=== PATIENT | female | born 1985 | race Caucasian/White ===

== ENCOUNTER 2024-02-17 11:27 | Outpatient (REF) | payer MEDICAID, SELFPAY ==
[2024-02-17 14:00] LABS: Alanine Aminotransferase 48 U/L (0-31); Alkaline Phosphatase 73 U/L (39-117); Anion Gap 10 (12-20); Aspartate Amino Transferase 25 U/L (5-31); Bilirubin Total 0.7 mg/dL (0.0-1.0); Blood Urea Nitrogen 9 mg/dL (9-16); Calcium 8.9 mg/dL (8.4-10.2); Carbon Dioxide 25 mmol/L (22-29); Chloride 105 mmol/L (96-108); Cholesterol 151 mg/dL (<200); Estimated Glomerular Filt Rate > 60; Gamma Glutamyl Transpeptidase 34 U/L (7-33); Glucose Random 90 mg/dL (60-115); HDL Cholesterol 49 mg/dL (>40); LDL Cholesterol Calculated 78 mg/dL (<100); Potassium 3.8 mmol/L (3.3-5.1); Sodium 136 mmol/L (135-145); TSH reflex Free T4 1.58 uIU/mL (0.32-4.0); Total Protein 7.5 g/dL (6.5-8.0); Triglycerides 120 mg/dL (<150); Vitamin D 25-OH Total 35.5 ng/mL (>30)
[2024-02-17 14:25] LABS: Reflex LDLD? No
[2024-02-18 08:43] LABS: HBS Num1 226.35 mIU/mL (0-7.99); HBc Num1 0.17 S/CO (0.00-0.79); Hepatitis A Antibody IgM 0.15 Index (0-0.79); Hepatitis B Core Antibody Nonreactive (Nonreactive); Hepatitis B Surface Antigen Negative (Negative); ~HepC Num1 0.18 S/CO (0.00-0.79); ~Hepatitis A Antibody IgM Nonreactive (Nonreactive); ~Hepatitis B Surface Antibody REACTIVE (Nonreactive); ~Hepatitis C Antibody Nonreactive (Nonreactive)
== END 2024-02-17 11:28 | disposition home or self-care (01) ==
LOC: HO.HHCL 11:27
PROVIDERS: Visit Provider Internal Medicine
DX: K76.0 Fatty (change of) liver, not elsewhere classified (principal); Z78.9 Other specified health status; F41.9 Anxiety disorder, unspecified
CPT/HCPCS: 36415; 80053; 80061; 82306; 82977; 84443; 86704; 86706; 86709; 86803; 87340

== ENCOUNTER 2024-03-07 10:18 | Outpatient (REF) | payer MEDICAID, SELFPAY ==
--- NOTE | ~2024-03-07 | MM_ITS ---
EXAMINATION: MM SCREENING DIGITAL BREAST TOMOSYNTHESIS, BILATERAL CLINICAL INFORMATION: Screening. Asymptomatic. COMPARISON: Mammography: Comparison is made with available priors TECHNIQUE: Digital breast mammography with tomosynthesis is performed in both the craniocaudal and mediolateral oblique views along with computer-aided detection (CAD). FINDINGS: There are scattered areas of fibroglandular density (ACR BI-RADS breast composition Category b). Left: There are no significant masses, abnormal calcifications, or other abnormalities. Right: Asymmetry superior breast posterior depth on the MLO view. No suspicious calcifications or other abnormal findings. MM/MM tomosynthesis screening BI IMPRESSION: Additional imaging is recommended ASSESSMENT: BI-RADS BI-RADS 0 - Incomplete: Needs additional Imaging. RECOMMENDATION: 1. Additional views of the right breast 2. Targeted ultrasound if warranted after review of the additional views. 3. Radiology department staff will contact the patient for additional imaging. Additional Imaging required This examination should not preclude the clinical evaluation of a suspicious palpable abnormality. This patient's information was entered into a reminder system with a target due date for their next mammogram. Electronically signed by: Danitza Ch DO 03/27/2024 09:35 AM EST
== END 2024-03-07 10:19 | disposition home or self-care (01) ==
LOC: HO.MAMMO 10:18
PROVIDERS: PCP Internal Medicine; Visit Provider Internal Medicine
DX: Z12.31 Encounter for screening mammogram for malignant neoplasm of breast (principal)
CPT/HCPCS: 77063; 77067

== ENCOUNTER → 2024-03-07 10:30 | Outpatient (BNV) | payer MEDICAID, SELFPAY | PROVIDERS: PCP Internal Medicine; Visit Provider Internal Medicine | DX: Z12.31 Encounter for screening mammogram for malignant neoplasm of breast (principal) | CPT/HCPCS: 77063; 77067 ==

== ENCOUNTER 2024-05-14 09:22 | Outpatient (REF) | payer MEDICAID, SELFPAY ==
--- NOTE | ~2024-05-14 | MM_ITS ---
EXAMINATION: MM DIAGNOSTIC DIGITAL BREAST TOMOSYNTHESIS, RIGHT Limited right breast ultrasound. CLINICAL INFORMATION: Call back from screening for asymmetry in the superior posterior right breast on MLO view. COMPARISON: Mammography: Comparison is made with screening March 07, 2024. No other prior examinations are available for comparison. TECHNIQUE: Digital breast tomosynthesis is performed in both the craniocaudal and mediolateral oblique views along with computer-aided detection (CAD). Synthesized 2D images are generated from the tomosynthesis. Limited right breast ultrasound. FINDINGS: There are scattered areas of fibroglandular density (ACR BI-RADS breast composition Category b). Except millimeter oval asymmetry in the superior posterior right breast on MLO view persists on additional imaging projections. No suspicious calcifications or other abnormal findings. Targeted color Doppler ultrasound scanning in the retroareolar region and superior breast from 10-2 o'clock demonstrates normal fibronodular breast tissue. There is no sonographic correlate for the asymmetry seen on MLO view. MM/MM tomosynthesis added views R IMPRESSION: Asymmetry superior breast posterior depth on MLO view without sonographic correlate. Recommend 6 month follow-up for further evaluation of stability. ASSESSMENT: BI-RADS BI-RADS 3 - Probably benign finding(s) - 6 month follow-up suggested RECOMMENDATION: 6 Month F/U Results were provided to the patient at time of visit by the technologist. This patient's information was entered into a reminder system with a target due date for their next mammogram. Electronically signed by: Danitza Ch DO 05/14/2024 10:27 AM MALINI
== END 2024-05-14 09:23 | disposition home or self-care (01) ==
LOC: HO.MAMMO 09:22
PROVIDERS: PCP Internal Medicine; Visit Provider Internal Medicine
DX: N64.89 Other specified disorders of breast (principal)
CPT/HCPCS: 76642; 77061; 77065

== ENCOUNTER → 2024-05-14 09:45 | Outpatient (BNV) | payer MEDICAID, SELFPAY | PROVIDERS: PCP Internal Medicine; Visit Provider Internal Medicine | DX: R92.321 Mammographic fibroglandular density, right breast (principal) | CPT/HCPCS: 76642; 77061; 77065 ==

== ENCOUNTER 2024-07-03 09:44 | Outpatient (REF) | payer MEDICAID, SELFPAY ==
--- NOTE | ~2024-07-03 | US_ITS ---
CLINICAL HISTORY: fatty liver ETOH use US abdomen complete Comparison: None Findings: The visualized pancreas is normal. The aorta and inferior vena cava are normal caliber. The appearance of the liver suggests fatty infiltration without focal lesion. There is no intrahepatic bile duct dilatation. The common duct is 3.0 mm in diameter. There are no abnormal findings in the gallbladder fossa. There is no sonographic Greenberg sign. The main portal vein is antegrade. The right kidney is 10.4 cm in length. The left kidney is 10.5 cm in length. The spleen is normal. No ascites. IMPRESSION: 1. Hepatic steatosis. This document has been electronically signed by: Cheo Marcos MD on 07/04/2024 08:55:19
--- OUTSIDE RECORDS SUMMARY | 2024-07-03 10:15 | XMS_ITS | Encounter Summary ---
Author Organization [employer] Address [address] [place] [address] 7 [place] [address] Care Team Providers Care Horticultural Farmworker Name Role Phone Pearl Figueroa MD Primary Care Provider + Reason for Visit * Reason Onset Date Comments Medication Question 12/12/2023 Encounter Details Date Type Department Care Team ([facility] st Contact Info) Description 12/12/2023 Telephone [facility] MEDICINE [address] [place] [address] Lisandro Ascencio MD [address] [place] [address] Medication Question Social History Tobacco Use Types Packs/Day Years Used Date Smoking Tobacco: Never Smokeless Tobacco: Never Comments Unknown Sex and Gender Information Value Date Recorded Sex Assigned at Female 11/08/2023 11:28 AM EDT Legal Sex Female 11:26 AM EDT Gender Identity Female 11/08/2023 11:28 AM EDT Sexual Orientation Don't know 11/08/2023 11 :28 AM EDT documented as of this encounter Miscellaneous Notes * Telephone Encounter - Tram Valdivia RN - 12/13/2023 11:29 AM EDT crisis manager in [employer] aware and message sent to provider regarding alternative. * Telephone Encounter - Antione W[address] - 12/12/2023 2:47 PM EDT Tc from pt requesting if PCP could prescribed and alternative for medication ciprofloxacin-dexAMETHasone (CiproDEX) otic suspension in the meantime of approval PA documented in this encounter Plan of Treatment Not on file documented as of this encounter Visit Diagnoses Not on filedocumented in this encounter Care Teams Horticultural Farmworker Relationship Specialty Start Date End Date Pearl Figueroa MD [address] [place] [address] PCP - General Internal Medicine 02/17/24 documented as of this encounter
--- OUTSIDE RECORDS SUMMARY | 2024-07-03 10:15 | XMS_ITS | Encounter Summary ---
Author Organization [facility] Address [address] [place] [address] Care Team Providers Care Residential Installer Name Role Phone Virgil Sharp MD Primary Care Provider [phone] Encounter Details Date Type Department Care Team Description 06/25/2016 Pt. Non Urgent Medical Question Adult Medicine [address] [address] Virgil Sharp MD [address] [place] [address] [phone] Social History Tobacco Use Types Packs/Day Years Used Date Smoking Tobacco: Never Smokeless Tobacco: Never Alcohol Use Standard Drinks/Week Comments No 0 (1 standard drink = 0.6 oz pur e alcohol) Sex Assigned at Date Recorded Female 12/29/2020 1:27 PM E DT documented as of this encounter Progress Notes * Lizzette Ayon M.A. - 06/25/2016 3:41 PM ESTFrom: Sharron Sandy To: Virgil Sharp MD Sent: 06/25/2016 3:39 PM EST Subject: Question regarding X-RAY OF CHEST I have a question about X-RAY OF CHEST resulted on 06/14/16 at 11:34 AM. I took all my antibiotics but still have the bad cough and lots of flem do i need something else ? documented in this encounter Plan of Treatment Not on file documented as of this encounter Visit Diagnoses Not on filedocumented in this encounter Care Teams Residential Installer Relationship Specialty Start Date End Date Virgil Sharp MD [address] [place] [address] PCP - General Internal Medicine 10/12/11 documented as of this encounter
--- OUTSIDE RECORDS SUMMARY | 2024-07-03 10:15 | XMS_ITS | Encounter Summary ---
Author Organization [facility] Address [address] [place] [address] Care Team Providers Care System Programmer Name Role Phone Virgil Sharp MD Primary Care Provider [phone] Encounter Details Date Type Department Care Team Description 07/17/2016 Manufacturing Systems Engineer Report Medical Records [address] [place] [id number] Zayda Bland Social History Tobacco Use Types Packs/Day Years Used Date Smoking Tobacco: Never Smokeless Tobacco: Never Alcohol Use Standard Drinks/Week Comments No 0 (1 standard drink = 0.6 oz pur e alcohol) Sex Assigned at Date Recorded Female 12/29/2020 1:27 PM E DT documented as of this encounter Plan of Treatment Not on file documented as of this encounter Visit Diagnoses Not on filedocumented in this encounter Care Teams System Programmer Relationship Specialty Start Date End Date Virgil Sharp MD [address] [place] [address] PCP - General Internal Medicine 10/12/11 documented as of this encounter
--- OUTSIDE RECORDS SUMMARY | 2024-07-03 10:15 | XMS_ITS | Encounter Summary ---
Author Organization [facility] Address [address] [place] [address] Care Team Providers Care Precise Winder Name Role Phone Virgil Sharp MD Primary Care Provider [phone] Encounter Details Date Type Department Care Team Description 09/27/2015 Character Impersonator Report Medical Records [address] [place] [address] Zayda Bland Social History Tobacco Use Types [...] on filedocumented in this encounter Care Teams Precise Winder Relationship Specialty Start Date End Date Virgil Sharp MD [address] [place] [address] PCP - General Internal Medicine 10/12/11 documented as of this encounter
--- OUTSIDE RECORDS SUMMARY | 2024-07-03 10:15 | XMS_ITS | Encounter Summary ---
Author Organization [facility] Address [address] [place] [address] Care Team Providers Care Fur Glazer Name Role Phone Virgil Sharp MD Primary Care Provider [phone] Encounter Details Date Type Department Care Team Description 05/26/2015 Pt. Non Urgent Medical Question Adult Medicine [address] [phone] Virgil Sharp MD [address] [place] [address] Social History Tobacco Use Types Packs/Day Years Used Date Smoking Tobacco: Never Smokeless Tobacco: Never Alcohol Use Standard Drinks/Week Comments No 0 (1 standard drink = 0.6 oz pur e alcohol) Sex Assigned at Date Recorded Female 12/29/2020 1:27 PM E DT documented as of this encounter Progress Notes * Zayda Paris C.M.A. - 05/26/2015 3:38 PM ESTFrom: Sharron Sandy To: Virgil Sharp MD Sent: 05/26/2015 1:50 PM EST Subject: Regarding the hepatitis results why some say positive im confused Confused about the hepatitis results why some say positive? documented in this encounter Plan of Treatment Not on file documented as of this encounter Visit Diagnoses Not on filedocumented in this encounter Care Teams Fur Glazer Relationship Specialty Start Date End Date Virgil Sharp MD [address] [place] [address] PCP - General Internal Medicine 10/12/11 documented as of this encounter
--- OUTSIDE RECORDS SUMMARY | 2024-07-03 10:15 | XMS_ITS | Encounter Summary ---
Author Organization [facility] Address [address] [place] [address] Care Team Providers Care Warehouse Administrator Name Role Phone Virgil Sharp MD Primary Care Provider [phone] Encounter Details Date Type Department Care Team Description 12/02/2019 Release of Information Medical Records [address] [place] [id number] Abstract, Provider Social History Tobacco Use Types Packs/Day Years [...] on filedocumented in this encounter Care Teams Warehouse Administrator Relationship Specialty Start Date End Date Virgil Sharp MD [address] [place] [address] PCP - General Internal Medicine 10/12/11 documented as of this encounter
--- OUTSIDE RECORDS SUMMARY | 2024-07-03 10:16 | XMS_ITS | Encounter Summary ---
Author Organization [employer] Address [address] [place] [address] Care Team Providers Care Wire Coater Name Role Phone Pearl Figueroa MD Primary Care Provider + Encounter Details Date Type Department Care Team (Latest Contact Info) Description 06/18/2024 Travel Social History Tobacco Use Types Packs/Day Years Used Date Smoking Tobacco: Never Smokeless Tobacco: Never Alcohol Use Standard Drinks/Week Comments Yes 5 (1 standard drink = 0.6 oz pur e alcohol) On weekends only Alcohol Answer Date Recorded Q1: How often do you have a drink containing alc ohol? 5 02/17/2024 Q2: How many drinks containi ng alcohol do you have on a typical day when you are drinking? 3 02/17/2024 Q3: How often do you have six or more drinks on one occasion? 4 02/17/2024 Housing Stability Answer Date Recorded What is your housing situation today? I have malcomeli harrell 02/07/[address] you li ve. Do you have problems with any of the following? None of the above 02/07/2024 Food Insecurity Answer Date Recorded Within the past 12 months, y ou worried that your food would run out before you got money to buy more: Never True 02/07/2024 Within the past 12 months,th e food you bought just didn't last and you didn't have enough money to get more: Never True Transportation Answer Date Recorded In the past 12 months, has l ack of transportation kept you from medical appts, meetings, work or from getting things needed for daily living? No 02/07/2024 Utilities Answer Date Recorded In the past 12 months, has t he [employer], [employer], oil or water company threatened to shut off services in your home? No 02/07/2024 Depression Answer Date Recorded Patient Health Questionnaire-2 Score 0 02/17/2024 Internet Access Answer Date Recorded Internet Access Q1 No 02/17/2024 Internet Access Q2 Not on file 02/17/2024 Comments Unknown Sex and Gender Information Value Date Recorded Sex Assigned at Female 11/08/2023 11:28 AM EDT Legal Sex Female 11:26 AM EDT Gender Identity Female 11/08/2023 11:28 AM EDT Sexual Orientation Don't know 11/08/2023 11 :28 AM EDT documented as of this encounter Plan of Treatment Not on file documented as of this encounter Visit Diagnoses Not on filedocumented in this encounter Care Teams Wire Coater Relationship Specialty Start Date End Date Pearl Figueroa MD [address] [place] [address] PCP - General Internal Medicine 02/17/24 documented as of this encounter
--- OUTSIDE RECORDS SUMMARY | 2024-07-03 10:16 | XMS_ITS | Encounter Summary ---
Author Organization [employer] Address [address] [facility] 7t [place] [address] Care Team Providers Care House Painting Instructor Name Role Phone Pearl Figueroa MD Primary Care Provider + Reason for Visit * Reason Onset Date Comments Results 06/25/2024 Encounter Details Date Type Department Care Team ([facility] st Contact Info) Description 06/25/2024 Telephone [facility] MEDICINE [address] [place], [place] [phone] Purnima Mac RN [address] [place] [address] Results Social History Tobacco Use Types Packs/Day Years [...] is your housing situation today? I have malcom harrell 02/07/[address] you [...] the past 12 months, has t he electric, gas, oil or water company threatened to shut [...] encounter Miscellaneous Notes * Telephone Encounter - Purnima Mac RN - 06/25/2024 4:25 PM EST Noted. Patient reports PCP did not discuss BW results at appointment on 06/18/24. RN discussed BW results with patient. Patient advised CBC is not a screening for gastric cancer however PCP has ordered CBC BW if patient would like to complete. Patient reports she will complete CBC BW. Patient advised she will receive a TC from [facility] once BW results are received. Patient denies concerns or s/s regarding gastric cancer at this time however was unsure if she should have screening d/t family history. Patient notified it is not routinely screened for however if patient develops s/s she should call [facility] for an appointment to discuss s/s. Patient verbalized understanding. Patient to f/u PRN. * Addendum Note - Pearl Figueroa MD - 06/25/2024 4:22 PM ESTAddended by: PEARL FIGUEROA on: 06/25/2024 04:22 PM Modules accepted: Orders * Telephone Encounter - Pearl Figueroa MD - 06/25/2024 4:19 PM EST Re labs, the results were d/w her at her appt on 06/18/24. She didn't have cbc done, however it is not a screening lab for gastric Ca (there's no Gastric Ca screen test so far in a general population). I can order one but if she has concern re gastric Ca, she should have an appt scheduled (with me or any available provider) * Telephone Encounter - Purnima Mac RN - 06/25/2024 3:32 PM EST Patient is calling in regards to hemoglobin and TSH BW results. Per chart review, last BW was on 02/17/24 and TSH was WNL however CBC was not ordered. It is unclear if hemoglobin is normal. Patient isrequesting the results d/t reporting increased hair loss and is concerned it is related to cancer (has family hx of stomach cancer). Patient would like BW ordered to check TSH and CBC per [employer] message: Hi I was wondering if my thyroids and my hemoglobin came out good in the blood work ?because my hair has been falling out a lot and if there???s a history of stomach cancer in the family should I get any tests done just Incase ?I forgot to tell you in my virtual appointment. Please advise. Thank you! ---- Message from Anne-Marie Ryan sent at 06/25/2024 2:56 PM EST ----- Sabine, this pt is requesting Hemo and thyroid results. Per pt PCP didn't mention these results on televisit. documented in this encounter Plan of Treatment Scheduled Orders Name Type Priority Associated Diagnoses Orde r Schedule CBC auto differential Lab Routine Fatty liver Expected: 06/25/2024 (Approximate), Expires: 06/25/2025 documented as of this encounter Visit Diagnoses Diagnosis Fatty liver- Primary Other chronic nonalcoholic liver disease documented in this encounter Care Teams House Painting Instructor Relationship Specialty Start Date End Date Pearl Figueroa MD [address] [place] [address] PCP - General Internal Medicine 02/17/24 documented as of this encounter
--- OUTSIDE RECORDS SUMMARY | 2024-07-03 10:16 | XMS_ITS | Clinical Summary ---
Author Organization [facility] Address [address] [place] [address] Care Team Providers Care Computer Patternmaker Name Role Phone Virgil Sharp MD Primary Care Provider [phone] Allergies No known active allergies Medications Medication Sig Dispensed Refills Start Date End Date Status fexofenadine (SILVIO ALLERGY) 180 MG tabletIndications:Sore throat,Chronic cough Take 1 Tab by mouth daily. 30 Tab 12 10/15/2019 Active omeprazole (PRILOSEC) 40 MG capsule Take 1 Cap by mouth daily. 90 Cap 1 12/14/2019 Active Active Problems Problem Noted Date Post-nasal drip 10/22/2019 Throat irritation 10/22/2019 Cervical high risk HPV (human papillomav irus) test positive 04/30/2019 Overview: 04/22/2019 Normal papsmear HR HPV neg for 16/18/45 Obesity (BMI 30.0-34.9) 09/16/2018 GERD (gastroesophageal reflux disease) 1 07/03/2015 Fatty liver disease, nonalcoholic 2013 Immunizations Name Administration Dates Next Due Influenza (> 6 Months) 03/05/2018,04/01/2012 Influenza Vaccine-preservati ve Free-quadrivalent 4 Years 06/15/2019 Pneumoccoccal(Adult) Polysaccharide PPSV23 06/11 Tdap 01/08/2017 Family History Medical History Relation Name Comments Eczema Daughter seasonal allergies Daughter Diabetes Maternal Grandmother Hypertension Maternal Grandmother Thyroid Disorder Maternal Grandmother Thyroid Disorder Mother Blindness Negative Hx Cataract Negative Hx Glaucoma Negative Hx Macular Degeneration Negative Hx Strabismus Negative Hx Relation Name Status Comments Daughter Maternal Grandmother Mother Social History Tobacco Use Types Packs/Day Years Used Date Smoking Tobacco: Never Smokeless Tobacco: Never Alcohol Use Standard Drinks/Week Comments No 0 (1 standard drink = 0.6 oz pur e alcohol) Sex Assigned at Date Recorded Female 12/29/2020 1:27 PM E DT Last Filed Vital Signs Vital Sign Reading Time Taken Comments Blood Pressure 114/78 12/14/2019 10:52 AM EDT Pulse 68 12/14/2019 10:52 AM EDT Temperature 37.2 ??C (98.9 ??F) 12/14/2019 10:52 AM E DT Respiratory Rate 12 12/14/2019 10:52 AM EDT Oxygen Saturation 98% 10/15/2019 10:40 AM EDT Inhaled Oxygen Concentration - - Weight 85.7 kg (189 lb) 12/14/2019 10:52 AM EDT Height 162.6 cm (5' 4 ) 12/14/2019 10:52 AM EDT Body Mass Index 32.44 12/14/2019 10:52 AM EDT Plan of Treatment Health Maintenance Due Date Last Done Comments Covid-19 Vaccine (#1) 1983 CERVICAL CANCER SCREENING 04/22/20202018, 08/18/2014 (Completed) BASELINE HEALTH EXAM 40-64 04/12/202306/15, 06/15/2019, 06/11/2018, Additional history exists MAMMOGRAM 2023 INFLUENZA (#1) 2024 06/15/2019, 02/17, 03/05/2018, Additional history exists BMI CHECK/ADVISE 05/20/2024 06/15/2019, 08/2018, 03/06/2019, Additional history exists DEPRESSION SCREENING/FOLLOWUP 05/20/2024 12/10/2019 SOCIAL NEEDS SCREENING 05/20/2024 12/10/2019, 2018 CHOLESTEROL SCREENING 06/15/2024 06/15/2019 , 06/16/2018, 01/08/2017, Additional history exists DTAP/TDAP/TD (2 - Td or Tdap) 01/08/2027 01/08/2017 PNEUMOCOCCAL VACCINE FOR HIG H RISK PATIENTS (#2) 2048 06/11/2018 Care Teams Computer Patternmaker Relationship Specialty Start Date End Date Virgil Sharp MD [address] [place] [address] PCP - General Internal Medicine 10/12/11
--- OUTSIDE RECORDS SUMMARY | 2024-07-03 10:16 | XMS_ITS | Encounter Summary ---
Author Organization [employer] Address [address] [facility] 7t [place] [address] Care Team Providers Care Pot Runner Name Role Phone Pearl Figueroa MD Primary Care Provider + Reason for Visit * Reason Comments Pre-visit Planning SDOH unable to reach LVM Encounter Details Date Type Department Care Team ([facility] st Contact Info) Description 06/10/2024 Patient Outreach [facility] [address] [place], [place] [phone] Pearl Figueroa MD [address] [place] [address] Pre-visit Planning (SDOH unable to reach LVM) Social History Tobacco Use Types Packs/Day Years [...] AM EDT documented as of this encounter Progress Notes * Rosa Crawford - 06/10/2024 4:34 PM EST CC Rosa Martinez placed outbound call to patient to complete pre-visit planning. No answer at this time. Patient name and were not confirmed. CC left voicemail requesting return call. Direct contactinformation provided. documented in this encounter Plan of Treatment Not on file documented as of this encounter Visit Diagnoses Not on filedocumented in this encounter Care Teams Pot Runner Relationship Specialty Start Date End Date Pearl Figueroa MD [address] [place] [address] PCP - General Internal Medicine 02/17/24 documented as of this encounter
--- OUTSIDE RECORDS SUMMARY | 2024-07-03 10:16 | XMS_ITS | Encounter Summary ---
Author Organization [employer] Address [address] [place] [address] Care Team Providers Care Wind Commissioning Technician Name Role Phone Pearl Figueroa MD Primary Care Provider + Encounter Details Date Type Department Care Team ([facility] st Contact Info) Description 06/25/2024 Telephone [facility] MEDICINE [address] [place] [address] Pearl Figueroa MD [address] [place] [address] Social History Tobacco Use Types Packs/Day Years [...] encounter Miscellaneous Notes * Telephone Encounter - Anne-Marie Ryan MA - 06/25/2024 2:47 PM EST Tc to pt to schedule requested appt. Pt wants Hep B vaccine, advised pt to go to our vaccine clinic. Pt also requested thyroid, and hemoglobin results. Will message nurses. documented in this encounter Plan of Treatment Not on file documented as of this encounter Visit Diagnoses Not on filedocumented in this encounter Care Teams Wind Commissioning Technician Relationship Specialty Start Date End Date Pearl Figueroa MD [address] [place] [address] PCP - General Internal Medicine 02/17/24 documented as of this encounter
--- OUTSIDE RECORDS SUMMARY | 2024-07-03 10:16 | XMS_ITS | Encounter Summary ---
Author Organization [facility] Address [address] [place] [address] Care Team Providers Care Electron Tube Assembler Name Role Phone Virgil Sharp MD Primary Care Provider [phone] Reason for Visit * Reason Onset Date Comments immunizations 09/07/2013 Encounter Details Date Type Department Care Team Description 09/07/2013 Telephone Adult Medicine [address] [phone] Virgil Sharp MD [address] [place] [address] [phone] immunizations Social History Tobacco Use Types Packs/Day Years Used Date Smoking Tobacco: Never Smokeless Tobacco: Never Alcohol Use Standard Drinks/Week Comments No 0 (1 standard drink = 0.6 oz pur e alcohol) Sex Assigned at Date Recorded Female 12/29/2020 1:27 PM E DT documented as of this encounter Miscellaneous Notes * Telephone Encounter - Susan Dela CruzPRedNRed - 09/07/2013 4:11 PM EDT Please schedule pt at her convenience, thanks * Telephone Encounter - Cheo Eldridge PA-C - 09/07/2013 3:46 PM EDT TDaP immunization ordered. Please notify patient. ziyad * Telephone Encounter - Mandy Dai - 09/07/2013 1:53 PM EDT Patient would like to know if she you can place an order for a tetanus. Patient said she received amessage through my chart that she is due for this. Please advise. documented in this encounter Plan of Treatment Not on file documented as of this encounter Visit Diagnoses Diagnosis Need for prophylactic vaccination with combined jxzezqwrow-[id number] (DTP) vaccine- Primary documented in this encounter Care Teams Electron Tube Assembler Relationship Specialty Start Date End Date Virgil Sharp MD [address] [place] [id number] PCP - General Internal Medicine 10/12/11 documented as of this encounter
--- OUTSIDE RECORDS SUMMARY | 2024-07-03 10:16 | XMS_ITS | Encounter Summary ---
Author Organization [employer] Address [address] [place] [address] Care Team Providers Care Frame Bander Name Role Phone Pearl Figueroa MD Primary Care Provider + Encounter Details Date Type Department Care Team (Latest Contact Info) Description 06/26/2024 Travel Social History Tobacco Use Types Packs/Day [...] the past 12 months, has t he [employer], oil or water company threatened to shut [...] on filedocumented in this encounter Care Teams Frame Bander Relationship Specialty Start Date End Date Pearl Figueroa MD [address] [place] [id number] PCP - General Internal Medicine 02/17/24 documented as of this encounter
--- OUTSIDE RECORDS SUMMARY | 2024-07-03 10:16 | XMS_ITS | Encounter Summary ---
Author Organization [employer] Address [address] [facility] [address] [place] [address] Care Team Providers Care Finisher Fine Diamond Dies Name Role Phone Pearl Figueroa MD Primary Care Provider + Reason for Referral * Consultation (Routine) - Authorized Specialty Diagnoses / Procedures Referred By Contabigail t Referred To Contact Obstetrics and Gynecology Diagnoses History of HPV infection Pearl Figueroa MD [address] [place] [phone] Phone: tel: fax: [facility] [address] (Main Hospital Entrance) [place], [place] Phone: tel: fax: Referral ID Status Reason Start Date Expiration Date Visits Requested Visits Authorized [id number] Authorized Specialty Services Required 06/19/2024 06/19/2025 9 9 Encounter Details Date Type Department Care Team (Late st Contact Info) Description 06/18/2024 12:00 PM EST Telemedicine [facility] [address] [place] [address] [phone] Pearl Figueroa MD [address] [place] [address] [phone] Fatty liver (Primary Dx); Recurrent major depressive disorder, in partial remission (CMS/HCC); History of HPV infection; Back pain, unspecified back location, unspecified back pain laterality, unspecified chronicity Social History Tobacco Use Types Packs/Day Years [...] as of this encounter Progress Notes * Pearl Figueroa MD - 06/18/2024 12:00 PM EST SUBJECTIVE: Sharron Sandy is a 39 y.o. year old female who presents for follow up. Denies recent illness,injury, or hospitalization. Patient today on a telehealth visit for fu on labs. Mammogram on 05/14/24 showed right benign lesion/birads 3. Labs on 02/17/24 showed high LFTs, otherwise normal lipids, TSH, and she is Hep B immune, otherwise negative hepatitis profile, GGT was high as well. She is doing well overall, her daughter is sick at home with a GI virus. She received the referral for PT and has an appointment scheduled. She also received the referral for the psychotherapist but there was a copayment cost that is not fully covered by her insurance. She has an appointment with optometry in June of 2024. Her last menstrual period was 06/08/24. She has not made an appointment with [facility] for a pap smear yet. She is not on an control, as he her had a vasectomy a few years ago. Acute Concerns: Social History Social History Narrative Not on file Patient Active Problem List Diagnosis Fatty liver Recurrent major depressive disorder, in partial remission (CMS/HCC) Alcohol use Screening mammogram for breast cancer Anxiety History of HPV infection Back pain No family history on file. Review of Systems Constitutional: Negative for chills, fatigue and fever. HENT: Negative for congestion, ear pain, nosebleeds, rhinorrhea, sinus pressure, sore throat and trouble swallowing. Eyes: Negative for pain and discharge. Respiratory: Negative for cough, chest tightness and shortness of breath. Cardiovascular: Negative for chest pain, palpitations and leg swelling. Gastrointestinal: Negative for abdominal pain, blood in stool, constipation, diarrhea and nausea. Endocrine: Negative for polydipsia and polyuria. Genitourinary: Negative for dysuria, frequency, genital sores, pelvic pain and vaginal discharge. Musculoskeletal: Positive for back pain. Negative for neck pain. Skin: Negative for rash. Allergic/Immunologic: Negative for environmental allergies. Neurological: Negative for dizziness, seizures, weakness, light-headedness and headaches. Hematological: Negative for adenopathy. Psychiatric/Behavioral: Negative for agitation, behavioral problems, self-injury and suicidal ideas. OBJECTIVE: There were no vitals filed for this visit. Physical Exam Constitutional: Appearance: Normal appearance. HENT: Right Ear: Tympanic membrane and ear canal normal. Left Ear: Tympanic membrane and ear canal normal. Mouth/Throat: Mouth: Mucous membranes are moist. Pharynx: No oropharyngeal exudate or posterior oropharyngeal erythema. Eyes: Pupils: Pupils are equal, round, and reactive to light. Cardiovascular: Rate and Rhythm: Normal rate and regular rhythm. Heart sounds: No murmur heard. Pulmonary: Breath sounds: Normal breath sounds. No wheezing. Abdominal: General: Bowel sounds are normal. Palpations: Abdomen is soft. Tenderness: There is no abdominal tenderness. Musculoskeletal: General: No tenderness. Normal range of motion. Cervical back: Normal range of motion. No tenderness. Skin: General: Skin is warm. Neurological: General: No focal deficit present. Mental Status: She is alert and oriented to person, place, and time. Psychiatric: Mood and Affect: Mood normal. Problem List Items Addressed This Visit Fatty liver - Primary Most likely related to Hx of alcohol use and overweight. Advised to cut down on alcohol and weight reduction. She is Hepatitis B immune. FU results of liver US and FU LFTs in 6 months. Recurrent major depressive disorder, in partial remission (CMS/HCC) Pt is unable to afford copayment at psychotherapy place, I will contact and have them reach out to pt for other options completely covered by insurance. History of HPV infection Needs repeated pap smear, will refer to [facility] SALES [facility]OR incase she needs colposcopy. Relevant Orders Referral to Gynecology Back pain Pt will start PT next month. Follow Up: Current Outpatient Medications on File Prior to Visit Medication Sig Dispense Refill cyclobenzaprine (Flexeril) 10 MG tablet Take 1 tablet (10 mg) by mouth 2 times daily for 10 days. 20 tablet 0 fluticasone (Flonase) 50 MCG/ACT nasal spray SPRAY 2 SPRAYS INTO EACH NOSTRIL ONCE A DAY. SHAKE GENTLY. BEFORE FIRST USE, PRIME PUMP. AFTER USE, CLEAN TIP AND REPLACE CAP. 48 mL 0 loratadine (Claritin) 10 MG tablet Take 1 tablet (10 mg) by mouth Once per day. 30 tablet 11 No current facility-administered medications on file prior to visit. Adrianna Paredes, am serving as a scribe to document services personally performed by Dr. Pearl Figueroa, based on the patient's response to questions by provider and provider's statements to me. documented in this encounter Miscellaneous Notes * Assessment & Plan Note - Adrianna Petty 06/18/2024 1:15 PM ESTAssociated Problem(s): History of HPV infection Needs repeated pap smear, will refer to [facility] SALES ADVISOR incase she needs colposcopy. * Assessment & Plan Note - Adrianna Rojas - 06/18/2024 1:14 PM ESTAssociated Problem(s): Back pain Pt will start PT next month. * Assessment & Plan Note - Adrianna Rojas - 06/18/2024 1:14 PM ESTAssociated Problem(s): Recurrent major depressive disorder, in partial remission (CMS/HCC) Pt is unable to afford copayment at psychotherapy place, I will contact and have them reach out to pt for other options completely covered by insurance. * Assessment & Plan Note - Adrianna Rojas - 06/18/2024 1:13 PM ESTAssociated Problem(s): Fatty liver Most likely related to Hx of alcohol use and overweight. Advised to cut down on alcohol and weight reduction. She is Hepatitis B immune. FU results of liver US and FU LFTs in 6 months. documented in this encounter Plan of Treatment Scheduled Referrals Name Type Priority Associated Diagnoses Order Schedule Referral to Gynecology Outpatient Referral Routine History of HPV infection Expected: 06/19/2024 (Approximate), Expires: 06/18/2025 documented as of this encounter Visit Diagnoses Diagnosis Fatty liver- Primary Other chronic nonalcoholic liver disease Recurrent major depressive disorder, in partial remission (CMS/HCC) History of HPV infection Back pain, unspecified back location, unspecified back pain laterality, unspecified chronicity documented in this encounter Care Teams Finisher Fine Diamond Dies Relationship Specialty Start Date End Date Pearl Figueroa MD [address] [place] [id number] PCP - General Internal Medicine 02/17/24 documented as of this encounter
--- OUTSIDE RECORDS SUMMARY | 2024-07-03 10:16 | XMS_ITS | Clinical Summary ---
Author Organization [employer] Address [address] [facility] [address] [place] [address] Care Team Providers Care Maintenance And Engineering Manager Name Role Phone Pearl Figueroa MD Primary Care Provider + Allergies No known active allergies Medications * This document contains information received from the source organization and may not represent a complete record from that organization. loratadine (Claritin) 10 MG tablet Take 1 tablet (10 mg) by mouth Once per day. 30 tablet 12/11/2023 Active fluticasone (Flonase) 50 MCG/ACT nasal spray SPRAY 2 SPRAYS INTO EACH NOSTRIL ONCE A DAY. SHAKE GENTLY. BEFORE FIRST USE, PRIME PUMP. AFTER USE, CLEAN TIP AND REPLACE CAP. 48 mL 01/07/2024 Active cyclobenzaprine (Flexeril) 10 MG tablet Take 1 tablet (10 mg) by mouth 2 times daily for 10 days. 20 tablet 05/27/2024 Active Active Problems Problem Noted Date Diagnosed Date History of HPV infection 06/18/2024 Assessment & Plan (06/18/2024 1:15 PM EST): Needs repeated pap smear, will refer to DIRECTOR OF ASSESSMENT incase she needs colposcopy. Back pain 06/18/2024 Assessment & Plan (06/18/2024 1:14 PM EST): Pt will start PT next month. Fatty liver 02/17/2024 Assessment & Plan (06/18/2024 1:13 PM EST): Most likely related to Hx of alcohol use and overweight. Advised to cut down on alcohol and weight reduction. She is Hepatitis B immune. FU results of liver US and FU LFTs in 6 months. Assessment & Plan (02/17/2024 11:21 AM EDT): Advised to cut down to off ETOH use. Advised re weight reduction. We'll order labs and US and fu in 2mo Recurrent major depressive disorder, in partial remission 02/17/2024 Assessment & Plan (06/18/2024 1:14 PM EST): Pt is unable to afford copayment at psychotherapy place, I will contact and have them reach out to pt for other options completely covered by insurance. Alcohol use 02/17/2024 Assessment & Plan (02/17/2024 11:24 AM EDT): On weekends Advised to cur down to Off We'll aim to rx anxiety and then work on AUD if needed. Order LFTs and hepatitis profile. Will have Influenza IZ today, advised to have Covid booster at earliest con kathie. Screening mammogram for breast cancer 02/17/2024 Anxiety 02/17/2024 Assessment & Plan (02/17/2024 11:23 AM EDT): For many years. We'll refer to . FU in 2m with labs and see if she wants to start other meds. She feels safe at home and is able to reach out for safety. Encounters * This document contains information received from the source organization and may not represent a complete record from that organization. Date Type Department Care Team Description 06/26/2024 Travel 06/25/2024 Telephone [facility] [address] [place] [address] Purnima Mac, RN Results 06/25/2024 Telephone [facility] [address] [place] [address] Pearl Figueroa MD 06/18/2024 12:00 PM EST Telemedicine [facility] [address] [place] [address] Pearl Figueroa MD Fatty liver (Primary Dx); Recurrent major depressive disorder, in partial remission (CMS/HCC); History of HPV infection; Back pain, unspecified back location, unspecified back pain laterality, unspecified chronicity 06/18/2024 Travel 06/10/2024 Patient Outreach [facility] [address] [place] [address] Pearl Figueroa MD Pre-visit Planning (SDOH unable to reach [facility]) 05/27/2024 9:00 AM EST Office Visit [facility] [address], [place] [phone] Shabana Garcia MD Acute bilateral thoracic back pain (Primary Dx) 05/14/2024 Orders Only [facility] [address] [place] [address] Pearl Figueroa MD from Last 3 Months Immunizations Name Administration Dates Next Due Influenza Injectable Quadriv alant Preservative Free IIV4 MDCK 06/15/2019,03/05/2018 Influenza injectable quadrivalent preservative f ree 05/10/2021,07/05/2017 Influenza, IIV3, injectable 04/01/2012 Influenza, seasonal, injectable, preservative fr ee 02/17/2024,04/01/2012 Pneumococcal Polysaccharide PPSV23 06/11/2018 Tdap 01/08/2017 Social History Tobacco Use Types Packs/Day Years Used Date Smoking Tobacco: Never Smokeless Tobacco: Never Tobacco Cessation:Counseling Given: Not Answered Alcohol Use Standard Drinks/Week Comments Yes 5 [...] Don't know 11/08/2023 11 :28 AM EDT Last Filed Vital Signs Vital Sign Reading Time Taken Comments Blood Pressure 140/78 05/27/2024 9:07 AM EST Pulse 75 05/27/2024 9:07 AM EST Temperature 36.7 ??C (98.1 ??F) 05/27/2024 9:07 AM ES T Respiratory Rate 16 05/27/2024 9:07 AM EST Oxygen Saturation 98% 05/27/2024 9:07 AM EST Inhaled Oxygen Concentration - - Weight 87.1 kg (192 lb) 05/27/2024 9:07 AM EST Height 162.6 cm (5' 4 ) 02/17/2024 10:42 AM EDT Body Mass Index 32.96 02/17/2024 10:42 AM EDT Plan of Treatment Health Maintenance Due Date Last Done Comments HIV Screening 1985 Hepatitis A Vaccines (1 of 2 - Risk 2-dose series) 2002 Hepatitis B Vaccines (1 of 3 - 19+ 3-dose series) 2002 Pap Smear 2004 Cervical Cancer Screening 2013 HPV/Cotest 2013 COVID-19 Vaccine ( season) 2024 Diagnostic Breast Imaging 11/12/2024 05/14/2024 Mammogram 11/12/2024 05/14/2024, 03/07/2024 Alcohol/Substance Use Screening 02/16/2025 02/17/2024 Depression Screening 02/16/2025 02/17/2024, 02/17/20 Family Planning (PISQ) 02/16/2025 02/17/2024 SDOH Screening 02/16/2025 02/17/2024 Tobacco Screening 02/16/2025 02/17/2024 DTaP/Tdap/Td Vaccines (2 - Td or Tdap) 01/08/2027 01/08/2017 Zoster Vaccines (1 of 2) 2033 RSV Patients and Patients Aged 60 years or older (1 - 1-dose 75+ series) 2058 Pneumococcal Vaccine: Pediatrics (0 to 5 Years) and At-Risk Patients (6 to 49) Years) Aged Out 06/11/2018 No longer eligible based on patient's age to complete this topic Hepatitis C Screening Completed 02/17/2024 Influenza Vaccine Completed 02/17/2024, , 06/15/2019, Additional history exists HIB Vaccines Aged Out No longer eligi ble based on patient's age to complete this topic HPV Vaccines Aged Out No longer eligi ble based on patient's age to complete this topic IPV Vaccines Aged Out No longer eligi ble based on patient's age to complete this topic Meningococcal Vaccine Aged Out No carmelo maria e eligible based on patient's age to complete this topic RSV under 20 months Aged Out No longe r eligible based on patient's age to complete this topic Rotavirus Vaccines Aged Out No longer eligible based on patient's age to complete this topic Procedures Procedure Name Priority Date/Time Associated Diagnosis Comments BI US BREAST LIMITED RIGHT Routine 05/14/2024 10:15 AM EST BI MAMMOGRAM DIAGNOSTIC TOMOSYNTHESIS ADDED VIEW RIGHT Routine 05/14/2024 9:45 AM EST HEPATITIS PANEL, GENERAL Routine 02/17/2024 11:30 AM EDT Alcohol use from Last 3 Months or Most Recently Relevant to Health Maintenance Results * BI US Breast Limited Right (05/14/2024 10:15 AM EST) Anatomical Region Laterality Modality Breast Right Ultrasound 05/14/2024 10:1 5 AM EST Narrative 05/14/2024 10:30 AM EST ? [facility] ? [address] ?[place], [place] [address] ? Ultrasound Report ? Signed ? Patient: Sharron Yang ?MR#: [id number] ?? [id number] ? : 1985 ?Acct:[id number] ? Age/Sex: 39 / F ?ADM Date: 05/14/24 ? Loc: HO.MAMMO ? Attending Dr: Pearl Figueroa MD ? Ordering Physician: Pearl Figueroa MD ?? Date of Service: 05/14/24 ?? Procedure(s): US breast RT limited mamm only ?? Accession Number(s): [id number] ? cc: Pearl Figueroa MD ? EXAMINATION: ?? MM DIAGNOSTIC DIGITAL BREAST TOMOSYNTHESIS, RIGHT ? Limited right breast ultrasound. ?? CLINICAL INFORMATION: ? Call back from screening for asymmetry in the superior posterior right ?? breast on MLO view. ? COMPARISON: ?? Mammography: Comparison is made with screening March 07, 2024. No ?? other prior examinations are available for comparison. ? TECHNIQUE: ?? Digital breast tomosynthesis is performed in both the craniocaudal and ?? mediolateral oblique views along with computer-aided detection (CAD). ?? Synthesized 2D images are generated from the tomosynthesis. ? Limited right breast ultrasound. ? FINDINGS: ?? There are scattered areas of fibroglandular density (ACR BI-RADS breast ?? composition Category b). ?? Except millimeter oval asymmetry in the superior posterior right breast ?? on MLO view persists on additional imaging projections. No suspicious ?? calcifications or other abnormal findings. ? Targeted color Doppler ultrasound scanning in the retroareolar region ?? and superior breast from 10-2 o'clock demonstrates normal fibronodular ?? breast tissue. There is no sonographic correlate for the asymmetry seen ?? on MLO view. ? US/US breast RT limited mamm only ?? IMPRESSION: ?? Asymmetry superior breast posterior depth on MLO view without ?? sonographic correlate. Recommend 6 month follow-up for further ?? evaluation of stability. ? ASSESSMENT: ? BI-RADS BI-RADS 3 - Probably benign finding(s) - 6 month follow-up ?? suggested ? RECOMMENDATION: ?? 6 Month F/U ? Results were provided to the patient at time of visit by the ?? technologist. ? This patient's information was entered into a reminder system with a ?? target due date for their next mammogram. ? Electronically signed by: ??Danitza Ch DO ??05/14/2024 10:27 AM EST ? Dictated By: ?Danitza Ch DO ? Signed By: ?<Electronically signed by Danitza Ch, DO in OV> ? 05/14/24 1027 ? DD/ 1015 ? TD/TT: 05/14/24 1021 ? Tobacco Prizer: ? Procedure Note [place], Image - 05/18/2024 [facility] [address] [place], [place] [address] Ultrasound Report Signed Patient: Imtiaz Yang#: [id number] : 1985Acct:[id number] Age/Sex: 39 / FADM Date: 05/14/24 Loc: HO.MAMMO Attending Dr: Pearl Figueroa MD Ordering Physician: Pearl Figueroa MD Date of Service: 05/14/24 Procedure(s): breast RT limited mamm only Accession Number(s): [id number] cc: Pearl Figueroa MD EXAMINATION: MM DIAGNOSTIC DIGITAL BREAST TOMOSYNTHESIS, RIGHT Limited right breast ultrasound. CLINICAL INFORMATION: Call back from screening for asymmetry in the superior posterior right breast on MLO view. COMPARISON: Mammography: Comparison is made with screening March 07, 2024. No other prior examinations are available for comparison. TECHNIQUE: Digital breast tomosynthesis is performed in both the craniocaudal and mediolateral oblique views along with computer-aided detection (CAD). Synthesized 2D images are generated from the tomosynthesis. Limited right breast ultrasound. FINDINGS: There are scattered areas of fibroglandular density (ACR BI-RADS breast composition Category b). Except millimeter oval asymmetry in the superior posterior right breast on MLO view persists on additional imaging projections. No suspicious calcifications or other abnormal findings. Targeted color Doppler ultrasound scanning in the retroareolar region and superior breast from 10-2 o'clock demonstrates normal fibronodular breast tissue. There is no sonographic correlate for the asymmetry seen on MLO view. US/US breast RT limited mamm only IMPRESSION: Asymmetry superior breast posterior depth on MLO view without sonographic correlate. Recommend 6 month follow-up for further evaluation of stability. ASSESSMENT: BI-RADS BI-RADS 3 - Probably benign finding(s) - 6 month follow-up suggested RECOMMENDATION: 6 Month F/U Results were provided to the patient at time of visit by the technologist. This patient's information was entered into a reminder system with a target due date for their next mammogram. Electronically signed by: Danitza Ch DO 05/14/2024 10:27 AM EST Dictated By: Danitza Ch DO Signed By: <Electronically signed by Danitza Ch DO in OV> 05/14/24 1027 DD/ 1015 TD/TT: 05/14/24 1021 Tobacco Prizer: us Pearl Figueroa MD IMG US PROCEDURES Final Result * BI Mammogram Diagnostic Tomosynthesis added right (05/14/2024 9:45 AM EST) Anatomical Region Laterality Modality Breast Left Mammography 05/14/2024 9:45 AM EST Narrative 05/14/2024 10:30 AM EST ? [facility] ? [address] ?[place] [address] ? Mammography Report ? Signed ? Patient: Miller Sandy,Sharron ?MR#: [id number] ?? [id number] ? : 1985 ?Acct:[id number] ? Age/Sex: 39 / F ?ADM Date: 12/26/24 ? Loc: HO.MAMMO ? Attending Dr: Pearl Figueroa MD ? Ordering Physician: Pearl Figueroa MD ?Results: 3.6MProbably Benign Finding - Short 6 M F/U ?? Suggested ? Date of Service: 05/14/24 ?Follow Up: 6 Month F/U ? Procedure(s): MM tomosynthesis added views R ?? Accession Number(s): [id number] ? cc: Pearl Figueroa MD ? EXAMINATION: ?? MM DIAGNOSTIC DIGITAL BREAST TOMOSYNTHESIS, RIGHT ? Limited right breast ultrasound. ?? CLINICAL INFORMATION: ? Call back from screening for asymmetry in the superior posterior right ?? breast on MLO view. ? COMPARISON: ?? Mammography: Comparison is made with screening March 07, 2024. No ?? other prior examinations are available for comparison. ? TECHNIQUE: ?? Digital breast tomosynthesis is performed in both the craniocaudal and ?? mediolateral oblique views along with computer-aided detection (CAD). ?? Synthesized 2D images are generated from the tomosynthesis. ? Limited right breast ultrasound. ? FINDINGS: ?? There are scattered areas of fibroglandular density (ACR BI-RADS breast ?? composition Category b). ?? Except millimeter oval asymmetry in the superior posterior right breast ?? on MLO view persists on additional imaging projections. No suspicious ?? calcifications or other abnormal findings. ? Targeted color Doppler ultrasound scanning in the retroareolar region ?? and superior breast from 10-2 o'clock demonstrates normal fibronodular ?? breast tissue. There is no sonographic correlate for the asymmetry seen ?? on MLO view. ? MM/MM tomosynthesis added views R ?? IMPRESSION: ?? Asymmetry superior breast posterior depth on MLO view without ?? sonographic correlate. Recommend 6 month follow-up for further ?? evaluation of stability. ? ASSESSMENT: ? BI-RADS BI-RADS 3 - Probably benign finding(s) - 6 month follow-up ?? suggested ? RECOMMENDATION: ?? 6 Month F/U ? Results were provided to the patient at time of visit by the ?? technologist. ? This patient's information was entered into a reminder system with a ?? target due date for their next mammogram. ? Electronically signed by: ??Danitza Ch DO ??05/14/2024 10:27 AM EST ? Dictated By: ?Danitza Ch DO ? Signed By: ?<Electronically signed by Danitza Ch, DO in OV> ? 05/14/24 1027 ? DD/ 0945 ? TD/TT: 05/14/24 1001 ? Tobacco Prizer: ? Procedure Note Faye, Image - 05/14/2024 [place] [facility] [address] [place] [address] Mammography Report Signed Patient: Imtiaz Yang#: [id number] : 1985Acct:[id number] Age/Sex: 39 / FADM Date: 05/14/24 Loc: [facility] Attending Dr: Pearl Figueroa MD Ordering Physician: Pearl Figueroa MD Results: 3.6MProbably Benign Finding - Short 6 M F/U Suggested Date of Service: 05/14/24Follow Up: 6 Month F/U Procedure(s): MM tomosynthesis added views R Accession Number(s): [id number] cc: Pearl Figueroa MD EXAMINATION: MM DIAGNOSTIC DIGITAL BREAST TOMOSYNTHESIS, RIGHT Limited right breast ultrasound. CLINICAL INFORMATION: Call back from screening for asymmetry in the superior posterior right breast on MLO view. COMPARISON: Mammography: Comparison is made with screening March 07, 2024. No other prior examinations are available for comparison. TECHNIQUE: Digital breast tomosynthesis is performed in both the craniocaudal and mediolateral oblique views along with computer-aided detection (CAD). Synthesized 2D images are generated from the tomosynthesis. Limited right breast ultrasound. FINDINGS: There are scattered areas of fibroglandular density (ACR BI-RADS breast composition Category b). Except millimeter oval asymmetry in the superior posterior right breast on MLO view persists on additional imaging projections. No suspicious calcifications or other abnormal findings. Targeted color Doppler ultrasound scanning in the retroareolar region and superior breast from 10-2 o'clock demonstrates normal fibronodular breast tissue. There is no sonographic correlate for the asymmetry seen on MLO view. MM/MM tomosynthesis added views R IMPRESSION: Asymmetry superior breast posterior depth on MLO view without sonographic correlate. Recommend 6 month follow-up for further evaluation of stability. ASSESSMENT: BI-RADS BI-RADS 3 - Probably benign finding(s) - 6 month follow-up suggested RECOMMENDATION: 6 Month F/U Results were provided to the patient at time of visit by the technologist. This patient's information was entered into a reminder system with a target due date for their next mammogram. Electronically signed by: Danitza Ch DO 05/14/2024 10:27 AM [facility] [place] [place] Dictated By: Danitza Ch DO Signed By: <Electronically signed by Danitza Ch DO in OV> 05/14/24 1027 DD/ 0945 TD/TT: 05/14/24 1001 Tobacco Prizer: Pearl Figueroa MD IMG BI PROCEDURES Final Result * Hepatitis Panel, General (02/17/2024 11:30 AM EDT) Hepatitis A IgM Nonreactive Nonreactive [facility] Comment:IgM antibodies to COY V not detected; does not exclude earlyacute or recovered HAV infection. ~Hepatitis B Surface Antibody REACTIVE Nonreactive [facility] Comment:REACTIVE: > 11.99 mI U/mL Hepatitis B Core Antibody Nonreactive Nonreactive [facility] Hepatitis C Antibody Nonreactive Nonreactive [facility] Comment:Antibodies to HCV no t detected; does not exclude early acuteHCV infection. Hepatitis B Surface Ag Negative Negative [facility] Blood 02/17/2024 11:3 0 AM EDT 02/17/2024 1:18 PM EDT Pearl Figueroa MD LAB BLOOD ORDERABLES Fin al Result [facility] [address] [place] [phone] from Last 3 Months or Most Recently Relevant to Health Maintenance [facility] [employer] Care Teams Maintenance And Engineering Manager Relationship Specialty Start Date End Date Pearl Figueroa MD [address] [place] [address] PCP - General Internal Medicine 02/17/24
== END 2024-07-03 09:45 | disposition home or self-care (01) ==
LOC: HO.US 09:44
PROVIDERS: PCP Internal Medicine; Visit Provider Internal Medicine
DX: K76.0 Fatty (change of) liver, not elsewhere classified (principal); Z78.9 Other specified health status
CPT/HCPCS: 76700

== ENCOUNTER → 2024-07-03 09:46 | Outpatient (BNV) | payer MEDICAID, SELFPAY | PROVIDERS: PCP Internal Medicine; Visit Provider Specialist | DX: K76.0 Fatty (change of) liver, not elsewhere classified (principal) | CPT/HCPCS: 76700 ==

== ENCOUNTER 2024-07-14 11:09 | Outpatient (REF) | payer MEDICAID, SELFPAY ==
[2024-07-14 13:15] LABS: MANUAL DIFF FLAG NO
[2024-07-14 13:33] LABS: Basophils Percent Auto 0.6 % (0-2); Eosinophils Absolute Auto 0.1 X10*3/uL (0.0-0.4); Eosinophils Percent Auto 1.6 % (0-4); Hematocrit 37.7 % (37.0-47.0); Hemoglobin 12.6 g/dl (12.0-16.0); Imm Gran Abs Auto 0.02 X10*3/uL (0.00-0.03); Imm Gran Pct Auto 0.3 % (0.0-0.4); Lymphocytes Absolute Auto 2.1 X10*3/uL (1.2-4.9); Lymphocytes Percent Auto 31.1 % (20-40); Mean Corpuscular HGB Conc 33.4 g/dl (31.0-35.0); Mean Corpuscular Hemoglobin 29.8 pg (27.0-33.0); Mean Corpuscular Volume 89.1 fL (80.0-98.0); Mean Platelet Volume 8.9 fL (9.4-12.3); Monocytes Absolute Auto 0.5 X10*3/uL (0.1-1.2); Monocytes Percent Auto 6.9 % (2-11); Neutrophils Absolute Auto 4.1 x10*3/uL (2.0-8.3); Neutrophils Percent Auto 59.5 % (45-73); Platelet Count 291 X10*3/uL (160-400); Red Blood Count 4.23 X10*6/uL (4.20-5.50); Red Cell Distribution Width 11.8 % (11.0-16.0); White Blood Count 6.8 X10*3/uL (4.8-10.8)
--- OUTSIDE RECORDS SUMMARY | 2024-07-14 13:37 | XMS_ITS | Clinical Summary ---
Author Organization [employer] Address [address] [facility] 7[address] [place] [address] Care Team Providers Care Pastry Sous Chef Name Role Phone Pearl Figueroa MD Primary [...] Needs repeated pap smear, will refer to [facility] incase she needs colposcopy. Back pain 06/18/2024 [...] organization. Date Type Department Care Team Description 07/14/2024 Travel 07/13/2024 Refill [facility] [address] [place] [address] Pearl Figueroa MD 06/26/2024 Travel 06/25/2024 Telephone [facility] [address] [place] [address] Purnima Mac, RN Results 06/25/2024 Telephone [facility] [address] [place] [address] Pearl Figueroa MD 06/18/2024 12:00 PM EST Telemedicine [facility] [address] [place] [address] Pearl Figueroa MD Fatty liver (Primary Dx); Recurrent major depressive disorder, in partial remission (CMS/HCC); History of HPV infection; Back pain, unspecified back location, unspecified back pain laterality, unspecified chronicity 06/18/2024 Travel 06/10/2024 Patient Outreach [facility] [address] [place] [address] Pearl Figueroa MD Pre-visit Planning (SDID unable to reach [facility]) 05/27/2024 9:00 AM EST Office Visit [facility] [address] [place], [place] [phone] Shabana Garcia MD Acute bilateral thoracic back pain (Primary Dx) 05/14/2024 Orders Only [facility] [address] [place] [address] Pearl Figueroa MD from Last 3 Months [...] Procedure Name Priority Date/Time Associated Diagnosis Comments CBC WITH AUTO DIFFERENTIAL Routine 07/14/2024 11:11 AM EST Fatty liver US ABDOMEN COMPLETE Routine 07/04/2024 8 :55 AM EST Fatty liver Alcohol use BI US BREAST LIMITED RIGHT Routine 05/14/2024 10:15 AM EST BI MAMMOGRAM DIAGNOSTIC TOMOSYNTHESIS ADDED VIEW RIGHT Routine 05/14/2024 9:45 AM EST HEPATITIS PANEL, GENERAL Routine 02/17/2024 11:30 AM EDT Alcohol use from Last 3 Months or Most Recently Relevant to Health Maintenance Results * (ABNORMAL) CBC auto differential (07/14/2024 11:11 AM EST) White Blood Count 6.8 4.8 - 10.8 X10*3/uL [facility] Red Blood Count 4.23 4.20 - 5.50 X10*6/uL [facility] Hemoglobin 12.6 12.0 - 16.0 g/dl [facility] Hematocrit 37.7 37.0 - 47.0 % [facility] Mean Corpuscular Volume 89.1 80.0 - 98.0 fL [facility] Mean Corpuscular Hemoglobin 29.8 27.0 - 33.0 pg [facility] Mean Corpuscular HGB Conc 33.4 31.0 - 35.0 g/dl [facility] Red Cell Distribution Width 11.8 11.0 - 16.0 % [facility] Platelet Count 291 160 - 400 X10*3/uL [facility] Mean Platelet Volume 8.9(L) 9.4 - 12.3 fL [facility] Neutrophils Percent Auto 59.5 45 - 73 % [facility] Imm Gran Pct Auto 0.3 0.0 - 0.4 % [facility] Lymphocytes Percent Auto 31.1 20 - 40 % [facility] Monocytes Percent Auto 6.9 2 - 11 % [facility] Eosinophils Percent Auto 1.6 0 - 4 % [facility] Basophils Percent Auto 0.6 0 - 2 % [facility] NRBC Pct Auto 0.0 0.0 - 0.2 /100WBC [facility] Neutrophils Absolute Auto 4.1 2.0 - 8.3 x10*3/uL [facility] Imm Gran Abs Auto 0.02 0.00 - 0.03 X10*3/uL [facility] Lymphocytes Absolute Auto 2.1 1.2 - 4.9 X10*3/uL [facility] Monocytes Absolute Auto 0.5 0.1 - 1.2 X10*3/uL [facility] Eosinophils Absolute Auto 0.1 0.0 - 0.4 X10*3/uL [facility] Basophils Absolute Auto 0.0 0.0 - 0.2 X10*3/uL [facility] NRBC Abs Auto 0.000 0.0 - 0.012 X10*3/uL [facility] Blood Venous blood specimen / Unknown 07/14/2024 11:11 AM EST 07/14/2024 1:08 PM EST us Paerl Figueroa MD LAB BLOOD ORDERABLES Fin al Result Performing Organization Address City/State/[facility] Co de Phone Number [facility] [address] [place] [phone] * US Abdomen Complete (07/04/2024 8:55 AM EST) Anatomical Region Laterality Modality Abdomen Ultrasound 07/04/2024 8:55 AM EST Narrative 07/04/2024 8:56 AM EST ? [facility] ?[address] ?[place] [address] ? Ultrasound Report ? Signed ? Patient: Miller Sandy,Sharron ?MR#: [id number] ?? [id number] ? : 1985 ?Acct:[id number] ? Age/Sex: 39 / F ?ADM Date: 02/14/25 ? Loc: HO.US ? Attending Dr: Pearl Figueroa MD ? Ordering Physician: Pearl Figueroa MD ?? Date of Service: 07/03/24 ?? Procedure(s): US abdomen complete ?? Accession Number(s): [id number] ? cc: Pearl Figueroa MD ? CLINICAL HISTORY: fatty liver ETOH use ? US abdomen complete ? Comparison: None ? Findings: ?? The visualized pancreas is normal. ?? The aorta and inferior vena cava are normal caliber. ? The appearance of the liver suggests fatty infiltration without focal ?? lesion. ?? There is no intrahepatic bile duct dilatation. ?? The common duct is 3.0 mm in diameter. ?? There are no abnormal findings in the gallbladder fossa. ?? There is no sonographic Greenberg sign. ?? The main portal vein is antegrade. ? The right kidney is 10.4 cm in length. ?? The left kidney is 10.5 cm in length. ?? The spleen is normal. ?? No ascites. ? IMPRESSION: ?? 1. Hepatic steatosis. ? This document has been electronically signed by: Cheo Marcos MD on ?? 07/04/2024 08:55:19 ? Dictated By: ?Cheo Marcos MD ? Signed By: ?<Electronically signed by Cheo Marcos MD in OV> ?07/04/24 0856 ? DD/ 4 ? TD/TT: 07/04/24854 ? Educational Guidance Counselor: ? Procedure Note Faye, Image - 07/04/2024 [place] [address] Ultrasound Report Signed Patient: Imtiaz Yang#: [id number] : 1985Acct:[id number] Age/Sex: 39 / FADM Date: 07/03/24 Loc: HO.US Attending Dr: Pearl Figueroa MD Ordering Physician: Pearl Figueroa MD Date of Service: 07/03/24 Procedure(s): US abdomen complete Accession Number(s): [id number] cc: Pearl Figueroa MD CLINICAL HISTORY: fatty liver ETOH use US abdomen complete Comparison: None Findings: The visualized pancreas is normal. The aorta and inferior vena cava are normal caliber. The appearance of the liver suggests fatty infiltration without focal lesion. There is no intrahepatic bile duct dilatation. The common duct is 3.0 mm in diameter. There are no abnormal findings in the gallbladder fossa. There is no sonographic Greenberg sign. The main portal vein is antegrade. The right kidney is 10.4 cm in length. The left kidney is 10.5 cm in length. The spleen is normal. No ascites. IMPRESSION: 1. Hepatic steatosis. This document has been electronically signed by: Cheo Marcos MD on 07/04/2024 08:55:19 Dictated By: Cheo Marcos MD Signed By: <Electronically signed by Cheo Marcos MD in OV> 07/04/24 0856 DD/ 4 TD/TT: 07/04/24854 Educational Guidance Counselor: us Pearl Figueroa MD IMG US PROCEDURES Edited Result - Final * BI US Breast Limited Right (05/14/2024 10:15 AM EST) Anatomical Region Laterality Modality Breast Right Ultrasound 05/14/2024 10:1 5 AM EST Narrative 05/14/2024 10:30 AM EST ? [facility] ? [address] ?[place] [address] ? Ultrasound Report ? Signed ? Patient: Bhatt Sharron Sandy ?MR#: [id number] ?? [id number] ? : 1985 ?Acct:[id number] ? Age/Sex: 39 / F ?ADM Date: 05/14/24 ? Loc: HO.MAMMO ? Attending Dr: Pearl Figueroa MD ? Ordering Physician: Pearl Figueroa MD ?? Date of Service: 05/14/24 ?? Procedure(s): US breast RT limited mamm only ?? Accession Number(s): [id number] ? cc: Pearl Figueroa MD ? EXAMINATION: [...] DD/ 1015 ? TD/TT: 05/14/24 1021 ? Educational Guidance Counselor: ? Procedure Note Faye, Image - 05/18/2024 [place] [address] [place] [address] Ultrasound Report Signed Patient: Imtiaz Yang#: [id number] : 1985Acct:[id number] Age/Sex: 39 / FADM Date: 05/14/24 Loc: HO.NANETTEO Attending Dr: Pearl Figueroa MD Ordering Physician: Pearl Figueroa MD Date of Service: 05/14/24 Procedure(s): US breast RT limited mamm only Accession Number(s): [id number] cc: Pearl Figueroa MD EXAMINATION: MM DIAGNOSTIC [...] 05/14/24 1027 DD/ 1015 TD/TT: 05/14/24 1021 Educational Guidance Counselor: us Pearl Figueroa MD IMG US PROCEDURES Final Result * BI Mammogram Diagnostic Tomosynthesis added right (05/14/2024 9:45 AM EST) Anatomical Region Laterality Modality Breast Left Mammography 05/14/2024 9:45 AM EST Narrative 05/14/2024 10:30 AM EST ? [facility] ? [address] ?[place] [address] ? Mammography Report ? Signed ? Patient: Bhatt Sandy,Sharron ?MR#: [id number] ?? [id number] ? : 1985 ?Acct:[id number] ? Age/Sex: 39 / F ?ADM Date: 05/14/24 ? Loc: HO.MAMMO ? Attending Dr: Pearl Figueroa MD ? Ordering Physician: Pearl Figueroa MD ?Results: 3.6MProbably Benign Finding - Short 6 M F/U ?? Suggested ? Date of Service: 05/14/24 ?Follow Up: 6 Month F/U ? Procedure(s): MM tomosynthesis added views R ?? Accession Number(s): [id number] ? cc: Pearl Figueroa MD ? EXAMINATION: [...] DD/ 0945 ? TD/TT: 05/14/24 1001 ? Educational Guidance Counselor: ? Procedure Note Faye, Khushboo - 05/14/2024 [place] [facility] [address] [place], [place] [address] Mammography Report Signed Patient: Sharron Yang#: [id number] : 1985Acct:[id number] Age/Sex: 39 / FADM Date: 05/14/24 Loc: HO.MAMMO Attending Dr: Pearl Figueroa MD Ordering Physician: Pearl Figueroa MD Results: 3.6MProbably Benign Finding - Short 6 M F/U Suggested Date of Service: 05/14/24Follow Up: 6 Month F/U Procedure(s): MM tomosynthesis added views R Accession Number(s): [id number] cc: Pearl Figueroa MD EXAMINATION: MM DIAGNOSTIC [...] by: Danitza Ch DO 05/14/2024 10:27 AM [facility] Dictated By: Danitza Ch DO Signed By: <Electronically signed by Danitza Ch, in OV> 05/14/24 1027 DD/ 0945 TD/TT: 05/14/24 1001 Educational Guidance Counselor: us Pearl Figueroa MD IMG BI PROCEDURES Final Result * Hepatitis Panel, General (02/17/2024 11:30 AM EDT) Hepatitis A IgM Nonreactive Nonreactive [facility] Comment:IgM antibodies to COY V not detected; does not exclude earlyacute or recovered HAV infection. ~Hepatitis B Surface Antibody REACTIVE Nonreactive [facility] Comment:REACTIVE: > 11.99 mI U/mL Hepatitis B Core Antibody Nonreactive Nonreactive [facility] Hepatitis C Antibody Nonreactive Nonreactive [facility] Comment:Antibodies to HCV no t detected; does not exclude early acuteHCV infection. Hepatitis B Surface Ag Negative Negative [facility] Blood 02/17/2024 11:3 0 AM EDT 02/17/2024 1:18 PM EDT us Pearl Figueroa MD LAB BLOOD ORDERABLES Fin al Result Performing Organization Address City/State/[facility] Co de Phone Number [facility] [address] [place] [phone] from Last 3 Months or Most Recently Relevant to Health Maintenance [place] [address] [place] [address] C3 Care Teams Pastry Sous Chef Relationship Specialty Start Date End Date Pearl Figueroa MD [address] [place] [phone] PCP - General Internal Medicine 02/17/24
--- OUTSIDE RECORDS SUMMARY | 2024-07-14 13:37 | XMS_ITS | Encounter Summary ---
Author Organization [employer] Address [address] [place] [address] 7t [place] [address] Care Team Providers Care Needle Process Felt Goods Supervisor Name Role Phone Pearl Figueroa MD Primary Care Provider + Reason for Referral * Consultation (Routine) - Authorized Specialty Diagnoses / Procedures Referred By Contabigail t Referred To Contact Obstetrics and Gynecology Diagnoses History of HPV infection Pearl Figueroa MD [address] [place] [address] Phone: tel: fax: [facility] [address] 5[address] (Main Hospital Entrance) [place], [place] Phone: tel: fax: Referral ID Status Reason Start Date Expiration Date Visits Requested Visits Authorized [id number] Authorized Specialty Services Required 06/19/2024 06/19/2025 9 9 Encounter Details Date Type Department Care Team (Late st Contact Info) Description 06/18/2024 12:00 PM EST Telemedicine [facility] [address] [place] [address] [phone] Pearl Figueroa MD [address] [place] [address] [phone] Fatty liver (Primary Dx); Recurrent major depressive [...] She has not made an appointment with CUSTOMER ACCOUNT EXECUTIVE for a pap smear yet. She is [...] Needs repeated pap smear, will refer to CUSTOMER ACCOUNT EXECUTIVE incase she needs colposcopy. Relevant Orders Referral [...] Needs repeated pap smear, will refer to CUSTOMER ACCOUNT EXECUTIVE incase she needs colposcopy. * Assessment & [...] chronicity documented in this encounter Care Teams Needle Process Felt Goods Supervisor Relationship Specialty Start Date End Date Pearl Figueroa MD [address] [place] [address] PCP - General Internal Medicine 02/17/24 documented as of this encounter
--- OUTSIDE RECORDS SUMMARY | 2024-07-14 13:37 | XMS_ITS | Encounter Summary ---
Author Organization [facility] Address [address] [place] [address] Care Team Providers Care Field Sales Manager Name Role Phone Virgil Sharp MD Primary Care Provider [phone] Reason for Visit * Reason Onset Date Comments My Chart Appointment 07/02/2016 persistant cough 07/11 Encounter Details Date Type Department Care Team Description 07/02/2016 Telephone Adult Medicine [address] [phone] Virgil hSarp MD [address] [place] [address] [phone] My Chart Appointment (persistant cough 07/11) Social History Tobacco Use Types Packs/Day Years Used Date Smoking Tobacco: Never Smokeless Tobacco: Never Alcohol Use Standard Drinks/Week Comments No 0 (1 standard drink = 0.6 oz pur e alcohol) Sex Assigned at Date Recorded Female 12/29/2020 1:27 PM E DT documented as of this encounter Miscellaneous Notes * Telephone Encounter - Duncan Meredith L.P.N. - 07/03/2016 1:21 PM EST Telephone Information: Work Phone Not on file. Spoke with patient she c/o of prod cough yellow phelgm denies chest pain no SoB Able to talk in full sentence Appeite and hydration good VQS Bowels normal Offered an appt today she declined Appt tomorrow with A Kosinski PAC at 10:45 Reinforced phone consultation and advice Reviewed with the patient S/S to watch for that would require immediate attention If symptoms worsen patient can call the triage nurse or go to the ER if needed can call 911 Patient states he/she is satisfied with information and homecare instructions he is able to verbalize the instructions given * Telephone Encounter - Stacey Chávez L.P.N. - 07/02/2016 8:42 AM EST Call to pt she is at an appt now at another office for different issue. Will call office back * Telephone Encounter - Hillary Elaine - 07/02/2016 8:31 AM EST Patient has scheduled a visit through My Chart. Please call patient to triage for appropriateness. 07/11/2016 10:15 AM 15 mins. Marybel Mejia PA-C ADULT [facility] Patient Comments: Problem Follow-Up Visit she had told me if cough persist After the antibiotics tomake a new appointment. documented in this encounter Plan of Treatment Not on file documented as of this encounter Visit Diagnoses Not on filedocumented in this encounter Care Teams Field Sales Manager Relationship Specialty Start Date End Date Virgil Sharp MD [address] [place] [address] PCP - General Internal Medicine 10/12/11 documented as of this encounter
--- OUTSIDE RECORDS SUMMARY | 2024-07-14 13:37 | XMS_ITS | Encounter Summary ---
Author Organization [facility] Address [address] [place] [address] Care Team Providers Care Implant Coordinator Name Role Phone Virgil Sharp MD Primary Care Provider [phone] Encounter Details Date Type Department Care Team Description 06/12/2019 Teaching Aide Report Medical Records [address] [place] [phone] Catrachita Mcpherson PA-C Social History Tobacco Use Types Packs/Day Years [...] on filedocumented in this encounter Care Teams Implant Coordinator Relationship Specialty Start Date End Date Virgil Sharp MD [address] [place] [phone] PCP - General Internal Medicine 10/12/11 documented as of this encounter
--- OUTSIDE RECORDS SUMMARY | 2024-07-14 13:37 | XMS_ITS | Encounter Summary ---
Author Organization [facility] Address [address] [place] [address] Care Team Providers Care Substance Abuse Prevention Coordinator Name Role Phone Virgil Sharp MD Primary Care Provider [phone] Encounter Details Date Type Department Care Team Description 06/25/2016 Pt. Non Urgent Medical Question Adult Medicine [address] [address] Virgil Sharp MD [address] [place] [address] [phone] Social History Tobacco Use Types Packs/Day Years [...] on filedocumented in this encounter Care Teams Substance Abuse Prevention Coordinator Relationship Specialty Start Date End Date Virgil Sharp MD [address] [place] [phone] PCP - General Internal Medicine 10/12/11 documented as of this encounter
--- OUTSIDE RECORDS SUMMARY | 2024-07-14 13:37 | XMS_ITS | Encounter Summary ---
Author Organization [employer] Address [address] [address] [place] [address] Care Team Providers Care Eeler Name Role Phone Pearl Figueroa MD Primary [...] the past 12 months, has t he [employer], oil or water company threatened to shut [...] on filedocumented in this encounter Care Teams Eeler Relationship Specialty Start Date End Date Pearl Figueroa MD [address] [place] [phone] PCP - General Internal Medicine 02/17/24 documented as of this encounter
--- OUTSIDE RECORDS SUMMARY | 2024-07-14 13:37 | XMS_ITS | Encounter Summary ---
Author Organization [email or web address] Address [address] [facility] [address]t [place] [address] Care Team Providers Care Dye Weigher Helper Name Role Phone Pearl Figueroa MD Primary Care Provider + Reason for Visit * Reason Comments Med Refill Encounter Details Date Type Department Care Team ([facility] st Contact Info) Description 07/13/2024 Refill [facility] [address] [place], [place] [phone] Pearl Figueroa MD [address] [place] [address] Social History Tobacco Use Types Packs/Day Years [...] on filedocumented in this encounter Care Teams Dye Weigher Helper Relationship Specialty Start Date End Date Pearl Figueroa MD [address] [place] [address] PCP - General Internal Medicine 02/17/24 documented as of this encounter
--- OUTSIDE RECORDS SUMMARY | 2024-07-14 13:37 | XMS_ITS | Data Portability ---
Author Organization [place] - [facility], MICHELLEPE_CARDIO_CC_CCMOB [address] Address [address] [place] [address] Care Team Providers Care Latent Print Examiner Name Role Phone EVARISTO PAUL Primary Care Provider EVARISTO PAUL Referring Provider [id number] BREANNA FOY III OTHER EVARISTO PAUL Primary Care Provider Assessment Encounter Date Assessment Date Assessment LastModified by Organization Details LastModified Time 09/18/2022 09/18/2022 Patient's identi ty was verbally confirmed. Provider's identity was verbally confirmed. Patient acknowledged, consented and participated in this virtual visit which was conducted using secure real time audio/telephone VPO encounter. 36yo female patient with PMHx of GERD, Vit D Def, elevated liver enzymes and NAFL presents today for ANKIT f/u after recent ED visit due to migraine headaches. 37yo female presents to ED with complaints of migraine headaches for 5 days. She has been referred to a Neurologist but she is unable to get it at this time. Patient states the pain is more pressure and is in the neck also. Patient states she has never really had a migraine this bad before. Very sensitive to light. Patient was also complaining of bilateral facial numbness and tingling for [address] Head and Brain with and w/o contrast: No evidence of acute intracranial abnormality. No large-branch vessel occlusion, flow-limiting stenosis or aneurysm in the intracranial arterial system. No evidence of hemodynamically significant stenosis involving either cervical ICA. Patient was given Reglan and Toradol IV at ED with significant improvement of COY. Discharged home improved and instructed to f/u with PCP and Neurologist. Medication history reviewed and completed with the patient. [email or web address] Not available 09/18/2022 11:16:48 12/17/2022 12/17/2022 37yo female patient who was recently seen at ED on 12/13/22 with complaint of upper extremity pain and tingling. Patient has a history of carpal tunnel syndrome. Patient denies any neck pain but states the pain radiates from her right shoulder down her right arm. States she has been taking ibuprofen which helps with the pain but the pain has returned. Denies any injury or strain. [email or web address] Not available 12/17/2022 15:31:00 05/22/2023 05/22/2023 38yo female patient with PMHx of GERD, Vit D Def, Elevated Liver Enzymes, and NAFL presents today for her Annual Wellness Exam, for due update of previous abnormal labs, for med review and desired med refills. LAB Results as follows: AST 36 (from78, 152) & ALT 62 (from 86. 228). LDL 108 (from 114). Vit D 21 (from 43, 13.4). The rest of her multiphasic labs including CBC & UA, A1C & FBS, TSH, Kidney and the rest of the lipid panels are all WNL. -She is UTD with yearly Flu shot. -No Fam Hx of Breast CA. -No abnormal PAP. Followed by Gynecology. Medication history reviewed and completed with the patient. adeogracias Not available 05/23/2023 18:06:57 08/07/2023 08/07/2023 38yo female patient who presents today for ANKIT after recent ED visit and for update of referral and med refills. Patient was seen at [facility] on 07/30/23 with complaints of chest discomfort. SOB and worsening (L) arm tingling. ED work up were unremarkable including a CT of the head. Chest x-ray, EKG and labs CBC/troponin/CMP/T SH. Patient's history and exam do not suspect stroke, symptoms likely from BANDAR. Discharged improved with stable VS. Advised to f/u with her PCP and referral to Neurologist. ED Discharge Diagnosis: BANDAR. Neuropathy. Medication history reviewed and completed with the patient. [email or web address] Not available 08/07/2023 21:41:32 Plan of Treatment Reminders Order Date Submit Date Provider Last Modified By Organization Details Last Modified Time Details Appointments None recorded. Lab lipid panel, serum 2023 024 [email or web address] [facility], [address], [place], [address], 4 10:11:10 vitamin D, 25-hydroxy, total, serum 2023 024 [email or web address] 1 [facility], [address], [place], [address], 4 19:39:21 CMP, serum or plasma 2023 024 [email or web address] [facility], [address], [place], [address], 4 10:11:10 lipid panel, serum 2023 024 [email or web address] [facility], [address], [place], [address], 4 10:11:10 vitamin D, 25-hydroxy, total, serum 2023 024 [email or web address] 1 [facility] ([place]), [address] [place], [address], 4 19:39:21 CMP, serum or plasma 2023 024 [facility] ([place]), [address] [place], [address], 4 10:11:09 CBC w/ auto diff 2023 024 [email or web address] ([place]), [address] [place], [address], 4 10:11:10 urinalysis complete, reflex culture 2023 024 [facility] ([place]), [address] [facility], [place], [address], 4 10:11:10 HbA1c (hemoglobin A1c), blood 2023 024 [email or web address] [facility] ([place]), [address] [facility], [place], [address], 4 10:11:09 test, urine 2022 023 [facility] (For In-Office Services Only), [address], [place], [address], 3 09:08:56 Referral neurologist referral - For referral assistance please contact the [facility] at . Please contact the patient to schedule. Thanks. 2023 024 [email or web address] Not available 4 10:11:34 neurologist referral - Recent ED visit due to intractable migraine COY. 2022 023 [email or web address] 1 Haja Reyna MD, [address], [address], [place], [address], 4 14:47:31 Procedures None recorded. Surgeries None recorded. Imaging MAMMO, screening, digital, bilateral 2023 024 [email or web address] [facility], [address], [address], [place], [address], 4 08:00:20 MAMMO, screening, digital, bilateral - US PRN please do not perform prior to 11.2022 023 [facility], [address], [address], [place], [address], 3 10:06:16 Medication Orders cholecalcif gonzalez (vitamin D3) 125 mcg (5,000 unit) capsule 2023 024 [id number], [address] [place], [place], [id number], 4 10:39:16 sertraline 25 mg tablet 2023 024 [facility] #[id number], [address] [place], [place], [id number], 4 10:39:16 ciclopirox 8 % topical solution 2023 [facility] #[id number], [address] [place], [place], [id number], 4 11:32:07 cholecalcif gonzalez (vitamin D3) 1,250 mcg (50,000 unit) capsule 2023 [facility] #[id number], [address] [place], [place], [id number], 4 17:54:49 Patient Targets Encounter Date Encounter Id Patient Goals Patient Target Last Modified By Organization Details Last Modified Time 12/17/2022 [id number] intermediate goal of BMI 25 Not available Not available Not available Ongoing of Blood Pressure 140/90 Not available Not available Not available intermediate goal of Hemoglobin A1C <7.0 Not available Not available Not available Ongoing of Cholesterol, LDL <100 low risk <70 high risk Not available Not available Not available Follow-up care is a sauceda part of your treatment and safety. Discussed with patient importance of PCP follow-up for monitoring labs, screening due, med review and update of care plan as appropriate to significantly reduce overall health risks. [email or web address] Not available 12/17/2022 13:52:56 05/22/2023 [id number] intermediate goal of BMI 25 Not available Not available Not available Blood Pressure 140/90 Not available Not availab le Not available Hemoglobin A1C <7.0 Not available Not availab le Not available Ongoing of Cholesterol, LDL <100 low risk <70 high risk Not available Not available Not available 08/07/2023 [id number] intermediate teacher goal of BMI 25 Not available Not available Not available Blood Pressure 140/90 Not available Not availab le Not available Hemoglobin A1C <7.0 Not available Not availab le Not available Ongoing of Cholesterol, LDL <100 low risk <70 high risk Not available Not available Not available Follow-up care is a sauceda part of your treatment and safety. Discussed with patient importance of PCP follow-up for monitoring labs, med review and update of care plan as needed to significantly reduce overall health risks. Patient verbalized understanding. [email or web address] Not available 08/07/2023 21:45:26 Patient Instructions Encounter Date Encounter Id Patient Instructions Last Modified By Organization Details Last Modified Time 09/18/2022 [id number] migraine headache: care instructions [email or web address] Not available 09/18/2022 11:13:53 12/17/2022 [id number] patient health questionnaire depression assessment* [email or web address] Not available 12/17/2022 14:38:52 neck arthritis: exercises adeogracias Not available 12/17/2022 14:38:52 carpal tunnel syndrome: care instructions adeogracias Not available 12/17/2022 14:38:52 carpal tunnel syndrome: exercises adeogracias Not available 12/17/2022 14:38:52 un estilo de vid a yue: instrucciones de cuidado - [A healthy lifestyle: care instructions] adeogracias Not available 12/17/2022 14:38:52 starting a weigh t loss plan: care instructions adeogracias Not available 12/17/2022 14:38:51 05/22/2023 [id number] aprenda sobre el colesterol alto - [learning about high cholesterol] adeogracias Not available 05/22/2023 11:31:57 aprenda acerca d e la dieta mediterr? ? ?leonel - [learning about the mediterranean diet] adeogracias Not available 05/22/2023 11:31:58 hongos en las u? ? ? de los pies: instrucciones de cuidado - [toenail fungus: care instructions] adeogracias Not available 05/22/2023 11:32:48 A healthy lifestyle: care instructions adeogracias Not available 05/22/2023 11:31:59 starting a weigh t loss plan: care instructions adeogracias Not available 05/22/2023 11:31:58 learning about obesity adeogracias Not available 05/22/2023 11:31:57 Follow-up care i s a sauceda part of your treatment and safety. Discussed with patient importance of PCP follow-up for monitoring labs, screening due, med review and update of care plan as appropriate to significantly reduce overall health risks. adeogracias Not available 05/23/2023 17:57:14 08/07/2023 [id number] high cholesterol : care instructions adeogracias Not available 08/07/2023 21:46:45 mediterranean diet: care instructions adeogracias Not available 08/07/2023 21:46:45 neck pain: care instructions adeogracias Not available 08/07/2023 21:46:45 neck spasm: exercises adeogracias Not available 08/07/2023 21:46:45 neck: exercises adeogracias Not availabl e 08/07/2023 21:46:45 anxiety disorder : care instructions adeogracias Not available 08/07/2023 21:46:46 A healthy lifestyle: care instructions adeogracias Not available 08/07/2023 21:46:46 Reason for Referral Neurologist Referral for Pascual flores Recent ED visit due to intractable migraine COY. Referring Physician: E[facility]isto [facility], Encounter Date: 09/18/2022 Neurologist Referral for Cer vical radiculopathy For referral assistance please contact the Care coordination Center at [phone]. Please contact the patient to schedule. Thanks. Referring Physician: Evaristo Paul [facility] Medicine, Encounter Date: 08/07/2023 Results Created Date Observation Date Name Description Value Unit Range Abnormal Flag Note LastModifiedBy Organization Detail LastModifiedTime 12/25/19 23 12/24/2022 pregn dagmar test, urine HCG negati ve Not Available [facility] (For In-Office Services Only) [address] [place], [address], 12/19/2022 17:56:17 05/10/20 23 05/11/2023 LIPID PANEL , STAND [place] cholesterol, total 182 mg/dL <200 normal Not Available [facility] [place] [facility] [address], [place], [address], 05/11/2023 08:21:20 05/10/20 23 05/11/2023 LIPID PANEL , [place]AND [place] HDL cholesterol 57 mg/dL > or = 50 normal Not Available [facility] [place] [address], [place], [address], 05/11/2023 08:21:20 05/10/20 23 05/11/2023 LIPID PANEL , STAND [place] triglyceride s 80 mg/dL <150 normal Not Available [facility] [place] [facility] [address], [place], [address], 05/11/2023 08:21:20 05/10/20 23 05/11/2023 LIPID PANEL , [place] LDL-choleste rol 108 mg/dL _(janet c) high Refer ence range : <100 [place] able range <100 mg/dL for prima ry preve ntion ; <70 mg/dL for patie nts with CHD or diabe tic patie nts with > or = 2 CHD risk facto rs. LDL-C is now calcu lated using the Elham n-Hop kins calcu chely n, which is a valid ated novel metho d provi ding umm r accur acy than the Fried sigifredo equat ion in the estim ation of LDL-C . Elham kidd SS et al. NEIDA. 2013; 310(1 9): 2061- 2068 (http ://ed ucati on.Qu maryDi Massives. com/f aq/FA Q164) Not Available [facility] [place] [address], [place], [address], 05/11/2023 08:21:20 05/10/20 23 05/11/2023 LIPID PANEL , STAND [place] chol/HDLC ratio 3.2 (calc ) <5.0 normal Not Available [facility] [place] [address], [place], [address], 05/11/2023 08:21:20 05/10/20 23 05/11/2023 LIPID PANEL , [place] non HDL cholesterol 125 mg/dL _(janet c) <130 normal For patie nts with diabe anahy plus 1 major ASCVD risk facto r, treat ing to a non-H DL-C goal of <100 mg/dL (LDL- C of <70 mg/dL ) is consi dered a thera peuti c optio n. Not Available [facility] [address], [place], [address], 05/11/2023 08:21:20 05/10/2005/11/2023 COMPR EHENS RAMÓN METAB OLIC PANEL glucose 75 mg/dL 65-99 normal Fasti ng refer ence inter niraj Not Available [facility] [address], [place], [address], 05/11/2023 08:21:21 05/10/20 23 05/11/2023 COMPR EHENS RAMÓN METAB OLIC PANEL urea nitrogen (BUN) 11 mg/dL 7-25 normal Not Available [facility] [address], [place], [address], 05/11/2023 08:21:21 05/10/2005/11/2023 COMPR EHENS RAMÓN METAB OLIC PANEL creatinine 0.71 mg/dL 0.50-0 .99 normal Not Available [facility] [address], [place], [address], 05/11/2023 08:21:21 05/10/2005/11/2023 COMPR EHENS RAMÓN METAB OLIC PANEL eGFR 110 mL/mi n/1.7 3m2 > or = 60 normal Not Available [facility] [address], [place], [address], 05/11/2023 08:21:21 05/10/2011 0505/11/2023 COMPR EHENS RAMÓN METAB OLIC PANEL BUN/creatini ne ratio SEE NOTE: (calc ) 6-22 Not Repor marco: BUN and Creat inine are withi n refer ence range . Not Available [facility] [place] [facility] [address], [place], [address], 05/11/2023 08:21:21 05/10/20 23 05/11/2023 COMPR EHENS RAMÓN METAB OLIC PANEL sodium 137 mmol/ L 135-14 6 normal Not Available [facility] [place] [facility] [address], [place], [address], 05/11/2023 08:21:21 05/10/20 23 05/11/2023 COMPR EHENS RAMÓN METAB OLIC PANEL potassium 3.9 mmol/ L 3.5-5. 3 normal Not Available [facility] [place] [facility] [address], [place], [address], 05/11/2023 08:21:21 05/10/20 23 05/11/2023 COMPR EHENS RAMÓN METAB OLIC PANEL chloride 101 mmol/ L 98-110 normal Not Available [facility] [place] [facility] [address], [place], [address], 05/11/2023 08:21:21 05/10/20 23 05/11/2023 COMPR EHENS RAMÓN METAB OLIC PANEL carbon dioxide 27 mmol/ L 20-32 normal Not Available [facility] [place] [facility] [address], [place], [address], 05/11/2023 08:21:21 05/10/20 23 05/11/2023 COMPR EHENS RAMÓN METAB OLIC PANEL calcium 9.4 mg/dL 8.6-10 .2 normal Not Available [facility] [place] [facility] [address], [place], [address], 05/11/2023 08:21:21 05/10/20 23 05/11/2023 COMPR EHENS RAMÓN METAB OLIC PANEL protein, total 7.9 g/dL 6.1-8. 1 normal Not Available [facility] [address], [place], [address], 05/11/2023 08:21:21 05/10/20 23 05/11/2023 COMPR EHENS RAMÓN METAB OLIC PANEL albumin 4.4 g/dL 3.6-5. 1 normal Not Available [facility] [address], [place], [address], 05/11/2023 08:21:21 05/10/20 23 05/11/2023 COMPR EHENS RAMÓN METAB OLIC PANEL globulin 3.5 g/dL_ (calc ) 1.9-3. 7 normal Not Available [facility] [address], [place], [address], 05/11/2023 08:21:21 05/10/20 23 05/11/2023 COMPR EHENS RAMÓN METAB OLIC PANEL albumin/glob ulin ratio 1.3 (calc ) 1.0-2. 5 normal Not Available [facility] [address], [place], [address], 05/11/2023 08:21:21 05/10/20 23 05/11/2023 COMPR EHENS RAMÓN METAB OLIC PANEL bilirubin, total 0.6 mg/dL 0.2-1. 2 normal Not Available [facility] [address], [place], [address], 05/11/2023 08:21:21 05/10/20 23 05/11/2023 COMPR EHENS RAMÓN METAB OLIC PANEL alkaline phosphatase 67 U/L 31-125 normal Not Available [facility] [[email or web address] [employer] [facility] [address], [place], [address], 05/11/2023 08:21:21 05/10/20 23 05/11/2023 COMPR EHENS RAMÓN METAB OLIC PANEL AST 36 U/L 10-30 high Not Available [facility] [place] [facility] [address] [place], [address], 05/11/2023 08:21:21 05/10/20 23 05/11/2023 COMPR EHENS RAMÓN METAB OLIC PANEL ALT 62 U/L 6-29 high Not Available [facility] [place] [facility] [address], [place], [address], 05/11/2023 08:21:21 05/10/2005/11/2023 HEMOG LOBIN A1C hemoglobin A1C 5.5 %_of_ total _HGB <5.7 normal For the purpo se of scresara caicedog for the prese nce of diabe anahy: <5.7% Consi stent with the absen ce of diabe anahy 5.7-6 .4% Consi stent with incre ased risk for diabe anahy (pred iabet es) > or =6.5% Consi stent with diabe anahy This assay resul t is consi stent with a decre ased risk of diabe anahy. Curre ntly, no conse nsus exist s jung yoon use of hemog lobin A1c for diagn osis of diabe anahy in child eloy. Accor ding to Ameri can Diabe anahy Assoc iatio n (ADA) guide lines , hemog lobin A1c <7.0% repre sents optim al contr ol in non-p regna nt diabe tic patie nts. Diffe rent metri cs may apply to speci fic patie nt popul ation s. Stand ards of Medic al Care in Diabe anahy(A DA). Not Available [facility] [place] [facility] [address], [place], [address], 05/11/2023 08:21:23 05/10/20 23 05/11/2023 TSH W/REF YAS TO FT4 TSH w/reflex to FT4 0.78 mIU/L normal Refer ence Range > or = 20 Years 0.40- 4.50 Pregn dagmar Range s First trime ster 0.26- 2.66 Secon d trime ster 0.55- 2.73 Third trime ster 0.43- 2.91 Not Available [facility] [address], [place], [address], 05/11/2023 08:21:24 05/10/20 23 05/11/2023 CBC (INCL UDES DIFF/ PLT) white blood cell count 6.8 thous and/u L 3.8-10 .8 normal Not Available [facility] [address], [place], [address], 05/11/2023 08:21:25 05/10/2005/11/2023 CBC (INCL UDES DIFF/ PLT) red blood cell count 4.33 cari on/uL 3.80-5 .10 normal Not Available [facility] [address], [place], [address], 05/11/2023 08:21:25 05/10/20 23 05/11/2023 CBC (INCL UDES DIFF/ PLT) hemoglobin 13.0 g/dL 11.7-1 5.5 normal Not Available [facility] [address], [place], [address], 05/11/2023 08:21:25 05/10/2005/11/2023 CBC (INCL UDES DIFF/ PLT) hematocrit 38.9 % 35.0-4 5.0 normal Not Available [facility] [address], [place], [address], 05/11/2023 08:21:25 05/10/2005/11/2023 CBC (INCL UDES DIFF/ PLT) MCV 89.8 fL 80.0-1 00.0 normal Not Available [facility] [address], [place], [address], 05/11/2023 08:21:25 05/10/2005/11/2023 CBC (INCL UDES DIFF/ PLT) MCH 30.0 pg 27.0-3 3.0 normal Not Available [facility] [address], [place], [address], 05/11/2023 08:21:25 05/10/2005/11/2023 CBC (INCL UDES DIFF/ PLT) MCHC 33.4 g/dL 32.0-3 6.0 normal Not Available [facility] [address], [place], [address], 05/11/2023 08:21:25 05/10/2005/11/2023 CBC (INCL UDES DIFF/ PLT) RDW 11.6 % 11.0-1 5.0 normal Not Available [facility] [address], [place], [address], 05/11/2023 08:21:25 05/10/2005/11/2023 CBC (INCL UDES DIFF/ PLT) platelet count 278 thous and/u L 140-40 0 normal Not Available [facility] [address], [place], [address], 05/11/2023 08:21:25 05/10/2005/11/2023 CBC (INCL UDES DIFF/ PLT) MPV 9.3 fL 7.5-12 .5 normal Not Available [facility] [address], [place], [address], 05/11/2023 08:21:25 05/10/2005/11/2023 CBC (INCL UDES DIFF/ PLT) absolute neutrophils 3706 cells /uL 1500-7 800 normal Not Available [facility] [address], [place], [address], 05/11/2023 08:21:25 05/10/2005/11/2023 CBC (INCL UDES DIFF/ PLT) absolute lymphocytes 2496 cells /uL 850-39 00 normal Not Available [facility] [place] [facility] [address], [place], [address], 05/11/2023 08:21:25 05/10/2005/11/2023 CBC (INCL UDES DIFF/ PLT) absolute monocytes 469 cells /uL 200-95 0 normal Not Available [facility] [place] [facility] [address], [place], [address], 05/11/2023 08:21:25 05/10/2005/11/2023 CBC (INCL UDES DIFF/ PLT) absolute eosinophils 109 cells /uL 15-500 normal Not Available [facility] [place] [facility] [address], [place], [address], 05/11/2023 08:21:25 05/10/2005/11/2023 CBC (INCL UDES DIFF/ PLT) absolute basophils 20 cells /uL 0-200 normal Not Available [facility] [place] [facility] [address], [place], [address], 05/11/2023 08:21:25 05/10/20 23 05/11/2023 CBC (INCL UDES DIFF/ PLT) neutrophils 54.5 % normal Not Available [facility] [address], [place], [address], 05/11/2023 08:21:25 05/10/2005/11/2023 CBC (INCL UDES DIFF/ PLT) lymphocytes 36.7 % normal Not Available [facility] [place] [facility] [address], [place], [address], 05/11/2023 08:21:25 05/10/20 23 05/11/2023 CBC (INCL UDES DIFF/ PLT) monocytes 6.9 % normal Not Available [facility] [place] [facility] [address], [place], [address], 05/11/2023 08:21:25 05/10/20 23 05/11/2023 CBC (INCL UDES DIFF/ PLT) eosinophils 1.6 % normal Not Available [facility] [address], [place], [address], 05/11/2023 08:21:25 05/10/20 23 05/11/2023 CBC (INCL UDES DIFF/ PLT) basophils 0.3 % normal Not Available [facility] [address], [place], [address], 05/11/2023 08:21:25 05/10/2005/11/2023 URINA LYSIS , COMPL ETE W/REF YAS TO CULTU RE color YELLOW yellow normal Not Available [facility] [address], [place], [address], 05/11/2023 08:21:26 05/10/2005/11/2023 URINA LYSIS , COMPL ETE W/REF YAS TO CULTU RE appearance CLEAR clear normal Not Available [facility] [address], [place], [address], 05/11/2023 08:21:26 05/10/2005/11/2023 URINA LYSIS , COMPL ETE W/REF YAS TO CULTU RE specific gravity 1.019 1.001- 1.035 normal Not Available [facility] [address], [place], [address], 05/11/2023 08:21:26 05/10/2005/11/2023 URINA LYSIS , COMPL ETE W/REF YAS TO CULTU RE pH 5.5 5.0-8. 0 normal Not Available [facility] [address], [place], [address], 05/11/2023 08:21:26 05/10/2005/11/2023 URINA LYSIS , COMPL ETE W/REF YAS TO CULTU RE glucose NEGATI VE negati ve normal Not Available [facility] [place] [facility] [address], [place], [address], 05/11/2023 08:21:26 05/10/20 23 05/11/2023 URINA LYSIS , COMPL ETE W/REF YAS TO CULTU RE bilirubin NEGATI VE negati ve normal Not Available [facility] [place] [facility] [address], [place], [address], 05/11/2023 08:21:26 05/10/2005/11/2023 URINA LYSIS , COMPL ETE W/REF YAS TO CULTU RE ketones NEGATI VE negati ve normal Not Available [facility] [place] [facility] [address], [place], [address], 05/11/2023 08:21:26 05/10/2005/11/2023 URINA LYSIS , COMPL ETE W/REF YAS TO CULTU RE occult blood NEGATI VE negati ve normal Not Available [facility] [place] [facility] [address], [place], [address], 05/11/2023 08:21:26 05/10/20 23 05/11/2023 URINA LYSIS , COMPL ETE W/REF YAS TO CULTU RE protein NEGATI VE negati ve normal Not Available [facility] [place] [facility] [address], [place], [address], 05/11/2023 08:21:26 05/10/2005/11/2023 URINA LYSIS , COMPL ETE W/REF YAS TO CULTU RE nitrite NEGATI VE negati ve normal Not Available [facility] [place] [facility] [address], [place], [address], 05/11/2023 08:21:26 05/10/2005/11/2023 URINA LYSIS , COMPL ETE W/REF YAS TO CULTU RE leukocyte esterase NEGATI VE negati ve normal Not Available [facility] [place] [facility] [address], [place], [address], 05/11/2023 08:21:26 05/10/2005/11/2023 URINA LYSIS , COMPL ETE W/REF YAS TO CULTU RE WBC NONE SEEN /hpf < or = 5 normal Not Available [facility] [place] [facility] [address], [place], [address], 05/11/2023 08:21:26 05/10/2005/11/2023 URINA LYSIS , COMPL ETE W/REF YAS TO CULTU RE RBC NONE SEEN /hpf < or = 2 normal Not Available [facility] [place] [facility] [address], [place], [address], 05/11/2023 08:21:26 05/10/2005/11/2023 URINA LYSIS , COMPL ETE W/REF YAS TO CULTU RE squamous epithelial cells 0-5 /hpf < or = 5 Not Available [facility] [place] [facility] [address], [place], [address], 05/11/2023 08:21:26 05/10/20 23 05/11/2023 URINA LYSIS , COMPL ETE W/REF YAS TO CULTU RE bacteria NONE SEEN /hpf none seen normal Not Available [facility] [place] [facility] [address], [place], [address], 05/11/2023 08:21:26 05/10/2005/11/2023 URINA LYSIS , COMPL ETE W/REF YAS TO CULTU RE hyaline cast NONE SEEN /lpf none seen normal Not Available [facility] [place] [facility] [address], [place], [address], 05/11/2023 08:21:26 05/10/20 23 05/11/2023 URINA LYSIS , COMPL ETE W/REF YAS TO CULTU RE note This urine was lynnette zed for the prese nce of WBC, RBC, bacte brad, casts , and other forme d eleme nts. Only those eleme nts seen were repor marco. Not Available [facility] [place] [facility] [address], [place], [address], 05/11/2023 08:21:26 05/10/20 23 05/11/2023 REFLE XIVE URINE CULTU RE reflexive urine culture NO CULTU RE INDIC ATED Not Available [facility] [place] [facility] [address], [place], [address], 05/11/2023 08:21:27 05/10/20 23 05/11/2023 VITAM IN B12/F OLATE , SERUM PANEL vitamin B12 985 pg/mL 200-11 00 normal Not Available [facility] [place] [facility] [address], [place], [address], 05/11/2023 08:21:28 05/10/20 23 05/11/2023 VITAM IN B12/F OLATE , SERUM PANEL folate, serum 17.5 NG/mL normal Refer ence Range Low: <3.4 Borde rline : 3.4-5 .4 Radha l: >5.4 Not Available [facility] [place] [facility] [address], [place], [address], 05/11/2023 08:21:28 04/25/20 23 04/13/2023 MAMMO , scree vicky, digit al, bilat eral No observ ation record ed. adeogracias [facility] [address], [place], [address], 05/23/2023 17:47:53 07/30/19 24 04/30/2023 elect angelina sanchezgr am No observ ation record ed. adeogracias Not Available 07/19 21:22:47 Result Notes Documentation Provider Name and Address Organization Details Recorded Time Mammo, Screening, Digital, Bilateral : BIRADs 1 Deogracias Humphrey Paul Jr [employer] [address], [place], [address], [facility] 05/23/2023 17:47:53 Problems Name Problem SNOMED Code Status Onset Date Resolution Date Notes Provider Name and Address Organization Details Recorded Time Gastroesopha geal reflux disease 359559455 Active 2019 Zayda Perales [employer] [address], [place], [address], [facility] 0 07:48:26 Nonalcoholic steatohepati tis 617099771 Active 2020 Zayda Perales [employer] [address], [place], [address], [facility] 1 09:32:08 Vitamin D deficiency 64602364 Active 2020 Mine Serna APRN [address], [place], [address], [facility] 1 20:01:27 Liver enzymes outside reference range 219000367 Active 2012 Evaristo Paul Jr [employer] [address], [place], [address], [facility] 3 20:34:27 Mixed hyperlipidem ia 455233677 Active 2021 Evaristo Paul Jr [employer] [address], [place], [address], [facility] 2 13:02:18 Plantar fasciitis 881069459 Active 2021 Isidroogrshola Paul Jr [employer] [address], [place], [address], [facility] 2 13:02:20 Problem Notes None recorded. Procedures Surgical History Date Name Laterality Status Provider Name and Address Organization Details Recorded Time 08/07/19 24 Transitional Care- Med Reconciliation completed Deogracias Angelicadanielle Paul Jr [employer] [address] [facility] [address], [place], [address], [place] [facility] [place] [facility] [place] 08/07/2023 21:21:40 05/22/19 24 Transitional Care- Med Reconciliation completed Deogracias Clarisaallysondanielle Paul Jr [employer] [address] [facility] [address] [address], [place], [address], [place] [facility] [place] 05/23/2023 17:59:07 09/19/19 23 Transitional Care- Med Reconciliation completed Deogracias Clarisaallysondanielle Paul Jr [employer] [address] [facility] [address] [address], [place], [address], [place] 09/18/2022 11:14:10 05/15/20 22 PCMH completed Gabriela Tyson [place] 05/15/2022 06:53:14 04/10/20 22 PCMH cancelled Gabriela Tyson [place] 04/10/2022 10:34:01 02/17/20 22 PCMH completed Gabriela Tyson [place] 02/14/2022 06:47:01 01/03/20 22 PCMH completed Deogracias Humphrey Paul Jr [employer] [address] [facility] [address], [place], [address], [place] 01/02/2022 10:39:25 10/10/19 22 PCMH cancelled Lacy Bargeron [place] 10/05/2021 15:16:18 09/05/19 22 PCMH completed Lacy Bargeron [place] 08/29/2021 17:01:18 07/06/19 22 PCMH completed Lacy Bargeron [place] 07/06/2021 09:11:34 05/25/19 22 Date of Last Pap Smear completed Yannick Graff [place] 12/20/2022 13:56:19 05/10/20 21 PCMH completed Lacy Bargeron [place] 05/10/2021 09:09:13 05/10/20 SDOH completed Lacy Hollingsworth [place] 05/09/2021 07:40:53 03/30/20 Special Note completed Sujatha Schmitz MD [address], [place], [address], [place] 03/30/2021 10:14:26 02/09/20 PCMH completed Lacydavid Hollingsworth [place] 02/07/2021 12:42:05 01/10/20 PCMH cancelled Lacy Malagongeron [place] 01/06/2021 15:54:20 01/10/20 SDOH cancelled Lacy Hollings[place] 01/06/2021 15:54:22 12/08/19 PCMH cancelled Gabriela Tyson [place] 12/07/2020 12:26:38 04/29/20 PCM completed Lacy Holl[place] 04/28/2020 16:16:13 Dilation and Cureattage completed Cecelia Tavarez [place] [facility] 10/31/2021 14:48:30 Gallbladder Surgery completed Gabriela Tyson [place] 04/29/2020 08:22:55 Imaging Results Imaging Date Name Status LastModified by Organization Details LastModified Time 04/13/2023 MAMMO, screening, digital, bilateral completed adeogracias [facility] [address], [place], [address], 05/23/2023 17:47:53 04/30/2023 electrocardiogram completed [email or web address] Inform ation not available 08/07/2023 21:22:47 Procedure Notes None recorded. Medical Equipment None Reported. Allergies No known drug allergies Medications Name Sig Start Date Stop Date Status Note LastModified by Organization Details LastModified Time binaxnow cov kit home anahy 01/01 completed Not Available Not Available Not Available methocarbam ol 500 mg tablet TAKE 1 TABLET BY MOUTH TWICE DAILY NEEDED 10/31 completed Not Available Not Available Not Available ibuprofen 800 mg tablet TAKE 1 TABLET BY MOUTH THREE TIMES DAILY FOR 14 DAYS 05/22 completed Not Available Not Available Not Available hydrocodone 5 mg-acetamin ophen 325 mg tablet TAKE 1 TABLET BY MOUTH EVERY 6 HOURS NEEDED FOR PAIN 05/10 completed Not Available Not Available Not Available meloxicam 15 mg tablet TAKE 1 TABLET BY MOUTH EVERY DAY 05/10 completed Not Available Not Available Not Available prednisone 20 mg tablet TAKE 2 TABLETS BY MOUTH DAILY FOR 3 DAYS 12/17 completed Not Available Not Available Not Available Anucort-HC 25 mg suppository UNWRAP AND INSERT 1 SUPPOSITO RY RECTALLY TWICE DAILY FOR 14 DAYS 12/17 completed Not Available Not Available Not Available metronidazo le 500 mg tablet TAKE 1 TABLET BY MOUTH TWICE DAILY FOR 7 DAYS 03/30 completed Not Available Not Available Not Available omeprazole 40 mg capsule,del ayed release Take 1 capsule every day by oral route for 90 days. active Not Available Not Available No t Available amoxicillin 500 mg tablet TAKE 1 TABLET BY MOUTH THREE TIMES DAILY 05/10 completed Not Available Not Available Not Available ciclopirox 8 % topical solution APPLY TO THE AFFECTED AREA(S) BY TOPICAL ROUTE ONCE DAILY PREFERABL Y AT BEDTIME OR 8 HOURS BEFORE WASHING active Not Available Not Available No t Available meloxicam 7.5 mg tablet TAKE ONE TABLET BY MOUTH TWICE DAILY OR DIRECTED BY PROVIDER 10/31 completed Not Available Not Available Not Available sertraline 25 mg tablet TAKE 1 TABLET BY MOUTH EVERY DAY 2023 active Not Available Not Available Not Avai lable ergocalcife rol (vitamin D2) 1,250 mcg (50,000 unit) capsule TAKE 1 CAPSULE BY MOUTH WEEKLY FOR 12 WEEKS 09/04 completed Not Available Not Available Not Available cholecalcif gonzalez (vitamin D3) 125 mcg (5,000 unit) capsule Take 1 capsule every day by oral route. 2023 active Not Available Not Available Not Avai lable naproxen 500 mg tablet TAKE 1 TABLET BY MOUTH TWICE DAILY NEEDED 05/15 completed Not Available Not Available Not Available amoxicillin 875 mg-potassiu m clavulanate 125 mg tablet TAKE 1 TABLET BY MOUTH EVERY 12 HOURS 08/13 completed Not Available Not Available Not Available Ventolin HFA 90 mcg/actuati on aerosol inhaler INHALE 1 PUFF BY MOUTH EVERY 6 HOURS NEEDED FOR COUGH / SHORTNESS OF BREATH 09/18 completed Not Available Not Available Not Available Vitamin D3 01/02 completed Not Available Not Available Not Available cholecalcif gonzalez (vitamin D3) 1,250 mcg (50,000 unit) capsule Take 1 capsule every week by oral route. 2023 active Not Available Not Available Not Avai lable diclofenac 1 % topical gel APPLY 2 GRAMS TOPICALLY TO AFFECTED AREA 3 TIMES DAILY 10/31 completed Not Available Not Available Not Available ID NOW COVID-19 Test Kit TEST DIRECTED TODAY 05/25 completed Not Available Not Available Not Available BinaxNOW COVID-19 Ag Self Test kit Use as Directed on the Package 01/01 completed Not Available Not Available Not Available Vitals Date Recorded Body height Systolic blood pressure Diastolic blood pressure Provider Name and Address Organization Details Last Updated DateTime 09/18/2022 162.56 cm 114 mm[Hg] 70 mm[Hg] Justin Lindsey [facility] 09/18/2022 10:05:37 Date Recorded Body height Body mass index (BMI) Body weight Heart rate Respiratory rate Oxygen saturation Oxygen saturation in Arterial blood by Pulse oximetry Body temperature Pain severity - 0-10 verbal numeric rating [Score] - Reported Systolic blood pressure Diastolic blood pressure Provider Name and Address Organization Details Last Updated DateTime 3 162.56 cm 32.3 kg/m2 37526.3 7 g 65 /min 16 /min 98 % 98 % 98.1 [degF] 0 124 mm[Hg] 88 mm[Hg] JOSE L Dinero [facility] 3 14:21:27 Date Recorded Body height Body mass index (BMI) Body weight Pain severity - 0-10 verbal numeric rating [Score] - Reported Body temperature Respiratory rate Heart rate Systolic blood pressure Diastolic blood pressure Provider Name and Address Organization Details Last Updated DateTime 3 162.56 cm 31.6 kg/m2 98467 g 0 98.2 [degF] 16 /min 76 /min 122 mm[Hg] 80 mm[Hg] [facility] 3 13:58:04 Date Recorded Body height Body mass index (BMI) Body weight Pain severity - 0-10 verbal numeric rating [Score] - Reported Body temperature Oxygen saturation Oxygen saturation in Arterial blood by Pulse oximetry Heart rate Respiratory rate Systolic blood pressure Diastolic blood pressure Provider Name and Address Organization Details Last Updated DateTime 4 162.56 cm 32.7 kg/m2 29596.6 5 g 0 98.6 [degF] 98 % 98 % 85 /min 16 /min 138 mm[Hg] 79 mm[Hg] [facility] 4 11:01:27 Date Recorded Body height Body mass index (BMI) Body weight Heart rate Respiratory rate Body temperature Pain severity - 0-10 verbal numeric rating [Score] - Reported Provider Name and Address Organization Details Last Updated DateTime 4 162.56 cm 32.2 kg/m2 57733.5 7 g 74 /min 16 /min 98.6 [degF] 0 [facility] 4 10:25:11 Date Recorded Oxygen saturation Oxygen saturation in Arterial blood by Pulse oximetry Systolic blood pressure Diastolic blood pressure Provider Name and Address Organization Details Last Updated DateTime 08/07/2023 98 % 98 % 130 mm[Hg] 84 mm[Hg] Deogracias Humphrey Paul Jr [employer] [address] [facility] [address] [address], [place], [address] 4 21:40:46 Social History Question Answer Notes LastModified by Organizat ion Details LastModified Time Tobacco Smoking Status [facility]07[facility]23 10:03:51 Do You Have An Advance Directive? No [email or web address] Information not available 12/20/2022 Is Your Home Air Conditioned? Yes Information not available 05/22/2023 What Is Your Level Of Alcohol Consumption? Occasional Information not available 08/07/2023 How Many Times Per Week Do You Consume Alcohol? 1-2 Times Per Week Information not available 02/08/2021 How Many Years Have You Consumed Alcohol? 3 [email or web address] Information not available 04/10/2022 Are You Currently Sexually Active With Anyone Who Has Traveled (within The Last 12 Weeks) To A Zika-affected Area? No Information not available 05/22/2023 Do You Wear A Helmet When Biking? Yes Information not available 05/22/2023 Are You Blind Or Do You Have Difficulty Seeing? No [email or web address] Information not available 08/07/2023 Is Blood Transfusion Acceptable In An Emergency? Yes [email or web address] Information not available 08/07/2023 What Is Your Level Of Caffeine Consumption? Occasional [email or web address] Information not available 12/20/2022 How Much Tobacco Do You Chew? None [email or web address] Information not available 04/29/2020 What Type Of Tie Buyer Do You Use? [employer] Information not available 05/22/2023 In The 14 Days Before Symptom Onset, Have You Had Close Contact With A Laboratory-conf irmed COVID-19 While That Case Was Ill? No Information not available 05/22/2023 In The 14 Days Before Symptom Onset, Have You Had Close Contact With A Person Who Is Under Investigation For COVID-19 While That Person Was Ill? No Information not available 05/22/2023 Have You Been To An Area Known To Be High Risk For COVID-19? No Information not available 05/22/2023 Are You Currently Employed? No Information not available 05/22/2023 Are You Deaf Or Do You Have Serious Difficulty Hearing? No [email or web address] Information not available 08/07/2023 What Type Of Diet Are You Following? REGULAR Information not available 05/22/2023 Which Illicit Or Recreational Drugs Have You Used? No [email or web address] Information not available 12/20/2022 Have You Processed Blood Or Body Fluids From An Ebola Virus Disease Patient Without Appropriate PPE? No Information not available 05/22/2023 Do You Reside In Or Have You Traveled To An Area Where Ebola Virus Transmission Is Active? No Information not available 05/22/2023 Do You Or Have You Ever Used E-cigarettes Or Vape? Never Used Electronic Cigarettes [email or web address] Information not available 04/29/2020 What Is The Highest Grade Or Level Of School You Have Completed Or The Highest Degree You Have Received? [id number] [email or web address] Information not available 12/20/2022 Do You Have An Electrostatic Air Filter? No Information not available 05/22/2023 How Many Days Of Moderate To Strenuous Exercise, Like A Brisk Walk, Did You Do In The Last 7 Days? 5 Information not available 05/22/2023 On Those Days That You Engage In Moderate To Strenuous Exercise, How Many Minutes, On Average, Do You Exercise? 30 Information not available 05/22/2023 Have You Been Exposed To Chemicals Or Toxins? No Information not available 05/22/2023 Have There Been Any Changes To Your Family Or Social Situation? No Information not available 02/08/2021 How Hard Is It For You To Pay For The Very Basics Like Food, Housing, Medical Care, And Heating? Somewhat Hard Information not available 05/22/2023 What Is The Fluoride Status Of Your Home? Fluoridated Information not available 05/22/2023 Are There Any Guns Present In Your Home? No Information not available 05/22/2023 Which Of Your Hands Is Dominant? Right Information not available 05/22/2023 Hard Of Hearing Or Deaf In One Or Both Ears? No Information not available 05/22/2023 What Is Your Home Situation? Both Parents Information not available 05/22/2023 Do You Have A Humidifier? No Information not available 05/22/2023 Do You Use Insect Repellent Routinely? No [email or web address] Information not available 12/20/2022 Legally Blind In One Or Both Eyes? No Information not available 05/22/2023 Where Do You Live? [facility] Information not available 05/22/2023 Live Alone Or With Others? With Others Information not available 05/22/2023 Patient Would Like A Flu Shot Yes Information not available 05/10/2021 Please List The Date The Patient Received The Flu Shot 01/19/2020 Information not available 05/25/2021 Please List The Location Where The Patient Received The Flu Shot [facility] [email or web address] Information not available 05/25/2021 Patient Interested In Colorectal Cancer Screening No Information not available 04/29/2020 Do You Want Help Finding Or Keeping Work Or A Job? No Information not available 04/29/2020 Do You Want Help With School Or Training? For Example, Starting Or Completing Job Training Or Getting A High School Diploma, GED, Or Equivalent No [email or web address] Information not available 04/29/2020 In The Last 12 Months Did You Ever Eat Less Than You [place] You Should Because There Wasn? t Enough Money For Food? No [email or web address] Information not available 04/29/2020 In The Past 12 Months Has The [employer], Gas, Oil, Or Water Group Therapy Records Threatened To Shut Off Services In Your Home? No [email or web address] Information not available 04/29/2020 In The Last 12 Months Did You Skip Medications To Save Money? No [email or web address] Information not available 04/29/2020 In The Last 12 Months, Was There A Time When You Needed To See A Doctor But Could Not Because Of Cost? No [email or web address] Information not available 04/29/2020 Do You Often Feel Lonely? No [email or web address] Information not available 04/29/2020 Do You Want Help With Any Of Your Needs? No [email or web address] Information not available 04/29/2020 Are Any Of Your Needs Urgent? No [email or web address] Information not available 04/29/2020 Are You Worried That In The Next 2 Months You May Not Have Stable Housing? No Information not available 04/29/2020 In The Last 12 Months, Have You Ever Had To Go Without Health Care Because You Didn? t Have A Way To Get There? No [email or web address] Information not available 04/29/2020 Do You Feel Physically And Emotionally Unsafe Where You Currently Live? No [email or web address] Information not available 04/29/2020 Have You Had A Fever And/or Symptoms Of A Lower Respiratory Illness (cough, Difficulty Breathing, Etc)? No [email or web address] Information not available 04/29/2020 Have You Had Any Of These Symptoms: Chills ,Headache, Fatigue, Muscle Or Body Aches , Sore Throat, New Loss Of Taste Or Smell, Nausea Or Vomiting, Or Diarrhea? No [email or web address] Information not available 04/29/2020 Have You Had A COVID-19 Vaccine In The Last 7 Days? No Pt Declined [email or web address] Information not available 04/29/2020 Has The Patient Received The Influenza Vaccine (Flu Shot) This Flu Season? YES Information not available 05/10/2021 In The Past 10 Days, Have You Been Told You May Have COVID-19 Or Have Been Tested For COVID-19? No [email or web address] Information not available 10/31/2021 Have You Had A Fall Within The Last Year With Injury? No [email or web address] Information not available 09/18/2022 0) Information Provided By : Patient Information not available 05/22/2023 1a) Does The Patient/Caregiv er/Family Report The PATIENT Having Any Of These NEW Symptoms Such As Cough? No Information not available 05/22/2023 1b) Does The Patient/Caregiv er/Family Report The PATIENT Having Any Of These NEW Symptoms Such As Diarrhea? No Information not available 05/22/2023 1c) Does The Patient/Caregiv er/Family Report The PATIENT Having Any Of These NEW Symptoms Such As Fever/chills? No Information not available 05/22/2023 1d) Does The Patient/Caregiv er/Family Report The PATIENT Having Any Of These NEW Symptoms Such As Nasal Congestion/Runn y Nose? No Information not available 05/22/2023 1e) Does The Patient/Caregiv er/Family Report The PATIENT Having Any Of These NEW Symptoms Such As Respiratory Distress (acute)? No Information not available 05/22/2023 1f) Does The Patient/Caregiv er/Family Report The PATIENT Having Any Of These NEW Symptoms Such As Rash? No Information not available 05/22/2023 1g) Does The Patient/Caregiv er/Family Report The PATIENT Having Any OTHER NEW Symptoms (list)? If No NEW Symptoms, Enter ? N o? No Information not available 05/22/2023 Marital Status [facility] Infor mation not available 05/22/2023 What Was The Date Of Your Most Recent Tobacco Screening? 08/07/2023 [email or web address] Information not available 08/07/2023 How Many Children Do You Have? 5 [email or web address] Information not available 04/29/2020 Have You Ever Been Counseled For Unhealthy Alcohol Use? No Information not available 05/22/2023 Performs Monthly Self-breast Exam? No Information not available 05/22/2023 Do You Have Any Pets? No Information not available 05/22/2023 What Is Your Relationship Status? [email or web address] Information not available 08/07/2023 Do You Use Your Seat Belt Or Car Seat Routinely? Yes Information not available 05/22/2023 Seat Belts Used Routinely Yes Information not available 05/22/2023 Are You Sexually Active? No Information not available 05/22/2023 Smoke Alarm In Home Yes Information not available 05/22/2023 Do You Have Smoke And Carbon Monoxide Detectors In Your Home? Yes [email or web address] Information not available 12/20/2022 Are You Passively Exposed To Smoke? No Information not available 05/22/2023 Do You Or Have You Ever Used Smokeless Tobacco? Never Used Smokeless Tobacco [email or web address] Information not available 04/29/2020 Are There Any Smokers In Your House? No Information not available 05/22/2023 How Much Tobacco Do You Smoke? No Information not available 08/07/2023 What Types Of Sporting Activities Do You Participate In? None Information not available 05/22/2023 Do You Feel Stressed (tense, Restless, Nervous, Or Anxious, Or Unable To Sleep At Night)? [id number] Information not available 05/22/2023 Do You Use Any Illicit Or Recreational Drugs? No [email or web address] Information not available 12/20/2022 Do You Use Sunscreen Routinely? No Information not available 05/22/2023 Has Tobacco Cessation Counseling Been Provided? No Information not available 02/08/2021 How Many Years Have You Smoked Tobacco? 0 [email or web address] Information not available 08/07/2023 Do You Have Any Dietary Restrictions? No Information not available 05/22/2023 Do You Or Have You Ever Used Any Other Forms Of Tobacco Or Nicotine? No Information not available 02/08/2021 How Many Days In The Past Year Have You Consumed 4 Or More Drinks? 0 Information not available 05/22/2023 Sex: Female Functional Status Question Answer Note LastModified by Organizat ion Details LastModified Time Do you have difficulty walking or climbing stairs? No Information not available 05/22/2023 Do you have transportation difficulties? No Information not available 05/22/2023 Do you have difficulty doing errands alone? No Information not available 05/22/2023 Are you able to care for yourself? Yes Information n ot available 05/22/2023 Do you have difficulty dressing or bathing? No Information not available 05/22/2023 What is your exercise level? Occasional Information not available 05/22/2023 Mental Status Question Answer Note LastModified by Organization D etails LastModified Time Do you have difficulty concentrating, remembering or making decisions? No Information no t available 05/22/2023 Family History Relationship Description Onset Age of this Age Resolved Age Notes LastModified by Organization Details LastModified Time Mother Diabetes mellitus [email or web address] Not available 04/29 08:26:11 Notes:Reviewed with patient 08/07/23 AU Medical History Condition Response depression N Gynecological History Statement/Question Response Date and Result of Last Colonoscopy neve r Abnormal Pap N Date and Result of Last Mammogram never Date and Result of Last Pap abnormal Date of LMP 11/29/2022 Has the patient had a mammogram in the l ast 24 months? N On BCP's at Conception? N STIs/STDs N Number of stillbirths 0 Induced Abortions N HPV Vaccine N Number of miscarriages 4 Age at Menarche 12 Age at First Child 14 Number of live births? 5 Cramps Y Would you like to schedule a mammogram s creening? N Number of pregnancies 9 Frequency of Cycle (Q days) 4 Date and Result of Last Bone Density nev er Sexually Active? Y Menses Monthly Y Date of Last Pap Smear 05/25/2021 LMP Definite Hormone Replacement Therapy N Obstetrics History GPAL:G 9 P 5 0 4 5 Type Value Multiple Births 0 Full Term 5 Induced 0 Spontaneous 4 Premature 0 Living 5 Ectopics 0 Total 9 Immunizations Vaccine Type Date Status Note Provider Nam e and Address Organization Details Recorded Time Influenza, split virus, quadrivalent, PF 05/10/2021 completed Zayda Perales APRN [address], [place], [address], [facility] - [facility] 05/10/2021 09:33:44 Past Encounters Encounter ID Performer Location Encounter Start Date Encounter Closed Date Diagnosis/Indication Diagnosis SNOMED-CT Code Diagnosis ICD10 Code Diagnosis Note [id number] Zayda Perales APRN zCLSD_SVP E_PRIMARY [facility] [facility] [address] [place] [address] 04/29/2020 08:13:49 04/29/2020 09:07:40 Advance directive discussed with patient 494922451 Z71.89 Depression screening 171 213513 Z13.31 10 ? 14 Moderate Treatment plan, considerin g counseling , follow-up and/or pharmacoth [facility] edu cation given 446207107 Z71.9 Body mass index 30+ - obesity 348554809 Z68.32 bmi 32.5, -Weight management and healthy lifestyle choices discussed with pt. Adult heal th examination 923592258 Z00.00 -Wellness exam completed. -Multiphas ic lab work ordered. Hyperlipid emia screening 421725769 Z13.220 Diabetes m ellitus screening 631587454 Z13.1 Thyroid di sorder screening 240134225 Z13.29 Screening for malignant neoplasm of cervix 527993051 Z12.4 -Last pap smear 08/06 with normal findings, prior was HPV positive. Fatigue 93601185 R53.83 Hepatitis C screening 41 8538575 Z11.59 The USPSTF recommends screening for hepatitis C virus (HCV) infection in persons at high risk for infection. The USPSTF also recommends offering one-time screening for HCV infection to adults born between 1945 and 1965. [id number] Zayda Perales, MULTIPLE GAMES DEALER zCLSD_SVP E[facility]PRIMARY [facility] [address] [place] [address] 02/08/2021 08:25:05 02/08/2021 09:37:00 Health education given 078767619 Z71.9 Depression screening 171 119539 Z13.31 10 ? 14 Moderate Treatment plan, considerin g counseling , follow-up and/or pharmacoth erapy Body mass index 30+ - obesity 914399007 Z68.31 bmi 31.5, -Weight management and healthy lifestyle choices discussed with pt. Pain in ri ght hip joint 2948930685 98389 M25.551 -Advised pt to gently stretch daily.-Adv ised pt to get xray completed. -Will treat pt's symptoms and advised pt will need to f/u with Orthopedic s if symptoms do not improve. Screening for malignant neoplasm of cervix 121587410 Z12.4 [id number] Sujatha MARTINEZPE_OBGY N_SS_[facility] [address] [place] [address] 03/09/2021 08:47:26 03/09/2021 10:02:48 Gynecologic examination 06209732 Z01.419 -Cervical cancer screening collected -Screening labs (HIV, RPR) ordered -Age-appro priate counseling conducted including importance of self-breas t awareness as well as diet & exercise -Follow-up in 1 year for annual well-woman examinatio n or sooner PRN Venereal d isease screening 746181498 Z11.3 Body mass index 30+ - obesity 412048751 Z68.31 Pain in pelvis 02758529 R10.2 -Discussed need for a SENIOR TECHNICAL RECRUITER ultrasound to evaluate pelvis for potential causes of pain -Follow-up for next available SENIOR TECHNICAL RECRUITER ultrasound appointmen t followed by a return SENIOR TECHNICAL RECRUITER visit to discuss findings and plan of care Dysmenorrhea [id number] N 94.6 Vaginal discharge 035747 006 N89.8 [id number] Sujatha Schmitz MD SVPE_OBGY N_SS_[facility] [address] [place] [address] [address] [place] [address] 03/30/2021 09:23:52 03/30/2021 10:21:41 Body mass index 30+ - obesity 983771430 Z68.31 Pain in pelvis 02914619 R10.2 -Reviewed SENIOR TECHNICAL RECRUITER ultrasound findings of a very small uterine fibroid which is not likely to be contributi ng to her pelvic pain given the small size-Discu ssed options for management in depth including, but not limited to expectant management versus medical management with hormonal therapy (OCPs, progestero ne, contracept ramón patch, contracept ramón ring, IUD, etc.) versus conservati ve surgical management (diagnosti c laparoscop y) -After all risks, benefits and alternativ es of each option reviewed with patient and all questions were --Printed ACOG material on Laparoscop y and Pelvic pain provided to patient for review and she agreed to follow-up if pain worsens or persists Approxi mately 25 minutes spent on day of service preparing to see patient, reviewing medical history and pertinent lab and/or imaging results, conducting medically appropriat e examinatio n, counseling /educating patient, ordering appropriat e medication s, tests and/or procedures and documentin g visit Dysmenorrhea [id number] N 94.6 Uterine leiomyoma 135890 05 D25.9 [id number] Zadya Perales APRN zCLSD_[facility]P E[facility] [address] [place] [address] 05/10/2021 08:47:06 05/10/2021 09:37:52 Adult health examination 445410028 Z00.00 -Wellness exam completed. -Multiphas ic lab work ordered. Hyperlipid emia screening 498960552 Z13.220 Diabetes m ellitus screening 177044113 Z13.1 Thyroid di sorder screening 341792526 Z13.29 Screening for malignant neoplasm of cervix 148495481 Z12.4 -Last pap smear needs repeat with Dr. Schmitz. Pt has future appt. made. Fatigue 00431790 R53.83 Administra tion of influenza vaccine 25508542 Z23 Depression screening 171 124735 Z13.31 Negative Body mass index 30+ - obesity 395457644 Z68.32 bmi 32.4, -Weight management and healthy lifestyle choices discussed with pt. Nonalcohol ic steatohepatitis 071028223 K75.81 [id number] Sujatha MARTINEZPE_OBGY N_SS_[facility] [address] [facility] [address] [place] [address] 05/25/2021 10:46:54 05/25/2021 12:01:37 Cervicovaginal cytology specimen unsatisfactory 525185440 R87.615 -Repeat pap collected and results to be shared with patient once available- Follow-up PRN Body mass index 30+ - obesity 250906334 Z68.32 [id number] Zayda Perales APRN zCLSD_SVP E_PRIMARY _[facility] N [address] [place] [address] 07/06/2021 09:08:57 07/06/2021 12:04:02 Health education given 772412833 Z71.9 Pain in ri ght hip joint 1018263589 31493 M25.551 -Advised pt to f/u with Orthopedic s as pain has persisted for several months.-Ri ght hip xary is inconclusi ve, advised pt to most likely radiating off of left lumbar spine. Pt denies lumbar pain.-Advi sed pt to ice and use conservati ve measures. [id number] Zayda Perales APRN zCLSD_SVP E_PRIMARY _[facility] N [address] [place] [address] 09/04/2021 11:08:05 09/04/2021 11:51:41 Mixed anxiety and depressive disorder 416340590 F41.8 12- Moderate Treatment plan, considerin g counseling , follow-up and/or pharmacoth erapy.-Pt denies SI/HI.-Adv ised pt to f/u with [facility].-Advi sed pt to call office if condition worsens, high suspicion for need to increase dosage. Health edu cation given 600336500 Z71.9 Body mass index 30+ - obesity 026609896 Z68.33 bmi 33.2-Weigh t management and healthy lifestyle choices discussed with pt. Pain in ri ght hip joint 9898758666 59932 M25.242 [id number] TATUM CARDONA CNM, MARGARITA SVPE_OBGY N_SS_[facility] [address] [facility], [address] [place] [address] 10/31/2021 14:06:30 10/31/2021 15:35:59 Body mass index 30+ - obesity 793578319 Z68.32 Pain in pelvis 81176477 R10.2 [id number] Reba Fields r CYTOGENETICS TECHNOLOGIST zCLSD_SVB H_BEHAVRL _[facility] [address] [place] [address] 11/01/2021 10:36:08 11/01/2021 12:30:02 [id number] Deogracias Remandaban Sitaila Jr MULTIPLE GAMES DEALER zCLSD_SVP E[facility]PRIMARY [facility] [address] [place] [address] 01/02/2022 09:47:29 01/02/2022 10:35:01 Health education given 054297798 Z71.9 Continue heart healthy lifestyle to include low-fat diet, low-sodium diet, regular physical activity, maintain optimal weight, and avoid all tobacco/ni cotine products. Body mass index 30+ - obesity 892392126 Z68.33 BMI 33.7 Plantar fa sciitis of right foot 3311184867 6178371 M72.2 Intermitte nt (R) Heel pain concerning for plantar fasciitis. Discussed offloading weight to affected foot, ice compress and use of orthotics. Continue with NSAID as needed.Ins tructed of exercises to stretch and strengthen plantar fascia, achilles and lower leg muscles.-P erforming of stretching exercises for the plantar fascia and calf muscles-Av oiding the use of flat shoes and barefoot walking.-U sing prefabrica marco, over-the-c ounter, silicone heel shoe inserts (arch supports and/or heel cups).-Con filler sifter machine molded shoe inserts (orthotics ); night splints; or Immobiliza tion with a cast.-Decr easing physical activities that are suggested by the medical history to be causative or aggravatin g (eg, excessive running, dancing, or jumping).P rovided hand-outs on plantar fasciitis care. If medication , rest, and ice don't help enough, will consider physical therapist. Screening for disorder 165457016 Z13.9 Will update with multiphasi c labs Vitamin D deficiency 347 23227 E55.9 Non-alcoho lic fatty liver 624281777 K76.0 Gastroesop hageal reflux disease 435766267 K21.9 [id number] Reba Cerwsermiassara burr CYTOGENETICS TECHNOLOGIST zCLSD_SVB H_BEHAVRL _[facility] [address] [place] [address] 12/04/2021 14:47:07 12/04/2021 15:59:16 [id number] Reba Crewsermiassara aminah CYTOGENETICS TECHNOLOGIST zCLSD_SVB H_BEHAVRL _[facility] [address] [place] [address] 01/08/2022 15:37:43 01/08/2022 16:57:44 [id number] Deogracias Remandaban Humberto Jr MULTIPLE GAMES DEALER zCLSD_SVP E_PRIMARY [facility] [facility] [address] [place] [address] 02/16/2022 10:14:17 02/16/2022 10:27:21 Health education given 818512454 Z71.9 Continue heart healthy lifestyle to include low-fat diet, low-sodium diet, regular physical activity, maintain optimal weight, and avoid all tobacco/ni cotine products. Liver enzy mes outside reference range 167564804 R94.5 Elevated Liver Enzymes -followed by GI. Previous h/o of ETOH use, she has stopped drinking alcohol. Liver US done last year showing fatty Liver. Followed by Gastro. Nonalcohol ic steatohepatitis 751576905 K75.81 Followed by GI. Next visit in 3 weeks. Mixed hyperlipidemia 267 765184 E78.2 Lipid panel is stable and WNL. LDL very slightly elevated at 103. The rest of her cholestero l panels are normal. Abnormal urinalysis 1672 35381 R82.90 UA (+) for trace leukocytes . Reflex urine culture showing mixed eduardo likely from non-midstr eam, contaminat ed urine sampling. Patient has no urinary habit change, denies any UTI symptoms. Plantar fasciitis 707797 003 M72.2 Currently using shoe inserts to help alleviate plantar foot pain. Patient reports pain is temporaril y improved with as needed NSAIDs and orthotics. Referral has been sent to Podiatry for evaluation of need of supportive arched shoes and orthotics. [id number] Deogracias Angelicadanielle Humberto Peter APRN zCLSD_SVP E_PRIMARY [facility] [facility] [address] [place] [address] 05/15/2022 09:40:13 05/15/2022 11:08:20 Health education given 508687013 Z71.9 Continue heart healthy lifestyle to include low-fat diet, low-sodium diet, regular physical activity, maintain optimal weight, and avoid all tobacco/ni cotine products. Adult heal th examination 140358589 Z00.01 Data has been collected and reviewed to identify psychosoci al risks, behavioral risks, ADLs thru the HPI or Social Hx. Reviewed with patient active medical problem list. Current medication s and consults were updated. Discussed with patient specific USPSTF screenings and the CDC/ACIP vaccine recommenda tions.Othe r Preventati ve measures addressed below.-Ind ividualize d counsellin g given on nutrition, hydration, weight management , exercise, stress reduction strategies and safety recommenda tions.-Rec ommended a well balanced diet regimen based on moderation and primarily including whole grains, fruits, vegetables , low-fat dairy and lean meats.-Rev iewed the importance of self exams, wearing sunscreen, using seatbelts, and gun safety. Recommende d avoiding tobacco use and excessive alcohol use.-Encou raged safe sex practices as patient appropriat e.-Encoura ged regular dental, vision and hearing check ups. Body mass index 30+ - obesity 396629498 Z68.33 BMI 33.4. Obese. Liver enzy mes outside reference range 958816432 R94.5 Previous h/o of ETOH use, she has stopped drinking alcohol. Liver US done last year showing fatty Liver. Followed by Gastro, recent Abdl MRI unremarkab le. Nonalcohol ic steatohepatitis 770133258 K75.81 Followed by GI. Next visit in 3 weeks. Vitamin D deficiency 347 28385 E55.9 Screening for cardiovascular system disease 887302137 Z13.6 Will update with multiphasi c screen for next visit. Diabetes m ellitus screening 594847458 Z13.1 [id number] Deogracias Humphrey Paul Jr, APRN zCLSD_SVP E_PRIMARY _[facility] N [address] [place] [address] 08/13/2022 11:58:58 08/13/2022 12:41:51 Health education given 920094422 Z71.9 Continue heart healthy lifestyle to include low-fat diet, low-sodium diet, regular physical activity, maintain optimal weight, and avoid all tobacco/ni cotine products. Vitamin D deficiency 347 71996 E55.9 Vit D level at 21 (from 43). Restarted on high dose Vit D replacemen t weekly. Liver func tion tests outside reference range 576428702 R94.5 Repeat AST 78 (from 152) and ALT 86 (from 228). Followed by GI. Previous h/o of ETOH use, she has stopped drinking alcohol. Lipid panel improved.L iver US done last year showing fatty Liver. Abnormal urinalysis 1672 00018 R82.90 Reflex urine culture showing mixed eduardo. Patient denies of any recent UTI symptoms. Mixed hyperlipidemia 267 611174 E78.2 Repeat Lipid panel is stable same as previous results. LDL very slightly elevated at 114 and non-HDL 134. The rest of her cholestero l panels are normal. [id number] Cleve Gottlieb zCLSD_SVP E_PRIMARY _[facility] N [address] [place] [address] 09/18/2022 09:57:38 09/18/2022 11:19:41 Migraine 45787433 G43.909 Referral to Neurology updated. Advised patient having a migraine diary, observing what triggers migraine attack and what measures provide relief. Reviewed therapeuti c lifestyle measures including good sleep hygiene, routine meal schedules, appropriat e diet, adequate hydration, regular exercise, and avoidance of migraine triggers. She was provided handouts for migraine care at ED. Transition of care 13009 56571 105 Z75.8 Reviewed ED discharge summary and reconciled current medication s. Discussed compliance to meds as prescribed , as well as need for follow-up to monitor drug effects and side effects, draw blood panels if needed and adjust medication s as appropriat e. [id number] Deogracias Humphrey Paul Jr, APRN zCLSD_SVP E[facility]PR[facility] [facility] [address] [place] [address] 12/17/2022 14:14:16 12/17/2022 17:09:24 Transition of care 7251623933 105 Z75.8 Reviewed ED discharge summary and reconciled current medication s. Discussed compliance to meds as prescribed , as well as need for follow-up to monitor drug effects and side effects, draw blood panels if needed and adjust medication s as appropriat e. Cervical radiculopathy 48006402 M54.12 XR Spine Cervical ER Routine Osseous structures : No acute abnormalit y identified . No evidence for fracture. Degenerati ve changes of the cervical spine with osteophyte formation at C4-C5 C5-C6 and C6-C7.*No acute process identified .*Mild degenerati ve changes of the spine as above. Pain in right arm 175962 004 M79.601 Discharged on short course oral Prednisone and Ibuprofen as needed. Depression screening 171 426610 Z13.31 PHQ 9 Screening score: 0/27. No Depression . Watchful waiting; repeat PHQ-9 at follow-up. Health edu cation given 059308218 Z71.9 Continue heart healthy lifestyle to include low-fat diet, low-sodium diet, regular physical activity, maintain optimal weight, and avoid all tobacco/ni cotine products. Body mass index 30+ - obesity 555208004 Z68.32 BMI 32.3. Obese. [id number] Sujatha Schmitz MD SV[facility]OBGY N_[facility] [address] [place] [address] 12/20/2022 13:44:38 12/20/2022 14:25:54 Gynecologic examination 20028186 Z01.419 -Cervical ca screening in [place]IL[facility]; after discussion of current guidelines and shared decision-m mir, the decision was made to defer cervical ca screening this year-STI screening (GC/CT/TV) and infectious disease screening (HIV, RPR, hep B, hep C) declined-B reast ca screening - mammogram ordered to be done after 38th birthday in March-A ge-appropr iate counseling conducted including importance of self-breas t awareness as well as diet & exercise-F ollow-up in 1 year for annual well-woman examinatio n, sooner PRN and/or as recommende d below Screening for malignant neoplasm of breast 275313000 Z12.39 [id number] Deogracias Remallysonban Humberto Peter MULTIPLE GAMES DEALER zCLSD_SVP E_PRIMARY _[place] [facility] [address] [place] [address] 05/22/2023 10:32:40 05/22/2023 12:15:41 Health education given 587304959 Z71.1 Continue heart healthy lifestyle to include low-fat diet, low-sodium diet, regular physical activity, maintain optimal weight, and avoid all tobacco/ni cotine products. Depression screening 171 818295 Z13.31 PHQ 9 Screening score: 0/27. No Depression . Watchful waiting; repeat PHQ-9 at follow-up. Adult heal th examination 778599707 Z00.01 Data has been collected and reviewed to identify psychosoci al risks, behavioral risks, ADLs thru the HPI or Social Hx. Reviewed with patient active medical problem list. Current medication s and consults were updated. Discussed with patient specific USPSTF screenings and the CDC/ACIP vaccine recommenda tions.Othe r Preventati ve measures addressed below.-Ind ividualize d counsellin g given on nutrition, hydration, weight management , exercise, stress reduction strategies and safety recommenda tions.-Rec ommended a well balanced diet regimen based on moderation and primarily including whole grains, fruits, vegetables , low-fat dairy and lean meats.-Rev iewed the importance of self exams, wearing sunscreen, using seatbelts, and gun safety. Recommende d avoiding tobacco use and excessive alcohol use.-Encou raged safe sex practices as patient appropriat e.-Encoura ged regular dental, vision and hearing check ups. Liver enzy mes outside reference range 593920176 R94.5 Previous h/o of ETOH use, she has stopped drinking alcohol. Liver US done last year showing fatty Liver. Followed by Gastro, recent Abdl MRI unremarkab le. Nonalcohol ic steatohepatitis 689464438 K75.81 Followed by GI. Next visit in 3 weeks. Vitamin D deficiency 347 86553 E55.9 Previous labs showing chronicall y low Vit D, restarted on high dose weekly Vit D3 replacemen t. Screening for cardiovascular system disease 259065984 Z13.6 Will update with multiphasi c screen for next visit. Diabetes m ellitus screening 414705110 Z13.1 Body mass index 30+ - obesity 157625307 Z68.33 BMI 33.4. Obese. Screening mammography of bilateral breasts 5480404361 43497 Z12.31 Screening for malignant neoplasm of cervix 639779454 Z12.4 Transition of care 65654 22613 105 Z75.8 Reviewed ED discharge summary and reconciled current medication s. Discussed compliance to meds as prescribed , as well as need for follow-up to monitor drug effects and side effects, draw blood panels if needed and adjust medication s as appropriat e. Onychomyco sis of toenails 788636925 B35.1 Needs refill of Ciclopirox . Atypical chest pain 1025 49447 R07.89 Patient is scheduled to see Cards on 06/14/23. Mixed hyperlipidemia 267 165525 E78.2 Recent Lipid panel is stable, same as previous results. LDL 108 (from 114), the rest of her cholestero l panels are WNL. Optimizing diet and lifestyle interventi ons. [id number] Deogracias Remandaban Agnila Jr MULTIPLE GAMES DEALER zCLSD_SVP E_PRIMARY _[place] N [address] [place] [address] 08/07/2023 10:03:21 08/07/2023 11:33:34 Health education given 647663097 Z71.1 Continue heart healthy lifestyle to include low-fat diet, low-sodium diet, regular physical activity, maintain optimal weight, and avoid all tobacco/ni cotine products. Generalize d anxiety disorder 23888118 F41.1 Patient verbalizes she is aware she has anxiety. Discussed with patient BANDAR interventi on with non-pharma cologic measures such as relaxation techniques , exercise, counsellin g and cognitive behavioral therapy and pharmacoth erapy or a combinatio n of both.Resta rted on SSRI, discussed dose, indication and possible med S/E.Self-h elp techniques below can also help improve symptoms:- Don? t keep your feelings bottled up ? find a support group with people you trust.-Sta y engaged in social activities and social functions. -Exercise regularly, eat healthy.-G et enough sleep ? 8 hours per night is ideal.-Med itate, try yoga, or practice other relaxation techniques . Vitamin D deficiency 347 62849 E55.9 Previous labs showing chronicall y low Vit D, continued on Vit D3 daily supplement . Mixed hyperlipidemia 267 036934 E78.2 Recent Lipid panel is stable, same as previous results. LDL 108 (from 114), the rest of her cholestero l panels are WNL. Optimizing diet and lifestyle interventi ons. Liver enzy mes outside reference range 526028986 R94.5 Previous h/o of ETOH use, she has stopped drinking alcohol. Liver US done last year showing fatty Liver. Followed by Gastro, recent Abdl MRI unremarkab le. Neck pain 47159703 M54.2 Cervical radiculopathy 94515128 M54.12 Transition of care 73054 90155 105 Z75.8 Reviewed ED discharge summary and reconciled current medication s. Discussed compliance to meds as prescribed , as well as need for follow-up to monitor drug effects and side effects, draw blood panels if needed and adjust medication s as appropriat e. Health Concerns Section Related Observation LastModified by Organization Detai ls LastModified Time None Recorded Concern Status LastModified by Organization Details LastModified Time None Recorded Advance Directives Directive N: Payers Encounter Date Sequence Insurance Name Policy Number Policy De La Paz Covered Member ID De La Paz Member ID Guarantor Name 09/18/2022 2 [facility] (MEDICAID REPLACEMENT - HMO) [facility] Sharron Bhatt- Sandy [id number] Sharron Sandy 09/18/2022 1 [place] [id number] Sharron Bhatt- Sandy [id number] Sharron Bhatt Sandy 12/17/2022 2 [facility] (MEDICAID REPLACEMENT - HMO) FLCHAY Bhatt- Sandy [id number] Sharron Bhatt Sandy 12/17/2022 1 [place] [id number] Sharron Olivases- Sandy [id number] Sharron Bhatt Sandy 12/20/2022 2 [facility] [facility] Sharron Sandy [id number] Sharron Sandy 12/20/2022 1 [place] [id number] Sharron Sandy [id number] Sharron Sandy 05/22/2023 1 [place] [id number] Sharron Sandy [id number] Sharron Sandy 05/22/2023 2 [place] [employer] Sharron Sandy [id number] Sharron Sandy 08/07/2023 1 [place] [id number] Sharron Sandy [id number] Sharron Sandy 08/07/2023 2 [place] [employer] Sharron Sandy [id number] Sharron Sandy Notes Date Note Type Note Provider Name and Address Organization Details Recorded Time 09/18/2022 text/html Transition Care [id number] bypatient.Timing:carmelo e of discharge: (09/15/2022) Facility:Facility Type Hospital Outpatient Observation Discharged to:discharged to: home Reason for visitneurologic Current Caregivers:self; family member Functional Statusno difficulty following discharge instructions; taking medications as prescribed; following recommended activity level Follow Upscheduled ; primary care provider, date:; another provider- specialist, date: (Neurologist) Patient's identity was verbally confirmed. Provider's identity was verbally confirmed. Patient acknowledged, consented and participated in this virtual visit which was conducted using secure real time audio/telephone VPO encounter. Ms Sandy is a pleasant 36yo female patient with PMHx of GERD, Vit D Def, elevated liver enzymes and NAFL presents today for ANKIT f/u after recent ED visit due to migraine headaches. ANKIT Summary: Seen at ED on 09/15/22 with a complaint of a migraine COY for 5 days. Patient states she was seen by her primary care who referred her to a neurologist but she is unable to get it at this time. Patient states the pain is more pressure and is, in the neck also. Patient states she has never really had a migraine this bad before. Very sensitive to light. Patient also complains of bilateral facial numbness and tingling for [address] Head and Brain with and w/o contrast: No evidence of acute intracranial abnormality. No large-branch vessel occlusion, flow-limiting stenosis or aneurysm in the intracranial arterial system. No evidence of hemodynamically significant stenosis involving either cervical ICA. Patient given Reglan and Toradol IV in the emergency room with significant improvement of COY. Discharged home improved and instructed to f/u with PCP and Neurologist. Evaristo Paul Jr [employer] [address], [place], [address], [facility] 09/18/2022 11:16:57 12/17/2022 text/html Transition Care [id number] bypatient.Timing:carmelo e of discharge: (12/13/2022) Facility:Facility Type Hospital Outpatient Observation Discharged to:discharged to: home Reason for visitneurologic Current Caregivers:self; family member Functional Statusno difficulty following discharge instructions; taking medications as prescribed; following recommended activity level Follow Upscheduled ; primary care provider, date:; another provider- specialist, date: (Neurologist) Ms Bhatt is a very pleasant 37yo female patient who was recently seen at ED on 12/13/22 with complaint of upper back pain and pain and tingling R arm and wrist. Patient has a history of carpal tunnel syndrome. Patient denies any neck pain but states the pain radiates from her right shoulder down her right arm. States she has been taking ibuprofen which helps with the pain but the pain has returned. Denies any injury or strain. XR Spine Cervical ER RoutineOsseous structures: No acute abnormality identified. No evidence for fracture.Degenerativ e changes of the cervical spine with osteophyte formation at C4-C5 C5-C6 and C6-C7.*No acute process identified.*Mild degenerative changes of the spine as above.Discharged on short course oral Prednisone and NSAIDs as needed Evaristo Paul Jr [employer] [address], [place], [address], [facility] 12/17/2022 15:32:13 12/20/2022 text/html Annual GYNReport ed bypatient.History:no gynecologic complaints Menstrual cycle:Normal menses Urinary symptoms:No hematuria; No incontinence Vulva:No genital lesion Vagina:Normal vaginal discharge Breast:No breast pain; No breast lump; No nipple discharge Current Contraception:[place] mous relationship; Partner had vasectomy; prefers men Sexual complaints:No sexual complaints; No pain during intercourse Menopausal Symptoms:Normal vaginal lubrication Psychological symptoms:Depression; Anxiety Preventive measures:Encourage self breast examination; Encourage regular exercise; Encourage no tobacco use; Encourage regular mammograms starting age 40 Sujatha Schmitz MD [address] [facility],[address], [place], [address], [place] 12/20/2022 19:33:42 05/22/2023 text/html Ms Sandy is a gracy y pleasant 38yo female patient with PMHx of GERD, Vit D Def, Elevated Liver Enzymes, and NAFL presents today for her Annual Wellness Exam, for due update of previous abnormal labs, for med review and desired med refills.LAB Results as follows: AST 36 (from78, 152) & ALT 62 (from 86. 228). LDL 108 (from 114). Vit D 21 (from 43, 13.4). The rest of her multiphasic labs including CBC & UA, A1C & FBS, TSH, Kidney and the rest of the lipid panels are all WNL. Data has been collected and reviewed to identify psychosocial risks, behavioral risks, ADLs thru the HPI or Social Hx. Reviewed with patient active medical problem list. Current medications and consults were updated. Discussed with patient specific USPSTF screenings and the CDC/ACIP vaccine recommendations.Othe r Preventative measures addressed below.-Individualize d counselling given on nutrition, hydration, weight management, exercise, stress reduction strategies and safety recommendations.-Rec ommended a well balanced diet regimen based on moderation and primarily including whole grains, fruits, vegetables, low-fat dairy and lean meats.-Reviewed the importance of self exams, wearing sunscreen, using seatbelts, and gun safety. Recommended avoiding tobacco use and excessive alcohol use.-Encouraged safe sex practices as patient appropriate.-Encoura ged regular dental, vision and hearing check ups. Mixed HLD -lipid panel is stable and WNL. LDL very slightly elevated at 103. The rest of her cholesterol panels are normal.Elevated Liver Enzymes -followed by GI. Previous h/o of ETOH use, she has stopped drinking alcohol. Liver US done last year showing fatty Liver. Next visit with Gastro is in 3 weeks.Plantar fasciitis -resolved with CTS injection, currently using supportive arched shoes and orthotics alleviating plantar foot pain. Followed by Podiatry. Evaristo Paul Jr [employer] [address], [place], [address], [facility] 05/23/2023 18:10:15 05/22/2023 text/html Annual Wellness Visit - FemaleReported bypatient.Wellness History:feels well with no/few symptoms; normal mood; healthy diet; exercises on a regular basis; good physical condition; healthy weight; does not use tobacco products; no alcohol/does not consume alcohol in excess; normal sleep; uses seatbelts; uses sunscreen/protection Sexual/:no known exposure to STD; safe sex practices; no STD lesions/symptoms; performs self-examination of breasts; normal menses or menopause Evaristo Paul Jr [employer] [address], [place], [address], [facility] 05/23/2023 18:10:15 08/07/2023 text/html Transition Care [id number] bypatient.Timing:carmelo e of discharge: (07/30/23) Facility:Facility Type Hospital Outpatient Observation Discharged to:discharged to: home Reason for visitcardiac; neurologic Current Caregivers:self; family member Functional Statusno difficulty following discharge instructions; taking medications as prescribed; following recommended activity level Follow Upscheduled ; primary care provider, date:; another provider- specialist, date: (Neuro) Ms Bhatt is a very pleasant 38yo female patient who presents today for ANKIT after recent ED visit and for update of referral and med refills.Patient was seen at [facility] on 07/30/23 with complaints of chest discomfort. SOB and worsening (L) arm tingling. ED work up were unremarkable including a CT of the head. Chest x-ray, EKG and labs CBC/troponin/CMP/TSH . Patient's history and exam do not suspect stroke, symptoms likely from BANDAR. Discharged improved with stable VS. Advised to f/u with her PCP and referral to Neurologist.ED Discharge Diagnosis: BANDAR. Neuropathy. Deogracias Humphrey Paul Jr [employer]IP[employer] [address], [place], [address], [facility] - [facility] [place] 08/07/2023 21:47:29 OBGyn Episode No OBEpisode recorded.
--- OUTSIDE RECORDS SUMMARY | 2024-07-14 13:37 | XMS_ITS | Encounter Summary ---
Author Organization [employer] Address [address] [place] [address] 7 [place] [address] Care Team Providers Care Car Hopper Name Role Phone Pearl Figueroa MD Primary Care Provider + Reason for Visit * Reason Onset Date Comments Medication Question 12/12/2023 Encounter Details Date Type Department Care Team ([facility] st Contact Info) Description 12/12/2023 Telephone [facility] MEDICINE [address] [place] [address] Lisandro Ascencio MD [address] [place] [address] Medication Question Social History Tobacco Use Types [...] Valdivia RN - 12/13/2023 11:29 AM EDT manager six [employer] in [facility] aware and message sent to provider regarding [...] on filedocumented in this encounter Care Teams Car Hopper Relationship Specialty Start Date End Date Pearl Figueroa MD [address] [place] [address] PCP - General Internal Medicine 02/17/24 documented as of this encounter
--- OUTSIDE RECORDS SUMMARY | 2024-07-14 13:37 | XMS_ITS | Encounter Summary ---
Author Organization [employer] Address [address] [place] [address] Care Team Providers Care Honey Blender Name Role Phone Pearl Figueroa MD Primary Care Provider + Encounter Details Date Type Department Care Team (Latest Contact Info) Description 07/14/2024 Travel Social History Tobacco Use Types Packs/Day [...] the past 12 months, has t he [employer], oil or water company threatened to shut [...] on filedocumented in this encounter Care Teams Honey Blender Relationship Specialty Start Date End Date Pearl Figueroa MD [address] [place] [address] PCP - General Internal Medicine 02/17/24 documented as of this encounter
--- OUTSIDE RECORDS SUMMARY | 2024-07-14 13:37 | XMS_ITS | Clinical Summary ---
Author Organization [facility] Address [address] [place] [address] Care Team Providers Care School Bus Monitor Name Role Phone Virgil Sharp MD Primary Care Provider [phone] Allergies No known active allergies Medications Medication [...] RISK PATIENTS (#2) 2048 06/11/2018 Care Teams School Bus Monitor Relationship Specialty Start Date End Date Virgil Sharp MD [address] [place] [address] PCP - General Internal Medicine 10/12/11
--- OUTSIDE RECORDS SUMMARY | 2024-07-14 13:37 | XMS_ITS | Encounter Summary ---
Author Organization [employer] Address [address] [place] [address] Care Team Providers Care Creative Services Producer Name Role Phone Pearl Figueroa MD Primary [...] the past 12 months, has t he [employer], oil or water company threatened to shut [...] on filedocumented in this encounter Care Teams Creative Services Producer Relationship Specialty Start Date End Date Pearl Figueroa MD [address] [place] [address] PCP - General Internal Medicine 02/17/24 documented as of this encounter
--- OUTSIDE RECORDS SUMMARY | 2024-07-14 13:37 | XMS_ITS | Encounter Summary ---
Author Organization [employer] Address [address] [place] [address] Care Team Providers Care Sample Book Maker Name Role Phone Pearl Figueroa MD Primary Care Provider + Encounter Details Date Type Department Care Team ([facility] st Contact Info) Description 06/25/2024 Telephone [facility] MEDICINE [address] [place] [address] Pearl Figueroa MD [address] [place] [address] Social History Tobacco Use Types Packs/Day Years [...] on filedocumented in this encounter Care Teams Sample Book Maker Relationship Specialty Start Date End Date Pearl Figueroa MD [address] [place] [address] PCP - General Internal Medicine 02/17/24 documented as of this encounter
--- OUTSIDE RECORDS SUMMARY | 2024-07-14 13:37 | XMS_ITS | Encounter Summary ---
Author Organization [facility] Address [address] [place] [address] Care Team Providers Care Rn Cvicu Name Role Phone Virgil Sharp MD Primary Care Provider [phone] Encounter Details Date Type Department Care Team Description 12/02/2019 Release of Information Medical Records [address] [place] [address] Abstract, Provider Social History Tobacco Use Types [...] on filedocumented in this encounter Care Teams Rn Cvicu Relationship Specialty Start Date End Date Virgil Sharp MD [address] [place] [address] PCP - General Internal Medicine 10/12/11 documented as of this encounter
--- OUTSIDE RECORDS SUMMARY | 2024-07-14 13:37 | XMS_ITS | Encounter Summary ---
Author Organization [employer] Address [address] [facility] 7t [place] [address] Care Team Providers Care Turpentine Farmer Name Role Phone Pearl Figueroa MD Primary Care Provider + Reason for Visit * Reason Onset Date Comments Results 06/25/2024 Encounter Details Date Type Department Care Team ([facility] st Contact Info) Description 06/25/2024 Telephone [facility] MEDICINE [address] [place], [place] [phone] Purnima Mac RN [address] [place] [address] Results Social History Tobacco Use Types Packs/Day [...] advised she will receive a TC from [facility] once BW results are received. Patient denies concerns or s/s regarding gastric cancer at this time however was unsure if she should have screening d/t family history. Patient notified it is not routinely screened for however if patient develops s/s she should call [facility] for an appointment to discuss s/s. Patient [...] ordered to check TSH and CBC per [employer] message: Hi I was wondering if my [...] on file documented as of this encounter Procedures Procedure Name Priority Date/Time Associated Diagnosis Comments CBC WITH AUTO DIFFERENTIAL Routine 07/14/2024 11:11 AM EST Fatty liver documented in this encounter Results * (ABNORMAL) CBC auto differential (07/14/2024 11:11 AM EST) White Blood Count 6.8 4.8 - 10.8 X10*3/uL [facility] Red Blood Count 4.23 4.20 - 5.50 X10*6/uL [facility] Hemoglobin 12.6 12.0 - 16.0 g/dl [facility] Hematocrit 37.7 37.0 - 47.0 % [facility] Mean Corpuscular Volume 89.1 80.0 - 98.0 fL [facility] Mean Corpuscular Hemoglobin 29.8 27.0 - 33.0 pg [facility] Mean Corpuscular HGB Conc 33.4 31.0 - 35.0 g/dl [facility] Red Cell Distribution Width 11.8 11.0 - 16.0 % [facility] Platelet Count 291 160 - 400 X10*3/uL [facility] Mean Platelet Volume 8.9(L) 9.4 - 12.3 fL [facility] Neutrophils Percent Auto 59.5 45 - 73 % [facility] Imm Gran Pct Auto 0.3 0.0 - 0.4 % [facility] Lymphocytes Percent Auto 31.1 20 - 40 % [facility] Monocytes Percent Auto 6.9 2 - 11 % [facility] Eosinophils Percent Auto 1.6 0 - 4 % [facility] Basophils Percent Auto 0.6 0 - 2 % [facility] NRBC Pct Auto 0.0 0.0 - 0.2 /100WBC [facility] Neutrophils Absolute Auto 4.1 2.0 - 8.3 x10*3/uL [facility] Imm Gran Abs Auto 0.02 0.00 - 0.03 X10*3/uL [facility] Lymphocytes Absolute Auto 2.1 1.2 - 4.9 X10*3/uL [facility] Monocytes Absolute Auto 0.5 0.1 - 1.2 X10*3/uL [facility] Eosinophils Absolute Auto 0.1 0.0 - 0.4 X10*3/uL [facility] Basophils Absolute Auto 0.0 0.0 - 0.2 X10*3/uL [facility] NRBC Abs Auto 0.000 0.0 - 0.012 X10*3/uL [facility] Blood Venous blood specimen / Unknown 07/14/2024 11:11 AM EST 07/14/2024 1:08 PM EST us Pearl Figueroa MD LAB BLOOD ORDERABLES Fin al Result Performing Organization Address City/State/[facility] Co de Phone Number [facility] [address] [place] [address] [phone] documented in this encounter Visit Diagnoses Diagnosis Fatty liver- Primary Other chronic nonalcoholic liver disease documented in this encounter Care Teams Turpentine Farmer Relationship Specialty Start Date End Date Pearl Figueroa MD [address] [place] [address] PCP - General Internal Medicine 02/17/24 documented as of this encounter
--- OUTSIDE RECORDS SUMMARY | 2024-07-14 13:37 | XMS_ITS | Encounter Summary ---
Author Organization [facility] Address [address] [place] [address] Care Team Providers Care Roofing Subcontractor Name Role Phone Virgil Sharp MD Primary Care Provider Encounter Details Date Type Department Care Team Description 06/28/2015 Pt. Non Urgent Medical Question Adult Medicine [address] [address] Virgil Sharp MD [address] [place] [address] Social History Tobacco Use Types Packs/Day Years Used Date Smoking Tobacco: Never Smokeless Tobacco: Never Alcohol Use Standard Drinks/Week Comments No 0 (1 standard drink = 0.6 oz pur e alcohol) Sex Assigned at Date Recorded Female 12/29/2020 1:27 PM E DT documented as of this encounter Progress Notes * Lizzette Ayon M.A. - 06/28/2015 1:32 PM ESTFrom: Sharron Sandy To: Virgil Sharp MD Sent: 06/28/2015 1:31 PM EST Subject: Please specify to the gastro doctor I have an appointment with the gastro doctor coming up please let him know if he can do an ultrasound because I have been having pain in my stomach and burning thanks documented in this encounter Plan of Treatment Not on file documented as of this encounter Visit Diagnoses Not on filedocumented in this encounter Care Teams Roofing Subcontractor Relationship Specialty Start Date End Date Virgil Sharp MD [address] [place] [address] PCP - General Internal Medicine 10/12/11 documented as of this encounter
== END 2024-07-14 11:10 | disposition home or self-care (01) ==
LOC: HO.HHCL 11:09
PROVIDERS: Visit Provider Internal Medicine
DX: K76.0 Fatty (change of) liver, not elsewhere classified (principal)
CPT/HCPCS: 36415; 85025

== ENCOUNTER 2024-07-22 10:49 | Outpatient (REF) | payer MEDICAID, SELFPAY ==
--- NOTE | ~2024-07-22 | XR_ITS ---
EXAMINATION: XR SHOULDER, LEFT CLINICAL INFORMATION: left anterior shoulder pain COMPARISON: None available. TECHNIQUE: AP external rotation, Grashey, scapular Y, and axillary views of the left shoulder. FINDINGS: The bones and soft tissues are normal. No fracture. Glenohumeral and acromioclavicular alignment is anatomic with normal joint space. No abnormal soft tissue calcifications. XR/XR shoulder LT min 2V IMPRESSION: Normal left shoulder. Electronically signed by: Kali Wayne MD 07/22/2024 12:12 PM MALINI CRUZ
--- OUTSIDE RECORDS SUMMARY | 2024-07-22 12:57 | XMS_ITS | Data Portability ---
Author Organization [place] [facility] [place] [facility] [place] micki, [id number]_CC_CCMOB 300 Address [address] [facility] [address] [place] [address] Care Team Providers Care Jailor Name Role Phone EVARISTO PAUL Primary Care Provider EVARISTO PAUL Referring Provider BREANNA FOY III OTHER EVARISTO PAUL Primary [...] and med refills. Patient was seen at [facility] on 07/30/23 with complaints of chest [...] Lab lipid panel, serum 2023 024 [email or web address] [employer] [facility], [address], [place], [address], 4 10:11:10 vitamin D, 25-hydroxy, total, serum 2023 024 [email or web address] 1 [employer] [facility], [address], [place], [address], 4 19:39:21 CMP, serum or plasma 2023 024 [email or web address] [facility], [address], [place], [address], 4 10:11:10 lipid panel, serum 2023 024 [email or web address] [employer] [facility], [address], [place], [address], 4 10:11:10 vitamin D, 25-hydroxy, total, serum 2023 024 [email or web address] 1 [facility] ([place] [address] [place], [address], 4 19:39:21 CMP, serum or plasma 2023 024 [employer] [facility] [address] [place], [address], 4 10:11:09 CBC w/ auto diff 2023 024 [email or web address] [facility] [address] [place], [address], 4 10:11:10 urinalysis complete, reflex culture 2023 024 [employer] [facility] [address] [facility], [place], [address], 4 10:11:10 HbA1c (hemoglobin A1c), blood 2023 024 [email or web address] [facility] ([place]), [address] [facility], [place], [address], 4 10:11:09 test, urine [address] [facility] [place] Phys[facility] [place] Orders (For In-Office Services Only), [address] [facility], [place], [address], 3 09:08:56 Referral neurologist referral - For referral assistance please contact the [facility] at . Please contact the patient to schedule. Thanks. 2023 024 [email or web address] Not available 4 10:11:34 neurologist referral - Recent ED visit due to intractable migraine COY. 2022 023 [email or web address] 1 Haja Reyna MD, [address], [address], [place], [address], 4 14:47:31 Procedures None recorded. Surgeries None recorded. Imaging MAMMO, screening, digital, bilateral 2023 024 [email or web address] [facility], [address], [address], [place], [address], 4 08:00:20 MAMMO, screening, digital, bilateral - US PRN please do not perform prior to 11.2022 023 [facility], [address], [address], [place], [address], 3 10:06:16 Medication Orders cholecalcif gonzalez (vitamin D3) 125 mcg (5,000 unit) capsule 2023 024 [id number], [address], [place], [id number], 4 10:39:16 sertraline 25 mg tablet 2023 024 [id number], [address], [place], [id number], 4 10:39:16 ciclopirox 8 % topical solution 2023 [id number], [address], [place], [id number], 4 11:32:07 cholecalcif gonzalez (vitamin D3) 1,250 mcg (50,000 unit) capsule 2023 [facility][id number], [address], [place], [id number], 4 17:54:49 Patient Targets Encounter Date Encounter Id Patient Goals Patient Target Last Modified By Organization Details Last Modified Time 12/17/2022 [id number] senior care goal of BMI 25 Not available Not available Not available Ongoing of Blood Pressure 140/90 Not available Not available Not available senior care goal of Hemoglobin A1C <7.0 Not available [...] risks. [email or web address] Not available 12/17/2022 13:52:56 05/22/2023 [id number] rehabilitation therapy technician goal of BMI 25 Not available Not available Not available Blood Pressure 140/90 Not available Not availab le Not available Hemoglobin A1C <7.0 Not available Not availab le Not available Ongoing of Cholesterol, LDL <100 low risk <70 high risk Not available Not available Not available 08/07/2023 [id number] senior care goal of BMI 25 Not available Not [...] By Organization Details Last Modified Time 09/18/2022 [id number] migraine headache: care instructions [email or web address] Not available 09/18/2022 11:13:53 12/17/2022 [id number] patient health questionnaire depression assessment* [email or web address] Not [...] instructions [email or web address] Not available 12/17/2022 14:38:51 05/22/2023 [id number] aprenda sobre el colesterol alto - [learning [...] risks. [email or web address] Not available 05/23/2023 17:57:14 08/07/2023 [id number] high cholesterol : care instructions adeogracias Not [...] please contact the Care coordination Center at [phone]. Please contact the patient to schedule. Thanks. Referring Physician: Evaristo Paul [facility], Encounter Date: 08/07/2023 Results Created Date Observation Date Name Description Value Unit Range Abnormal Flag Note LastModifiedBy Organization Detail LastModifiedTime 12/25/19 23 12/24/2022 pregn dagmar test, urine HCG negati ve Not Available [facility] [place] [facility] (For In-Office Services Only) [address] [place], [address], 12/19/2022 17:56:17 05/10/20 23 05/11/2023 LIPID PANEL , [place] cholesterol, total 182 mg/dL <200 normal Not Available [facility] [place] [facility] [address], [place], [address], 05/11/2023 08:21:20 05/10/20 23 05/11/2023 LIPID PANEL , [place] HDL cholesterol 57 mg/dL > or = 50 normal Not Available [facility] [place] [facility] [address], [place], [address], 05/11/2023 08:21:20 05/10/20 23 05/11/2023 LIPID PANEL , [place] triglyceride s 80 mg/dL <150 normal Not Available [facility] [place] [facility] [address], [place], [address], 05/11/2023 08:21:20 05/10/20 23 05/11/2023 LIPID PANEL [...] 2061- 2068 (http ://ed ucati on.Qu maryDi Magink display technologiess. com/f aq/FA Q164) Not Available [facility] [place] [facility] [address], [place], [address], 05/11/2023 08:21:20 05/10/20 23 05/11/2023 LIPID PANEL , [place] chol/HDLC ratio 3.2 (calc ) <5.0 normal Not Available [facility] [place] [facility] [address], [place], [address], 05/11/2023 08:21:20 05/10/20 23 05/11/2023 LIPID PANEL , [place] non HDL cholesterol 125 mg/dL _(janet c) <130 normal For patie nts with diabe anahy plus 1 major ASCVD risk facto r, treat ing to a non-H DL-C goal of <100 mg/dL (LDL- C of <70 mg/dL ) is consi dered a thera peuti c optio n. Not Available [facility] [address], [place], [address], 05/11/2023 08:21:20 05/10/2005/11/2023 COMPR EHENS RAMÓN METAB OLIC PANEL glucose 75 mg/dL 65-99 normal Fasti ng refer ence inter niraj Not Available [facility] [address], [place], [address], 05/11/2023 08:21:21 05/10/20 23 05/11/2023 COMPR EHENS RAMÓN METAB OLIC PANEL urea nitrogen (BUN) 11 mg/dL 7-25 normal Not Available [facility] [address], [place], [address], 05/11/2023 08:21:21 05/10/2005/11/2023 COMPR EHENS RAMÓN METAB OLIC PANEL creatinine 0.71 mg/dL 0.50-0 .99 normal Not Available [facility] [address], [place], [address], 05/11/2023 08:21:21 05/10/2005/11/2023 COMPR EHENS RAMÓN METAB OLIC PANEL eGFR 110 mL/mi n/1.7 3m2 > or = 60 normal Not Available [facility] [address], [place], [address], 05/11/2023 08:21:21 05/10/2011 0505/11/2023 COMPR EHENS RAMÓN METAB OLIC PANEL BUN/creatini ne ratio SEE NOTE: (calc ) 6-22 Not Repor marco: BUN and Creat inine are withi n refer ence range . Not Available [facility] [place] [facility] [address], [place], [address], 05/11/2023 08:21:21 05/10/20 23 05/11/2023 COMPR EHENS RAMÓN METAB OLIC PANEL sodium 137 mmol/ L 135-14 6 normal Not Available [facility] [place] [facility] [address], [place], [address], 05/11/2023 08:21:21 05/10/20 23 05/11/2023 COMPR EHENS RAMÓN METAB OLIC PANEL potassium 3.9 mmol/ L 3.5-5. 3 normal Not Available [facility] [place] [facility] [address], [place], [address], 05/11/2023 08:21:21 05/10/20 23 05/11/2023 COMPR EHENS RAMÓN METAB OLIC PANEL chloride 101 mmol/ L 98-110 normal Not Available [facility] [place] [facility] [address], [place], [address], 05/11/2023 08:21:21 05/10/20 23 05/11/2023 COMPR EHENS RAMÓN METAB OLIC PANEL carbon dioxide 27 mmol/ L 20-32 normal Not Available [facility] [place] [facility] [address], [place], [address], 05/11/2023 08:21:21 05/10/20 23 05/11/2023 COMPR EHENS RAMÓN METAB OLIC PANEL calcium 9.4 mg/dL 8.6-10 .2 normal Not Available [facility] [place] [facility] [address], [place], [address], 05/11/2023 08:21:21 05/10/20 23 05/11/2023 COMPR EHENS RAÓMN METAB OLIC PANEL protein, total 7.9 g/dL 6.1-8. 1 normal Not Available [facility] [address], [place], [address], 05/11/2023 08:21:21 05/10/20 23 05/11/2023 COMPR EHENS RAMÓN METAB OLIC PANEL albumin 4.4 g/dL 3.6-5. 1 normal Not Available [facility] [address], [place], [address], 05/11/2023 08:21:21 05/10/20 23 05/11/2023 COMPR EHENS RAMÓN METAB OLIC PANEL globulin 3.5 g/dL_ (calc ) 1.9-3. 7 normal Not Available [facility] [address], [place], [address], 05/11/2023 08:21:21 05/10/20 23 05/11/2023 COMPR EHENS RAMÓN METAB OLIC PANEL albumin/glob ulin ratio 1.3 (calc ) 1.0-2. 5 normal Not Available [facility] [address], [place], [address], 05/11/2023 08:21:21 05/10/20 23 05/11/2023 COMPR EHENS RAMÓN METAB OLIC PANEL bilirubin, total 0.6 mg/dL 0.2-1. 2 normal Not Available [facility] [address], [place], [address], 05/11/2023 08:21:21 05/10/20 23 05/11/2023 COMPR EHENS RAMÓN METAB OLIC PANEL alkaline phosphatase 67 U/L 31-125 normal Not Available [facility] [address], [place], [address], 05/11/2023 08:21:21 05/10/20 23 05/11/2023 COMPR EHENS RAMÓN METAB OLIC PANEL AST 36 U/L 10-30 high Not Available [facility] [place] [facility] [address] [place], [address], 05/11/2023 08:21:21 05/10/20 23 05/11/2023 COMPR EHENS RAMÓN METAB OLIC PANEL ALT 62 U/L 6-29 high Not Available [facility] [place] [facility] [address], [place], [address], 05/11/2023 08:21:21 05/10/2005/11/2023 HEMOG LOBIN A1C hemoglobin [...] anahy(A DA). Not Available [facility] [place] [facility] [address], [place], [address], 05/11/2023 08:21:23 05/10/20 23 05/11/2023 TSH W/REF YAS TO FT4 TSH w/reflex to FT4 0.78 mIU/L normal Refer ence Range > or = 20 Years 0.40- 4.50 Pregn dagmar Range s First trime ster 0.26- 2.66 Secon d trime ster 0.55- 2.73 Third trime ster 0.43- 2.91 Not Available [facility] [address], [place], [address], 05/11/2023 08:21:24 05/10/20 23 05/11/2023 CBC (INCL UDES DIFF/ PLT) white blood cell count 6.8 thous and/u L 3.8-10 .8 normal Not Available [facility] [address], [place], [address], 05/11/2023 08:21:25 05/10/2005/11/2023 CBC (INCL UDES DIFF/ PLT) red blood cell count 4.33 cari on/uL 3.80-5 .10 normal Not Available [facility] [address], [place], [address], 05/11/2023 08:21:25 05/10/20 23 05/11/2023 CBC (INCL UDES DIFF/ PLT) hemoglobin 13.0 g/dL 11.7-1 5.5 normal Not Available [facility] [address], [place], [address], 05/11/2023 08:21:25 05/10/2005/11/2023 CBC (INCL UDES DIFF/ PLT) hematocrit 38.9 % 35.0-4 5.0 normal Not Available [facility] [address], [place], [address], 05/11/2023 08:21:25 05/10/2005/11/2023 CBC (INCL UDES DIFF/ PLT) MCV 89.8 fL 80.0-1 00.0 normal Not Available [facility] [address], [place], [address], 05/11/2023 08:21:25 05/10/2005/11/2023 CBC (INCL UDES DIFF/ PLT) MCH 30.0 pg 27.0-3 3.0 normal Not Available [facility] [address], [place], [address], 05/11/2023 08:21:25 05/10/2005/11/2023 CBC (INCL UDES DIFF/ PLT) MCHC 33.4 g/dL 32.0-3 6.0 normal Not Available [facility] [address], [place], [address], 05/11/2023 08:21:25 05/10/2005/11/2023 CBC (INCL UDES DIFF/ PLT) RDW 11.6 % 11.0-1 5.0 normal Not Available [facility] [address], [place], [address], 05/11/2023 08:21:25 05/10/2005/11/2023 CBC (INCL UDES DIFF/ PLT) platelet count 278 thous and/u L 140-40 0 normal Not Available [facility] [address], [place], [address], 05/11/2023 08:21:25 05/10/2005/11/2023 CBC (INCL UDES DIFF/ PLT) MPV 9.3 fL 7.5-12 .5 normal Not Available [facility] [address], [place], [address], 05/11/2023 08:21:25 05/10/2005/11/2023 CBC (INCL UDES DIFF/ PLT) absolute neutrophils 3706 cells /uL 1500-7 800 normal Not Available [facility] [address], [place], [address], 05/11/2023 08:21:25 05/10/2005/11/2023 CBC (INCL UDES DIFF/ PLT) absolute lymphocytes 2496 cells /uL 850-39 00 normal Not Available [facility] [place] [facility] [address], [place], [address], 05/11/2023 08:21:25 05/10/2005/11/2023 CBC (INCL UDES DIFF/ PLT) absolute monocytes 469 cells /uL 200-95 0 normal Not Available [facility] [place] [facility] [address], [place], [address], 05/11/2023 08:21:25 05/10/2005/11/2023 CBC (INCL UDES DIFF/ PLT) absolute eosinophils 109 cells /uL 15-500 normal Not Available [facility] [place] [facility] [address], [place], [address], 05/11/2023 08:21:25 05/10/2005/11/2023 CBC (INCL UDES DIFF/ PLT) absolute basophils 20 cells /uL 0-200 normal Not Available [facility] [place] [facility] [address], [place], [address], 05/11/2023 08:21:25 05/10/20 23 05/11/2023 CBC (INCL UDES DIFF/ PLT) neutrophils 54.5 % normal Not Available [facility] [address], [place], [address], 05/11/2023 08:21:25 05/10/2005/11/2023 CBC (INCL UDES DIFF/ PLT) lymphocytes 36.7 % normal Not Available [facility] [place] [facility] [address], [place], [address], 05/11/2023 08:21:25 05/10/20 23 05/11/2023 CBC (INCL UDES DIFF/ PLT) monocytes 6.9 % normal Not Available [facility] [place] [facility] [address], [place], [address], 05/11/2023 08:21:25 05/10/20 23 05/11/2023 CBC (INCL UDES DIFF/ PLT) eosinophils 1.6 % normal Not Available [facility] [address], [place], [address], 05/11/2023 08:21:25 05/10/20 23 05/11/2023 CBC (INCL UDES DIFF/ PLT) basophils 0.3 % normal Not Available [facility] [address], [place], [address], 05/11/2023 08:21:25 05/10/2005/11/2023 URINA LYSIS , COMPL ETE W/REF YAS TO CULTU RE color YELLOW yellow normal Not Available [facility] [address], [place], [address], 05/11/2023 08:21:26 05/10/2005/11/2023 URINA LYSIS , COMPL ETE W/REF YAS TO CULTU RE appearance CLEAR clear normal Not Available [facility] [address], [place], [address], 05/11/2023 08:21:26 05/10/2005/11/2023 URINA LYSIS , COMPL ETE W/REF YAS TO CULTU RE specific gravity 1.019 1.001- 1.035 normal Not Available [facility] [address], [place], [address], 05/11/2023 08:21:26 05/10/2005/11/2023 URINA LYSIS , COMPL ETE W/REF YAS TO CULTU RE pH 5.5 5.0-8. 0 normal Not Available [facility] [address], [place], [address], 05/11/2023 08:21:26 05/10/2005/11/2023 URINA LYSIS , COMPL ETE W/REF YAS TO CULTU RE glucose NEGATI VE negati ve normal Not Available [facility] [place] [facility] [address], [place], [address], 05/11/2023 08:21:26 05/10/20 23 05/11/2023 URINA LYSIS , COMPL ETE W/REF YAS TO CULTU RE bilirubin NEGATI VE negati ve normal Not Available [facility] [place] [facility] [address], [place], [address], 05/11/2023 08:21:26 05/10/2005/11/2023 URINA LYSIS , COMPL ETE W/REF YAS TO CULTU RE ketones NEGATI VE negati ve normal Not Available [facility] [place] [facility] [address], [place], [address], 05/11/2023 08:21:26 05/10/2005/11/2023 URINA LYSIS , COMPL ETE W/REF YAS TO CULTU RE occult blood NEGATI VE negati ve normal Not Available [facility] [place] [facility] [address], [place], [address], 05/11/2023 08:21:26 05/10/20 23 05/11/2023 URINA LYSIS , COMPL ETE W/REF YAS TO CULTU RE protein NEGATI VE negati ve normal Not Available [facility] [place] [facility] [address], [place], [address], 05/11/2023 08:21:26 05/10/2005/11/2023 URINA LYSIS , COMPL ETE W/REF YAS TO CULTU RE nitrite NEGATI VE negati ve normal Not Available [facility] [place] [facility] [address], [place], [address], 05/11/2023 08:21:26 05/10/2005/11/2023 URINA LYSIS , COMPL ETE W/REF YAS TO CULTU RE leukocyte esterase NEGATI VE negati ve normal Not Available [facility] [place] [facility] [address], [place], [address], 05/11/2023 08:21:26 05/10/2005/11/2023 URINA LYSIS , COMPL ETE W/REF YAS TO CULTU RE WBC NONE SEEN /hpf < or = 5 normal Not Available [facility] [place] [facility] [address], [place], [address], 05/11/2023 08:21:26 05/10/2005/11/2023 URINA LYSIS , COMPL ETE W/REF YAS TO CULTU RE RBC NONE SEEN /hpf < or = 2 normal Not Available [facility] [place] [facility] [address], [place], [address], 05/11/2023 08:21:26 05/10/2005/11/2023 URINA LYSIS , COMPL ETE W/REF YAS TO CULTU RE squamous epithelial cells 0-5 /hpf < or = 5 Not Available [facility] [place] [facility] [address], [place], [address], 05/11/2023 08:21:26 05/10/20 23 05/11/2023 URINA LYSIS , COMPL ETE W/REF YAS TO CULTU RE bacteria NONE SEEN /hpf none seen normal Not Available [facility] [place] [facility] [address], [place], [address], 05/11/2023 08:21:26 05/10/2005/11/2023 URINA LYSIS , COMPL ETE W/REF YAS TO CULTU RE hyaline cast NONE SEEN /lpf none seen normal Not Available [facility] [place] [facility] [address], [place], [address], 05/11/2023 08:21:26 05/10/20 23 05/11/2023 URINA LYSIS , COMPL ETE W/REF YAS TO CULTU RE note This urine was lynnette zed for the prese nce of WBC, RBC, bacte brad, casts , and other forme d eleme nts. Only those eleme nts seen were repor marco. Not Available [facility] [place] [facility] [address], [place], [address], 05/11/2023 08:21:26 05/10/20 23 05/11/2023 REFLE XIVE URINE CULTU RE reflexive urine culture NO CULTU RE INDIC ATED Not Available [facility] [place] [facility] [address], [place], [address], 05/11/2023 08:21:27 05/10/20 23 05/11/2023 VITAM IN B12/F OLATE , SERUM PANEL vitamin B12 985 pg/mL 200-11 00 normal Not Available [facility] [place] [facility] [address], [place], [address], 05/11/2023 08:21:28 05/10/20 23 05/11/2023 VITAM IN B12/F OLATE , SERUM PANEL folate, serum 17.5 NG/mL normal Refer ence Range Low: <3.4 Borde rline : 3.4-5 .4 Radha l: >5.4 Not Available [facility] [place] [facility] [address], [place], [address], 05/11/2023 08:21:28 04/25/20 23 04/13/2023 MAMMO , scree vicky, digit al, bilat eral No observ ation record ed. [email or web address] [facility] [address], [place], [address], 05/23/2023 17:47:53 07/30/19 24 04/30/2023 elect angelina sanchezgr am No observ ation record ed. [email or web address] Not Available 07/19 21:22:47 Result Notes Documentation Provider Name and Address Organization Details Recorded Time Mammo, Screening, Digital, Bilateral : BIRADs 1 Deogracias Humphrey Paul Jr ELECTRICAL TECHNOLOGY INSTRUCTOR [address], [place], [address], [facility] 05/23/2023 17:47:53 Problems Name Problem SNOMED Code Status Onset Date Resolution Date Notes Provider Name and Address Organization Details Recorded Time Gastroesopha geal reflux disease 675544655 Active 2019 Zayda Perales ELECTRICAL TECHNOLOGY INSTRUCTOR [address], [place], [address], [facility] 0 07:48:26 Nonalcoholic steatohepati tis 132496551 Active 2020 Zayda Perales ELECTRICAL TECHNOLOGY INSTRUCTOR [address], [place], [address], [facility] 1 09:32:08 Vitamin D deficiency 61757957 Active 2020 Mine Serna APRN [address], [place], [address], [facility] 1 20:01:27 Liver enzymes outside reference range 745162483 Active 2012 Evaristo Paul Jr ELECTRICAL TECHNOLOGY INSTRUCTOR [address], [place], [address], [facility] 3 20:34:27 Mixed hyperlipidem ia 428760635 Active 2021 Evaristo Paul Jr ELECTRICAL TECHNOLOGY INSTRUCTOR [address], [place], [address], [facility] 2 13:02:18 Plantar fasciitis 520929835 Active 2021 Isidroogrshola Paul Jr ELECTRICAL TECHNOLOGY INSTRUCTOR [address], [place], [address], [facility] 2 13:02:20 Problem Notes None recorded. Procedures Surgical History Date Name Laterality Status Provider Name and Address Organization Details Recorded Time 08/07/19 24 Transitional Care- Med Reconciliation completed Deogracias Angelicadanielle Paul Jr ELECTRICAL TECHNOLOGY INSTRUCTOR [address] [facility], [place], [address], [place] [facility] [place] [facility] [place] 08/07/2023 21:21:40 05/22/19 24 Transitional Care- Med Reconciliation completed Deogracias Clarisaallysondanielle Paul Jr ELECTRICAL TECHNOLOGY INSTRUCTOR [address] [facility],[address], [place], [address], [place] 05/23/2023 17:59:07 09/19/19 23 Transitional Care- Med Reconciliation completed Deogracias Clarisaallysondanielle Paul Jr ELECTRICAL TECHNOLOGY INSTRUCTOR [address] [facility],[address], [place], [address], [place] 09/18/2022 11:14:10 05/15/20 22 [facility] completed Gabriela Tyson [place] 05/15/2022 06:53:14 04/10/20 22 [facility] cancelled Gabriela Tyson [place] 04/10/2022 10:34:01 02/17/20 22 [facility] completed Gabriela Tyson [place] 02/14/2022 06:47:01 01/03/20 22 PC[facility] completed Deogracias Humphrey Paul Jr ELECTRICAL TECHNOLOGY INSTRUCTOR [address] [facility],[address], [place], [address], [place] 01/02/2022 10:39:25 10/10/19 22 [facility] cancelled Lacy [place]on [place] 10/05/2021 15:16:18 09/05/19 22 PC[facility] completed Lacy [place] 08/29/2021 17:01:18 07/06/19 22 PC[facility] completed Lacy [place] 07/06/2021 09:11:34 05/25/19 22 Date of Last Pap Smear completed Yannick Graff [place] 12/20/2022 13:56:19 05/10/20 21 PC[facility] completed Lacy [place] 05/10/2021 09:09:13 05/10/20 SDOH completed Lacy [place] 05/09/2021 07:40:53 03/30/20 Special Note completed Sujatha Schmitz MD [id number] ,[address], [place], [id number], [place] 03/30/2021 10:14:26 02/09/20 PCMH completed Lacydavid Holl[place] 02/07/2021 12:42:05 01/10/20 PCMH cancelled Lacy [place]agong[place] 01/06/2021 15:54:20 01/10/20 SDOH cancelled Lacy [place] 01/06/2021 15:54:22 12/08/19 PCMH cancelled Gabriela [place] 12/07/2020 12:26:38 04/29/20 PCM completed Layc [place] 04/28/2020 16:16:13 Dilation and Cureattage completed Cecelia Tav[place] [facility] 10/31/2021 14:48:30 Gallbladder Surgery completed Gabriela [place] 04/29/2020 08:22:55 Imaging Results Imaging Date Name Status LastModified by Organization Details LastModified Time 04/13/2023 MAMMO, screening, digital, bilateral completed [email or web address] [facility] [address], [place], [address], 05/23/2023 17:47:53 04/30/2023 electrocardiogram completed [email or web address] Inform [...] cm 114 mm[Hg] 70 mm[Hg] Justin Lindsey [facility] [place] 09/18/2022 10:05:37 Date Recorded Body height Body mass index (BMI) Body weight Heart rate Respiratory rate Oxygen saturation Oxygen saturation in Arterial blood by Pulse oximetry Body temperature Pain severity - 0-10 verbal numeric rating [Score] - Reported Systolic blood pressure Diastolic blood pressure Provider Name and Address Organization Details Last Updated DateTime 3 162.56 cm 32.3 kg/m2 86777.3 7 g 65 /min 16 /min 98 % 98 % 98.1 [degF] 0 124 mm[Hg] 88 mm[Hg] JOSE L Dinero [facility] [place] 3 14:21:27 Date Recorded Body height Body mass index (BMI) Body weight Pain severity - 0-10 verbal numeric rating [Score] - Reported Body temperature Respiratory rate Heart rate Systolic blood pressure Diastolic blood pressure Provider Name and Address Organization Details Last Updated DateTime 3 162.56 cm 31.6 kg/m2 94314 g 0 98.2 [degF] 16 /min 76 /min 122 mm[Hg] 80 mm[Hg] [facility] 3 13:58:04 Date Recorded Body height Body mass index (BMI) Body weight Pain severity - 0-10 verbal numeric rating [Score] - Reported Body temperature Oxygen saturation Oxygen saturation in Arterial blood by Pulse oximetry Heart rate Respiratory rate Systolic blood pressure Diastolic blood pressure Provider Name and Address Organization Details Last Updated DateTime 4 162.56 cm 32.7 kg/m2 44620.6 5 g 0 98.6 [degF] 98 % 98 % 85 /min 16 /min 138 mm[Hg] 79 mm[Hg] [facility] 4 11:01:27 Date Recorded Body height Body mass index (BMI) Body weight Heart rate Respiratory rate Body temperature Pain severity - 0-10 verbal numeric rating [Score] - Reported Provider Name and Address Organization Details Last Updated DateTime 4 162.56 cm 32.2 kg/m2 43909.5 7 g 74 /min 16 /min 98.6 [degF] 0 [facility] 4 10:25:11 Date Recorded Oxygen saturation Oxygen saturation in Arterial blood by Pulse oximetry Systolic blood pressure Diastolic blood pressure Provider Name and Address Organization Details Last Updated DateTime 08/07/2023 98 % 98 % 130 mm[Hg] 84 mm[Hg] Deogracias Humphrey Paul Jr ELECTRICAL TECHNOLOGY INSTRUCTOR [address], [place], [address] 4 21:40:46 Social History Question Answer Notes LastModified by Organizat ion Details LastModified Time Tobacco Smoking Status Never [facility]oker [facility] 08/07/2023 10:03:51 Do You Have An Advance Directive? No [email or web address] Information not available 12/20/2022 Is Your Home Air Conditioned? Yes Information not available 05/22/2023 What Is Your Level Of Alcohol Consumption? Occasional [email or web address] Information not available 08/07/2023 How Many Times Per Week Do You Consume Alcohol? 1-2 Times Per Week Information not available 02/08/2021 How Many Years Have You Consumed Alcohol? 3 [email or web address] Information not available 04/10/2022 Are You Currently Sexually Active With Anyone Who Has Traveled (within The Last 12 Weeks) To A Zika-affected Area? No Information not available 05/22/2023 Do You Wear A Helmet When Biking? Yes Information not available 05/22/2023 Are You Blind Or Do You Have Difficulty Seeing? No [email or web address] Information not available 08/07/2023 Is Blood Transfusion Acceptable In An Emergency? Yes [email or web address] Information not available 08/07/2023 What Is Your Level Of Caffeine Consumption? Occasional [email or web address] Information not available 12/20/2022 How Much Tobacco Do You Chew? 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 [employer] Information not available [...] Do You Have Serious Difficulty Hearing? No [email or web address] Information not available 08/07/2023 What Type Of [...] E-cigarettes Or Vape? Never Used Electronic Cigarettes [email or web address] Information not available 04/29/2020 What Is The Highest Grade Or Level Of School You Have Completed Or The Highest Degree You Have Received? [id number] [email or web address] Information not available 12/20/2022 Do You [...] not available 05/22/2023 Where Do You Live? [facility] Information not available 05/22/2023 Live Alone Or With Others? With Others Information not available 05/22/2023 Patient Would Like A Flu Shot Yes Information not available 05/10/2021 Please List The Date The Patient Received The Flu Shot 01/19/2020 [email or web address] Information not available 05/25/2021 Please List The Location Where The Patient Received The Flu Shot [facility] Information not available 05/25/2021 Patient Interested In Colorectal Cancer Screening No [email or web address] Information not available 04/29/2020 Do You Want Help Finding Or Keeping Work Or A Job? No [email or web address] Information not available 04/29/2020 Do You Want Help With School Or Training? For Example, Starting Or Completing Job Training Or Getting A High School Diploma, GED, Or Equivalent No [email or web address] Information not available 04/29/2020 In The Last 12 Months Did You Ever Eat Less Than You [place] You Should Because There Wasn? t Enough Money For Food? No Information not available 04/29/2020 In The Past 12 Months Has The Ghost, Gas, Oil, Or Water Nitro PDF Threatened To Shut Off Services In Your Home? No Information not available 04/29/2020 In The Last 12 Months Did You Skip Medications To Save Money? No [email or web address] Information not available 04/29/2020 In The Last 12 Months, Was There A Time When You Needed To See A Doctor But Could Not Because Of Cost? No [email or web address] Information not available 04/29/2020 Do You Often Feel Lonely? No [email or web address] Information not available 04/29/2020 Do You Want Help With Any Of Your Needs? No [email or web address] Information not available 04/29/2020 Are Any Of Your Needs Urgent? No [email or web address] Information not available 04/29/2020 Are You Worried That In The Next 2 Months You May Not Have Stable Housing? No [email or web address] Information not available 04/29/2020 In The Last 12 Months, Have You Ever Had To Go Without Health Care Because You Didn? t Have A Way To Get There? No Information not available 04/29/2020 Do You Feel Physically And Emotionally Unsafe Where You Currently Live? No Information not available 04/29/2020 Have You Had A Fever And/or Symptoms Of A Lower Respiratory Illness (cough, Difficulty Breathing, Etc)? No [email or web address] Information not available 04/29/2020 Have You Had Any Of These Symptoms: Chills ,Headache, Fatigue, Muscle Or Body Aches , Sore Throat, New Loss Of Taste Or Smell, Nausea Or Vomiting, Or Diarrhea? No [email or web address] Information not available 04/29/2020 Have You Had A COVID-19 Vaccine In The Last 7 Days? No Pt Declined [email or web address] Information not available 04/29/2020 Has The Patient [...] No Information not available 05/22/2023 Marital Status [facility] Infor mation not available 05/22/2023 What Was The Date Of Your Most Recent Tobacco Screening? 08/07/2023 [email or web address] Information not available 08/07/2023 How Many Children Do You Have? 5 [email or web address] Information not available 04/29/2020 Have You Ever Been Counseled For Unhealthy Alcohol Use? No Information not available 05/22/2023 Performs Monthly Self-breast Exam? No Information not available 05/22/2023 Do You Have Any Pets? No Information not available 05/22/2023 What Is Your Relationship Status? [email or web address] Information not available 08/07/2023 Do You Use [...] Used Smokeless Tobacco? Never Used Smokeless Tobacco [email or web address] Information not available 04/29/2020 Are There Any Smokers In Your House? No Information not available 05/22/2023 How Much Tobacco Do You Smoke? No [email or web address] Information not available 08/07/2023 What Types Of Sporting Activities Do You Participate In? None Information not available 05/22/2023 Do You Feel Stressed (tense, Restless, Nervous, Or Anxious, Or Unable To Sleep At Night)? [id number] Information not available 05/22/2023 Do You Use Any Illicit Or Recreational Drugs? No [email or web address] Information not available 12/20/2022 Do You Use Sunscreen Routinely? No Information not available 05/22/2023 Has Tobacco Cessation Counseling Been Provided? No Information not available 02/08/2021 How Many Years Have You Smoked Tobacco? 0 [email or web address] Information not available 08/07/2023 Do You Have [...] Organization Details LastModified Time Mother Diabetes mellitus [email or web address] Not available 04/29 08:26:11 Notes:Reviewed with patient [...] quadrivalent, PF 05/10/2021 completed Zayda Perales APRN [address], [place], [address], [facility] 05/10/2021 09:33:44 Past Encounters Encounter ID Performer Location Encounter Start Date Encounter Closed Date Diagnosis/Indication Diagnosis SNOMED-CT Code Diagnosis ICD10 Code Diagnosis Note [id number] Zayda Perales APRN [email or web address] E_PR[facility] [facility] [address] [place] [address] 04/29/2020 08:13:49 04/29/2020 09:07:40 Advance directive discussed with patient 963478090 Z71.89 Depression screening 171 716864 Z13.31 10 ? 14 Moderate Treatment plan, considerin g counseling , follow-up and/or pharmacoth [facility] edu cation given 843888620 Z71.9 Body mass index 30+ - obesity 247337777 Z68.32 bmi 32.5, -Weight management and healthy lifestyle choices discussed with pt. Adult heal th examination 480134500 Z00.00 -Wellness exam completed. -Multiphas ic lab work ordered. Hyperlipid emia screening 288294297 Z13.220 Diabetes m ellitus screening 738288334 Z13.1 Thyroid di sorder screening 361246651 Z13.29 Screening for malignant neoplasm of cervix 510712699 Z12.4 -Last pap smear 08/06 with normal findings, prior was HPV positive. Fatigue 64531500 R53.83 Hepatitis C screening 41 5626331 Z11.59 The USPSTF recommends screening for hepatitis C virus (HCV) infection in persons at high risk for infection. The USPSTF also recommends offering one-time screening for HCV infection to adults born between 1945 and 1965. [id number] Zayda Perales, ELECTRICAL TECHNOLOGY INSTRUCTOR zCLSD[facility]SVP E[facility] [facility] [address] [address] 02/08/2021 08:25:05 02/08/2021 09:37:00 Health education given 594650872 Z71.9 Depression screening 171 244729 Z13.31 10 ? 14 Moderate Treatment plan, considerin g counseling , follow-up and/or pharmacoth erapy Body mass index 30+ - obesity 957098627 Z68.31 bmi 31.5, -Weight management and healthy lifestyle choices discussed with pt. Pain in ri ght hip joint 7625559636 18928 M25.551 -Advised pt to gently stretch daily.-Adv ised pt to get xray completed. -Will treat pt's symptoms and advised pt will need to f/u with Orthopedic s if symptoms do not improve. Screening for malignant neoplasm of cervix 916503269 Z12.4 [id number] Sujatha MARTINEZPE_OBGY N_SS_[facility] [address] [place] [address] 03/09/2021 08:47:26 03/09/2021 10:02:48 Gynecologic examination 20058602 Z01.419 -Cervical cancer screening collected -Screening labs (HIV, RPR) ordered -Age-appro priate counseling conducted including importance of self-breas t awareness as well as diet & exercise -Follow-up in 1 year for annual well-woman examinatio n or sooner PRN Venereal d isease screening 423581050 Z11.3 Body mass index 30+ - obesity 298003373 Z68.31 Pain in pelvis 00650925 R10.2 -Discussed need for a [employer] ultrasound to evaluate pelvis for potential causes of pain -Follow-up for next available [employer] ultrasound appointmen t followed by a return [employer] visit to discuss findings and plan of care Dysmenorrhea 136565527 N 94.6 Vaginal discharge 792016 006 N89.8 [id number] Sujatha Schmitz MD SVPE_OBGY N_SS_[facility] [address] [place] [address] [address] [place] [address] 03/30/2021 09:23:52 03/30/2021 10:21:41 Body mass index 30+ - obesity 470937137 Z68.31 Pain in pelvis 46175914 R10.2 -Reviewed [employer] ultrasound findings of a very small uterine [...] and/or procedures and documentin g visit Dysmenorrhea 485958954 N 94.6 Uterine leiomyoma 612615 05 D25.9 [id number] Zayda Perales APRN zCLSD_SVP E[facility] [facility] [address] [place] [address] 05/10/2021 08:47:06 05/10/2021 09:37:52 Adult health examination 762710467 Z00.00 -Wellness exam completed. -Multiphas ic lab work ordered. Hyperlipid emia screening 227615935 Z13.220 Diabetes m ellitus screening 473275176 Z13.1 Thyroid di sorder screening 198753801 Z13.29 Screening for malignant neoplasm of cervix 641671337 Z12.4 -Last pap smear needs repeat with Dr. Schmitz. Pt has future appt. made. Fatigue 12046303 R53.83 Administra tion of influenza vaccine 39773896 Z23 Depression screening 171 560456 Z13.31 Negative Body mass index 30+ - obesity 505125694 Z68.32 bmi 32.4, -Weight management and healthy lifestyle choices discussed with pt. Nonalcohol ic steatohepatitis 129061069 K75.81 [id number] Sujatha MARTINEZPE_OBGY N_SS_[facility] [address] [facility] [address] [facility] [address] [place] [address] 05/25/2021 10:46:54 05/25/2021 12:01:37 Cervicovaginal cytology specimen unsatisfactory 133354497 R87.615 -Repeat pap collected and results to be shared with patient once available- Follow-up PRN Body mass index 30+ - obesity 221137644 Z68.32 [id number] Zayda Perales APRN [facility]CLSD[facility] [address] [place] [address] 07/06/2021 09:08:57 07/06/2021 12:04:02 Health education given 348821332 Z71.9 Pain in ri ght hip joint 3983940427 29997 M25.551 -Advised pt to f/u with Orthopedic s as pain has persisted for several months.-Ri ght hip xary is inconclusi ve, advised pt to most likely radiating off of left lumbar spine. Pt denies lumbar pain.-Advi sed pt to ice and use conservati ve measures. [id number] Zayda Perales APRN [facility]SD[facility] [address] [place] [address] 09/04/2021 11:08:05 09/04/2021 11:51:41 Mixed anxiety and depressive disorder 884558550 F41.8 12- Moderate Treatment plan, considerin g counseling , follow-up and/or pharmacoth erapy.-Pt denies SI/HI.-Adv ised pt to f/u with [facility].-Advi sed pt to call office if condition worsens, high suspicion for need to increase dosage. Health edu cation given 782574904 Z71.9 Body mass index 30+ - obesity 201661033 Z68.33 bmi 33.2-Weigh t management and healthy lifestyle choices discussed with pt. Pain in ri ght hip joint 3005604528 67923 M25.999 [id number] TATUM CARDONA CNM, MARGARITA SVPE_OBGY N_SS_[facility] [address] [facility] [facility], [address] [place] [address] 10/31/2021 14:06:30 10/31/2021 15:35:59 Body mass index 30+ - obesity 244117191 Z68.32 Pain in pelvis 76754633 R10.2 [id number] Reba Fields r DEVOPS ENGINEER zCLSD_SVB H_BEHAVRL _[facility] [address] [place] [address] 11/01/2021 10:36:08 11/01/2021 12:30:02 [id number] Deogracias Remandaban Sitaila Jr ELECTRICAL TECHNOLOGY INSTRUCTOR zCLSD_SVP E[facility]PRIMARY [facility] [address] [place] [address] 01/02/2022 09:47:29 01/02/2022 10:35:01 Health education given 901922449 Z71.9 Continue heart healthy lifestyle to include low-fat diet, low-sodium diet, regular physical activity, maintain optimal weight, and avoid all tobacco/ni cotine products. Body mass index 30+ - obesity 866079525 Z68.33 BMI 33.7 Plantar fa sciitis of right foot 0198860583 6712952 M72.2 Intermitte nt (R) Heel pain concerning [...] shoe inserts (arch supports and/or heel cups).-Con fitness technician molded shoe inserts (orthotics ); night splints; or Immobiliza tion with a cast.-Decr easing physical activities that are suggested by the medical history to be causative or aggravatin g (eg, excessive running, dancing, or jumping).P rovided hand-outs on plantar fasciitis care. If medication , rest, and ice don't help enough, will consider physical therapist. Screening for disorder 239890540 Z13.9 Will update with multiphasi c labs Vitamin D deficiency 347 18896 E55.9 Non-alcoho lic fatty liver 680720584 K76.0 Gastroesop hageal reflux disease 054439503 K21.9 [id number] Reba Crewsermiassara burr DEVOPS ENGINEER zCLSD_SVB H_BEHAVRL _[facility] [address] [place] [address] 12/04/2021 14:47:07 12/04/2021 15:59:16 [id number] Reba Crewsermiassara aminah DEVOPS ENGINEER zCLSD_SVB H_BEHAVRL _[facility] [address] [place] [address] 01/08/2022 15:37:43 01/08/2022 16:57:44 [id number] Deogracias Remandaban Humberto Jr ELECTRICAL TECHNOLOGY INSTRUCTOR zCLSD[facility]SVP E[facility] [facility] [address] [place] [address] 02/16/2022 10:14:17 02/16/2022 10:27:21 Health education given 281940948 Z71.9 Continue heart healthy lifestyle to include low-fat diet, low-sodium diet, regular physical activity, maintain optimal weight, and avoid all tobacco/ni cotine products. Liver enzy mes outside reference range 129253881 R94.5 Elevated Liver Enzymes -followed by GI. Previous h/o of ETOH use, she has stopped drinking alcohol. Liver US done last year showing fatty Liver. Followed by Gastro. Nonalcohol ic steatohepatitis 152202118 K75.81 Followed by GI. Next visit in 3 weeks. Mixed hyperlipidemia 267 975297 E78.2 Lipid panel is stable and WNL. LDL very slightly elevated at 103. The rest of her cholestero l panels are normal. Abnormal urinalysis 1672 11928 R82.90 UA (+) for trace leukocytes . Reflex urine culture showing mixed eduardo likely from non-midstr eam, contaminat ed urine sampling. Patient has no urinary habit change, denies any UTI symptoms. Plantar fasciitis 026295 003 M72.2 Currently using shoe inserts to help alleviate plantar foot pain. Patient reports pain is temporaril y improved with as needed NSAIDs and orthotics. Referral has been sent to Podiatry for evaluation of need of supportive arched shoes and orthotics. [id number] Deogracias Angelicadanielle Humberto Peter APRN zCLSD_SVP E[facility]PR[facility] [facility] [address] [place] [address] 05/15/2022 09:40:13 05/15/2022 11:08:20 Health education given 976375440 Z71.9 Continue heart healthy lifestyle to include low-fat diet, low-sodium diet, regular physical activity, maintain optimal weight, and avoid all tobacco/ni cotine products. Adult heal th examination 369167565 Z00.01 Data has been collected and reviewed [...] ups. Body mass index 30+ - obesity 896156646 Z68.33 BMI 33.4. Obese. Liver enzy mes outside reference range 540973256 R94.5 Previous h/o of ETOH use, she has stopped drinking alcohol. Liver US done last year showing fatty Liver. Followed by Gastro, recent Abdl MRI unremarkab le. Nonalcohol ic steatohepatitis 470243015 K75.81 Followed by GI. Next visit in 3 weeks. Vitamin D deficiency 347 88340 E55.9 Screening for cardiovascular system disease 850094267 Z13.6 Will update with multiphasi c screen for next visit. Diabetes m ellitus screening 837250774 Z13.1 [id number] Deogracias Humphrey Paul Jr, APRN [facility]CLSD[facility]P E[facility] N [address] [place] [address] 08/13/2022 11:58:58 08/13/2022 12:41:51 Health education given 860501450 Z71.9 Continue heart healthy lifestyle to include low-fat diet, low-sodium diet, regular physical activity, maintain optimal weight, and avoid all tobacco/ni cotine products. Vitamin D deficiency 347 97910 E55.9 Vit D level at 21 (from 43). Restarted on high dose Vit D replacemen t weekly. Liver func tion tests outside reference range 899678821 R94.5 Repeat AST 78 (from 152) and ALT 86 (from 228). Followed by GI. Previous h/o of ETOH use, she has stopped drinking alcohol. Lipid panel improved.L iver US done last year showing fatty Liver. Abnormal urinalysis 1672 82183 R82.90 Reflex urine culture showing mixed eduardo. Patient denies of any recent UTI symptoms. Mixed hyperlipidemia 267 856892 E78.2 Repeat Lipid panel is stable same as previous results. LDL very slightly elevated at 114 and non-HDL 134. The rest of her cholestero l panels are normal. [id number] Cleve Gottlieb zCLSD_SVP E_PRIMARY _[facility] N [address] [place] [place] [address] 09/18/2022 09:57:38 09/18/2022 11:19:41 Migraine 64042106 G43.909 Referral to Neurology updated. Advised patient having a migraine diary, observing what triggers migraine attack and what measures provide relief. Reviewed therapeuti c lifestyle measures including good sleep hygiene, routine meal schedules, appropriat e diet, adequate hydration, regular exercise, and avoidance of migraine triggers. She was provided handouts for migraine care at ED. Transition of care 12264 80665 105 Z75.8 Reviewed ED discharge summary and reconciled current medication s. Discussed compliance to meds as prescribed , as well as need for follow-up to monitor drug effects and side effects, draw blood panels if needed and adjust medication s as appropriat e. [id number] Deogracias Humphrey Paul Jr, APRN zCLSD_SVP E[facility]PR[facility] [facility] [address] [address] 12/17/2022 14:14:16 12/17/2022 17:09:24 Transition of care 7778551583 105 Z75.8 Reviewed ED discharge summary and reconciled current medication s. Discussed compliance to meds as prescribed , as well as need for follow-up to monitor drug effects and side effects, draw blood panels if needed and adjust medication s as appropriat e. Cervical radiculopathy 94867628 M54.12 XR Spine Cervical ER Routine Osseous structures : No acute abnormalit y identified . No evidence for fracture. Degenerati ve changes of the cervical spine with osteophyte formation at C4-C5 C5-C6 and C6-C7.*No acute process identified .*Mild degenerati ve changes of the spine as above. Pain in right arm 838296 004 M79.601 Discharged on short course oral Prednisone and Ibuprofen as needed. Depression screening 171 452107 Z13.31 PHQ 9 Screening score: 0/27. No Depression . Watchful waiting; repeat PHQ-9 at follow-up. Health edu cation given 981342889 Z71.9 Continue heart healthy lifestyle to include low-fat diet, low-sodium diet, regular physical activity, maintain optimal weight, and avoid all tobacco/ni cotine products. Body mass index 30+ - obesity 877028508 Z68.32 BMI 32.3. Obese. [id number] Sujatha Schmitz MD SVPE_OBGY N_SS[facility] [address] [place] [address] 12/20/2022 13:44:38 12/20/2022 14:25:54 Gynecologic examination 21160328 Z01.419 -Cervical ca screening in NILM; after [...] below Screening for malignant neoplasm of breast 046050544 Z12.39 [id number] Deogracias Remallysonban Humberto Peter ELECTRICAL TECHNOLOGY INSTRUCTOR zCLSD_SVP E_PRIMARY [facility] [facility] [address] [place] [address] 05/22/2023 10:32:40 05/22/2023 12:15:41 Health education given 763731950 Z71.1 Continue heart healthy lifestyle to include low-fat diet, low-sodium diet, regular physical activity, maintain optimal weight, and avoid all tobacco/ni cotine products. Depression screening 171 544373 Z13.31 PHQ 9 Screening score: 0/27. No Depression . Watchful waiting; repeat PHQ-9 at follow-up. Adult heal th examination 914901160 Z00.01 Data has been collected and reviewed [...] ups. Liver enzy mes outside reference range 573482862 R94.5 Previous h/o of ETOH use, she has stopped drinking alcohol. Liver US done last year showing fatty Liver. Followed by Gastro, recent Abdl MRI unremarkab le. Nonalcohol ic steatohepatitis 142145294 K75.81 Followed by GI. Next visit in 3 weeks. Vitamin D deficiency 347 18678 E55.9 Previous labs showing chronicall y low Vit D, restarted on high dose weekly Vit D3 replacemen t. Screening for cardiovascular system disease [id number] Z13.6 Will update with multiphasi c screen for next visit. Diabetes m ellitus screening [id number] Z13.1 Body mass index 30+ - obesity 128253996 Z68.33 BMI 33.4. Obese. Screening mammography of bilateral breasts [id number] 04236 Z12.31 Screening for malignant neoplasm of cervix [id number] Z12.4 Transition of care 31320 33808 105 Z75.8 Reviewed ED discharge summary and reconciled current medication s. Discussed compliance to meds as prescribed , as well as need for follow-up to monitor drug effects and side effects, draw blood panels if needed and adjust medication s as appropriat e. Onychomyco sis of toenails [id number] B35.1 Needs refill of Ciclopirox . Atypical chest pain 1025 06459 R07.89 Patient is scheduled to see Cards on 06/14/23. Mixed hyperlipidemia 267 426419 E78.2 Recent Lipid panel is stable, same as previous results. LDL 108 (from 114), the rest of her cholestero l panels are WNL. Optimizing diet and lifestyle interventi ons. [id number] Deogracias Remandaban Agnila Jr ELECTRICAL TECHNOLOGY INSTRUCTOR [id number] E_PRIMARY _[place] N [address] [place] [address] 08/07/2023 10:03:21 08/07/2023 11:33:34 Health education given [id number] Z71.1 Continue heart healthy lifestyle to include low-fat diet, low-sodium diet, regular physical activity, maintain optimal weight, and avoid all tobacco/ni cotine products. Generalize d anxiety disorder [id number] F41.1 Patient verbalizes she is aware she [...] relaxation techniques . Vitamin D deficiency 347 22833 E55.9 Previous labs showing chronicall y low Vit D, continued on Vit D3 daily supplement . Mixed hyperlipidemia 267 983766 E78.2 Recent Lipid panel is stable, same as previous results. LDL 108 (from 114), the rest of her cholestero l panels are WNL. Optimizing diet and lifestyle interventi ons. Liver enzy mes outside reference range [id number] R94.5 Previous h/o of ETOH use, she has stopped drinking alcohol. Liver US done last year showing fatty Liver. Followed by Gastro, recent Abdl MRI unremarkab le. Neck pain [id number] M54.2 Cervical radiculopathy 59424185 M54.12 Transition of care 33600 22931 105 Z75.8 Reviewed ED discharge summary and [...] Paz Member ID Guarantor Name 09/18/2022 2 [facility] (MEDICAID REPLACEMENT - HMO) [facility] Sharron Bhatt- Sandy [id number] Sharron Sandy 09/18/2022 1 [place] [id number] Sharron Bhatt- Sandy [id number] Sharron Bhatt Sandy 12/17/2022 2 [facility] (MEDICAID REPLACEMENT - H[place]) [place] Bhatt- Sandy [id number] Sharron Bhatt Sandy 12/17/2022 1 [place] [id number] Sharron Olivases- Sandy [id number] Sharron Bhatt Sandy 12/20/2022 2 [facility] ([place] - H[place]) [facility] Sharron Sandy [id number] Sharron Sandy 12/20/2022 1 [place] [id number] Sharron Sandy [id number] Sharron Sandy 05/22/2023 1 [place] [id number] Sharron Sandy [id number] Sharron Sandy 05/22/2023 2 [place] [employer] [place]CH[employer]OLOG[employer] Sharron Sandy [id number] Sharron Sandy 08/07/2023 1 [place] [id number] Sharron Sandy [id number] Sharron Sandy 08/07/2023 2 [place] [employer] Sharron Sandy [id number] Sharron Sandy Notes Date Note Type Note Provider Name and Address Organization Details Recorded Time 09/18/2022 text/html Transition Care [id number] bypatient.Timing:carmelo e of discharge: (09/15/2022) Facility:Facility Type [...] with PCP and Neurologist. Evaristo Paul Jr ELECTRICAL TECHNOLOGY INSTRUCTOR [address], [place], [address], [facility] 09/18/2022 11:16:57 12/17/2022 text/html Transition Care [id number] bypatient.Timing:carmelo e of discharge: (12/13/2022) Facility:Facility Type [...] and NSAIDs as needed Evaristo Paul Jr ELECTRICAL TECHNOLOGY INSTRUCTOR [address], [place], [address], [facility] 12/17/2022 15:32:13 12/20/2022 text/html Annual GYNReport [...] starting age 38 Sujatha Schmitz MD [address] [facility],[address], [place], [address], [place] 12/20/2022 19:33:42 05/22/2023 text/html Ms Sandy is [...] pain. Followed by Podiatry. Evaristo Paul Jr ELECTRICAL TECHNOLOGY INSTRUCTOR [address], [place], [address], [facility] 05/23/2023 18:10:15 05/22/2023 text/html Annual Wellness [...] normal menses or menopause Evaristo Paul Jr ELECTRICAL TECHNOLOGY INSTRUCTOR [address], [place], [address], [facility] 05/23/2023 18:10:15 08/07/2023 text/html Transition Care [id number] bypatient.Timing:carmelo e of discharge: (07/30/23) Facility:Facility Type [...] referral and med refills.Patient was seen at [facility] on 07/30/23 with complaints of chest [...] Diagnosis: BANDAR. Neuropathy. Deogracias Humphrey Paul Jr ELECTRICAL TECHNOLOGY INSTRUCTOR [address], [place], [address], [facility] - [facility] 08/07/2023 21:47:29 OBGyn Episode No OBEpisode recorded.
== END 2024-07-22 10:50 | disposition home or self-care (01) ==
LOC: HO.HHCX 10:49
PROVIDERS: Visit Provider Family Medicine
DX: M25.512 Pain in left shoulder (principal)
CPT/HCPCS: 73030

== ENCOUNTER → 2024-07-22 10:49 | Outpatient (BNV) | payer MEDICAID, SELFPAY | PROVIDERS: Visit Provider Radiology Diagnostic Radiology | DX: M25.512 Pain in left shoulder (principal) | CPT/HCPCS: 73030 ==

== ENCOUNTER 2024-08-27 11:06 | Outpatient (REF) | payer MEDICAID, SELFPAY ==
--- OUTSIDE RECORDS SUMMARY | 2024-08-27 13:26 | XMS_ITS | Clinical Summary ---
Author Organization [employer] Address [address] [facility] [address] [place] [address] Care Team Providers Care Petal Cutter Name Role Phone Pearl Figueroa MD Primary Care Provider + Allergies No known active allergies Medications * This document contains information received from the source organization and may not represent a complete record from that organization. ibuprofen 600 MG tabletIndicati ons:Pain of right hip joint Take 1 tablet (600 mg) by mouth every 6 (six) hours if needed for mild pain or moderate pain for up to 14 days. 56 tablet 5 025 Active loratadine (Claritin) 10 MG tablet Take 1 tablet (10 mg) by mouth Once per day. 30 tablet 11 4 025 Discontinued fluticasone (Flonase) 50 MCG/ACT nasal spray SPRAY 2 SPRAYS INTO EACH NOSTRIL ONCE A DAY. SHAKE GENTLY. BEFORE FIRST USE, PRIME PUMP. AFTER USE, CLEAN TIP AND REPLACE CAP. 48 mL 5 025 Discontinued cyclobenzaprin e (Flexeril) 10 MG tabletIndicati ons:Acute pain of left shoulder Take 1 tablet (10 mg) by mouth 2 times daily for 10 days. 20 tablet 5 025 Discontinued ibuprofen 600 MG tabletIndicati ons:Acute pain of left shoulder Take 1 tablet (600 mg) by mouth every 8 (eight) hours if needed for moderate pain or fever. 30 tablet 5 025 Active Problems Problem Noted Date Diagnosed Date Acute pain of left shoulder 07/21/2024 Assessment & Plan (07/21/2024 6:45 PM EST): Upper trapezius muscle spasm radiating into cervical paraspinal muscle. -prescribed ibuprofen 600 MG PRN for pain. -prescribed cyclobenzaprine (Flexeril) 10 MG Take 1 tablet (10 mg) by mouth 2 times daily for 10 days -referred to PT. -ordered left shoulder XR. History of HPV infection 06/18/2024 Assessment & Plan (06/18/2024 1:15 PM EST): Needs repeated pap smear, will refer to [facility] incase she needs colposcopy. Back pain 06/18/2024 [...] EDT): For many years. We'll refer to [facility] in 2m with labs and see if she wants to start other meds. She feels safe at home and is able to reach out for safety. Encounters * This document contains information received from the source organization and may not represent a complete record from that organization. Date Type Department Care Team Description 08/26/2024 3:15 PM EDT Office Visit [facility] [address] [place] [address] Melisa Loza NP Arthralgia of both hands (Primary Dx); Chills; Pain of right hip joint; Urinary frequency; Elevated blood pressure reading in office without diagnosis of hypertension 08/25/2024 Travel 08/25/2024 Telephone [facility] [address] [place] [address] Pearl Figueroa MD 08/21/2024 Travel 08/04/2024 Travel 07/31/2024 Population Health Risk Score [facility] () Department [address] [place] [address] Provider, Population Health Generic 07/27/2024 Travel 07/23/2024 Telephone [facility] [address] [place] [address] Pearl Figueroa MD Nurse Triage 07/22/2024 Telephone [facility] [address] [place] [address] Malia Cuenca MD 07/21/2024 6:20 PM EST Office Visit [facility] [address] [place] [address] Malia Cuenca MD Acute pain of left shoulder (Primary Dx); Neck pain on left side 07/16/2024 Telephone [facility] [address] [place] [address] Pealr Figueroa MD Appointment Request 07/14/2024 Travel 07/13/2024 Refill [facility] [address] [place] [address] Pearl Figueroa MD 06/26/2024 Travel 06/25/2024 Telephone [facility] [address] [place], [place] [phone] Purnima Mac, RN Results 06/25/2024 Telephone [facility] [address] [place], [place] [phone] Pearl Figueroa MD 06/18/2024 12:00 PM EST Telemedicine [facility] [address] [place], [place] [phone] Pearl Figueroa MD Fatty liver (Primary Dx); Recurrent major depressive disorder, in partial remission (CMS/HCC); History of HPV infection; Back pain, unspecified back location, unspecified back pain laterality, unspecified chronicity 06/18/2024 Travel 06/10/2024 Patient Outreach [facility] [address] [place] [address] Pearl Figueroa MD Pre-visit Planning ([facility] unable to reach [facility]) from Last 3 Months Immunizations Name Administration Dates Next Due Influenza Injectable Quadriv alant Preservative Free IIV4 MDCK 06/15/2019,03/05/2018 Influenza injectable quadrivalent preservative f ree 05/10/2021,07/05/2017 Influenza, IIV3, injectable 04/01/2012 Influenza, seasonal, injectable, preservative fr ee 02/17/2024,04/01/2012 Pneumococcal Polysaccharide PPSV23 06/11/2018 Tdap 01/08/2017 Social History Tobacco Use Types Packs/Day Years Used Date Smoking Tobacco: Never Passive Smoke Exposure: Never Smokeless Tobacco: Never Tobacco Cessation:Counseling Given: [...] more drinks on one occasion? 4 02/17/2024 Depression Answer Date Recorded Patient Health Questionnaire-9 Score 13 08/26/2024 Patient Health Questionnaire-9 Score 13 08/26/2024 Last PHQ-9: Questionnaire Data Not on file 0 08/26/2024 Housing Stability Answer Date Recorded What is [...] Answer Date Recorded Patient Health Questionnaire-2 Score 4 08/26/2024 Internet Access Answer Date Recorded Internet Access [...] Sign Reading Time Taken Comments Blood Pressure 126/82 08/26/2024 4:29 PM EDT Pulse 80 08/26/2024 3:27 PM EDT Temperature 36.4 ??C (97.6 ??F) 08/26/2024 3:27 PM ED T Respiratory Rate 19 08/26/2024 3:27 PM EDT Oxygen Saturation 100% 08/26/2024 3:27 PM EDT Inhaled Oxygen Concentration - - Weight 87.1 kg (192 lb) 08/26/2024 3:27 PM EDT Height 162.6 cm (5' 4 ) 08/26/2024 3:27 PM EDT Body Mass Index 32.96 08/26/2024 3:27 PM EDT Plan of Treatment Health Maintenance Due [...] 05/14/2024, 03/07/2024 Alcohol/Substance Use Screening 02/16/2025 02/17/2024 Family Planning (PISQ) 02/16/2025 02/17/2024 SDOH Screening 02/16/2025 02/17/2024 Depression Monitoring 02/25/2025 08/26/2024, 025 Depression Screening 08/26/2025 08/26/2024, 08/27/19 25 Tobacco Screening 08/26/2025 08/26/2024 DTaP/Tdap/Td Vaccines (2 - Td or Tdap) [...] Procedure Name Priority Date/Time Associated Diagnosis Comments POCT INFLUENZA B (ID NOW RAPID MOLECULAR) Routine 08/26/2024 4:09 PM EDT Chills POCT INFLUENZA A (ID NOW RAPID MOLECULAR) Routine 08/26/2024 4:08 PM EDT Chills POCT RAPID COVID ANTIGEN Routine 08/26/2024 4:07 PM EDT Chills XR SHOULDER 2+ VIEWS LEFT Routine 07/22/2024 10:49 AM EST Acute pain of left shoulder CBC WITH AUTO DIFFERENTIAL Routine 07/14/2024 11:11 AM EST Fatty liver US ABDOMEN COMPLETE Routine 07/04/2024 8 :55 AM EST Fatty liver Alcohol use BI US BREAST LIMITED RIGHT Routine 05/14/2024 10:15 AM EST HEPATITIS PANEL, GENERAL Routine 02/17/2024 11:30 AM EDT Alcohol use from Last 3 Months or Most Recently Relevant to Health Maintenance Results * POCT Rapid Influenza B CRONIN ID NOW (08/26/2024 4:09 PM EDT) Pathologist [facility] Influenza B Negative Negative, Indeterminate [facility] QC Media Lot # [id number] [facility] Lot# Expiration Date 100,826 [facility] Swab 08/26/2024 4:09 PM EDT us Melisa Lidiam APPOINTMENT SETTER POINT OF CARE TEST ENTER/EDIT O RDERABLES Final Result [facility] [address] [place] [address] [phone] * POCT Rapid Influenza A CRONIN ID NOW (08/26/2024 4:08 PM EDT) Influenza A Negative Negative, Indeterminate [facility] QC Media Lot # [id number] [facility] Lot# Expiration Date 100,826 [facility] Swab 08/26/2024 4:08 PM EDT us Melisa Appram APPOINTMENT SETTER POINT OF CARE TEST ENTER/EDIT O RDERABLES Final Result [facility] [address] [place] [address] [phone] * POCT Rapid Covid-19 BinaxNOW (08/26/2024 4:07 PM EDT) [facility] Rapid COVID Ag Negative QC Media Lot # [id number] Lot# Expiration Date 63,026 Swab 08/26/2024 4:0 7 PM EDT us Melisa Appram APPOINTMENT SETTER POINT OF CARE TEST ENTER/EDIT O RDERABLES Final Result * XR Shoulder 2+ Views Left (07/22/2024 10:49 AM EST) Anatomical Region Laterality Modality Upper Extremities, Shoulder Left Radi ographic Imaging 07/22/2024 10:4 9 AM EST Narrative 07/22/2024 12:15 PM EST ?[facility] ?[address] ?[place] [address] ?XRay Report ? Signed ? Patient: Bhatt Sandy,Sharron ?MR#: [id number] ?? [id number] ? : 1985 ?Acct:[id number] ? Age/Sex: 39 / F ?ADM Date: 03/05/25 ? Loc: HO.HHCX ? Attending Dr: Malia Cuenca MD ? Ordering Physician: Malia Cuenca MD ?? Date of Service: 07/22/24 ?? Procedure(s): XR shoulder LT min 2V ?? Accession Number(s): [id number] ? cc: Malia Cuenca MD ? EXAMINATION: ?? XR SHOULDER, LEFT ? CLINICAL INFORMATION: ?? left anterior shoulder pain ? COMPARISON: ?? None available. ? TECHNIQUE: ?? AP external rotation, Grashey, scapular Y, and axillary views of the ?? left shoulder. ? FINDINGS: ?? The bones and soft tissues are normal. No fracture. Glenohumeral and ?? acromioclavicular alignment is anatomic with normal joint space. No ?? abnormal soft tissue calcifications. ? XR/XR shoulder LT min 2V ?? IMPRESSION: ?? Normal left shoulder. ? Electronically signed by: ??Kali Wayne MD ??07/22/2024 12:12 PM ?? EST RP ? Dictated By: ?Kali Martin MD ? Signed By: ?<Electronically signed by Kali Mahan MD in OV> ? 07/22/24 1212 ? DD/ 1049 ? TD/TT: 07/22/24 1100 ? Sales Advisory Manager: ? Procedure Note Khushboo Mckinney - 07/22/[address] [address] XRay Report Signed Patient: Imtiaz Yang#: [id number] : 1985Acct:[id number] Age/Sex: 39 / FADM Date: 07/22/24 Loc: HO.HHCX Attending Dr: Malia Cuenca MD Ordering Physician: Malia Cuenca MD Date of Service: 07/22/24 Procedure(s): XR shoulder LT min 2V Accession Number(s): [id number] cc: Malia Cuenca MD EXAMINATION: XR SHOULDER, LEFT CLINICAL INFORMATION: left anterior shoulder pain COMPARISON: None available. TECHNIQUE: AP external rotation, Grashey, scapular Y, and axillary views of the left shoulder. FINDINGS: The bones and soft tissues are normal. No fracture. Glenohumeral and acromioclavicular alignment is anatomic with normal joint space. No abnormal soft tissue calcifications. XR/XR shoulder LT min 2V IMPRESSION: Normal left shoulder. Electronically signed by: Kali Wayne MD 07/22/2024 12:12 PM EST RP Dictated By: Kali Martin MD Signed By: <Electronically signed by Kali Mahan MDin OV> 07/22/24 1212 DD/ 1049 TD/TT: 07/22/24 1100 Sales Advisory Manager: us Malia Cuenca MD IMG XR PROCEDURES Edited R esult - Final * (ABNORMAL) CBC auto differential (07/14/2024 11:11 AM EST) White Blood Count 6.8 4.8 - 10.8 X10*3/uL [facility] Red Blood Count 4.23 4.20 - 5.50 X10*6/uL [facility] Hemoglobin 12.6 12.0 - 16.0 g/dl [facility] Hematocrit 37.7 37.0 - 47.0 % [facility] Mean Corpuscular Volume 89.1 80.0 - 98.0 fL [facility] Mean Corpuscular Hemoglobin 29.8 27.0 - 33.0 pg [facility] Mean Corpuscular HGB Conc 33.4 31.0 - 35.0 g/dl [facility] Red Cell Distribution Width 11.8 11.0 - 16.0 % [facility] Platelet Count 291 160 - 400 X10*3/uL [facility] Mean Platelet Volume 8.9(L) 9.4 - 12.3 fL [facility] Neutrophils Percent Auto 59.5 45 - 73 % [facility] Imm Gran Pct Auto 0.3 0.0 - 0.4 % [facility] Lymphocytes Percent Auto 31.1 20 - 40 % [facility] Monocytes Percent Auto 6.9 2 - 11 % [facility] Eosinophils Percent Auto 1.6 0 - 4 % [facility] Basophils Percent Auto 0.6 0 - 2 % [facility] NRBC Pct Auto 0.0 0.0 - 0.2 /100WBC [facility] Neutrophils Absolute Auto 4.1 2.0 - 8.3 x10*3/uL [facility] Imm Gran Abs Auto 0.02 0.00 - 0.03 X10*3/uL [facility] Lymphocytes Absolute Auto 2.1 1.2 - 4.9 X10*3/uL [facility] Monocytes Absolute Auto 0.5 0.1 - 1.2 X10*3/uL [facility] Eosinophils Absolute Auto 0.1 0.0 - 0.4 X10*3/uL [facility] Basophils Absolute Auto 0.0 0.0 - 0.2 X10*3/uL [facility] NRBC Abs Auto 0.000 0.0 - 0.012 X10*3/uL [facility] Blood Venous blood specimen / Unknown 07/14/2024 11:11 AM EST 07/14/2024 1:08 PM EST Pearl Figueroa MD LAB BLOOD ORDERABLES Fin al Result Performing Organization Address City/State/[facility] Co de Phone Number [facility] [address] [place] [address] [phone] * US Abdomen Complete (07/04/2024 8:55 AM EST) Anatomical Region Laterality Modality Abdomen Ultrasound 07/04/2024 8:55 AM EST Narrative 07/04/2024 8:56 AM EST ? [facility] ?[address] ?[place] [address] ? Ultrasound Report ? Signed ? Patient: Miller Sandy,Sharron ?MR#: [id number] ?? [id number] ? : 1985 ?Acct:[id number] ? Age/Sex: 39 / F ?ADM Date: 02/14/25 ? Loc: HO.US ? Attending Dr: Pearl Figueroa MD ? Ordering Physician: Pearl Figueroa MD ?? Date of Service: 07/03/24 ?? Procedure(s): US abdomen complete ?? Accession Number(s): [id number] ? cc: Pearl Figueroa MD ? CLINICAL [...] ? DD/ 4 ? TD/TT: 07/04/24854 ? Sales Advisory Manager: ? Procedure Note Donotuseinterpreter, Image - 07/04/2024 [place] [address] Ultrasound Report Signed Patient: Imtiaz Yang#: [id number] : 1985Acct:[id number] Age/Sex: 39 / FADM Date: 07/03/24 Loc: HO.US Attending Dr: Pearl Figueroa MD Ordering Physician: Pearl Figueroa MD Date of Service: 07/03/24 Procedure(s): US abdomen complete Accession Number(s): [id number] cc: Pearl Figueroa MD CLINICAL HISTORY: fatty [...] signed by Cheo Marcos MD in OV> 07/04/2456 DD/ 4 TD/TT: 07/04/24854 Sales Advisory Manager: us Pearl Figueroa MD IMG US PROCEDURES Edited Result - Final * BI US Breast Limited Right (05/14/2024 10:15 AM EST) Anatomical Region Laterality Modality Breast Right Ultrasound 05/14/2024 10:1 5 AM EST Narrative 05/14/2024 10:30 AM EST ? [facility] ? [address] ?[place] [address] ? Ultrasound Report ? Signed ? Patient: Miller SandySharron ?MR#: [id number] ?? [id number] ? : 1985 ?Acct:[id number] ? Age/Sex: 39 / F ?ADM Date: 05/14/24 ? Loc: HO.MAMMO ? Attending Dr: Pearl Figueroa MD ? Ordering Physician: Pearl Figueroa MD ?? Date of Service: 05/14/24 ?? Procedure(s): US breast RT limited mamm only ?? Accession Number(s): [id number] ? cc: Pearl Figueroa MD ? EXAMINATION: [...] DD/ 1015 ? TD/TT: 05/14/24 1021 ? Sales Advisory Manager: ? Procedure Note Donleater, Image - 05/18/2024 [place] [facility] [address] [place] [address] Ultrasound Report Signed Patient: Imtiaz Yang#: [id number] : 1985Acct:[id number] Age/Sex: 39 / FADM Date: 05/14/24 Loc: KHURRAMO Attending Dr: Pearl Figueroa MD Ordering Physician: Pearl Figueroa MD Date of Service: 05/14/24 Procedure(s): US breast RT limited mamm only Accession Number(s): [id number] cc: Pearl Figueroa MD EXAMINATION: MM DIAGNOSTIC [...] by: Danitza Ch DO 05/14/2024 10:27 AM [facility] Dictated By: Danitza Ch DO Signed By: <Electronically signed by Danitza Ch DO in OV> 05/14/24 1027 DD/ 1015 TD/TT: 05/14/24 1021 Sales Advisory Manager: us Pearl Figueroa MD IMG US PROCEDURES Final Result * Hepatitis Panel, General (02/17/2024 11:30 AM EDT) Hepatitis A IgM Nonreactive Nonreactive [facility] Comment:IgM antibodies to CYO V not detected; does not exclude earlyacute or recovered HAV infection. ~Hepatitis B Surface Antibody REACTIVE Nonreactive [facility] Comment:REACTIVE: > 11.99 mI U/mL Hepatitis B Core Antibody Nonreactive Nonreactive [facility] Hepatitis C Antibody Nonreactive Nonreactive [facility] Comment:Antibodies to HCV no t detected; does not exclude early acuteHCV infection. Hepatitis B Surface Ag Negative Negative [facility] Blood 02/17/2024 11:3 0 AM EDT 02/17/2024 1:18 PM EDT Pearl Figueroa MD LAB BLOOD ORDERABLES Fin al Result [facility] [address] [place] [address] [phone] from Last 3 Months or Most Recently Relevant to Health Maintenance [place] [address] [place] [address] C3 Care Teams Petal Cutter Relationship Specialty Start Date End Date Pearl Figueroa MD [address] [place] [phone] PCP - General Internal Medicine 02/17/24
--- OUTSIDE RECORDS SUMMARY | 2024-08-27 13:26 | XMS_ITS | Encounter Summary ---
Author Organization [email or web address] Address [address] [facility] 7[address] [place] [address] Care Team Providers Care Restaurant Host/Hostess Name Role Phone Pearl Figueroa MD Primary Care Provider + Encounter Details Date Type Department Care Team ([facility] st Contact Info) Description 08/25/2024 Telephone [facility] MEDICINE [address] [place] [address] Pearl Figueroa MD [address] [place] [address] Social History Tobacco Use Types Packs/Day Years Used Date Smoking Tobacco: Never Passive Smoke Exposure: Never Smokeless Tobacco: Never Alcohol Use Standard [...] encounter Miscellaneous Notes * Telephone Encounter - Mindy Hernandez RN - 08/25/2024 3:52 PM EDT Images from the original note were not included. Call returned to Sharron Sandy to triage below. Per pt dx with Flu [facility] Per pt was not given Tamiflu. Per pt sx of flu had resolved. Per pt chills, joint pain and nausea x 2 days. Per pt has not done homekit for COVID-19. No recorded temp. No SOB, CP, wheezing or cough. PT advised of disposition, agrees to sick on site tomorrow with team provider for exam. Reviewed home care advise, ER precautions and reasons to call back. Protocol Used: Muscle Aches and Body Pain (Adult) Protocol-Based Disposition: See in Office or Video Visit within 3 Days Future Appointments Date Time Provider Department Center 08/26/2024 11:00 AM Martita Arshad [facility] 08/26/2024 3:15 PM Melisa Loza NP MEDICINE [facility] Insurance verified as active per Real Time Eligibility in [facility]. Video visit offer not recorded Positive Triage Question: * Moderate pain (e.g., interferes with normal activities) and present > 3 days * All higher-acuity triage questions were negative Care Advice Discussed: * Reassurance and Education - Fever and Mild Viral Illness * General Care Advice for Fever * Reasons To Call Back - Fever goes above 104 F (40 C) and you are unable to get it down - You become worse FW: Not feeling well Received: Today Mindy Hernandez RN P [place] Triage Nurse Previous Messages Not feeling well (Newest Message First) View All Conversations on this Encounter You routed conversation to [place] Triage Nurse17 minutes ago (3:34 PM) Sharron Sandy P [place] [facility] Clinical Support (supporting Pearl Figueroa MD)1 hourago (1:55 PM) I had the flu weeks ago about 3 weeks but now I???m stuck with chills worse joint pain and nausea I???m wondering if I can be seen ? documented in this encounter Plan of Treatment Not on file documented as of this encounter Visit Diagnoses Not on filedocumented in this encounter Care Teams Restaurant Host/Hostess Relationship Specialty Start Date End Date Pearl Figueroa MD [address] [place] [phone] PCP - General Internal Medicine 02/17/24 documented as of this encounter
--- OUTSIDE RECORDS SUMMARY | 2024-08-27 13:26 | XMS_ITS | Encounter Summary ---
Author Organization [employer] Address [address] [place] [address] 7 [place] [address] Care Team Providers Care Split Leather Mosser Name Role Phone Pearl Figueroa MD Primary Care Provider + Reason for Visit * Reason Onset Date Comments Medication Question 12/12/2023 Encounter Details Date Type Department Care Team ([facility] st Contact Info) Description 12/12/2023 Telephone [facility] MEDICINE [address] [place] [address] Lisandro Ascencio MD [address] [place] [address] Medication Question Social History Tobacco Use Types [...] RN - 12/13/2023 11:29 AM EDT manager of photography in [facility] aware and message sent to provider [...] on filedocumented in this encounter Care Teams Split Leather Mosser Relationship Specialty Start Date End Date Pearl Figueroa MD [address] [place] [id number] PCP - General Internal Medicine 02/17/24 documented as of this encounter
--- OUTSIDE RECORDS SUMMARY | 2024-08-27 13:26 | XMS_ITS | Encounter Summary ---
Author Organization [employer] Address [address] [facility] [address] [place] [address] Care Team Providers Care Cold Roll Packer Sheet Iron Name Role Phone Pearl Figueroa MD Primary Care Provider + Encounter Details Date Type Department Care Team (Latest Contact Info) Description 08/25/2024 Travel Social History Tobacco Use Types Packs/Day [...] on filedocumented in this encounter Care Teams Cold Roll Packer Sheet Iron Relationship Specialty Start Date End Date Pearl Figueroa MD [address] [place] [id number] PCP - General Internal Medicine 02/17/24 documented as of this encounter
--- OUTSIDE RECORDS SUMMARY | 2024-08-27 13:26 | XMS_ITS | Encounter Summary ---
Author Organization [employer] Address [address] [facility] 7t [place] [address] Care Team Providers Care Organizational Research Consultant Name Role Phone Pearl Figueroa MD Primary Care Provider + Encounter Details Date Type Department Care Team (Late st Contact Info) Description 08/26/2024 3:15 PM EDT Office Visit [facility] MEDICINE [address] [place] [address] Melisa Loza NP [address] [place] [address] Arthralgia of both hands (Primary Dx); Chills; Pain of right hip joint; Urinary frequency; Elevated blood pressure reading in office without diagnosis of hypertension Social History Tobacco Use Types Packs/Day Years [...] AM EDT documented as of this encounter Last Filed Vital Signs Vital Sign Reading [...] Mass Index 32.96 08/26/2024 3:27 PM EDT documented in this encounter Plan of Treatment Scheduled Orders Name Type Priority Associated Diagnoses Orde r Schedule CBC auto differential Lab Routine Chills Arthralgia of both hands Expected: 08/26/2024 (Approximate), Expires: 08/26/2025 Urinalysis, Complete, with Reflex to Culture Lab Routine Urinary frequency Ordered: 08/26/2024 Lyme Disease Ab with Reflex to Blot (IgG, IgM) Lab Routine Arthralgia of both hands Expected: 08/26/2024, Expires: 08/26/2025 Sed Rate by Modified [place] Lab Routine Arthralgia of both hands Expected: 08/26/2024, Expires: 08/26/2025 C-reactive Protein Lab Routine Arthralgia of both hands Expected: 08/26/2024 (Approximate), Expires: 08/26/2025 documented as of this encounter Procedures Procedure Name Priority Date/Time Associated Diagnosis Comments POCT INFLUENZA B (ID NOW RAPID MOLECULAR) Routine 08/26/2024 4:09 PM EDT Chills POCT INFLUENZA A (ID NOW RAPID MOLECULAR) Routine 08/26/2024 4:08 PM EDT Chills POCT RAPID COVID ANTIGEN Routine 08/26/2024 4:07 PM EDT Chills documented in this encounter Results * POCT Rapid Influenza B CRONIN ID NOW (08/26/2024 4:09 PM EDT) Pathologist [facility] Influenza B Negative Negative, Indeterminate [facility] QC Media Lot # [id number] [facility] Lot# Expiration Date [facility] Swab 08/26/2024 4:09 PM EDT Melisa Appram SUPERVISOR CHANNEL PROCESS POINT OF CARE TEST ENTER/EDIT O RDERABLES Final Result [facility] [address] [place] [address] [phone] * POCT Rapid Influenza A CRONIN ID NOW (08/26/2024 4:08 PM EDT) Influenza A Negative Negative, Indeterminate [facility] QC Media Lot # [id number] [facility] Lot# Expiration Date [id number] [facility] Swab 08/26/2024 4:08 PM EDT [facility] Lidia SUPERVISOR CHANNEL PROCESS POINT OF CARE TEST ENTER/EDIT O RDERABLES Final Result [facility] [address] [place] [address] [phone] * POCT Rapid Covid-19 BinaxNOW (08/26/2024 4:07 PM EDT) Rapid COVID Ag Negative QC Media Lot # [id number] Lot# Expiration Date [id number] Swab 08/26/2024 4:07 PM EDT Melisa Lidia SUPERVISOR CHANNEL PROCESS POINT OF CARE TEST ENTER/EDIT O RDERABLES Final Result documented in this encounter Visit Diagnoses Diagnosis Arthralgia of both hands- Primary Chills Chills (without fever) Pain of right hip joint Urinary frequency Elevated blood pressure reading in office without diagnosis of hypertension documented in this encounter Additional Health Concerns Assessment Noted Time PHQ-9 Depression Total Score: 13 025 10:43 AM EDT documented as of this encounter Care Teams Organizational Research Consultant Relationship Specialty Start Date End Date Pearl Figueroa MD [address] [place] [phone] PCP - General Internal Medicine 02/17/24 documented as of this encounter
--- OUTSIDE RECORDS SUMMARY | 2024-08-27 13:27 | XMS_ITS | Data Portability ---
Author Organization [place] [facility] [place] [facility] m[facility], SVPE_CARDIO_CC_CCMOB 300 Address [address] [place] [address] Care Team Providers Care Pinmaker Name Role Phone EVARISTO PAUL Primary Care [...] and med refills. Patient was seen at [facility] on 07/30/23 with complaints of chest [...] Lab lipid panel, serum 2023 024 [email or web address] [employer] [facility], [address], [place], [address], 4 10:11:10 vitamin D, 25-hydroxy, total, serum 2023 024 [email or web address] 1 [employer] [facility], [address], [place], [address], 4 19:39:21 CMP, serum or plasma 2023 024 [email or web address] [employer] [facility], [address], [place], [address], 4 10:11:10 lipid panel, serum 2023 024 [email or web address] [employer] [facility], [address], [place], [address], 4 10:11:10 vitamin D, 25-hydroxy, total, serum 2023 024 [email or web address] 1 [facility] [address] [place], [address], 4 19:39:21 CMP, serum or plasma 2023 024 [employer] [facility] [address] [place], [address], 4 10:11:09 CBC w/ auto diff 2023 024 [email or web address] [facility] [address] [place], [address], 4 10:11:10 urinalysis complete, reflex culture 2023 024 [employer] [facility] [address] [facility], [place], [address], 4 10:11:10 HbA1c (hemoglobin A1c), blood 2023 024 [email or web address] [facility] [address] [facility], [place], [address], 4 10:11:09 test, urine 2022 023 [facility] (For In-Office Services Only), [address] [facility], [place], [address], 3 09:08:56 Referral neurologist referral - For referral assistance please contact the [facility] at [phone]. Please contact the patient to schedule. Thanks. 2023 024 [email or web address] Not available 4 10:11:34 neurologist referral - Recent ED visit due to intractable migraine COY. 2022 023 [email or web address] 1 Haja Reyna MD, [address], [address], [place], [address], 4 14:47:31 Procedures None recorded. Surgeries None recorded. Imaging MAMMO, screening, digital, bilateral 2023 024 [email or web address] [email or web address] [facility], [address], [address], [place], [address], 4 08:00:20 MAMMO, screening, digital, bilateral - US PRN please do not perform prior to 11.2022 023 [facility], [address], [address], [place], [address], 3 10:06:16 Medication Orders cholecalcif gonzalez (vitamin D3) 125 mcg (5,000 unit) capsule 2023 024 [id number], [address], [place], [id number], 4 10:39:16 sertraline 25 mg tablet 2023 024 [facility] #[id number], [address], [place], [id number], 4 10:39:16 ciclopirox 8 % topical solution 2023 [facility] #[id number], [address], [place], [id number], 4 11:32:07 cholecalcif gonzalez (vitamin D3) 1,250 mcg (50,000 unit) capsule 2023 [facility] #[id number], [address], [place], [id number], 4 17:54:49 Patient Targets Encounter Date Encounter Id Patient Goals Patient Target Last Modified By Organization Details Last Modified Time 12/17/2022 [id number] longterm goal of BMI 25 Not available Not available Not available Ongoing of Blood Pressure 140/90 Not available Not available Not available terminal system operator goal of Hemoglobin A1C <7.0 Not available [...] risks. 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 Not available Not available Not available Blood Pressure 140/90 Not available Not availab le Not available Hemoglobin A1C <7.0 Not available Not availab le Not available Ongoing of Cholesterol, LDL <100 low risk <70 high risk Not available Not available Not available 08/07/2023 [id number] longterm goal of BMI 25 Not available Not [...] By Organization Details Last Modified Time 09/18/2022 [id number] migraine headache: care instructions [email or web address] Not available 09/18/2022 11:13:53 12/17/2022 [id number] patient health questionnaire depression assessment* adeogracias Not [...] instructions [email or web address] Not available 12/17/2022 14:38:51 05/22/2023 [id number] aprenda sobre el colesterol alto - [learning [...] risks. [email or web address] Not available 05/23/2023 17:57:14 08/07/2023 [id number] high cholesterol : care instructions adeogracias Not [...] please contact the Care coordination Center at [phone]. Please contact the patient to schedule. Thanks. Referring Physician: Evaristo Paul [facility], Encounter Date: 08/07/2023 Results Created Date Observation Date Name Description Value Unit Range Abnormal Flag Note LastModifiedBy Organization Detail LastModifiedTime 12/25/19 23 12/24/2022 pregn dagmar test, urine HCG negati ve Not Available [facility] (For In-Office Services Only) [address] [place], [address], 12/19/2022 17:56:17 05/10/20 23 05/11/2023 LIPID PANEL , STAND [place] cholesterol, total 182 mg/dL <200 normal Not Available [facility] [place] [facility] [address], [place], [address], 05/11/2023 08:21:20 05/10/20 23 05/11/2023 LIPID PANEL , STAND [place] HDL cholesterol 57 mg/dL > or = 50 normal Not Available [facility] [place] [facility] [address], [place], [address], 05/11/2023 08:21:20 05/10/20 23 05/11/2023 LIPID PANEL , STAND FRANKLIN triglyceride s 80 mg/dL <150 normal Not Available [facility] [place] [facility] [address], [place], [address], 05/11/2023 08:21:20 05/10/20 23 05/11/2023 LIPID PANEL [...] 2061- 2068 (http ://ed ucati on.Qu maryDi CallidusClouds. com/f aq/FA Q164) Not Available [facility] [place] [facility] [address], [place], [address], 05/11/2023 08:21:20 05/10/20 23 05/11/2023 LIPID PANEL , STAND [place]ANKLIN chol/HDLC ratio 3.2 (calc ) <5.0 normal Not Available [facility] [place] [facility] [address], [place], [address], 05/11/2023 08:21:20 05/10/20 23 05/11/2023 LIPID PANEL , [place] non HDL cholesterol 125 mg/dL _(janet c) <130 normal For patie nts with diabe anahy plus 1 major ASCVD risk facto r, treat ing to a non-H DL-C goal of <100 mg/dL (LDL- C of <70 mg/dL ) is consi dered a thera peuti c optio n. Not Available [facility] [address], [place], [address], 05/11/2023 08:21:20 05/10/2005/11/2023 COMPR EHENS RAMÓN METAB OLIC PANEL glucose 75 mg/dL 65-99 normal Fasti ng refer ence inter niraj Not Available [facility] [address], [place], [address], 05/11/2023 08:21:21 05/10/20 23 05/11/2023 COMPR EHENS RAMÓN METAB OLIC PANEL urea nitrogen (BUN) 11 mg/dL 7-25 normal Not Available [facility] [address], [place], [address], 05/11/2023 08:21:21 05/10/2005/11/2023 COMPR EHENS RAMÓN METAB OLIC PANEL creatinine 0.71 mg/dL 0.50-0 .99 normal Not Available [facility] [address], [place], [address], 05/11/2023 08:21:21 05/10/2005/11/2023 COMPR EHENS RAMÓN METAB OLIC PANEL eGFR 110 mL/mi n/1.7 3m2 > or = 60 normal Not Available [facility] [address], [place], [address], 05/11/2023 08:21:21 05/10/2011 0505/11/2023 COMPR EHENS RAMÓN METAB OLIC PANEL BUN/creatini ne ratio SEE NOTE: (calc ) 6-22 Not Repor marco: BUN and Creat inine are withi n refer ence range . Not Available [facility] [place] [facility] [address], [place], [address], 05/11/2023 08:21:21 05/10/20 23 05/11/2023 COMPR EHENS RAMÓN METAB OLIC PANEL sodium 137 mmol/ L 135-14 6 normal Not Available [facility] [place] [facility] [address], [place], [address], 05/11/2023 08:21:21 05/10/20 23 05/11/2023 COMPR EHENS RAMÓN METAB OLIC PANEL potassium 3.9 mmol/ L 3.5-5. 3 normal Not Available [facility] [place] [facility] [address], [place], [address], 05/11/2023 08:21:21 05/10/20 23 05/11/2023 COMPR EHENS RAMÓN METAB OLIC PANEL chloride 101 mmol/ L 98-110 normal Not Available [facility] [place] [facility] [address], [place], [address], 05/11/2023 08:21:21 05/10/20 23 05/11/2023 COMPR EHENS RAMÓN METAB OLIC PANEL carbon dioxide 27 mmol/ L 20-32 normal Not Available [facility] [place] [facility] [address], [place], [address], 05/11/2023 08:21:21 05/10/20 23 05/11/2023 COMPR EHENS RAMÓN METAB OLIC PANEL calcium 9.4 mg/dL 8.6-10 .2 normal Not Available [facility] [place] [facility] [address], [place], [address], 05/11/2023 08:21:21 05/10/20 23 05/11/2023 COMPR EHENS RAMÓN METAB OLIC PANEL protein, total 7.9 g/dL 6.1-8. 1 normal Not Available [facility] [employer] [facility] [address], [place], [address], 05/11/2023 08:21:21 05/10/20 23 05/11/2023 COMPR EHENS RAMÓN METAB OLIC PANEL albumin 4.4 g/dL 3.6-5. 1 normal Not Available [facility] [address], [place], [address], 05/11/2023 08:21:21 05/10/20 23 05/11/2023 COMPR EHENS RAMÓN METAB OLIC PANEL globulin 3.5 g/dL_ (calc ) 1.9-3. 7 normal Not Available [facility] [employer] [facility] [address], [place], [address], 05/11/2023 08:21:21 05/10/20 23 05/11/2023 COMPR EHENS RAMÓN METAB OLIC PANEL albumin/glob ulin ratio 1.3 (calc ) 1.0-2. 5 normal Not Available [facility] [employer] [facility] [address], [place], [address], 05/11/2023 08:21:21 05/10/20 23 05/11/2023 COMPR EHENS RAMÓN METAB OLIC PANEL bilirubin, total 0.6 mg/dL 0.2-1. 2 normal Not Available [facility] [employer] [facility] [address], [place], [address], 05/11/2023 08:21:21 05/10/20 23 05/11/2023 COMPR EHENS RAMÓN METAB OLIC PANEL alkaline phosphatase 67 U/L 31-125 normal Not Available [facility] [employer] [facility] [address], [place], [address], 05/11/2023 08:21:21 05/10/20 23 05/11/2023 COMPR EHENS RAMÓN METAB OLIC PANEL AST 36 U/L 10-30 high Not Available [facility] [place] [facility] [address] [place], [address], 05/11/2023 08:21:21 05/10/20 23 05/11/2023 COMPR EHENS RAMÓN METAB OLIC PANEL ALT 62 U/L 6-29 high Not Available [facility] [place] [facility] [address], [place], [address], 05/11/2023 08:21:21 05/10/2005/11/2023 HEMOG LOBIN A1C hemoglobin [...] anahy(A DA). Not Available [facility] [place] [facility] [address], [place], [address], 05/11/2023 08:21:23 05/10/20 23 05/11/2023 TSH W/REF YAS TO FT4 TSH w/reflex to FT4 0.78 mIU/L normal Refer ence Range > or = 20 Years 0.40- 4.50 Pregn dagmar Range s First trime ster 0.26- 2.66 Secon d trime ster 0.55- 2.73 Third trime ster 0.43- 2.91 Not Available [facility] [address], [place], [address], 05/11/2023 08:21:24 05/10/20 23 05/11/2023 CBC (INCL UDES DIFF/ PLT) white blood cell count 6.8 thous and/u L 3.8-10 .8 normal Not Available [facility] [address], [place], [address], 05/11/2023 08:21:25 05/10/2005/11/2023 CBC (INCL UDES DIFF/ PLT) red blood cell count 4.33 cari on/uL 3.80-5 .10 normal Not Available [facility] [address], [place], [address], 05/11/2023 08:21:25 05/10/20 23 05/11/2023 CBC (INCL UDES DIFF/ PLT) hemoglobin 13.0 g/dL 11.7-1 5.5 normal Not Available [facility] [address], [place], [address], 05/11/2023 08:21:25 05/10/2005/11/2023 CBC (INCL UDES DIFF/ PLT) hematocrit 38.9 % 35.0-4 5.0 normal Not Available [facility] [address], [place], [address], 05/11/2023 08:21:25 05/10/2005/11/2023 CBC (INCL UDES DIFF/ PLT) MCV 89.8 fL 80.0-1 00.0 normal Not Available [facility] [address], [place], [address], 05/11/2023 08:21:25 05/10/2005/11/2023 CBC (INCL UDES DIFF/ PLT) MCH 30.0 pg 27.0-3 3.0 normal Not Available [facility] [address], [place], [address], 05/11/2023 08:21:25 05/10/2005/11/2023 CBC (INCL UDES DIFF/ PLT) MCHC 33.4 g/dL 32.0-3 6.0 normal Not Available [facility] [address], [place], [address], 05/11/2023 08:21:25 05/10/2005/11/2023 CBC (INCL UDES DIFF/ PLT) RDW 11.6 % 11.0-1 5.0 normal Not Available [facility] [address], [place], [address], 05/11/2023 08:21:25 05/10/2005/11/2023 CBC (INCL UDES DIFF/ PLT) platelet count 278 thous and/u L 140-40 0 normal Not Available [facility] [address], [place], [address], 05/11/2023 08:21:25 05/10/2005/11/2023 CBC (INCL UDES DIFF/ PLT) MPV 9.3 fL 7.5-12 .5 normal Not Available [facility] [address], [place], [address], 05/11/2023 08:21:25 05/10/2005/11/2023 CBC (INCL UDES DIFF/ PLT) absolute neutrophils 3706 cells /uL 1500-7 800 normal Not Available [facility] [address], [place], [address], 05/11/2023 08:21:25 05/10/2005/11/2023 CBC (INCL UDES DIFF/ PLT) absolute lymphocytes 2496 cells /uL 850-39 00 normal Not Available [facility] [place] [facility] [address], [place], [address], 05/11/2023 08:21:25 05/10/2005/11/2023 CBC (INCL UDES DIFF/ PLT) absolute monocytes 469 cells /uL 200-95 0 normal Not Available [facility] [place] [facility] [address], [place], [address], 05/11/2023 08:21:25 05/10/2005/11/2023 CBC (INCL UDES DIFF/ PLT) absolute eosinophils 109 cells /uL 15-500 normal Not Available [facility] [place] [facility] [address], [place], [address], 05/11/2023 08:21:25 05/10/2005/11/2023 CBC (INCL UDES DIFF/ PLT) absolute basophils 20 cells /uL 0-200 normal Not Available [facility] [place] [facility] [address], [place], [address], 05/11/2023 08:21:25 05/10/20 23 05/11/2023 CBC (INCL UDES DIFF/ PLT) neutrophils 54.5 % normal Not Available [facility] [address], [place], [address], 05/11/2023 08:21:25 05/10/2005/11/2023 CBC (INCL UDES DIFF/ PLT) lymphocytes 36.7 % normal Not Available [facility] [place] [facility] [address], [place], [address], 05/11/2023 08:21:25 05/10/20 23 05/11/2023 CBC (INCL UDES DIFF/ PLT) monocytes 6.9 % normal Not Available [facility] [place] [facility] [address], [place], [address], 05/11/2023 08:21:25 05/10/20 23 05/11/2023 CBC (INCL UDES DIFF/ PLT) eosinophils 1.6 % normal Not Available [facility] [address], [place], [address], 05/11/2023 08:21:25 05/10/20 23 05/11/2023 CBC (INCL UDES DIFF/ PLT) basophils 0.3 % normal Not Available [facility] [address], [place], [address], 05/11/2023 08:21:25 05/10/2005/11/2023 URINA LYSIS , COMPL ETE W/REF YAS TO CULTU RE color YELLOW yellow normal Not Available [facility] [address], [place], [address], 05/11/2023 08:21:26 05/10/2005/11/2023 URINA LYSIS , COMPL ETE W/REF YAS TO CULTU RE appearance CLEAR clear normal Not Available [facility] [address], [place], [address], 05/11/2023 08:21:26 05/10/2005/11/2023 URINA LYSIS , COMPL ETE W/REF YAS TO CULTU RE specific gravity 1.019 1.001- 1.035 normal Not Available [facility] [address], [place], [address], 05/11/2023 08:21:26 05/10/2005/11/2023 URINA LYSIS , COMPL ETE W/REF YAS TO CULTU RE pH 5.5 5.0-8. 0 normal Not Available [facility] [address], [place], [address], 05/11/2023 08:21:26 05/10/2005/11/2023 URINA LYSIS , COMPL ETE W/REF YAS TO CULTU RE glucose NEGATI VE negati ve normal Not Available [facility] [place] [facility] [address], [place], [address], 05/11/2023 08:21:26 05/10/20 23 05/11/2023 URINA LYSIS , COMPL ETE W/REF YAS TO CULTU RE bilirubin NEGATI VE negati ve normal Not Available [facility] [place] [facility] [address], [place], [address], 05/11/2023 08:21:26 05/10/2005/11/2023 URINA LYSIS , COMPL ETE W/REF YAS TO CULTU RE ketones NEGATI VE negati ve normal Not Available [facility] [place] [facility] [address], [place], [address], 05/11/2023 08:21:26 05/10/2005/11/2023 URINA LYSIS , COMPL ETE W/REF YAS TO CULTU RE occult blood NEGATI VE negati ve normal Not Available [facility] [place] [facility] [address], [place], [address], 05/11/2023 08:21:26 05/10/20 23 05/11/2023 URINA LYSIS , COMPL ETE W/REF YAS TO CULTU RE protein NEGATI VE negati ve normal Not Available [facility] [place] [facility] [address], [place], [address], 05/11/2023 08:21:26 05/10/2005/11/2023 URINA LYSIS , COMPL ETE W/REF YAS TO CULTU RE nitrite NEGATI VE negati ve normal Not Available [facility] [place] [facility] [address], [place], [address], 05/11/2023 08:21:26 05/10/2005/11/2023 URINA LYSIS , COMPL ETE W/REF YAS TO CULTU RE leukocyte esterase NEGATI VE negati ve normal Not Available [facility] [place] [facility] [address], [place], [address], 05/11/2023 08:21:26 05/10/2005/11/2023 URINA LYSIS , COMPL ETE W/REF YAS TO CULTU RE WBC NONE SEEN /hpf < or = 5 normal Not Available [facility] [place] [facility] [address], [place], [address], 05/11/2023 08:21:26 05/10/2005/11/2023 URINA LYSIS , COMPL ETE W/REF YAS TO CULTU RE RBC NONE SEEN /hpf < or = 2 normal Not Available [facility] [place] [facility] [address], [place], [address], 05/11/2023 08:21:26 05/10/2005/11/2023 URINA LYSIS , COMPL ETE W/REF YAS TO CULTU RE squamous epithelial cells 0-5 /hpf < or = 5 Not Available [facility] [place] [facility] [address], [place], [address], 05/11/2023 08:21:26 05/10/20 23 05/11/2023 URINA LYSIS , COMPL ETE W/REF YAS TO CULTU RE bacteria NONE SEEN /hpf none seen normal Not Available [facility] [place] [facility] [address], [place], [address], 05/11/2023 08:21:26 05/10/2005/11/2023 URINA LYSIS , COMPL ETE W/REF YAS TO CULTU RE hyaline cast NONE SEEN /lpf none seen normal Not Available [facility] [place] [facility] [address], [place], [address], 05/11/2023 08:21:26 05/10/20 23 05/11/2023 URINA LYSIS , COMPL ETE W/REF YAS TO CULTU RE note This urine was lynnette zed for the prese nce of WBC, RBC, bacte brad, casts , and other forme d eleme nts. Only those eleme nts seen were repor marco. Not Available [facility] [place] [facility] [address], [place], [address], 05/11/2023 08:21:26 05/10/20 23 05/11/2023 REFLE XIVE URINE CULTU RE reflexive urine culture NO CULTU RE INDIC ATED Not Available [facility] [place] [facility] [address], [place], [address], 05/11/2023 08:21:27 05/10/20 23 05/11/2023 VITAM IN B12/F OLATE , SERUM PANEL vitamin B12 985 pg/mL 200-11 00 normal Not Available [facility] [place] [facility] [address], [place], [address], 05/11/2023 08:21:28 05/10/20 23 05/11/2023 VITAM IN B12/F OLATE , SERUM PANEL folate, serum 17.5 NG/mL normal Refer ence Range Low: <3.4 Borde rline : 3.4-5 .4 Radha l: >5.4 Not Available [facility] [place] [facility] [address], [place], [address], 05/11/2023 08:21:28 04/25/20 23 04/13/2023 MAMMO , scree vicky, digit al, bilat eral No observ ation record ed. [email or web address] [facility] [address], [place], [address], 05/23/2023 17:47:53 07/30/19 24 04/30/2023 elect angelina sanchezgr am No observ ation record ed. [email or web address] Not Available 07/19 21:22:47 Result Notes Documentation Provider Name and Address Organization Details Recorded Time Mammo, Screening, Digital, Bilateral : BIRADs 1 Deogracias Humphrey Paul Jr DIRECTOR [employer] [address], [place], [address], [facility] 05/23/2023 17:47:53 Problems Name Problem SNOMED Code Status Onset Date Resolution Date Notes Provider Name and Address Organization Details Recorded Time Gastroesopha geal reflux disease 727573985 Active 2019 Zayda Perales [employer] [address], [place], [address], [facility] 0 07:48:26 Nonalcoholic steatohepati tis 296708363 Active 2020 Zayda Perales DIRECT[employer] [address], [place], [address], [facility] 1 09:32:08 Vitamin D deficiency 82504449 Active 2020 Mine Serna APRN [address], [place], [address], [facility] 1 20:01:27 Liver enzymes outside reference range 699851348 Active 2012 Evaristo Paul Jr [employer] [address], [place], [address], [facility] 3 20:34:27 Mixed hyperlipidem ia 835459261 Active 2021 Evaristo Paul Jr [employer] [address], [place], [address], [facility] 2 13:02:18 Plantar fasciitis 550530064 Active 2021 Isidroogrshola Paul Jr DIRECT[employer] [address], [place], [address], [facility] 2 13:02:20 Problem Notes None recorded. Procedures Surgical History Date Name Laterality Status Provider Name and Address Organization Details Recorded Time 08/07/19 24 Transitional Care- Med Reconciliation completed Deogracias Angelicadanielle Paul Jr DIRECTOR [employer] [address], [place], [address], [place] [facility] [place] [facility] [place] 08/07/2023 21:21:40 05/22/19 24 Transitional Care- Med Reconciliation completed Deogracias Clarisaallysondanielle Paul Jr DIRECTOR [employer] [address], [place], [address], [place] 05/23/2023 17:59:07 09/19/19 23 Transitional Care- Med Reconciliation completed Deogracias Clarisaallysondanielle Paul Jr DIRECTOR [employer] [address], [place], [address], [place] 09/18/2022 11:14:10 05/15/20 22 PCMH completed Gabriela Tyson [place] 05/15/2022 06:53:14 04/10/20 22 PC[facility] cancelled Gabriela Tyson [place] 04/10/2022 10:34:01 02/17/20 22 PCMH completed Gabriela Tyson [place] 02/14/2022 06:47:01 01/03/20 22 PCMH completed Deogracias Humphrey Paul Jr DIRECT[employer] [address], [place], [address], [place] 01/02/2022 10:39:25 10/10/19 22 PCMH cancelled Lacy Bargeron [place] 10/05/2021 15:16:18 09/05/19 22 PCMH completed Lacy Bargeron [place] 08/29/2021 17:01:18 07/06/19 22 PCMH completed Lacy Bargeron [place] 07/06/2021 09:11:34 05/25/19 22 Date of Last Pap Smear completed Yannick Graff [place] 12/20/2022 13:56:19 05/10/20 21 PCMH completed Lacy Bargeron [place] 05/10/2021 09:09:13 05/10/20 SDOH completed Lacy Hollingsworth [place] 05/09/2021 07:40:53 03/30/20 Special Note completed Sujatha Schmitz MD [address], [place], [address], [place] 03/30/2021 10:14:26 02/09/20 PCMH completed Lacydavid Hollingsworth [place] 02/07/2021 12:42:05 01/10/20 PCMH cancelled Lacy Malagongeron [place] 01/06/2021 15:54:20 01/10/20 SDOH cancelled Lacy Hollingsworth [place] 01/06/2021 15:54:22 12/08/19 PCMH cancelled Gabriela Tsyon [place] 12/07/2020 12:26:38 04/29/20 PCM completed Lacy Holl[place] 04/28/2020 16:16:13 Dilation and Cureattage completed Cecelia Tavarez [place] [facility] 10/31/2021 14:48:30 Gallbladder Surgery completed Gabriela Tyson [place] - [place] - [place] 04/29/2020 08:22:55 Imaging Results Imaging Date Name Status LastModified by Organization Details LastModified Time 04/13/2023 MAMMO, screening, digital, bilateral completed adeogracias [facility] [address], [place], [address], 05/23/2023 17:47:53 04/30/2023 electrocardiogram completed [email or web address] Inform [...] cm 114 mm[Hg] 70 mm[Hg] [facility] 09/18/2022 10:05:37 Date Recorded Body height Body mass index (BMI) Body weight Heart rate Respiratory rate Oxygen saturation Oxygen saturation in Arterial blood by Pulse oximetry Body temperature Pain severity - 0-10 verbal numeric rating [Score] - Reported Systolic blood pressure Diastolic blood pressure Provider Name and Address Organization Details Last Updated DateTime 3 162.56 cm 32.3 kg/m2 44817.3 7 g 65 /min 16 /min 98 % 98 % 98.1 [degF] 0 124 mm[Hg] 88 mm[Hg] [facility] 3 14:21:27 Date Recorded Body height Body mass index (BMI) Body weight Pain severity - 0-10 verbal numeric rating [Score] - Reported Body temperature Respiratory rate Heart rate Systolic blood pressure Diastolic blood pressure Provider Name and Address Organization Details Last Updated DateTime 3 162.56 cm 31.6 kg/m2 11999 g 0 98.2 [degF] 16 /min 76 /min 122 mm[Hg] 80 mm[Hg] [facility] 3 13:58:04 Date Recorded Body height Body mass index (BMI) Body weight Pain severity - 0-10 verbal numeric rating [Score] - Reported Body temperature Oxygen saturation Oxygen saturation in Arterial blood by Pulse oximetry Heart rate Respiratory rate Systolic blood pressure Diastolic blood pressure Provider Name and Address Organization Details Last Updated DateTime 4 162.56 cm 32.7 kg/m2 97026.6 5 g 0 98.6 [degF] 98 % 98 % 85 /min 16 /min 138 mm[Hg] 79 mm[Hg] [facility] 4 11:01:27 Date Recorded Body height Body mass index (BMI) Body weight Heart rate Respiratory rate Body temperature Pain severity - 0-10 verbal numeric rating [Score] - Reported Provider Name and Address Organization Details Last Updated DateTime 4 162.56 cm 32.2 kg/m2 56492.5 7 g 74 /min 16 /min 98.6 [degF] 0 [facility] 4 10:25:11 Date Recorded Oxygen saturation Oxygen saturation in Arterial blood by Pulse oximetry Systolic blood pressure Diastolic blood pressure Provider Name and Address Organization Details Last Updated DateTime 08/07/2023 98 % 98 % 130 mm[Hg] 84 mm[Hg] Deogracias Humphrey Paul Jr DIRECTOR EDUCATIONAL RADIO [address], [place], [address] 4 21:40:46 Social History Question Answer Notes LastModified by Organizat ion Details LastModified Time Tobacco Smoking Status [facility]oker [facility] 08/07/2023 10:03:51 Do You Have An Advance Directive? No [email or web address] Information not available 12/20/2022 Is Your Home Air Conditioned? Yes Information not available 05/22/2023 What Is Your Level Of Alcohol Consumption? Occasional [email or web address] Information not available 08/07/2023 How Many Times Per Week Do You Consume Alcohol? 1-2 Times Per Week Information not available 02/08/2021 How Many Years Have You Consumed Alcohol? 3 [email or web address] Information not available 04/10/2022 Are You Currently Sexually Active With Anyone Who Has Traveled (within The Last 12 Weeks) To A Zika-affected Area? No Information not available 05/22/2023 Do You Wear A Helmet When Biking? Yes Information not available 05/22/2023 Are You Blind Or Do You Have Difficulty Seeing? No [email or web address] Information not available 08/07/2023 Is Blood Transfusion Acceptable In An Emergency? Yes [email or web address] Information not available 08/07/2023 What Is Your Level Of Caffeine Consumption? Occasional [email or web address] Information not available 12/20/2022 How Much Tobacco Do You Chew? 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 [employer] Information not available [...] Do You Have Serious Difficulty Hearing? No Information not available 08/07/2023 What Type Of [...] E-cigarettes Or Vape? Never Used Electronic Cigarettes [email or web address] Information not available 04/29/2020 What Is The Highest Grade Or Level Of School You Have Completed Or The Highest Degree You Have Received? [id number] [email or web address] Information not available 12/20/2022 Do You [...] not available 05/22/2023 Where Do You Live? [facility] Information not available 05/22/2023 Live Alone Or With Others? With Others Information not available 05/22/2023 Patient Would Like A Flu Shot Yes Information not available 05/10/2021 Please List The Date The Patient Received The Flu Shot 01/19/2020 [email or web address] Information not available 05/25/2021 Please List The Location Where The Patient Received The Flu Shot [facility] [email or web address] Information not available 05/25/2021 Patient Interested In Colorectal Cancer Screening No [email or web address] Information not available 04/29/2020 Do You Want Help Finding Or Keeping Work Or A Job? No [email or web address] Information not available 04/29/2020 Do You Want Help With School Or Training? For Example, Starting Or Completing Job Training Or Getting A High School Diploma, GED, Or Equivalent No [email or web address] Information not available 04/29/2020 In The Last 12 Months Did You Ever Eat Less Than You [place] You Should Because There Wasn? t Enough Money For Food? No Information not available 04/29/2020 In The Past 12 Months Has The [employer], Gas, Oil, Or Water [employer] Threatened To Shut Off Services In Your Home? No [email or web address] Information not available 04/29/2020 In The Last 12 Months Did You Skip Medications To Save Money? No Information not available 04/29/2020 In The Last 12 Months, Was There A Time When You Needed To See A Doctor But Could Not Because Of Cost? No [email or web address] Information not available 04/29/2020 Do You Often Feel Lonely? No [email or web address] Information not available 04/29/2020 Do You Want Help With Any Of Your Needs? No [email or web address] Information not available 04/29/2020 Are Any Of Your Needs Urgent? No [email or web address] Information not available 04/29/2020 Are You Worried That In The Next 2 Months You May Not Have Stable Housing? No [email or web address] Information not available 04/29/2020 In The Last 12 Months, Have You Ever Had To Go Without Health Care Because You Didn? t Have A Way To Get There? No [email or web address] Information not available 04/29/2020 Do You Feel Physically And Emotionally Unsafe Where You Currently Live? No Information not available 04/29/2020 Have You Had A Fever And/or Symptoms Of A Lower Respiratory Illness (cough, Difficulty Breathing, Etc)? No [email or web address] Information not available 04/29/2020 Have You Had Any Of These Symptoms: Chills ,Headache, Fatigue, Muscle Or Body Aches , Sore Throat, New Loss Of Taste Or Smell, Nausea Or Vomiting, Or Diarrhea? No [email or web address] Information not available 04/29/2020 Have You Had A COVID-19 Vaccine In The Last 7 Days? No Pt Declined [email or web address] Information not available 04/29/2020 Has The Patient [...] No Information not available 05/22/2023 Marital Status located [facility] Infor mation not available 05/22/2023 What Was The Date Of Your Most Recent Tobacco Screening? 08/07/2023 [email or web address] Information not available 08/07/2023 How Many Children Do You Have? 5 [email or web address] Information not available 04/29/2020 Have You Ever Been Counseled For Unhealthy Alcohol Use? No Information not available 05/22/2023 Performs Monthly Self-breast Exam? No Information not available 05/22/2023 Do You Have Any Pets? No Information not available 05/22/2023 What Is Your Relationship Status? [email or web address] Information not available 08/07/2023 Do You Use [...] Used Smokeless Tobacco? Never Used Smokeless Tobacco [email or web address] Information not available 04/29/2020 Are There Any Smokers In Your House? No Information not available 05/22/2023 How Much Tobacco Do You Smoke? No [email or web address] Information not available 08/07/2023 What Types Of Sporting Activities Do You Participate In? None Information not available 05/22/2023 Do You Feel Stressed (tense, Restless, Nervous, Or Anxious, Or Unable To Sleep At Night)? [id number] Information not available 05/22/2023 Do You Use Any Illicit Or Recreational Drugs? No [email or web address] Information not available 12/20/2022 Do You Use Sunscreen Routinely? No Information not available 05/22/2023 Has Tobacco Cessation Counseling Been Provided? No Information not available 02/08/2021 How Many Years Have You Smoked Tobacco? 0 [email or web address] Information not available 08/07/2023 Do You Have [...] Organization Details LastModified Time Mother Diabetes mellitus [email or web address] Not available 04/29 08:26:11 Notes:Reviewed with patient [...] quadrivalent, PF 05/10/2021 completed Zayda Perales APRN [id number], [place], [address], [facility] [[email or web address] - [facility] 05/10/2021 09:33:44 Past Encounters Encounter ID Performer Location Encounter Start Date Encounter Closed Date Diagnosis/Indication Diagnosis SNOMED-CT Code Diagnosis ICD10 Code Diagnosis Note [id number] Zayda Perales APRN zCLSD_SVP E[facility] [address] [place] [address] 04/29/2020 08:13:49 04/29/2020 09:07:40 Advance directive discussed with patient 668516878 Z71.89 Depression screening 171 705682 Z13.31 10 ? 14 Moderate Treatment plan, considerin g counseling , follow-up and/or pharmacoth [facility] edu cation given 624698787 Z71.9 Body mass index 30+ - obesity 597904216 Z68.32 bmi 32.5, -Weight management and healthy lifestyle choices discussed with pt. Adult heal th examination 904272257 Z00.00 -Wellness exam completed. -Multiphas ic lab work ordered. Hyperlipid emia screening 224897634 Z13.220 Diabetes m ellitus screening 807214439 Z13.1 Thyroid di sorder screening 637185654 Z13.29 Screening for malignant neoplasm of cervix 926933743 Z12.4 -Last pap smear 08/06 with normal findings, prior was HPV positive. Fatigue 79668076 R53.83 Hepatitis C screening 41 4745748 Z11.59 The USPSTF recommends screening for hepatitis C virus (HCV) infection in persons at high risk for infection. The USPSTF also recommends offering one-time screening for HCV infection to adults born between 1945 and 1965. [id number] Zayda Perales, DIRECTOR EDUCATIONAL RADIO z[facility] [address] [place] [address] 02/08/2021 08:25:05 02/08/2021 09:37:00 Health education given 948703717 Z71.9 Depression screening 171 372359 Z13.31 10 ? 14 Moderate Treatment plan, considerin g counseling , follow-up and/or pharmacoth erapy Body mass index 30+ - obesity 487907614 Z68.31 bmi 31.5, -Weight management and healthy lifestyle choices discussed with pt. Pain in ri ght hip joint 4015479306 47163 M25.551 -Advised pt to gently stretch daily.-Adv ised pt to get xray completed. -Will treat pt's symptoms and advised pt will need to f/u with Orthopedic s if symptoms do not improve. Screening for malignant neoplasm of cervix 277957211 Z12.4 [id number] Sujatha MARTINEZPE_OBGY N_SS_[facility] [address] [place] [address] 03/09/2021 08:47:26 03/09/2021 10:02:48 Gynecologic examination 62742947 Z01.419 -Cervical cancer screening collected -Screening labs (HIV, RPR) ordered -Age-appro priate counseling conducted including importance of self-breas t awareness as well as diet & exercise -Follow-up in 1 year for annual well-woman examinatio n or sooner PRN Venereal d isease screening 543675388 Z11.3 Body mass index 30+ - obesity 735332347 Z68.31 Pain in pelvis 72141668 R10.2 -Discussed need for a FRUIT LOADER MACHINE OPERATOR ultrasound to evaluate pelvis for potential causes of pain -Follow-up for next available FRUIT LOADER MACHINE OPERATOR ultrasound appointmen t followed by a return FRUIT LOADER MACHINE OPERATOR visit to discuss findings and plan of care Dysmenorrhea [id number] N 94.6 Vaginal discharge 086881 006 N89.8 [id number] Sujatha Schmitz MD SVPE_OBGY N_SS_[facility] [address] [place] [address] [address] [place] [address] 03/30/2021 09:23:52 03/30/2021 10:21:41 Body mass index 30+ - obesity 294342819 Z68.31 Pain in pelvis 69321894 R10.2 -Reviewed FRUIT LOADER MACHINE OPERATOR ultrasound findings of a very small uterine [...] and/or procedures and documentin g visit Dysmenorrhea 967230795 N 94.6 Uterine leiomyoma 786985 05 D25.9 [id number] Zayda Perales APRN zCLSD_[facility] [address] [place] [address] 05/10/2021 08:47:06 05/10/2021 09:37:52 Adult health examination 747605813 Z00.00 -Wellness exam completed. -Multiphas ic lab work ordered. Hyperlipid emia screening 496838410 Z13.220 Diabetes m ellitus screening 411233103 Z13.1 Thyroid di sorder screening 947081521 Z13.29 Screening for malignant neoplasm of cervix 992237236 Z12.4 -Last pap smear needs repeat with Dr. Schmitz. Pt has future appt. made. Fatigue 51064092 R53.83 Administra tion of influenza vaccine 44343963 Z23 Depression screening 171 922411 Z13.31 Negative Body mass index 30+ - obesity 244018689 Z68.32 bmi 32.4, -Weight management and healthy lifestyle choices discussed with pt. Nonalcohol ic steatohepatitis 272096660 K75.81 [id number] Sujatha MARTINEZPE_OBGY N_SS_[facility] [address] [facility] [address] [place] [address] 05/25/2021 10:46:54 05/25/2021 12:01:37 Cervicovaginal cytology specimen unsatisfactory 760555524 R87.615 -Repeat pap collected and results to be shared with patient once available- Follow-up PRN Body mass index 30+ - obesity 463863252 Z68.32 [id number] Zayda Perales APRN [facility] [address] [place] [address] 07/06/2021 09:08:57 07/06/2021 12:04:02 Health education given 127186396 Z71.9 Pain in ri ght hip joint 2186233919 07326 M25.551 -Advised pt to f/u with Orthopedic s as pain has persisted for several months.-Ri ght hip xary is inconclusi ve, advised pt to most likely radiating off of left lumbar spine. Pt denies lumbar pain.-Advi sed pt to ice and use conservati ve measures. [id number] Zayda Perales APRN [facility] [address] [place] [address] 09/04/2021 11:08:05 09/04/2021 11:51:41 Mixed anxiety and depressive disorder 096050771 F41.8 12- Moderate Treatment plan, considerin g counseling , follow-up and/or pharmacoth erapy.-Pt denies SI/HI.-Adv ised pt to f/u with [facility].-Advi sed pt to call office if condition worsens, high suspicion for need to increase dosage. Health edu cation given 365907128 Z71.9 Body mass index 30+ - obesity 385436129 Z68.33 bmi 33.2-Weigh t management and healthy lifestyle choices discussed with pt. Pain in ri ght hip joint 3331627709 87402 M25.130 [id number] TATUM CARDONA CNM, MARGARITA SVPE[facility]OBGY N_SS_[facility] [address], [address] [place] [address] 10/31/2021 14:06:30 10/31/2021 15:35:59 Body mass index 30+ - obesity 493469964 Z68.32 Pain in pelvis 84032153 R10.2 [id number] Reba Fields r RCIS [facility]SD[facility]B H[facility] [address] [place] [address] 11/01/2021 10:36:08 11/01/2021 12:30:02 [id number] Deogracias Remandaban Sitaila Jr DIRECTOR EDUCATIONAL RADIO z[facility] [address] [place] [place] [address] 01/02/2022 09:47:29 01/02/2022 10:35:01 Health education given 364616529 Z71.9 Continue heart healthy lifestyle to include low-fat diet, low-sodium diet, regular physical activity, maintain optimal weight, and avoid all tobacco/ni cotine products. Body mass index 30+ - obesity 110375415 Z68.33 BMI 33.7 Plantar fa sciitis of right foot 7815782555 2268225 M72.2 Intermitte nt (R) Heel pain concerning [...] shoe inserts (arch supports and/or heel cups).-Con screw machine operator single spindle molded shoe inserts (orthotics ); night splints; or Immobiliza tion with a cast.-Decr easing physical activities that are suggested by the medical history to be causative or aggravatin g (eg, excessive running, dancing, or jumping).P rovided hand-outs on plantar fasciitis care. If medication , rest, and ice don't help enough, will consider physical therapist. Screening for disorder 734300935 Z13.9 Will update with multiphasi c labs Vitamin D deficiency 347 44822 E55.9 Non-alcoho lic fatty liver 957395600 K76.0 Gastroesop hageal reflux disease 898418565 K21.9 [id number] Reba Crewsermiassara burr [facility] [address] [place] [address] 12/04/2021 14:47:07 12/04/2021 15:59:16 [id number] Reba Crewsermiassara aminah [facility] [address] [place] [address] 01/08/2022 15:37:43 01/08/2022 16:57:44 [id number] Deogracias Remandaban Humberto Jr DIRECTOR EDUCATIONAL RADIO z[facility] [address] [address] 02/16/2022 10:14:17 02/16/2022 10:27:21 Health education given 927703060 Z71.9 Continue heart healthy lifestyle to include low-fat diet, low-sodium diet, regular physical activity, maintain optimal weight, and avoid all tobacco/ni cotine products. Liver enzy mes outside reference range 601387935 R94.5 Elevated Liver Enzymes -followed by GI. Previous h/o of ETOH use, she has stopped drinking alcohol. Liver US done last year showing fatty Liver. Followed by Gastro. Nonalcohol ic steatohepatitis 843670898 K75.81 Followed by GI. Next visit in 3 weeks. Mixed hyperlipidemia 267 606034 E78.2 Lipid panel is stable and WNL. LDL very slightly elevated at 103. The rest of her cholestero l panels are normal. Abnormal urinalysis 1672 06310 R82.90 UA (+) for trace leukocytes . Reflex urine culture showing mixed eduardo likely from non-midstr eam, contaminat ed urine sampling. Patient has no urinary habit change, denies any UTI symptoms. Plantar fasciitis 201345 003 M72.2 Currently using shoe inserts to help alleviate plantar foot pain. Patient reports pain is temporaril y improved with as needed NSAIDs and orthotics. Referral has been sent to Podiatry for evaluation of need of supportive arched shoes and orthotics. [id number] Deogracias Angelicadanielle Humberto Peter APRN zCLSD_[facility] E[facility] [address] [place] [address] 05/15/2022 09:40:13 05/15/2022 11:08:20 Health education given 576759146 Z71.9 Continue heart healthy lifestyle to include low-fat diet, low-sodium diet, regular physical activity, maintain optimal weight, and avoid all tobacco/ni cotine products. Adult heal th examination 131962295 Z00.01 Data has been collected and reviewed [...] ups. Body mass index 30+ - obesity 836497544 Z68.33 BMI 33.4. Obese. Liver enzy mes outside reference range 279510710 R94.5 Previous h/o of ETOH use, she has stopped drinking alcohol. Liver US done last year showing fatty Liver. Followed by Gastro, recent Abdl MRI unremarkab le. Nonalcohol ic steatohepatitis 242674032 K75.81 Followed by GI. Next visit in 3 weeks. Vitamin D deficiency 347 57754 E55.9 Screening for cardiovascular system disease 587238828 Z13.6 Will update with multiphasi c screen for next visit. Diabetes m ellitus screening 702730613 Z13.1 [id number] Deogracias Humphrey Paul Jr, APRN [facility] N [address] [facility] [place] [address] 08/13/2022 11:58:58 08/13/2022 12:41:51 Health education given 709384440 Z71.9 Continue heart healthy lifestyle to include low-fat diet, low-sodium diet, regular physical activity, maintain optimal weight, and avoid all tobacco/ni cotine products. Vitamin D deficiency 347 82909 E55.9 Vit D level at 21 (from 43). Restarted on high dose Vit D replacemen t weekly. Liver func tion tests outside reference range 400662946 R94.5 Repeat AST 78 (from 152) and ALT 86 (from 228). Followed by GI. Previous h/o of ETOH use, she has stopped drinking alcohol. Lipid panel improved.L iver US done last year showing fatty Liver. Abnormal urinalysis 1672 60150 R82.90 Reflex urine culture showing mixed eduardo. Patient denies of any recent UTI symptoms. Mixed hyperlipidemia 267 252251 E78.2 Repeat Lipid panel is stable same as previous results. LDL very slightly elevated at 114 and non-HDL 134. The rest of her cholestero l panels are normal. [id number] Cleve Gottlieb zCLSD_SVP E_PRIMARY _[facility] N [address] [facility] [place] [address] 09/18/2022 09:57:38 09/18/2022 11:19:41 Migraine 48268357 G43.909 Referral to Neurology updated. Advised patient having a migraine diary, observing what triggers migraine attack and what measures provide relief. Reviewed therapeuti c lifestyle measures including good sleep hygiene, routine meal schedules, appropriat e diet, adequate hydration, regular exercise, and avoidance of migraine triggers. She was provided handouts for migraine care at ED. Transition of care 48368 48148 105 Z75.8 Reviewed ED discharge summary and reconciled current medication s. Discussed compliance to meds as prescribed , as well as need for follow-up to monitor drug effects and side effects, draw blood panels if needed and adjust medication s as appropriat e. [id number] Deogracias Humphrey Paul Jr, APRN zCLSD_[facility]P E[facility] [facility] [address] [place] [address] 12/17/2022 14:14:16 12/17/2022 17:09:24 Transition of care 0111759459 105 Z75.8 Reviewed ED discharge summary and reconciled current medication s. Discussed compliance to meds as prescribed , as well as need for follow-up to monitor drug effects and side effects, draw blood panels if needed and adjust medication s as appropriat e. Cervical radiculopathy 53382273 M54.12 XR Spine Cervical ER Routine Osseous structures : No acute abnormalit y identified . No evidence for fracture. Degenerati ve changes of the cervical spine with osteophyte formation at C4-C5 C5-C6 and C6-C7.*No acute process identified .*Mild degenerati ve changes of the spine as above. Pain in right arm 295505 004 M79.601 Discharged on short course oral Prednisone and Ibuprofen as needed. Depression screening 171 458864 Z13.31 PHQ 9 Screening score: 0/27. No Depression . Watchful waiting; repeat PHQ-9 at follow-up. Health edu cation given 909769005 Z71.9 Continue heart healthy lifestyle to include low-fat diet, low-sodium diet, regular physical activity, maintain optimal weight, and avoid all tobacco/ni cotine products. Body mass index 30+ - obesity 520008072 Z68.32 BMI 32.3. Obese. [id number] Sujatha Schmitz MD [facility]OBGY N_[facility] [address] [place] [address] 12/20/2022 13:44:38 12/20/2022 14:25:54 Gynecologic examination 00846980 Z01.419 -Cervical ca screening in NILM; after [...] below Screening for malignant neoplasm of breast 276685209 Z12.39 [id number] Deogracias Remallysonban Humberto Peter DIRECTOR EDUCATIONAL RADIO zCLSD_SVP E[facility] [facility] [address] [place] [address] 05/22/2023 10:32:40 05/22/2023 12:15:41 Health education given 394838434 Z71.1 Continue heart healthy lifestyle to include low-fat diet, low-sodium diet, regular physical activity, maintain optimal weight, and avoid all tobacco/ni cotine products. Depression screening 171 067613 Z13.31 PHQ 9 Screening score: 0/27. No Depression . Watchful waiting; repeat PHQ-9 at follow-up. Adult heal th examination 320149638 Z00.01 Data has been collected and reviewed [...] ups. Liver enzy mes outside reference range 215750651 R94.5 Previous h/o of ETOH use, she has stopped drinking alcohol. Liver US done last year showing fatty Liver. Followed by Gastro, recent Abdl MRI unremarkab le. Nonalcohol ic steatohepatitis 249402598 K75.81 Followed by GI. Next visit in 3 weeks. Vitamin D deficiency 347 09336 E55.9 Previous labs showing chronicall y low Vit D, restarted on high dose weekly Vit D3 replacemen t. Screening for cardiovascular system disease 898097232 Z13.6 Will update with multiphasi c screen for next visit. Diabetes m ellitus screening [id number] Z13.1 Body mass index 30+ - obesity [id number] Z68.33 BMI 33.4. Obese. Screening mammography of bilateral breasts [id number] 05396 Z12.31 Screening for malignant neoplasm of cervix [id number] Z12.4 Transition of care [id number] Z75.8 Reviewed ED discharge summary and reconciled current medication s. Discussed compliance to meds as prescribed , as well as need for follow-up to monitor drug effects and side effects, draw blood panels if needed and adjust medication s as appropriat e. Onychomyco sis of toenails [id number] B35.1 Needs refill of Ciclopirox . Atypical chest pain 1025 56704 R07.89 Patient is scheduled to see Cards on 06/14/23. Mixed hyperlipidemia 267 [id number] E78.2 Recent Lipid panel is stable, same as previous results. LDL 108 (from 114), the rest of her cholestero l panels are WNL. Optimizing diet and lifestyle interventi ons. [id number] Deogracias Remandaban Agnila Jr DIRECTOR EDUCATIONAL RADIO [id number] E_PRIMARY _[place] N [address] [place] [address] 08/07/2023 10:03:21 08/07/2023 11:33:34 Health education given [id number] Z71.1 Continue heart healthy lifestyle to include low-fat diet, low-sodium diet, regular physical activity, maintain optimal weight, and avoid all tobacco/ni cotine products. Generalize d anxiety disorder [id number] F41.1 Patient verbalizes she is aware she [...] relaxation techniques . Vitamin D deficiency 347 17903 E55.9 Previous labs showing chronicall y low Vit D, continued on Vit D3 daily supplement . Mixed hyperlipidemia 267 657335 E78.2 Recent Lipid panel is stable, same as previous results. LDL 108 (from 114), the rest of her cholestero l panels are WNL. Optimizing diet and lifestyle interventi ons. Liver enzy mes outside reference range [id number] R94.5 Previous h/o of ETOH use, she has stopped drinking alcohol. Liver US done last year showing fatty Liver. Followed by Gastro, recent Abdl MRI unremarkab le. Neck pain [id number] M54.2 Cervical radiculopathy 42191501 M54.12 Transition of care 68477 55740 105 Z75.8 Reviewed ED discharge summary and [...] Paz Member ID Guarantor Name 09/18/2022 2 [facility] (MEDICAID REPLACEMENT - HMO) [place] Sharron Olivases- Sandy [id number] Sharron Bhatt Sandy 09/18/2022 1 [place] [id number] Sharron Simmons Bhatt- Sandy [id number] Sharron Olivases Sandy 12/17/2022 2 [facility] (MEDICAID REPLACEMENT - HMO) FLMMA Sharron Sauer Bhatt- Sandy [id number] Sharron Olivases Sandy 12/17/2022 1 [place] [id number] Sharron Iris Bhatt- Sandy [id number] Sharron Olivases Sandy 12/20/2022 2 [employer] [place] - [place]MA Sharron Sandy [id number] Sharron Sandy 12/20/2022 1 [place] [id number] Sharron Sandy [id number] Sharron Sandy 05/22/2023 1 [place] [id number] Sharron Sandy [id number] Sharron Sandy 05/22/2023 2 [place] DXC TECHNOLOGY Sharron Sandy [id number] Sharron Sandy 08/07/2023 1 [place] [id number] Sharron Sandy [id number] Sharron Sandy 08/07/2023 2 [place] [employer] Sharron Sandy [id number] Sharron Sandy Notes Date Note Type Note Provider Name and Address Organization Details Recorded Time 09/18/2022 text/html Transition Care [id number] bypatient.Timing:carmelo e of discharge: (09/15/2022) Facility:Facility Type [...] with PCP and Neurologist. Evaristo Paul Jr DIRECTOR EDUCATIONAL RADIO [address], [place], [address], [facility] [[email or web address] - [place] 09/18/2022 11:16:57 12/17/2022 text/html Transition Care [id number] bypatient.Timing:carmelo e of discharge: (12/13/2022) Facility:Facility Type [...] and NSAIDs as needed Evaristo Paul Jr DIRECTOR EDUCATIONAL RADIO [address], [place], [address], [facility] [[email or web address]] - [place] [facility] 12/17/2022 15:32:13 12/20/2022 text/html Annual GYNReport ed [...] starting age 38 Sujatha Schmitz MD [address], [place], [address], [place] - [place] 12/20/2022 19:33:42 05/22/2023 text/html Ms Sandy is [...] pain. Followed by Podiatry. Evaristo Paul Jr DIRECTOR EDUCATIONAL RADIO [address], [place], [address], [facility] 05/23/2023 18:10:15 05/22/2023 text/html Annual Wellness [...] normal menses or menopause Evaristo Paul Jr DIRECTOR EDUCATIONAL RADIO [address], [place], [address], [facility] 05/23/2023 18:10:15 08/07/2023 text/html Transition Care [id number] bypatient.Timing:carmelo e of discharge: (07/30/23) Facility:Facility Type [...] referral and med refills.Patient was seen at [place] [facility] on 07/30/23 with complaints of chest [...] Diagnosis: BANDAR. Neuropathy. Deogracias Humphrey Paul Jr DIRECTOR EDUCATIONAL RADIO [address], [place], [address], [facility] 08/07/2023 21:47:29 OBGyn Episode No OBEpisode recorded.
[2024-08-27 13:38] LABS: MANUAL DIFF FLAG NO
[2024-08-27 13:47] LABS: Basophils Percent Auto 0.5 % (0-2); Eosinophils Absolute Auto 0.1 X10*3/uL (0.0-0.4); Eosinophils Percent Auto 1.7 % (0-4); Hematocrit 38.6 % (37.0-47.0); Hemoglobin 12.7 g/dl (12.0-16.0); Imm Gran Abs Auto 0.02 X10*3/uL (0.00-0.03); Imm Gran Pct Auto 0.3 % (0.0-0.4); Lymphocytes Absolute Auto 1.9 X10*3/uL (1.2-4.9); Lymphocytes Percent Auto 29.5 % (20-40); Mean Corpuscular HGB Conc 32.9 g/dl (31.0-35.0); Mean Corpuscular Hemoglobin 29.5 pg (27.0-33.0); Mean Corpuscular Volume 89.6 fL (80.0-98.0); Mean Platelet Volume 8.8 fL (9.4-12.3); Monocytes Absolute Auto 0.5 X10*3/uL (0.1-1.2); Monocytes Percent Auto 8.1 % (2-11); Neutrophils Absolute Auto 3.8 x10*3/uL (2.0-8.3); Neutrophils Percent Auto 59.9 % (45-73); Platelet Count 274 X10*3/uL (160-400); Red Blood Count 4.31 X10*6/uL (4.20-5.50); Red Cell Distribution Width 12.3 % (11.0-16.0); White Blood Count 6.4 X10*3/uL (4.8-10.8)
[2024-08-27 13:53] LABS: Appearance Urine Clear; Color Urine Yellow; Glucose Urine UA Negative (Negative); Leukocyte Esterase Urine Small (1+) (Negative); Nitrite Urine Negative (Negative); PH 5.5 (5.0-9.0); Specific Gravity - Urine 1.025 (1.005-1.025); UMIC TRIGGER UACC YES; Urine Blood Negative (Negative); Urine Ketones Negative (Negative); Urine Protein Trace mg/dL (Neg-Trace)
[2024-08-27 13:58] LABS: Bacteria Urine None Seen (None Seen); Hyaline Casts Urine 0-2 /LPF (0-2); RBC Urine 0-2 /HPF (0-2); UACC Culture Trigger YES
[2024-08-27 14:06] LABS: C Reactive Protein 0.55 mg/dL (< or = 0.50)
[2024-08-27 14:33] LABS: Erythrocyte Sedimentation Rate 34 MM/HR (0-20)
[2024-08-28 20:04] LABS: Lyme Abs Screen <0.90 index
== END 2024-08-27 11:07 | disposition home or self-care (01) ==
LOC: HO.HHCL 11:06
PROVIDERS: Visit Provider Nurse Practitioner
DX: M25.541 Pain in joints of right hand (principal); M25.542 Pain in joints of left hand; R35.0 Frequency of micturition; R68.83 Chills (without fever)
CPT/HCPCS: 36415; 81001; 85025; 85652; 86140; 86617; 86618; 87086

== ENCOUNTER 2024-09-03 13:20 | Outpatient (REF) | payer MEDICAID, SELFPAY ==
--- OUTSIDE RECORDS SUMMARY | 2024-09-03 16:18 | XMS_ITS | Clinical Summary ---
Author Organization [employer] Address [address] [place] [address] [address] [place] [address] Care Team Providers Care Acquisitions Analyst Name Role Phone Pearl Figueroa MD Primary [...] pain or fever. 30 tablet 5 025 nitrofurantoin , macrocrystal-m onohydrate, (Macrobid) 100 MG capsule Take 1 capsule (100 mg) by mouth 2 times daily for 5 days. 10 capsule 5 025 Active Problems Problem Noted Date [...] Needs repeated pap smear, will refer to [facility] incase she needs colposcopy. Back pain [...] cancer 02/17/2024 Anxiety 02/17/2024 Assessment & Plan (08/28/2024 4:33 PM EDT): During IBH Consult Sharron presenting with excessive worry/anxiety, difficulty controlling worry, anxiety/worry associated to easily fatigued , difficulty concentrating and/or mind going blank , irritability, muscle tension , and sleep disturbance difficulty falling asleep and difficulty staying asleep , Fear , and sense of dread and using in larger amounts or for longer than intended, unsuccessful attempt/s to cut down/stop use, continued use, even when it causes interpersonal problems, giving up/reducing important social, occupational, or recreational activities because of use, continued use despite physical or psychological problem (potentially related or made worse by use) ; for a period of 18+ mo, for some symptoms in the context of family issues and financial concern. Sharron reports her anxiety is constant and interfering with her daily activities and interpersonal relationships. Pt is aware of importance of doing breathing exercises and positive affirmations to decrease sxs. She used to take medication in the past to treat her anxiety and had strong bad side effects, then discontinued medication. Sharron states she drinks more than intended every weekend as part of coping with the everyday stress. Does not consider her alcohol misuse as something she feels motivated to change at this moment. Explored with patient ways to decrease the amount of drinks she has on the weekends. Discussed her values and goals for the near future. Practiced breathing techniques for her anxiety. Pt completed intake at [facility] for [facility] services. Assessment & Plan (02/17/2024 11:23 AM EDT): [...] organization. Date Type Department Care Team Description 08/28/2024 Orders Only [facility] [address] [place] [address] Melisa Loza NP 08/28/2024 Telephone [facility] [address] [place] [address] Pearl Figueroa MD Lab Orders; Results 08/28/2024 Orders Only [facility] [address] [place] [address] Melisa Loza NP 08/26/2024 3:15 PM EDT Office Visit [address] [address] Melisa Loza, HAROON Arthralgia of both hands (Primary Dx); Chills; Pain of right hip joint; Urinary frequency; Elevated blood pressure reading in office without diagnosis of hypertension 08/25/2024 Travel 08/25/[address] [address] Pearl Figueroa MD 08/21/2024 Travel 08/04/2024 Travel 07/31/2024 Population Health Risk Score [facility] () [address] [address] Provider, Population Health Generic 07/27/2024 Travel 07/23/2024 Telephone [facility] [address] [place] [address] Pearl Figueroa MD Nurse Triage 07/22/2024 Telephone [facility] [address] [place] [address] Malia Cuenca MD 07/21/2024 6:20 PM EST Office Visit [facility] [address] [place] [phone] Malia Cuenca MD Acute pain of left shoulder (Primary Dx); Neck pain on left side 07/16/2024 Telephone [facility] [address] [place] [address] Pearl Figueroa MD Appointment Request 07/14/2024 Travel 07/13/2024 Refill [facility] [address] [place] [address] Pearl Figueroa MD 06/26/2024 Travel 06/25/2024 Telephone [facility] [address] [place] [address] Purnima Mac, RN Results 06/25/2024 Telephone [facility] [address] [place] [address] Pearl Figueroa MD 06/18/2024 12:00 PM EST Telemedicine [facility] [address] [place] [address] Pearl Figueroa MD Fatty liver (Primary Dx); Recurrent major depressive disorder, in partial remission (CMS/HCC); History of HPV infection; Back pain, unspecified back location, unspecified back pain laterality, unspecified chronicity 06/18/2024 Travel 06/10/2024 Patient Outreach [facility] [address] [place] [address] Pearl Figueroa MD Pre-visit Planning ([facility] unable to reach [facility]) from Last 3 Months Immunizations Name Administration [...] Screening 2013 HPV/Cotest 2013 COVID-19 Vaccine ( - season) 2024 Diagnostic Breast Imaging 11/12/2024 05/14/2024 [...] Procedure Name Priority Date/Time Associated Diagnosis Comments C-REACTIVE PROTEIN Routine 08/27/2024 11 :09 AM EDT Arthralgia of both hands SED RATE BY MODIFIED WESTERGREN Routine 08/27/2024 11:09 AM EDT Arthralgia of both hands LYME DISEASE AB W/REFL TO BLOT (IGG, IGM) Routine 08/27/2024 11:09 AM EDT Arthralgia of both hands CBC WITH AUTO DIFFERENTIAL Routine 08/27/2024 11:09 AM EDT Chills Arthralgia of both hands URINALYSIS, COMPLETE, WITH REFLEX TO CULTURE Routine 08/27/2024 11:09 AM EDT Urinary frequency CULTURE, URINE, ROUTINE Routine 08/27/2024 12:00 AM EDT POCT INFLUENZA B (ID NOW RAPID MOLECULAR) [...] Relevant to Health Maintenance Results * (ABNORMAL) Urinalysis, Complete, with Reflex to Culture (08/27/2024 11:09 AM EDT) Color Urine Yellow [facility] Appearance Urine Clear [facility] PH 5.5 5.0 - 9.0 [facility] Glucose Urine UA Negative Negative mg/dL [facility] Urine Blood Negative Negative [facility] Specific [place] - Urine 1.025 1.005 - 1.025 [facility] Urine Protein Trace Neg-Trace mg/dL [facility] Urine Ketones Negative Negative mg/dL [facility] Nitrite Urine Negative Negative [facility] Leukocyte Esterase Urine Small (1+)(A) Negative [facility] RBC Urine 0-2 0 - 2 /HPF [facility] Urine WBC 6-10(A) 0 - 5 /HPF [facility] Urine Squamous Epithelial Cell 3-5 0 - 2 /HPF [facility] Urine Bacteria None Seen None Seen [facility] Hyaline Casts, Urine 0-2 0 - 2 /LPF [facility] Urine 08/27/2024 11:0 9 AM EDT 08/27/2024 1:28 PM EDT Narrative [facility] - 08/27/2024 2:01 PM EDT Urine, Clean Catch Melisa Loza GAMING CAGE CASHIER LAB URINE ORDERABLES Final Resu lt [facility] [address] [place] [phone] * Lyme Disease Ab with Reflex to Blot (IgG, IgM) (08/27/2024 11:09 AM EDT) Lyme Antibody Screen <0.90 index [facility] Comment:Index Interpretation ----- < 0.90 Negative 0.90-1.09 Equivocal > 1.09 PositiveAs recommended by the Food and Drug Administration(FDA), all samples with positive or equivocalresults in a Borrelia burgdorferi antibody screenwill be tested using a blot method. Positive orequivocal screening test results should not beinterpreted as truly positive until verified as suchusing a supplemental assay (e.g., B. burgdorferi blot).The screening test and/or blot for B. burgdorferiantibodies may be falsely negative in early stagesof Lyme disease, including the period when erythemamigrans is apparent.THIS TEST WAS PERFORMED AT:[employer] [address] [address]NQMTHTAISHA MCDERMOTT MD Lyme Blot TNP [facility] 08/27/2024 11:0 9 AM EDT 08/27/2024 1:33 PM EDT Melisa Loza GAMING CAGE CASHIER LAB BLOOD ORDERABLES Final Resu lt [facility] [address] [place] [phone] * (ABNORMAL) CBC auto differential (08/27/2024 11:09 AM EDT) Only the most recent of2 resultswithin the time period is included. White Blood Count 6.4 4.8 - 10.8 X10*3/uL [facility] Red Blood Count 4.31 4.20 - 5.50 X10*6/uL [facility] Hemoglobin 12.7 12.0 - 16.0 g/dl [facility] Hematocrit 38.6 37.0 - 47.0 % [facility] Mean Corpuscular Volume 89.6 80.0 - 98.0 fL [facility] Mean Corpuscular Hemoglobin 29.5 27.0 - 33.0 pg [facility] Mean Corpuscular HGB Conc 32.9 31.0 - 35.0 g/dl [facility] Red Cell Distribution Width 12.3 11.0 - 16.0 % [facility] Platelet Count 274 160 - 400 X10*3/uL [facility] Mean Platelet Volume 8.8(L) 9.4 - 12.3 fL [facility] Neutrophils Percent Auto 59.9 45 - 73 % [facility] Imm Gran Pct Auto 0.3 0.0 - 0.4 % [facility] Lymphocytes Percent Auto 29.5 20 - 40 % [facility] Monocytes Percent Auto 8.1 2 - 11 % [facility] Eosinophils Percent Auto 1.7 0 - 4 % [facility] Basophils Percent Auto 0.5 0 - 2 % [facility] NRBC Pct Auto 0.0 0.0 - 0.2 /100WBC [facility] Neutrophils Absolute Auto 3.8 2.0 - 8.3 x10*3/uL [facility] Imm Gran Abs Auto 0.02 0.00 - 0.03 X10*3/uL [facility] Lymphocytes Absolute Auto 1.9 1.2 - 4.9 X10*3/uL [facility] Monocytes Absolute Auto 0.5 0.1 - 1.2 X10*3/uL [facility] Eosinophils Absolute Auto 0.1 0.0 - 0.4 X10*3/uL [facility] Basophils Absolute Auto 0.0 0.0 - 0.2 X10*3/uL [facility] NRBC Abs Auto 0.000 0.0 - 0.012 X10*3/uL [facility] Blood Venous blood specimen / Unknown 08/27/2024 11:09 AM EDT 08/27/2024 1:33 PM EDT us Melisa Loza G[employer]ING [employer]AGE [employer] LAB BLOOD ORDERABLES Final Resu lt [facility] [address] [place] [address] [phone] * (ABNORMAL) Sed Rate by Modified Rosina (08/27/2024 11:09 AM EDT) Erythrocyte Sedimentation Rate 34(H) 0 - 20 MM/HR [facility] Comment:Patients with polycy themia and many hemoglobin abnormalitiesmay have depressed sed rates whereas patients with anemiamay have elevated sed rates. Blood Venous blood specimen / Unknown 08/27/2024 11:09 AM EDT 08/27/2024 1:33 PM EDT [facility] LAB BLOOD ORDERABLES Final Resu lt Performing Organization Address [facility] Co de Phone Number [facility] [address] [place] [phone] * (ABNORMAL) C-reactive Protein (08/27/2024 11:09 AM EDT) C Reactive Protein 0.55(H) < or = 0.50 mg/dL [facility] Blood Venous blood specimen / Unknown 08/27/2024 11:09 AM EDT 08/27/2024 1:33 PM EDT [facility] LAB BLOOD ORDERABLES Final Resu lt Performing Organization Address [facility] Co de Phone Number [facility] [address] [place] [phone] * Culture, Urine, Routine (08/27/2024 12:00 AM EDT) Urine Urine specimen obtained by clean catch procedure / Unknown 08/27/2024 08/27/2024 Comment:UACC Narrative [facility] - 08/28/2024 8:47 AM EDT Urine Culture Report Result Urine Culture 10,000 to 50,000 cfu/ml Urine Culture Mixed bacterial eduardo characteristic of Urine Culture urogenital contamination. Specimen Source: Urine clean catch [facility] LAB MICROBIOLOGY - GENERAL ORDE ELISSA Final Result Performing Organization Address [facility] Co de Phone Number [facility] [address] [place] [phone] * POCT Rapid Influenza B CRONIN ID NOW (08/26/2024 4:09 PM EDT) Influenza B Negative Negative, Indeterminate [facility] QC Media Lot # [id number] [facility] Lot# Expiration Date 100,826 [facility] Swab 08/26/2024 4:09 PM EDT us Melisa Murillom GAMING CAGE CASHIER POINT OF CARE TEST ENTER/EDIT O RDERABLES Final Result Performing Organization Address [facility]/ZIP Co de Phone Number [facility] [address] [place] [address] [phone] * POCT Rapid Influenza A CRONIN ID NOW (08/26/2024 4:08 PM EDT) Influenza A Negative Negative, Indeterminate [facility] QC Media Lot # [id number] [facility] Lot# Expiration Date 100,82 [facility] Swab 08/26/2024 4:08 PM EDT us Melisa Murillom GAMING CAGE CASHIER POINT OF CARE TEST ENTER/EDIT O RDERABLES Final Result Performing Organization Address [facility] Co de Phone Number [facility] [address] [place] [phone] * POCT Rapid Covid-19 BinaxNOW (08/26/2024 4:07 PM EDT) Rapid COVID Ag Negative QC Media Lot # [id number] Lot# Expiration Date 63,026 Swab 08/26/2024 4:07 PM EDT us Melisa Murillom G[employer]ING [employer]AGE CASHIER POINT OF CARE TEST ENTER/EDIT O RDERABLES Final Result * XR Shoulder 2+ Views Left (07/22/2024 10:49 AM EST) Anatomical Region Laterality Modality Upper Extremities, Shoulder Left Radi ographic Imaging 07/22/2024 10:4 9 AM EST Narrative 07/22/2024 12:15 PM EST ?Pending Sale To [facility] ?[address] ?[place] [address] ?XRay Report ? Signed ? Patient: Bhatt Sandy,Sharron ?MR#: [id number] ?? [id number] ? : 1985 ?Acct:[id number] ? Age/Sex: 39 / F ?ADM Date: 07/22/24 ? Loc: HO.HHCX ? Attending Dr: Malia Cuenca MD ? Ordering Physician: Malia Cuenca MD ?? Date of Service: 07/22/24 ?? Procedure(s): XR shoulder LT min 2V ?? Accession Number(s): [id number] ? cc: Malia Cuenca MD ? EXAMINATION: [...] DD/ 1049 ? TD/TT: 07/22/24 1100 ? Fulling Mill Operator: ? Procedure Note Faye, Image - 07/22/2024 [facility] [address] [place] [address] XRay Report Signed Patient: Imtiaz Yang#: [id number] : 1985Acct:[id number] Age/Sex: 39 / FADM Date: 07/22/24 Loc: HO.HHCX Attending Dr: Malia Cuenca MD Ordering Physician: Malia Cuenca MD Date of Service: 07/22/24 Procedure(s): XR shoulder LT min 2V Accession Number(s): [id number] cc: Malia Cuenca MD EXAMINATION: XR SHOULDER, [...] 07/22/24 1212 DD/ 1049 TD/TT: 07/22/24 1100 [employer]ing Mill Operator: us Malia Cuenca MD IMG XR PROCEDURES Edited R esult - Final * US Abdomen Complete (07/04/2024 8:55 AM EST) Anatomical Region Laterality Modality Abdomen Ultrasound 07/04/2024 8:55 AM EST Narrative 07/04/2024 8:56 AM EST ? [facility] ?[address] ?[place] [address] ? Ultrasound Report ? Signed ? Patient: Sharron Yang ?MR#: [id number] ?? [id number] ? : 1985 ?Acct:[id number] ? Age/Sex: 39 / F ?ADM Date: /14/25 ? Loc: HO.US ? Attending Dr: Pearl Figueroa MD ? Ordering Physician: Pearl Figueroa MD ?? Date of Service: 07/03/24 ?? Procedure(s): US abdomen complete ?? Accession Number(s): [id number] ? cc: Pearl Figueroa MD ? CLINICAL [...] ? DD/ 4 ? TD/TT: 07/04/24854 ? [employer]ing Mill Operator: ? Procedure Note Donpoojakevintiffanie, Image - 07/04/2024 [place] [address] Ultrasound Report Signed Patient: Imtiaz Yang#: [id number] : 1985Acct:[id number] Age/Sex: 39 / FADM Date: 07/03/24 Loc: HO.US Attending Dr: Pearl Figueroa MD Ordering Physician: Pearl Figueroa MD Date of Service: 07/03/24 Procedure(s): US abdomen complete Accession Number(s): [id number] cc: Pearl Figueroa MD CLINICAL HISTORY: fatty [...] signed by Cheo Marcos MD in OV> 07/04/24855 DD/ 4 TD/TT: 07/04/24854 [employer] Operator: us Pearl Figueroa MD IMG US PROCEDURES Edited Result - Final * BI US Breast Limited Right (05/14/2024 10:15 AM EST) Anatomical Region Laterality Modality Breast Right Ultrasound 05/14/2024 10:1 5 AM EST Narrative 05/14/2024 10:30 AM EST ? [facility] ? [address] ?[place], [place] [address] ? Ultrasound Report ? Signed ? Patient: Miller Sandy,Sharron ?MR#: [id number] ?? [id number] ? : 1985 ?Acct:[id number] ? Age/Sex: 39 / F ?ADM Date: 05/14/24 ? Loc: HO.MAMMO ? Attending Dr: Pearl Figueroa MD ? Ordering Physician: Pearl Figueroa MD ?? Date of Service: 05/14/24 ?? Procedure(s): US breast RT limited mamm only ?? Accession Number(s): [id number] ? cc: Pearl Figueroa MD ? EXAMINATION: [...] DD/ 1015 ? TD/TT: 05/14/24 1021 ? [employer]ing Mill Operator: ? Procedure Note Faye, Image - 05/18/2024 [facility] [address] [place] [address] Ultrasound Report Signed Patient: Imtiaz Yang#: [id number] : 1985Acct:[id number] Age/Sex: 39 / FADM Date: 05/14/24 Loc: HO.MAMMO Attending Dr: Pearl Figueroa MD Ordering Physician: Pearl Figueroa MD Date of Service: 05/14/24 Procedure(s): US breast RT limited mamm only Accession Number(s): [id number] cc: Pearl Figueroa MD EXAMINATION: MM DIAGNOSTIC [...] by: Danitza Ch DO 05/14/2024 10:27 AM [facility] Dictated By: Danitza Ch DO Signed By: <Electronically signed by Danitza Ch DO in OV> 05/14/24 1027 DD/ 1015 TD/TT: 05/14/24 1021 [employer]ing Mill Operator: us Pearl Figueroa MD IMG US PROCEDURES Final Result * Hepatitis Panel, General (02/17/2024 11:30 AM EDT) Hepatitis A IgM Nonreactive Nonreactive [facility] Comment:IgM antibodies to COY V not detected; does not exclude earlyacute or recovered HAV infection. ~Hepatitis B Surface Antibody REACTIVE Nonreactive [facility] Comment:REACTIVE: > 11.99 mI U/mL Hepatitis B Core Antibody Nonreactive Nonreactive [facility] Hepatitis C Antibody Nonreactive Nonreactive [facility] Comment:Antibodies to HCV no t detected; does not exclude early acuteHCV infection. Hepatitis B Surface Ag Negative Negative [facility] Blood 02/17/2024 11:3 0 AM EDT 02/17/2024 1:18 PM EDT Pearl Figueroa MD LAB BLOOD ORDERABLES Fin al Result [facility] [address] [place] [address] [phone] from Last 3 Months or Most Recently Relevant to Health Maintenance Insurance [address] [place], [place] [address] Care Teams Acquisitions Analyst Relationship Specialty Start Date End Date Pearl Figueroa MD [address] [place] [phone] PCP - General Internal Medicine 02/17/24
--- OUTSIDE RECORDS SUMMARY | 2024-09-03 16:18 | XMS_ITS | Encounter Summary ---
Author Organization [employer] Address [address] [place] [address] 7 [place] [address] Care Team Providers Care Algebraist Name Role Phone Pearl Figueroa MD Primary Care Provider + Reason for Visit * Reason Onset Date Comments Medication Question 12/12/2023 Encounter Details Date Type Department Care Team ([facility] st Contact Info) Description 12/12/2023 Telephone [facility] MED[facility]INE [address] [place] [address] Lisandro Ascencio MD [address] [place] [address] Medication Question Social History Tobacco Use Types [...] RN - 12/13/2023 11:29 AM EDT manager baby in [facility] aware and message sent to provider regarding [...] on filedocumented in this encounter Care Teams Algebraist Relationship Specialty Start Date End Date Pearl Figueroa MD [address] [place] [id number] PCP - General Internal Medicine 02/17/24 documented as of this encounter
--- OUTSIDE RECORDS SUMMARY | 2024-09-03 16:18 | XMS_ITS | Encounter Summary ---
Author Organization [employer] Address [address] [facility] 7[address] [place] [address] Care Team Providers Care Credit Risk Analyst Name Role Phone Pearl Figueroa MD Primary Care Provider + Encounter Details Date Type Department Care Team (Late st Contact Info) Description 08/28/2024 Orders Only [facility] MEDICINE [address] [place] [address] Melisa Loza NP [address] [place] [address] Social History Tobacco Use Types Packs/Day Years [...] Diagnoses Not on filedocumented in this encounter Additional Health Concerns Assessment Noted Time PHQ-9 Depression Total Score: 13 025 10:43 AM EDT documented as of this encounter Care Teams Credit Risk Analyst Relationship Specialty Start Date End Date Pearl Figueroa MD [address] [place] [id number] PCP - General Internal Medicine 02/17/24 documented as of this encounter
--- OUTSIDE RECORDS SUMMARY | 2024-09-03 16:18 | XMS_ITS | Encounter Summary ---
Author Organization [employer] Address [address] [facility] 7[address] [place] [address] Care Team Providers Care Clinical Business Analyst Name Role Phone Pearl Figueroa MD Primary Care Provider + Encounter Details Date Type Department Care Team (Late st Contact Info) Description 08/28/2024 Orders Only [facility] MED[facility]INE [address] [place] [address] Melisa Loza NP [address] [place] [address] Social History Tobacco Use Types Packs/Day Years [...] documented as of this encounter Care Teams Clinical Business Analyst Relationship Specialty Start Date End Date Pearl Figueroa MD [address] [place] [id number] PCP - General Internal Medicine 02/17/24 documented as of this encounter
--- OUTSIDE RECORDS SUMMARY | 2024-09-03 16:19 | XMS_ITS | Data Portability ---
Author Organization [place] [facility] [place] [facility] micki, SVPE_CARDIO_CC_CCMOB 300 Address [address] [place] [address] Care Team Providers Care Lining Sewer Name Role Phone EVARISTO PAUL Primary Care Provider EVARISTO PAUL Referring Provider [phone] BREANNA FOY III OTHER EVARISTO PAUL Primary [...] and med refills. Patient was seen at [facility] on 07/30/23 with complaints of chest [...] Lab lipid panel, serum 2023 024 [email or web address] [facility], [address], [place], [address], 4 10:11:10 vitamin D, 25-hydroxy, total, serum 2023 024 [email or web address] 1 [facility], [address], [place], [address], 4 19:39:21 CMP, serum or plasma 2023 024 [email or web address], [address], [place], [address], 4 10:11:10 lipid panel, serum 2023 024 [email or web address] [facility], [address], [place], [address], 4 10:11:10 vitamin D, 25-hydroxy, total, serum 2023 024 [email or web address] 1 [facility] [address] [place], [address], 4 19:39:21 CMP, serum or plasma 2023 024 [email or web address] [address] [place], [address], 4 10:11:09 CBC w/ auto diff 2023 024 [email or web address] [facility] [address] [place], [address], 4 10:11:10 urinalysis complete, reflex culture 2023 024 [email or web address] [address] [facility], [place], [address], 4 10:11:10 HbA1c (hemoglobin A1c), blood 2023 024 [email or web address] [facility] [address] [facility], [place], [address], 4 10:11:09 test, urine 2022 023 [facility] [place] [facility] (For In-Office Services Only), [address] [facility], [place], [address], 3 09:08:56 Referral neurologist referral - For referral assistance please contact the [facility] at . Please contact the patient to schedule. Thanks. 2023 024 [email or web address] Not available 4 10:11:34 neurologist referral - Recent ED visit due to intractable migraine COY. 2022 023 [email or web address] 1 Haja Reyna MD, [address], [address], [place], [address], 4 14:47:31 Procedures None recorded. Surgeries None recorded. Imaging MAMMO, screening, digital, bilateral 2023 024 [email or web address] [facility], [address], [address], [place], [address], 4 08:00:20 MAMMO, screening, digital, bilateral - US PRN please do not perform prior to 11.2022 023 [facility], [address], [address], [place], [address], 3 10:06:16 Medication Orders cholecalcif gonzalez (vitamin D3) 125 mcg (5,000 unit) capsule 2023 024 [id number], [address] [place], [place], [id number], 4 10:39:16 sertraline 25 mg tablet 2023 024 [facility] #[id number], [address] [place], [place], [id number], 4 10:39:16 ciclopirox 8 % topical solution 2023 [facility] #[id number], [address], [place], [id number], 4 11:32:07 cholecalcif gonzalez (vitamin D3) 1,250 mcg (50,000 unit) capsule 2023 [facility] #94888, [address], [place], [id number], 4 17:54:49 Patient Targets Encounter Date Encounter Id Patient Goals Patient Target Last Modified By Organization Details Last Modified Time 12/17/2022 [id number] detention goal of BMI 25 Not available Not available Not available Ongoing of Blood Pressure 140/90 Not available Not available Not available supervisor intermediates goal of Hemoglobin A1C <7.0 Not available [...] risks. [email or web address] Not available 12/17/2022 13:52:56 05/22/2023 [id number] supervisor intermediates goal of BMI 25 Not available Not available Not available Blood Pressure 140/90 Not available Not availab le Not available Hemoglobin A1C <7.0 Not available Not availab le Not available Ongoing of Cholesterol, LDL <100 low risk <70 high risk Not available Not available Not available 08/07/2023 [id number] detention goal of BMI 25 Not available Not [...] By Organization Details Last Modified Time 09/18/2022 [id number] migraine headache: care instructions adeogracias Not available 09/18/2022 11:13:53 12/17/2022 [id number] patient health questionnaire depression assessment* adeogracias Not available 12/17/2022 14:38:52 neck arthritis: exercises adeogracias Not available 12/17/2022 14:38:52 carpal tunnel syndrome: care instructions adeogracias Not available 12/17/2022 14:38:52 carpal tunnel syndrome: exercises adeogracias Not available 12/17/2022 14:38:52 un estilo de vid a yeu: instrucciones de cuidado - [A healthy lifestyle: care instructions] adeogracias Not available 12/17/2022 14:38:52 starting a weigh t loss plan: care instructions adeogracias Not available 12/17/2022 14:38:51 05/22/2023 [id number] aprenda sobre el colesterol alto - [learning [...] risks. adeogracias Not available 05/23/2023 17:57:14 08/07/2023 [id number] high cholesterol : care instructions adeogracias Not [...] please contact the Care coordination Center at [phone]. Please contact the patient to schedule. Thanks. Referring Physician: Evaristo Paul [facility], Encounter Date: 08/07/2023 Results Created Date Observation Date Name Description Value Unit Range Abnormal Flag Note LastModifiedBy Organization Detail LastModifiedTime 12/25/19 23 12/24/2022 pregn dagmar test, urine HCG negati ve Not Available [facility] [place] [facility] (For In-Office Services Only) [address] [place], [address], 12/19/2022 17:56:17 05/10/20 23 05/11/2023 LIPID PANEL , STAND [place] cholesterol, total 182 mg/dL <200 normal Not Available [facility] [place] [facility] [address], [place], [address], 05/11/2023 08:21:20 05/10/20 23 05/11/2023 LIPID PANEL , STAND [place] HDL cholesterol 57 mg/dL > or = 50 normal Not Available [facility] [place] [address], [place], [address], 05/11/2023 08:21:20 05/10/20 23 05/11/2023 LIPID PANEL , STAND [place] triglyceride s 80 mg/dL <150 normal Not Available [facility] [place] [address], [place], [address], 05/11/2023 08:21:20 05/10/20 23 05/11/2023 LIPID PANEL [...] 2061- 2068 (http ://ed ucati on.Qu maryDi Glympses. com/f aq/FA Q164) Not Available [facility] [place] [facility] [address], [place], [address], 05/11/2023 08:21:20 05/10/20 23 05/11/2023 LIPID PANEL , STAND [place] chol/HDLC ratio 3.2 (calc ) <5.0 normal Not Available [facility] [place] [address], [place], [address], 05/11/2023 08:21:20 05/10/20 23 05/11/2023 LIPID PANEL , [place] non HDL cholesterol 125 mg/dL _(janet c) <130 normal For patie nts with diabe anahy plus 1 major ASCVD risk facto r, treat ing to a non-H DL-C goal of <100 mg/dL (LDL- C of <70 mg/dL ) is consi dered a thera peuti c optio n. Not Available [facility] [address], [place], [address], 05/11/2023 08:21:20 05/10/2005/11/2023 COMPR EHENS RAMÓN METAB OLIC PANEL glucose 75 mg/dL 65-99 normal Fasti ng refer ence inter niraj Not Available [facility] [address], [place], [address], 05/11/2023 08:21:21 05/10/20 23 05/11/2023 COMPR EHENS RAMÓN METAB OLIC PANEL urea nitrogen (BUN) 11 mg/dL 7-25 normal Not Available [facility] [address], [place], [address], 05/11/2023 08:21:21 05/10/2005/11/2023 COMPR EHENS RAMÓN METAB OLIC PANEL creatinine 0.71 mg/dL 0.50-0 .99 normal Not Available [facility] [address], [place], [address], 05/11/2023 08:21:21 05/10/2005/11/2023 COMPR EHENS RAMÓN METAB OLIC PANEL eGFR 110 mL/mi n/1.7 3m2 > or = 60 normal Not Available [facility] [address], [place], [address], 05/11/2023 08:21:21 05/10/2011 0505/11/2023 COMPR EHENS RAMÓN METAB OLIC PANEL BUN/creatini ne ratio SEE NOTE: (calc ) 6-22 Not Repor marco: BUN and Creat inine are withi n refer ence range . Not Available [facility] [place] [facility] [address], [place], [address], 05/11/2023 08:21:21 05/10/20 23 05/11/2023 COMPR EHENS RAMÓN METAB OLIC PANEL sodium 137 mmol/ L 135-14 6 normal Not Available [facility] [place] [facility] [address], [place], [address], 05/11/2023 08:21:21 05/10/20 23 05/11/2023 COMPR EHENS RAMÓN METAB OLIC PANEL potassium 3.9 mmol/ L 3.5-5. 3 normal Not Available [facility] [place] [facility] [address], [place], [address], 05/11/2023 08:21:21 05/10/20 23 05/11/2023 COMPR EHENS RAMÓN METAB OLIC PANEL chloride 101 mmol/ L 98-110 normal Not Available [facility] [place] [facility] [address], [place], [address], 05/11/2023 08:21:21 05/10/20 23 05/11/2023 COMPR EHENS RAMÓN METAB OLIC PANEL carbon dioxide 27 mmol/ L 20-32 normal Not Available [facility] [place] [facility] [address], [place], [address], 05/11/2023 08:21:21 05/10/20 23 05/11/2023 COMPR EHENS RAMÓN METAB OLIC PANEL calcium 9.4 mg/dL 8.6-10 .2 normal Not Available [facility] [place] [facility] [address], [place], [address], 05/11/2023 08:21:21 05/10/20 23 05/11/2023 COMPR EHENS RAMÓN METAB OLIC PANEL protein, total 7.9 g/dL 6.1-8. 1 normal Not Available [facility] [employer] [facility] [address], [place], [address], 05/11/2023 08:21:21 05/10/20 23 05/11/2023 COMPR EHENS RAMÓN METAB OLIC PANEL albumin 4.4 g/dL 3.6-5. 1 normal Not Available [facility] [address], [place], [address], 05/11/2023 08:21:21 05/10/20 23 05/11/2023 COMPR EHENS RAMÓN METAB OLIC PANEL globulin 3.5 g/dL_ (calc ) 1.9-3. 7 normal Not Available [facility] [address], [place], [address], 05/11/2023 08:21:21 05/10/20 23 05/11/2023 COMPR EHENS RAMÓN METAB OLIC PANEL albumin/glob ulin ratio 1.3 (calc ) 1.0-2. 5 normal Not Available [facility] [address], [place], [address], 05/11/2023 08:21:21 05/10/20 23 05/11/2023 COMPR EHENS RAMÓN METAB OLIC PANEL bilirubin, total 0.6 mg/dL 0.2-1. 2 normal Not Available [facility] [address], [place], [address], 05/11/2023 08:21:21 05/10/20 23 05/11/2023 COMPR EHENS RAMÓN METAB OLIC PANEL alkaline phosphatase 67 U/L 31-125 normal Not Available [facility] [employer] [facility] [address], [place], [address], 05/11/2023 08:21:21 05/10/20 23 05/11/2023 COMPR EHENS RAMÓN METAB OLIC PANEL AST 36 U/L 10-30 high Not Available [facility] [place] [facility] [address] [place], [address], 05/11/2023 08:21:21 05/10/20 23 05/11/2023 COMPR EHENS RAMÓN METAB OLIC PANEL ALT 62 U/L 6-29 high Not Available [facility] [place] [facility] [address], [place], [address], 05/11/2023 08:21:21 05/10/2005/11/2023 HEMOG LOBIN A1C hemoglobin [...] anahy(A DA). Not Available [facility] [place] [facility] [address], [place], [address], 05/11/2023 08:21:23 05/10/20 23 05/11/2023 TSH W/REF YAS TO FT4 TSH w/reflex to FT4 0.78 mIU/L normal Refer ence Range > or = 20 Years 0.40- 4.50 Pregn dagmar Range s First trime ster 0.26- 2.66 Secon d trime ster 0.55- 2.73 Third trime ster 0.43- 2.91 Not Available [facility] [address], [place], [address], 05/11/2023 08:21:24 05/10/20 23 05/11/2023 CBC (INCL UDES DIFF/ PLT) white blood cell count 6.8 thous and/u L 3.8-10 .8 normal Not Available [facility] [address], [place], [address], 05/11/2023 08:21:25 05/10/2005/11/2023 CBC (INCL UDES DIFF/ PLT) red blood cell count 4.33 cari on/uL 3.80-5 .10 normal Not Available [facility] [address], [place], [address], 05/11/2023 08:21:25 05/10/20 23 05/11/2023 CBC (INCL UDES DIFF/ PLT) hemoglobin 13.0 g/dL 11.7-1 5.5 normal Not Available [facility] [address], [place], [address], 05/11/2023 08:21:25 05/10/2005/11/2023 CBC (INCL UDES DIFF/ PLT) hematocrit 38.9 % 35.0-4 5.0 normal Not Available [facility] [address], [place], [address], 05/11/2023 08:21:25 05/10/2005/11/2023 CBC (INCL UDES DIFF/ PLT) MCV 89.8 fL 80.0-1 00.0 normal Not Available [facility] [address], [place], [address], 05/11/2023 08:21:25 05/10/2005/11/2023 CBC (INCL UDES DIFF/ PLT) MCH 30.0 pg 27.0-3 3.0 normal Not Available [facility] [address], [place], [address], 05/11/2023 08:21:25 05/10/2005/11/2023 CBC (INCL UDES DIFF/ PLT) MCHC 33.4 g/dL 32.0-3 6.0 normal Not Available [facility] [address], [place], [address], 05/11/2023 08:21:25 05/10/2005/11/2023 CBC (INCL UDES DIFF/ PLT) RDW 11.6 % 11.0-1 5.0 normal Not Available [facility] [address], [place], [address], 05/11/2023 08:21:25 05/10/2005/11/2023 CBC (INCL UDES DIFF/ PLT) platelet count 278 thous and/u L 140-40 0 normal Not Available [facility] [address], [place], [address], 05/11/2023 08:21:25 05/10/2005/11/2023 CBC (INCL UDES DIFF/ PLT) MPV 9.3 fL 7.5-12 .5 normal Not Available [facility] [address], [place], [address], 05/11/2023 08:21:25 05/10/2005/11/2023 CBC (INCL UDES DIFF/ PLT) absolute neutrophils 3706 cells /uL 1500-7 800 normal Not Available [facility] [address], [place], [address], 05/11/2023 08:21:25 05/10/2005/11/2023 CBC (INCL UDES DIFF/ PLT) absolute lymphocytes 2496 cells /uL 850-39 00 normal Not Available [facility] [place] [facility] [address], [place], [address], 05/11/2023 08:21:25 05/10/2005/11/2023 CBC (INCL UDES DIFF/ PLT) absolute monocytes 469 cells /uL 200-95 0 normal Not Available [facility] [place] [facility] [address], [place], [address], 05/11/2023 08:21:25 05/10/2005/11/2023 CBC (INCL UDES DIFF/ PLT) absolute eosinophils 109 cells /uL 15-500 normal Not Available [facility] [place] [facility] [address], [place], [address], 05/11/2023 08:21:25 05/10/2005/11/2023 CBC (INCL UDES DIFF/ PLT) absolute basophils 20 cells /uL 0-200 normal Not Available [facility] [place] [facility] [address], [place], [address], 05/11/2023 08:21:25 05/10/20 23 05/11/2023 CBC (INCL UDES DIFF/ PLT) neutrophils 54.5 % normal Not Available [facility] [address], [place], [address], 05/11/2023 08:21:25 05/10/2005/11/2023 CBC (INCL UDES DIFF/ PLT) lymphocytes 36.7 % normal Not Available [facility] [place] [facility] [address], [place], [address], 05/11/2023 08:21:25 05/10/20 23 05/11/2023 CBC (INCL UDES DIFF/ PLT) monocytes 6.9 % normal Not Available [facility] [place] [facility] [address], [place], [address], 05/11/2023 08:21:25 05/10/20 23 05/11/2023 CBC (INCL UDES DIFF/ PLT) eosinophils 1.6 % normal Not Available [facility] [address], [place], [address], 05/11/2023 08:21:25 05/10/20 23 05/11/2023 CBC (INCL UDES DIFF/ PLT) basophils 0.3 % normal Not Available [facility] [address], [place], [address], 05/11/2023 08:21:25 05/10/2005/11/2023 URINA LYSIS , COMPL ETE W/REF YAS TO CULTU RE color YELLOW yellow normal Not Available [facility] [address], [place], [address], 05/11/2023 08:21:26 05/10/2005/11/2023 URINA LYSIS , COMPL ETE W/REF YAS TO CULTU RE appearance CLEAR clear normal Not Available [facility] [address], [place], [address], 05/11/2023 08:21:26 05/10/2005/11/2023 URINA LYSIS , COMPL ETE W/REF YAS TO CULTU RE specific gravity 1.019 1.001- 1.035 normal Not Available [facility] [address], [place], [address], 05/11/2023 08:21:26 05/10/2005/11/2023 URINA LYSIS , COMPL ETE W/REF YAS TO CULTU RE pH 5.5 5.0-8. 0 normal Not Available [facility] [address], [place], [address], 05/11/2023 08:21:26 05/10/2005/11/2023 URINA LYSIS , COMPL ETE W/REF YAS TO CULTU RE glucose NEGATI VE negati ve normal Not Available [facility] [place] [facility] [address], [place], [address], 05/11/2023 08:21:26 05/10/20 23 05/11/2023 URINA LYSIS , COMPL ETE W/REF YAS TO CULTU RE bilirubin NEGATI VE negati ve normal Not Available [facility] [place] [facility] [address], [place], [address], 05/11/2023 08:21:26 05/10/2005/11/2023 URINA LYSIS , COMPL ETE W/REF YAS TO CULTU RE ketones NEGATI VE negati ve normal Not Available [facility] [place] [facility] [address], [place], [address], 05/11/2023 08:21:26 05/10/2005/11/2023 URINA LYSIS , COMPL ETE W/REF YAS TO CULTU RE occult blood NEGATI VE negati ve normal Not Available [facility] [place] [facility] [address], [place], [address], 05/11/2023 08:21:26 05/10/20 23 05/11/2023 URINA LYSIS , COMPL ETE W/REF YAS TO CULTU RE protein NEGATI VE negati ve normal Not Available [facility] [place] [facility] [address], [place], [address], 05/11/2023 08:21:26 05/10/2005/11/2023 URINA LYSIS , COMPL ETE W/REF YAS TO CULTU RE nitrite NEGATI VE negati ve normal Not Available [facility] [place] [facility] [address], [place], [address], 05/11/2023 08:21:26 05/10/2005/11/2023 URINA LYSIS , COMPL ETE W/REF YAS TO CULTU RE leukocyte esterase NEGATI VE negati ve normal Not Available [facility] [place] [facility] [address], [place], [address], 05/11/2023 08:21:26 05/10/2005/11/2023 URINA LYSIS , COMPL ETE W/REF YAS TO CULTU RE WBC NONE SEEN /hpf < or = 5 normal Not Available [facility] [place] [facility] [address], [place], [address], 05/11/2023 08:21:26 05/10/2005/11/2023 URINA LYSIS , COMPL ETE W/REF YAS TO CULTU RE RBC NONE SEEN /hpf < or = 2 normal Not Available [facility] [place] [facility] [address], [place], [address], 05/11/2023 08:21:26 05/10/2005/11/2023 URINA LYSIS , COMPL ETE W/REF YAS TO CULTU RE squamous epithelial cells 0-5 /hpf < or = 5 Not Available [facility] [place] [facility] [address], [place], [address], 05/11/2023 08:21:26 05/10/20 23 05/11/2023 URINA LYSIS , COMPL ETE W/REF YAS TO CULTU RE bacteria NONE SEEN /hpf none seen normal Not Available [facility] [place] [facility] [address], [place], [address], 05/11/2023 08:21:26 05/10/2005/11/2023 URINA LYSIS , COMPL ETE W/REF YAS TO CULTU RE hyaline cast NONE SEEN /lpf none seen normal Not Available [facility] [place] [facility] [address], [place], [address], 05/11/2023 08:21:26 05/10/20 23 05/11/2023 URINA LYSIS , COMPL ETE W/REF YAS TO CULTU RE note This urine was lynnette zed for the prese nce of WBC, RBC, bacte brad, casts , and other forme d eleme nts. Only those eleme nts seen were repor marco. Not Available [facility] [place] [facility] [address], [place], [address], 05/11/2023 08:21:26 05/10/20 23 05/11/2023 REFLE XIVE URINE CULTU RE reflexive urine culture NO CULTU RE INDIC ATED Not Available [facility] [place] [facility] [address], [place], [address], 05/11/2023 08:21:27 05/10/20 23 05/11/2023 VITAM IN B12/F OLATE , SERUM PANEL vitamin B12 985 pg/mL 200-11 00 normal Not Available [facility] [place] [facility] [address], [place], [address], 05/11/2023 08:21:28 05/10/20 23 05/11/2023 VITAM IN B12/F OLATE , SERUM PANEL folate, serum 17.5 NG/mL normal Refer ence Range Low: <3.4 Borde rline : 3.4-5 .4 Radha l: >5.4 Not Available [facility] [place] [facility] [address], [place], [address], 05/11/2023 08:21:28 04/25/20 23 04/13/2023 MAMMO , scree vicky, digit al, bilat eral No observ ation record ed. [email or web address] [facility] [address], [place], [address], 05/23/2023 17:47:53 07/30/19 24 04/30/2023 elect angelina sanchezgr am No observ ation record ed. [email or web address] Not Available 07/19 21:22:47 Result Notes Documentation Provider Name and Address Organization Details Recorded Time Mammo, Screening, Digital, Bilateral : BIRADs 1 Deogracias Humphrey Paul Jr CERTIFIED CREDIT COUNSELOR [address], [place], [address], [facility] 05/23/2023 17:47:53 Problems Name Problem SNOMED Code Status Onset Date Resolution Date Notes Provider Name and Address Organization Details Recorded Time Gastroesopha geal reflux disease 498380721 Active 2019 Zayda Perales CERTIFIED CREDIT COUNSELOR [address], [place], [address], [facility] 0 07:48:26 Nonalcoholic steatohepati tis 357861075 Active 2020 Zayda Perales CERTIFIED CREDIT COUNSELOR [address], [place], [address], [facility] 1 09:32:08 Vitamin D deficiency 13048501 Active 2020 Mine Serna APRN [address], [place], [address], [facility] 1 20:01:27 Liver enzymes outside reference range 403181325 Active 2012 Evaristo Paul Jr CERTIFIED CREDIT COUNSELOR [address], [place], [address], [facility] 3 20:34:27 Mixed hyperlipidem ia 051191663 Active 2021 Evaristo Paul Jr CERTIFIED CREDIT COUNSELOR [address], [place], [address], [facility] 2 13:02:18 Plantar fasciitis 517019086 Active 2021 Isidroogrshoal Paul Jr CERTIFIED CREDIT COUNSELOR [address], [place], [address], [facility] 2 13:02:20 Problem Notes None recorded. Procedures Surgical History Date Name Laterality Status Provider Name and Address Organization Details Recorded Time 08/07/19 24 Transitional Care- Med Reconciliation completed Deogracias Angelicadanielle Paul Jr CERTIFIED CREDIT COUNSELOR [address] [facility],[address], [place], [address], [place] [facility] [place] [facility] [place] 08/07/2023 21:21:40 05/22/19 24 Transitional Care- Med Reconciliation completed Deogracias Clarisaallysondanielle Paul Jr CERTIFIED CREDIT COUNSELOR [address] [facility],[address], [place], [address], [place] [facility] [place] [facility] [place] 05/23/2023 17:59:07 09/19/19 23 Transitional Care- Med Reconciliation completed Deogracias Clarisaallysondanielle Paul Jr CERTIFIED CREDIT COUNSELOR [address] [facility],[address], [place], [address], [place] [facility] [place] 09/18/2022 11:14:10 05/15/20 22 [facility] completed Gabriela Tyson [place] [facility] [place] 05/15/2022 06:53:14 04/10/20 22 [facility] cancelled Gabriela Tyson [place] [facility] [place] 04/10/2022 10:34:01 02/17/20 22 [facility] completed Gabriela Tyson [place] [facility] [place] 02/14/2022 06:47:01 01/03/20 22 [facility] completed Deogracias Humphrey Paul Jr CERTIFIED CREDIT COUNSELOR [address] [facility],[address], [place], [address], [place] [facility] [place] 01/02/2022 10:39:25 10/10/19 22 [facility] cancelled Lacy Bargeron [place] [facility] [place] 10/05/2021 15:16:18 09/05/19 22 [facility] completed Lacy Bargeron [place] [facility] [place] 08/29/2021 17:01:18 07/06/19 22 [facility] completed Lacy Bargeron [place] [facility] [place] 07/06/2021 09:11:34 05/25/19 22 Date of Last Pap Smear completed Yannick Graff [place] [facility] [place] 12/20/2022 13:56:19 05/10/20 21 [facility] completed Lacy Bargeron [place] [facility] [place] 05/10/2021 09:09:13 05/10/20 SDOH completed Lacy [place] 05/09/2021 07:40:53 03/30/20 Special Note completed Sujatha Schmitz MD [address], [place], [address], [place] 03/30/2021 10:14:26 02/09/20 PCMH completed Lacydavid [place] 02/07/2021 12:42:05 01/10/20 PCMH cancelled Lacy [place] 01/06/2021 15:54:20 01/10/20 SDOH cancelled Lacy [place] 01/06/2021 15:54:22 12/08/19 PCMH cancelled Gabriela [place] 12/07/2020 12:26:38 04/29/20 PCM completed Lacy [place] 04/28/2020 16:16:13 Dilation and Cureattage completed Cecelia Tav[place] [facility] 10/31/2021 14:48:30 Gallbladder Surgery completed Gabriela [place] 04/29/2020 08:22:55 Imaging Results Imaging Date Name Status LastModified by Organization Details LastModified Time 04/13/2023 MAMMO, screening, digital, bilateral completed [email or web address] [facility] [address], [place], [address], 05/23/2023 17:47:53 04/30/2023 electrocardiogram completed [email or web address] Inform [...] cm 114 mm[Hg] 70 mm[Hg] Justin Lindsey [facility] 09/18/2022 10:05:37 Date Recorded Body height Body mass index (BMI) Body weight Heart rate Respiratory rate Oxygen saturation Oxygen saturation in Arterial blood by Pulse oximetry Body temperature Pain severity - 0-10 verbal numeric rating [Score] - Reported Systolic blood pressure Diastolic blood pressure Provider Name and Address Organization Details Last Updated DateTime 3 162.56 cm 32.3 kg/m2 66867.3 7 g 65 /min 16 /min 98 % 98 % 98.1 [degF] 0 124 mm[Hg] 88 mm[Hg] JOSE L Tejeda [facility] 3 14:21:27 Date Recorded Body height Body mass index (BMI) Body weight Pain severity - 0-10 verbal numeric rating [Score] - Reported Body temperature Respiratory rate Heart rate Systolic blood pressure Diastolic blood pressure Provider Name and Address Organization Details Last Updated DateTime 3 162.56 cm 31.6 kg/m2 96703 g 0 98.2 [degF] 16 /min 76 /min 122 mm[Hg] 80 mm[Hg] [facility] 3 13:58:04 Date Recorded Body height Body mass index (BMI) Body weight Pain severity - 0-10 verbal numeric rating [Score] - Reported Body temperature Oxygen saturation Oxygen saturation in Arterial blood by Pulse oximetry Heart rate Respiratory rate Systolic blood pressure Diastolic blood pressure Provider Name and Address Organization Details Last Updated DateTime 4 162.56 cm 32.7 kg/m2 52588.6 5 g 0 98.6 [degF] 98 % 98 % 85 /min 16 /min 138 mm[Hg] 79 mm[Hg] [facility] 4 11:01:27 Date Recorded Body height Body mass index (BMI) Body weight Heart rate Respiratory rate Body temperature Pain severity - 0-10 verbal numeric rating [Score] - Reported Provider Name and Address Organization Details Last Updated DateTime 4 162.56 cm 32.2 kg/m2 23242.5 7 g 74 /min 16 /min 98.6 [degF] 0 [facility] 4 10:25:11 Date Recorded Oxygen saturation Oxygen saturation in Arterial blood by Pulse oximetry Systolic blood pressure Diastolic blood pressure Provider Name and Address Organization Details Last Updated DateTime 08/07/2023 98 % 98 % 130 mm[Hg] 84 mm[Hg] Deogracias Humphrey Paul Jr CERTIFIED CREDIT COUNSELOR [address] [facility],[address], [place], [address] 21:40:46 Social History Question Answer Notes LastModified by Organizat ion Details LastModified Time Tobacco Smoking Status Never Smoker [facility] 08/07/2023 10:03:51 Do You Have An Advance Directive? No [email or web address] Information not available 12/20/2022 Is Your Home Air Conditioned? Yes Information not available 05/22/2023 What Is Your Level Of Alcohol Consumption? Occasional [email or web address] Information not available 08/07/2023 How Many Times Per Week Do You Consume Alcohol? 1-2 Times Per Week Information not available 02/08/2021 How Many Years Have You Consumed Alcohol? 3 [email or web address] Information not available 04/10/2022 Are You Currently Sexually Active With Anyone Who Has Traveled (within The Last 12 Weeks) To A Zika-affected Area? No Information not available 05/22/2023 Do You Wear A Helmet When Biking? Yes Information not available 05/22/2023 Are You Blind Or Do You Have Difficulty Seeing? No Information not available 08/07/2023 Is Blood Transfusion Acceptable In An Emergency? Yes [email or web address] Information not available 08/07/2023 What Is Your Level Of Caffeine Consumption? Occasional [email or web address] Information not available 12/20/2022 How Much Tobacco Do You Chew? None [email or web address] Information not available 04/29/2020 What Type Of Product Inspection Coordinator Do You Use? [employer] Information not available [...] Do You Have Serious Difficulty Hearing? No [email or web address] Information not available 08/07/2023 What Type Of [...] E-cigarettes Or Vape? Never Used Electronic Cigarettes [email or web address] Information not available 04/29/2020 What Is The Highest Grade Or Level Of School You Have Completed Or The Highest Degree You Have Received? [id number] [email or web address] Information not available 12/20/2022 Do You [...] not available 05/22/2023 Where Do You Live? [facility] Information not available 05/22/2023 Live Alone Or With Others? With Others Information not available 05/22/2023 Patient Would Like A Flu Shot Yes Information not available 05/10/2021 Please List The Date The Patient Received The Flu Shot 01/19/2020 [email or web address] Information not available 05/25/2021 Please List The Location Where The Patient Received The Flu Shot [facility] [email or web address] Information not available 05/25/2021 Patient Interested In Colorectal Cancer Screening No [email or web address] Information not available 04/29/2020 Do You Want Help Finding Or Keeping Work Or A Job? No [email or web address] Information not available 04/29/2020 Do You Want Help With School Or Training? For Example, Starting Or Completing Job Training Or Getting A High School Diploma, GED, Or Equivalent No Information not available 04/29/2020 In The Last 12 Months Did You Ever Eat Less Than You [place] You Should Because There Wasn? t Enough Money For Food? No [email or web address] Information not available 04/29/2020 In The Past 12 Months Has The [employer], Gas, Oil, Or Water StudentFunder Threatened To Shut Off Services In Your Home? No [email or web address] Information not available 04/29/2020 In The Last 12 Months Did You Skip Medications To Save Money? No Information not available 04/29/2020 In The Last 12 Months, Was There A Time When You Needed To See A Doctor But Could Not Because Of Cost? No Information not available 04/29/2020 Do You Often Feel Lonely? No [email or web address] Information not available 04/29/2020 Do You Want Help With Any Of Your Needs? No [email or web address] Information not available 04/29/2020 Are Any Of Your Needs Urgent? No [email or web address] Information not available 04/29/2020 Are You Worried That In The Next 2 Months You May Not Have Stable Housing? No Information not available 04/29/2020 In The Last 12 Months, Have You Ever Had To Go Without Health Care Because You Didn? t Have A Way To Get There? No [email or web address] Information not available 04/29/2020 Do You Feel Physically And Emotionally Unsafe Where You Currently Live? No [email or web address] Information not available 04/29/2020 Have You Had A Fever And/or Symptoms Of A Lower Respiratory Illness (cough, Difficulty Breathing, Etc)? No [email or web address] Information not available 04/29/2020 Have You Had Any Of These Symptoms: Chills ,Headache, Fatigue, Muscle Or Body Aches , Sore Throat, New Loss Of Taste Or Smell, Nausea Or Vomiting, Or Diarrhea? No Information not available 04/29/2020 Have You Had A COVID-19 Vaccine In The Last 7 Days? No Pt Declined [email or web address] Information not available 04/29/2020 Has The Patient [...] No Information not available 05/22/2023 Marital Status [facility] Infor mation not available 05/22/2023 What Was The Date Of Your Most Recent Tobacco Screening? 08/07/2023 [email or web address] Information not available 08/07/2023 How Many Children Do You Have? 5 [email or web address] Information not available 04/29/2020 Have You Ever Been Counseled For Unhealthy Alcohol Use? No Information not available 05/22/2023 Performs Monthly Self-breast Exam? No Information not available 05/22/2023 Do You Have Any Pets? No Information not available 05/22/2023 What Is Your Relationship Status? Information not available 08/07/2023 Do You Use [...] Used Smokeless Tobacco? Never Used Smokeless Tobacco [email or web address] Information not available 04/29/2020 Are There Any Smokers In Your House? No Information not available 05/22/2023 How Much Tobacco Do You Smoke? No [email or web address] Information not available 08/07/2023 What Types Of Sporting Activities Do You Participate In? None Information not available 05/22/2023 Do You Feel Stressed (tense, Restless, Nervous, Or Anxious, Or Unable To Sleep At Night)? [id number] Information not available 05/22/2023 Do You Use Any Illicit Or Recreational Drugs? No [email or web address] Information not available 12/20/2022 Do You Use Sunscreen Routinely? No Information not available 05/22/2023 Has Tobacco Cessation Counseling Been Provided? No Information not available 02/08/2021 How Many Years Have You Smoked Tobacco? 0 [email or web address] Information not available 08/07/2023 Do You Have [...] Organization Details LastModified Time Mother Diabetes mellitus Not available 04/29 08:26:11 Notes:Reviewed with patient [...] quadrivalent, PF 05/10/2021 completed Zayda Perales APRN [address], [place], [address], [facility] 05/10/2021 09:33:44 Past Encounters Encounter ID Performer Location Encounter Start Date Encounter Closed Date Diagnosis/Indication Diagnosis SNOMED-CT Code Diagnosis ICD10 Code Diagnosis Note [id number] Zayda Perales APRN [email or web address] E[facility] [facility] [address] [place] [address] 04/29/2020 08:13:49 04/29/2020 09:07:40 Advance directive discussed with patient 862236200 Z71.89 Depression screening 171 704692 Z13.31 10 ? 14 Moderate Treatment plan, considerin g counseling , follow-up and/or pharmacoth [facility] edu cation given 548218290 Z71.9 Body mass index 30+ - obesity 974727510 Z68.32 bmi 32.5, -Weight management and healthy lifestyle choices discussed with pt. Adult heal th examination 639647196 Z00.00 -Wellness exam completed. -Multiphas ic lab work ordered. Hyperlipid emia screening 247701462 Z13.220 Diabetes m ellitus screening 912947469 Z13.1 Thyroid di sorder screening 955308500 Z13.29 Screening for malignant neoplasm of cervix 530235780 Z12.4 -Last pap smear 08/06 with normal findings, prior was HPV positive. Fatigue 10229672 R53.83 Hepatitis C screening 41 0731235 Z11.59 The USPSTF recommends screening for hepatitis C virus (HCV) infection in persons at high risk for infection. The USPSTF also recommends offering one-time screening for HCV infection to adults born between 1945 and 1965. [id number] KODAK SerranoP E_PRIMARY [facility] [address] [place] [address] 02/08/2021 08:25:05 02/08/2021 09:37:00 Health education given 871175171 Z71.9 Depression screening 171 234707 Z13.31 10 ? 14 Moderate Treatment plan, considerin g counseling , follow-up and/or pharmacoth erapy Body mass index 30+ - obesity 475668707 Z68.31 bmi 31.5, -Weight management and healthy lifestyle choices discussed with pt. Pain in ri ght hip joint 8306502313 83232 M25.551 -Advised pt to gently stretch daily.-Adv ised pt to get xray completed. -Will treat pt's symptoms and advised pt will need to f/u with Orthopedic s if symptoms do not improve. Screening for malignant neoplasm of cervix 795683609 Z12.4 [id number] Sujatha MARTINEZPE_OBGY N_SS_[facility] [address] [place] [address] 03/09/2021 08:47:26 03/09/2021 10:02:48 Gynecologic examination 68153654 Z01.419 -Cervical cancer screening collected -Screening labs (HIV, RPR) ordered -Age-appro priate counseling conducted including importance of self-breas t awareness as well as diet & exercise -Follow-up in 1 year for annual well-woman examinatio n or sooner PRN Venereal d isease screening 665907274 Z11.3 Body mass index 30+ - obesity 053382156 Z68.31 Pain in pelvis 43990777 R10.2 -Discussed need for a REAL ESTATE SUBAGENT ultrasound to evaluate pelvis for potential causes of pain -Follow-up for next available [employer] SUBAGENT ultrasound appointmen t followed by a return REAL ESTATE SUBAGENT visit to discuss findings and plan of care Dysmenorrhea 483337526 N 94.6 Vaginal discharge 636952 006 N89.8 [id number] Sujatha Schmitz MD SVPE_OBGY N_SS[facility] [address] [place] [address] [address] [place] [address] 03/30/2021 09:23:52 03/30/2021 10:21:41 Body mass index 30+ - obesity 886252536 Z68.31 Pain in pelvis 45812599 R10.2 -Reviewed [employer]AGENT ultrasound findings of a very small uterine [...] and/or procedures and documentin g visit Dysmenorrhea 531288919 N 94.6 Uterine leiomyoma 538984 05 D25.9 [id number] Zayda Perales APRN zCLSD_SVP E[facility] [facility] [address] [place] [address] 05/10/2021 08:47:06 05/10/2021 09:37:52 Adult health examination 535149434 Z00.00 -Wellness exam completed. -Multiphas ic lab work ordered. Hyperlipid emia screening 968688385 Z13.220 Diabetes m ellitus screening 003718494 Z13.1 Thyroid di sorder screening 347184335 Z13.29 Screening for malignant neoplasm of cervix 029530246 Z12.4 -Last pap smear needs repeat with Dr. Schmitz. Pt has future appt. made. Fatigue 11789911 R53.83 Administra tion of influenza vaccine 69822683 Z23 Depression screening 171 654275 Z13.31 Negative Body mass index 30+ - obesity 727747127 Z68.32 bmi 32.4, -Weight management and healthy lifestyle choices discussed with pt. Nonalcohol ic steatohepatitis 332080027 K75.81 [id number] Sujatha MARTINEZPE_OBGY N_SS_[facility] [address] [facility] [address] [place] [address] 05/25/2021 10:46:54 05/25/2021 12:01:37 Cervicovaginal cytology specimen unsatisfactory 594541925 R87.615 -Repeat pap collected and results to be shared with patient once available- Follow-up PRN Body mass index 30+ - obesity 190851078 Z68.32 [id number] Zayda Perales APRN zCLSD_SVP E[facility] [facility] [address] [place] [address] 07/06/2021 09:08:57 07/06/2021 12:04:02 Health education given 587267854 Z71.9 Pain in ri ght hip joint 5064789928 57785 M25.551 -Advised pt to f/u with Orthopedic s as pain has persisted for several months.-Ri ght hip xary is inconclusi ve, advised pt to most likely radiating off of left lumbar spine. Pt denies lumbar pain.-Advi sed pt to ice and use conservati ve measures. [id number] Zayda Perales APRN zCLSD_SVP E[facility]PRIMARY [facility] N [address] [place] [address] 09/04/2021 11:08:05 09/04/2021 11:51:41 Mixed anxiety and depressive disorder 713652551 F41.8 12- Moderate Treatment plan, considerin g counseling , follow-up and/or pharmacoth erapy.-Pt denies SI/HI.-Adv ised pt to f/u with [facility].-Advi sed pt to call office if condition worsens, high suspicion for need to increase dosage. Health edu cation given 081555394 Z71.9 Body mass index 30+ - obesity 611053346 Z68.33 bmi 33.2-Weigh t management and healthy lifestyle choices discussed with pt. Pain in ri ght hip joint 9416540963 41973 M25.952 [id number] TATUM CARDONA CNM, MARGARITA SVPE_OBGY N_SS_[facility] [address] [facility] [facility], [address] [place] [address] 10/31/2021 14:06:30 10/31/2021 15:35:59 Body mass index 30+ - obesity 361426730 Z68.32 Pain in pelvis 54206072 R10.2 [id number] Reba Fields r DATE PULLER zCLSD_SVB H_BEHAVRL _[facility] [address] [place] [address] 11/01/2021 10:36:08 11/01/2021 12:30:02 [id number] Deogracias Remandaban Sitaila Jr CERTIFIED CREDIT COUNSELOR zCLSD_SVP E[facility]PRIMARY [facility] [facility] [address] [place] [address] 01/02/2022 09:47:29 01/02/2022 10:35:01 Health education given 795343466 Z71.9 Continue heart healthy lifestyle to include low-fat diet, low-sodium diet, regular physical activity, maintain optimal weight, and avoid all tobacco/ni cotine products. Body mass index 30+ - obesity 279897399 Z68.33 BMI 33.7 Plantar fa sciitis of right foot 2701574206 1331446 M72.2 Intermitte nt (R) Heel pain concerning [...] shoe inserts (arch supports and/or heel cups).-Con contract law specialist molded shoe inserts (orthotics ); night splints; or Immobiliza tion with a cast.-Decr easing physical activities that are suggested by the medical history to be causative or aggravatin g (eg, excessive running, dancing, or jumping).P rovided hand-outs on plantar fasciitis care. If medication , rest, and ice don't help enough, will consider physical therapist. Screening for disorder 430855445 Z13.9 Will update with multiphasi c labs Vitamin D deficiency 347 35909 E55.9 Non-alcoho lic fatty liver 097683219 K76.0 Gastroesop hageal reflux disease 947821062 K21.9 [id number] Reba Fernandezsara mainah DATE PULLER zCLSD_SVB H_BEHAVRL _[facility] [address] [place] [address] 12/04/2021 14:47:07 12/04/2021 15:59:16 [id number] Reba Crewsermiassara aminah DATE PULLER zCLSD_SVB H_BEHAVRL _[facility] [address] [place] [address] 01/08/2022 15:37:43 01/08/2022 16:57:44 [id number] Deogracias Remandaban Humberto Jr CERTIFIED CREDIT COUNSELOR zCLSD_SVP E[facility] [facility] [address] [place] [address] 02/16/2022 10:14:17 02/16/2022 10:27:21 Health education given 295935036 Z71.9 Continue heart healthy lifestyle to include low-fat diet, low-sodium diet, regular physical activity, maintain optimal weight, and avoid all tobacco/ni cotine products. Liver enzy mes outside reference range 619468762 R94.5 Elevated Liver Enzymes -followed by GI. Previous h/o of ETOH use, she has stopped drinking alcohol. Liver US done last year showing fatty Liver. Followed by Gastro. Nonalcohol ic steatohepatitis 707141672 K75.81 Followed by GI. Next visit in 3 weeks. Mixed hyperlipidemia 267 025807 E78.2 Lipid panel is stable and WNL. LDL very slightly elevated at 103. The rest of her cholestero l panels are normal. Abnormal urinalysis 1672 68096 R82.90 UA (+) for trace leukocytes . Reflex urine culture showing mixed eduardo likely from non-midstr eam, contaminat ed urine sampling. Patient has no urinary habit change, denies any UTI symptoms. Plantar fasciitis 354976 003 M72.2 Currently using shoe inserts to help alleviate plantar foot pain. Patient reports pain is temporaril y improved with as needed NSAIDs and orthotics. Referral has been sent to Podiatry for evaluation of need of supportive arched shoes and orthotics. [id number] Deogracias Angelicadanielle Humberto Peter APRN zCLSD_SVP E[facility]PR[facility] [facility] [address] [facility] [place] [address] 05/15/2022 09:40:13 05/15/2022 11:08:20 Health education given 509017470 Z71.9 Continue heart healthy lifestyle to include low-fat diet, low-sodium diet, regular physical activity, maintain optimal weight, and avoid all tobacco/ni cotine products. Adult heal th examination 553212295 Z00.01 Data has been collected and reviewed [...] ups. Body mass index 30+ - obesity 465075417 Z68.33 BMI 33.4. Obese. Liver enzy mes outside reference range 680935365 R94.5 Previous h/o of ETOH use, she has stopped drinking alcohol. Liver US done last year showing fatty Liver. Followed by Gastro, recent Abdl MRI unremarkab le. Nonalcohol ic steatohepatitis 594565081 K75.81 Followed by GI. Next visit in 3 weeks. Vitamin D deficiency 347 35661 E55.9 Screening for cardiovascular system disease 870728874 Z13.6 Will update with multiphasi c screen for next visit. Diabetes m ellitus screening 322992406 Z13.1 [id number] Deograciaholly Paul Jr, APRN zCLSD_SVP E[facility] N [address] [facility] [place] [address] 08/13/2022 11:58:58 08/13/2022 12:41:51 Health education given 245258059 Z71.9 Continue heart healthy lifestyle to include low-fat diet, low-sodium diet, regular physical activity, maintain optimal weight, and avoid all tobacco/ni cotine products. Vitamin D deficiency 347 77495 E55.9 Vit D level at 21 (from 43). Restarted on high dose Vit D replacemen t weekly. Liver func tion tests outside reference range 661459215 R94.5 Repeat AST 78 (from 152) and ALT 86 (from 228). Followed by GI. Previous h/o of ETOH use, she has stopped drinking alcohol. Lipid panel improved.L iver US done last year showing fatty Liver. Abnormal urinalysis 1672 80861 R82.90 Reflex urine culture showing mixed eduardo. Patient denies of any recent UTI symptoms. Mixed hyperlipidemia 267 387777 E78.2 Repeat Lipid panel is stable same as previous results. LDL very slightly elevated at 114 and non-HDL 134. The rest of her cholestero l panels are normal. [id number] Cleve Gottlieb zCLSD_SVP E_PRIMARY _[facility] N [address] [place] [address] 09/18/2022 09:57:38 09/18/2022 11:19:41 Migraine 56603238 G43.909 Referral to Neurology updated. Advised patient having a migraine diary, observing what triggers migraine attack and what measures provide relief. Reviewed therapeuti c lifestyle measures including good sleep hygiene, routine meal schedules, appropriat e diet, adequate hydration, regular exercise, and avoidance of migraine triggers. She was provided handouts for migraine care at ED. Transition of care 90442 59676 105 Z75.8 Reviewed ED discharge summary and reconciled current medication s. Discussed compliance to meds as prescribed , as well as need for follow-up to monitor drug effects and side effects, draw blood panels if needed and adjust medication s as appropriat e. [id number] Deograciaholly Paul Jr, APRN zCLSD_SVP E[facility]PRIMARY [facility] [facility] [address] [place] [address] 12/17/2022 14:14:16 12/17/2022 17:09:24 Transition of care 2509716304 105 Z75.8 Reviewed ED discharge summary and reconciled current medication s. Discussed compliance to meds as prescribed , as well as need for follow-up to monitor drug effects and side effects, draw blood panels if needed and adjust medication s as appropriat e. Cervical radiculopathy 80643958 M54.12 XR Spine Cervical ER Routine Osseous structures : No acute abnormalit y identified . No evidence for fracture. Degenerati ve changes of the cervical spine with osteophyte formation at C4-C5 C5-C6 and C6-C7.*No acute process identified .*Mild degenerati ve changes of the spine as above. Pain in right arm 005155 004 M79.601 Discharged on short course oral Prednisone and Ibuprofen as needed. Depression screening 171 744103 Z13.31 PHQ 9 Screening score: 0/27. No Depression . Watchful waiting; repeat PHQ-9 at follow-up. Health edu cation given 935367912 Z71.9 Continue heart healthy lifestyle to include low-fat diet, low-sodium diet, regular physical activity, maintain optimal weight, and avoid all tobacco/ni cotine products. Body mass index 30+ - obesity 312700250 Z68.32 BMI 32.3. Obese. [id number] Sujatha Schmitz MD SVPE[facility]OBGY N_SS[facility] [address] [place] [address] 12/20/2022 13:44:38 12/20/2022 14:25:54 Gynecologic examination 58786762 Z01.419 -Cervical ca screening in NILM; after [...] below Screening for malignant neoplasm of breast 856508710 Z12.39 [id number] Deogracias Humphrey Paul Jr CERTIFIED CREDIT COUNSELOR zCLSD_SVP E_PRIMARY [facility] [facility] [address] [facility] [place] [address] 05/22/2023 10:32:40 05/22/2023 12:15:41 Health education given 216282607 Z71.1 Continue heart healthy lifestyle to include low-fat diet, low-sodium diet, regular physical activity, maintain optimal weight, and avoid all tobacco/ni cotine products. Depression screening 171 292042 Z13.31 PHQ 9 Screening score: 0/27. No Depression . Watchful waiting; repeat PHQ-9 at follow-up. Adult heal th examination [id number] Z00.01 Data has been collected and reviewed [...] ups. Liver enzy mes outside reference range 591370108 R94.5 Previous h/o of ETOH use, she has stopped drinking alcohol. Liver US done last year showing fatty Liver. Followed by Gastro, recent Abdl MRI unremarkab le. Nonalcohol ic steatohepatitis [id number] K75.81 Followed by GI. Next visit in 3 weeks. Vitamin D deficiency 347 49735 E55.9 Previous labs showing chronicall y low Vit D, restarted on high dose weekly Vit D3 replacemen t. Screening for cardiovascular system disease [id number] Z13.6 Will update with multiphasi c screen for next visit. Diabetes m ellitus screening 373531651 Z13.1 Body mass index 30+ - obesity 445302886 Z68.33 BMI 33.4. Obese. Screening mammography of bilateral breasts [id number] 94596 Z12.31 Screening for malignant neoplasm of cervix 461882843 Z12.4 Transition of care 23358 05031 105 Z75.8 Reviewed ED discharge summary and reconciled current medication s. Discussed compliance to meds as prescribed , as well as need for follow-up to monitor drug effects and side effects, draw blood panels if needed and adjust medication s as appropriat e. Onychomyco sis of toenails 573089663 B35.1 Needs refill of Ciclopirox . Atypical chest pain 1025 34696 R07.89 Patient is scheduled to see Cards on 06/14/23. Mixed hyperlipidemia 267 152572 E78.2 Recent Lipid panel is stable, same as previous results. LDL 108 (from 114), the rest of her cholestero l panels are WNL. Optimizing diet and lifestyle interventi ons. [id number] Deogracias Remandaban Sitaila Jr CERTIFIED CREDIT COUNSELOR [id number] E_PRIMARY _[place] N [address] [place] [address] 08/07/2023 10:03:21 08/07/2023 11:33:34 Health education given 152265554 Z71.1 Continue heart healthy lifestyle to include low-fat diet, low-sodium diet, regular physical activity, maintain optimal weight, and avoid all tobacco/ni cotine products. Generalize d anxiety disorder 36250865 F41.1 Patient verbalizes she is aware she [...] relaxation techniques . Vitamin D deficiency 347 74684 E55.9 Previous labs showing chronicall y low Vit D, continued on Vit D3 daily supplement . Mixed hyperlipidemia 267 224199 E78.2 Recent Lipid panel is stable, same as previous results. LDL 108 (from 114), the rest of her cholestero l panels are WNL. Optimizing diet and lifestyle interventi ons. Liver enzy mes outside reference range 416373664 R94.5 Previous h/o of ETOH use, she has stopped drinking alcohol. Liver US done last year showing fatty Liver. Followed by Gastro, recent Abdl MRI unremarkab le. Neck pain 97237244 M54.2 Cervical radiculopathy 46076814 M54.12 Transition of care 79597 91622 105 Z75.8 Reviewed ED discharge summary and [...] Paz Member ID Guarantor Name 09/18/2022 2 [facility] (MEDICAID REPLACEMENT - H[place]) [place] Sharron Bhatt- Sandy [id number] Sharron Bhatt Sandy 09/18/2022 1 [place] [id number] Sharron Olivases- Sandy [id number] Sharron Olivases Sandy 12/17/2022 2 [facility] [facility] Sauer Bhatt- Sandy [id number] Sharron Olivases Sandy 12/17/2022 1 [place] [id number] Sharron Iris Bhatt- Sandy [id number] Sharron Olivases Sandy 12/20/2022 2 [employer] [facility] Sharron Sandy [id number] Sharron Sandy 12/20/2022 1 [place] [id number] Sharron Sandy [id number] Sharron Sandy 05/22/2023 1 [place] [id number] Sharron Sandy [id number] Sharron Sandy 05/22/2023 2 [place] [employer] Sharron Sandy [id number] Sharron Sandy 08/07/2023 1 [place] [id number] Sharron Sandy [id number] Sharron Sandy 08/07/2023 2 [place] [employer] Sharron Sandy [id number] Sharron Sandy Notes Date Note Type Note Provider Name and Address Organization Details Recorded Time 09/18/2022 text/html Transition Care [id number] bypatient.Timing:carmelo e of discharge: (09/15/2022) Facility:Facility Type [...] with PCP and Neurologist. Evaristo Paul Jr CERTIFIED CREDIT COUNSELOR [address], [place], [address], [facility] - [place] 09/18/2022 11:16:57 12/17/2022 text/html Transition Care [id number] bypatient.Timing:carmelo e of discharge: (12/13/2022) Facility:Facility Type [...] and NSAIDs as needed Evaristo Paul Jr CERTIFIED CREDIT COUNSELOR [address], [place], [address], [facility] - [place] 12/17/2022 15:32:13 12/20/2022 text/html Annual GYNReport ed [...] age 38 Sujatha Schmitz MD [address] [facility],[address], [place], [address], [place] 12/20/2022 19:33:42 05/22/2023 text/html Ms Sandy is [...] pain. Followed by Podiatry. Evaristo Paul Jr CERTIFIED CREDIT COUNSELOR [address] [facility],[address], [place], [address], [facility] 05/23/2023 18:10:15 05/22/2023 text/html Annual Wellness [...] normal menses or menopause Evaristo Paul Jr CERTIFIED CREDIT COUNSELOR [address], [place], [address], [facility] 05/23/2023 18:10:15 08/07/2023 text/html Transition Care [id number] bypatient.Timing:carmelo e of discharge: (07/30/23) Facility:Facility Type [...] referral and med refills.Patient was seen at [facility] on 07/30/23 with complaints of chest [...] Discharge Diagnosis: BANDAR. Neuropathy. Deogracias Humphrey Paul Jr, APRN [address], [place], [address], [facility] - [facility] 08/07/2023 21:47:29 OBGyn Episode No OBEpisode recorded.
[2024-09-03 16:33] LABS: Rheumatoid Factor < 13.0 IU/mL (<15.0)
[2024-09-07 20:15] LABS: Cyclic Citrullinated Peptide <16 UNITS
== END 2024-09-03 13:21 | disposition home or self-care (01) ==
LOC: HO.HHCL 13:20
PROVIDERS: Visit Provider Nurse Practitioner
DX: M25.541 Pain in joints of right hand (principal); M25.542 Pain in joints of left hand
CPT/HCPCS: 36415; 86200; 86431

== ENCOUNTER 2024-09-22 08:15 | Outpatient (AMB) | payer MEDICAID, SELFPAY ==
--- OUTSIDE RECORDS SUMMARY | 2024-09-22 08:24 | XMS_ITS | Encounter Summary ---
Author Organization [facility] Address [address] [place] [address] Care Team Providers Care Assembler Camper Name Role Phone Virgil Sharp MD Primary Care Provider [phone] Encounter Details Date Type Department Care Team Description 01/24/2018 Hospital Medical Records [address] [place] [address] Social History Tobacco Use Types Packs/Day Years [...] on filedocumented in this encounter Care Teams Assembler Camper Relationship Specialty Start Date End Date Virgil Sharp MD [address] [place] [address] PCP - General Internal Medicine 10/12/11 documented as of this encounter
--- OUTSIDE RECORDS SUMMARY | 2024-09-22 08:25 | XMS_ITS | Encounter Summary ---
Author Organization [employer] Address [address] [facility] [address] [place] [address] Care Team Providers Care Stain Applicator Name Role Phone Pearl Figueroa MD Primary Care Provider + Encounter Details Date Type Department Care Team (Late st Contact Info) Description 08/28/2024 Orders Only [facility] [address] [place] [address] Melisa Loza NP [address] [place] [address] Social History Tobacco Use Types Packs/Day Years [...] documented as of this encounter Care Teams Stain Applicator Relationship Specialty Start Date End Date Pearl Figueroa MD [address] [place] [address] PCP - General Internal Medicine 02/17/24 documented as of this encounter
--- OUTSIDE RECORDS SUMMARY | 2024-09-22 08:25 | XMS_ITS | Encounter Summary ---
Author Organization [employer] Address [address] [facility] [address] [place] [address] Care Team Providers Care Senior Cytogenetic Technologist Name Role Phone Pearl Figueroa MD Primary Care Provider + Encounter Details Date Type Department Care Team (Late st Contact Info) Description 08/28/2024 Orders Only [facility] [address] [place] [address] Melisa Loza NP [address] [place] [address] Social History Tobacco Use Types Packs/Day Years [...] documented as of this encounter Care Teams Senior Cytogenetic Technologist Relationship Specialty Start Date End Date Pearl Figueroa MD [address] [place] [address] PCP - General Internal Medicine 02/17/24 documented as of this encounter
--- OUTSIDE RECORDS SUMMARY | 2024-09-22 08:27 | XMS_ITS | Encounter Summary ---
Author Organization [facility] Address [address] [place] [address] Care Team Providers Care Blockman Name Role Phone Virgil Sharp MD Primary Care Provider [phone] Reason for Visit * Reason Onset Date Comments immunizations 09/07/2013 Encounter Details Date Type Department Care Team Description 09/07/2013 Telephone Adult Medicine [address] [id number] Virgil Sharp MD [address] [place] [address] [phone] immunizations Social History Tobacco Use Types Packs/Day [...] Diagnosis Need for prophylactic vaccination with combined msoedpeque-jhjvzzg-enzgexqua (DTP) vaccine- Primary documented in this encounter Care Teams Blockman Relationship Specialty Start Date End Date Virgil Sharp MD [address] [place] [address] PCP - General Internal Medicine 10/12/11 documented as of this encounter
--- OUTSIDE RECORDS SUMMARY | 2024-09-22 08:27 | XMS_ITS | Encounter Summary ---
Author Organization [facility] Address [address] [place] [address] Care Team Providers Care Computer Drafter Name Role Phone Virgil Sharp MD Primary Care Provider [phone] Encounter Details Date Type Department Care Team Description 06/28/2015 Pt. Non Urgent Medical Question Adult Medicine [address] [address] Virgil Sharp MD [address] [place] [address] Social History Tobacco Use Types Packs/Day [...] on filedocumented in this encounter Care Teams Computer Drafter Relationship Specialty Start Date End Date Virgil Sharp MD [address] [place] [address] PCP - General Internal Medicine 10/12/11 documented as of this encounter
--- OUTSIDE RECORDS SUMMARY | 2024-09-22 08:27 | XMS_ITS | Encounter Summary ---
Author Organization [facility] Address [address] [place] [address] Care Team Providers Care Quality Control Analyst Name Role Phone Virgil Sharp MD Primary Care Provider [phone] Encounter Details Date Type Department Care Team Description 05/26/2015 Pt. Non Urgent Medical Question Adult Medicine [address] [phone] Virgil Sharp MD [address] [place] [address] Social History Tobacco Use Types Packs/Day [...] on filedocumented in this encounter Care Teams Quality Control Analyst Relationship Specialty Start Date End Date Virgil Sharp MD [address] [place] [address] PCP - General Internal Medicine 10/12/11 documented as of this encounter
--- OUTSIDE RECORDS SUMMARY | 2024-09-22 08:28 | XMS_ITS | Data Portability ---
Author Organization [place] [facility] [place] [facility] micki, SVPE_CARDIO_CC_CCMOB 300 Address [address] [place] [address] Care Team Providers Care Farmer Cash Grain Name Role Phone EVARISTO PAUL Primary Care Provider EVARISTO PAUL Referring Provider [phone] BREANNA FOY III OTHER EVARISTO PAUL Primary [...] and med refills. Patient was seen at [place] [facility] on 07/30/23 with complaints of chest [...] Lab lipid panel, serum 2023 024 [email or web address] [employer] [facility], [address], [place], [address], 4 10:11:10 vitamin D, 25-hydroxy, total, serum 2023 024 [email or web address] 1 [employer] [facility], [address], [place], [address], 4 19:39:21 CMP, serum or plasma 2023 024 [email or web address] [employer] [facility], [address], [place], [address], 4 10:11:10 lipid panel, serum 2023 024 [email or web address] [employer] [facility], [address], [place], [address], 4 10:11:10 vitamin D, 25-hydroxy, total, serum 2023 024 [email or web address] 1 [facility] ([place] [address] [place], [address], 4 19:39:21 CMP, serum or plasma 2023 024 [employer] [facility] [address] [place], [address], 4 10:11:09 CBC w/ auto diff 2023 024 Pub[email or web address] [facility] [address] [place], [address], 4 10:11:10 urinalysis complete, reflex culture 2023 024 [employer] [facility] [address], [place], [address], 4 10:11:10 HbA1c (hemoglobin A1c), blood 2023 024 [email or web address] [facility] [address], [place], [address], 4 10:11:09 test, urine 2022 023 [facility] [place] [facility] (For In-Office Services Only), [address], [place], [address], 3 09:08:56 Referral neurologist referral - For referral assistance please contact the [facility] at [phone]. Please contact the patient to schedule. Thanks. 2023 024 [email or web address] Not available 4 10:11:34 neurologist referral - Recent ED visit due to intractable migraine COY. 2022 023 [email or web address] 1 Haja Reyna MD, [address], [address], [place], [address], 4 14:47:31 Procedures None recorded. Surgeries None recorded. Imaging MAMMO, screening, digital, bilateral 2023 024 [email or web address] [facility], [address], [address], [place], [address], 4 08:00:20 MAMMO, screening, digital, bilateral - US PRN please do not perform prior to 11.2022 023 [facility], [address], [address], [place], [address], 3 10:06:16 Medication Orders cholecalcif gonzalez (vitamin D3) 125 mcg (5,000 unit) capsule 2023 024 [id number], [address] [place], [place], [id number], 4 10:39:16 sertraline 25 mg tablet 2023 024 [facility] #[id number], [address] [place], [place], [id number], 4 10:39:16 ciclopirox 8 % topical solution 2023 [facility] #[id number], [address] [place], [place], [id number], 4 11:32:07 cholecalcif gonzalez (vitamin D3) 1,250 mcg (50,000 unit) capsule 2023 [facility] #93086, [address] [place], [place], [id number], 4 17:54:49 Patient Targets Encounter Date Encounter Id Patient Goals Patient Target Last Modified By Organization Details Last Modified Time 12/17/2022 [id number] group home goal of BMI 25 Not available Not available Not available Ongoing of Blood Pressure 140/90 Not available Not available Not available group home goal of Hemoglobin A1C <7.0 Not available [...] risks. [email or web address] Not available 12/17/2022 13:52:56 05/22/2023 [id number] group home goal of BMI 25 Not available Not available Not available Blood Pressure 140/90 Not available Not availab le Not available Hemoglobin A1C <7.0 Not available Not availab le Not available Ongoing of Cholesterol, LDL <100 low risk <70 high risk Not available Not available Not available 08/07/2023 [id number] group home goal of BMI 25 Not available Not [...] By Organization Details Last Modified Time 09/18/2022 [id number] migraine headache: care instructions [email or web address] Not available 09/18/2022 11:13:53 12/17/2022 [id number] patient health questionnaire depression assessment* adeogracias Not [...] instructions [email or web address] Not available 12/17/2022 14:38:51 05/22/2023 [id number] aprenda sobre el colesterol alto - [learning [...] risks. [email or web address] Not available 05/23/2023 17:57:14 08/07/2023 [id number] high cholesterol : care instructions adeogracias Not [...] please contact the Care coordination Center at [phone]. Please contact the patient to schedule. Thanks. Referring Physician: Evaristo Paul [facility], Encounter Date: 08/07/2023 Results Created Date Observation Date Name Description Value Unit Range Abnormal Flag Note LastModifiedBy Organization Detail LastModifiedTime 12/25/19 23 12/24/2022 pregn dagmar test, urine HCG negati ve Not Available [facility] [place] [facility] (For In-Office Services Only) [address] [place], [address], 12/19/2022 17:56:17 05/10/20 23 05/11/2023 LIPID PANEL , [place] cholesterol, total 182 mg/dL <200 normal Not Available [facility] [place] [facility] [address], [place], [address], 05/11/2023 08:21:20 05/10/20 23 05/11/2023 LIPID PANEL , [place] HDL cholesterol 57 mg/dL > or = 50 normal Not Available [facility] [place] [facility] [address], [place], [address], 05/11/2023 08:21:20 05/10/20 23 05/11/2023 LIPID PANEL , [place]AND [place] triglyceride s 80 mg/dL <150 normal Not Available [facility] [place] [facility] [address], [place], [address], 05/11/2023 08:21:20 05/10/20 23 05/11/2023 LIPID PANEL [...] 2061- 2068 (http ://ed ucati on.Qu maryDi Cinetraffics. com/f aq/FA Q164) Not Available [facility] [place] [facility] [address], [place], [address], 05/11/2023 08:21:20 05/10/20 23 05/11/2023 LIPID PANEL , [place] chol/HDLC ratio 3.2 (calc ) <5.0 normal Not Available [facility] [place] [facility] [address], [place], [address], 05/11/2023 08:21:20 05/10/20 23 05/11/2023 LIPID PANEL , [place] non HDL cholesterol 125 mg/dL _(janet c) <130 normal For patie nts with diabe anahy plus 1 major ASCVD risk facto r, treat ing to a non-H DL-C goal of <100 mg/dL (LDL- C of <70 mg/dL ) is consi dered a thera peuti c optio n. Not Available [facility] [address], [place], [address], 05/11/2023 08:21:20 05/10/2005/11/2023 COMPR EHENS RAMÓN METAB OLIC PANEL glucose 75 mg/dL 65-99 normal Fasti ng refer ence inter niraj Not Available [facility] [address], [place], [address], 05/11/2023 08:21:21 05/10/20 23 05/11/2023 COMPR EHENS RAMÓN METAB OLIC PANEL urea nitrogen (BUN) 11 mg/dL 7-25 normal Not Available [facility] [address], [place], [address], 05/11/2023 08:21:21 05/10/2005/11/2023 COMPR EHENS RAMÓN METAB OLIC PANEL creatinine 0.71 mg/dL 0.50-0 .99 normal Not Available [facility] [address], [facility] [place], [address], 05/11/2023 08:21:21 05/10/2005/11/2023 COMPR EHENS RAMÓN METAB OLIC PANEL eGFR 110 mL/mi n/1.7 3m2 > or = 60 normal Not Available [facility] [address], [place], [address], 05/11/2023 08:21:21 05/10/2011 0505/11/2023 COMPR EHENS RAMÓN METAB OLIC PANEL BUN/creatini ne ratio SEE NOTE: (calc ) 6-22 Not Repor marco: BUN and Creat inine are withi n refer ence range . Not Available [facility] [place] [facility] [address], [place], [address], 05/11/2023 08:21:21 05/10/20 23 05/11/2023 COMPR EHENS RAMÓN METAB OLIC PANEL sodium 137 mmol/ L 135-14 6 normal Not Available [facility] [place] [facility] [address], [place], [address], 05/11/2023 08:21:21 05/10/20 23 05/11/2023 COMPR EHENS RAMÓN METAB OLIC PANEL potassium 3.9 mmol/ L 3.5-5. 3 normal Not Available [facility] [place] [facility] [address], [place], [address], 05/11/2023 08:21:21 05/10/20 23 05/11/2023 COMPR EHENS RAMÓN METAB OLIC PANEL chloride 101 mmol/ L 98-110 normal Not Available [facility] [place] [facility] [address], [place], [address], 05/11/2023 08:21:21 05/10/20 23 05/11/2023 COMPR EHENS RAMÓN METAB OLIC PANEL carbon dioxide 27 mmol/ L 20-32 normal Not Available [facility] [place] [facility] [address], [place], [address], 05/11/2023 08:21:21 05/10/20 23 05/11/2023 COMPR EHENS RAMÓN METAB OLIC PANEL calcium 9.4 mg/dL 8.6-10 .2 normal Not Available [facility] [place] [facility] [address], [place], [address], 05/11/2023 08:21:21 05/10/20 23 05/11/2023 COMPR EHENS RAMÓN METAB OLIC PANEL protein, total 7.9 g/dL 6.1-8. 1 normal Not Available [facility] [employer] [facility] [address], [place], [address], 05/11/2023 08:21:21 05/10/20 23 05/11/2023 COMPR EHENS RAMÓN METAB OLIC PANEL albumin 4.4 g/dL 3.6-5. 1 normal Not Available [facility] [address], [place], [address], 05/11/2023 08:21:21 05/10/20 23 05/11/2023 COMPR EHENS RAMÓN METAB OLIC PANEL globulin 3.5 g/dL_ (calc ) 1.9-3. 7 normal Not Available [facility] [address], [place], [address], 05/11/2023 08:21:21 05/10/20 23 05/11/2023 COMPR EHENS RAMÓN METAB OLIC PANEL albumin/glob ulin ratio 1.3 (calc ) 1.0-2. 5 normal Not Available [facility] [address], [place], [address], 05/11/2023 08:21:21 05/10/20 23 05/11/2023 COMPR EHENS RAMÓN METAB OLIC PANEL bilirubin, total 0.6 mg/dL 0.2-1. 2 normal Not Available [facility] [address], [place], [address], 05/11/2023 08:21:21 05/10/20 23 05/11/2023 COMPR EHENS RAMÓN METAB OLIC PANEL alkaline phosphatase 67 U/L 31-125 normal Not Available [facility] [employer] [facility] [address], [place], [address], 05/11/2023 08:21:21 05/10/20 23 05/11/2023 COMPR EHENS RAMÓN METAB OLIC PANEL AST 36 U/L 10-30 high Not Available [facility] [place] [facility] [address] [place], [address], 05/11/2023 08:21:21 05/10/20 23 05/11/2023 COMPR EHENS RAMÓN METAB OLIC PANEL ALT 62 U/L 6-29 high Not Available [facility] [place] [facility] [address], [place], [address], 05/11/2023 08:21:21 05/10/2005/11/2023 HEMOG LOBIN A1C hemoglobin [...] anahy(A DA). Not Available [facility] [place] [facility] [address], [place], [address], 05/11/2023 08:21:23 05/10/20 23 05/11/2023 TSH W/REF YAS TO FT4 TSH w/reflex to FT4 0.78 mIU/L normal Refer ence Range > or = 20 Years 0.40- 4.50 Pregn dagmar Range s First trime ster 0.26- 2.66 Secon d trime ster 0.55- 2.73 Third trime ster 0.43- 2.91 Not Available [facility] [address], [place], [address], 05/11/2023 08:21:24 05/10/20 23 05/11/2023 CBC (INCL UDES DIFF/ PLT) white blood cell count 6.8 thous and/u L 3.8-10 .8 normal Not Available [facility] [address], [place], [address], 05/11/2023 08:21:25 05/10/2005/11/2023 CBC (INCL UDES DIFF/ PLT) red blood cell count 4.33 cari on/uL 3.80-5 .10 normal Not Available [facility] [address], [place], [address], 05/11/2023 08:21:25 05/10/20 23 05/11/2023 CBC (INCL UDES DIFF/ PLT) hemoglobin 13.0 g/dL 11.7-1 5.5 normal Not Available [facility] [address], [place], [address], 05/11/2023 08:21:25 05/10/2005/11/2023 CBC (INCL UDES DIFF/ PLT) hematocrit 38.9 % 35.0-4 5.0 normal Not Available [facility] [address], [place], [address], 05/11/2023 08:21:25 05/10/2005/11/2023 CBC (INCL UDES DIFF/ PLT) MCV 89.8 fL 80.0-1 00.0 normal Not Available [facility] [address], [place], [address], 05/11/2023 08:21:25 05/10/2005/11/2023 CBC (INCL UDES DIFF/ PLT) MCH 30.0 pg 27.0-3 3.0 normal Not Available [facility] [address], [place], [address], 05/11/2023 08:21:25 05/10/2005/11/2023 CBC (INCL UDES DIFF/ PLT) MCHC 33.4 g/dL 32.0-3 6.0 normal Not Available [facility] [address], [place], [address], 05/11/2023 08:21:25 05/10/2005/11/2023 CBC (INCL UDES DIFF/ PLT) RDW 11.6 % 11.0-1 5.0 normal Not Available [facility] [address], [place], [address], 05/11/2023 08:21:25 05/10/2005/11/2023 CBC (INCL UDES DIFF/ PLT) platelet count 278 thous and/u L 140-40 0 normal Not Available [facility] [address], [place], [address], 05/11/2023 08:21:25 05/10/2005/11/2023 CBC (INCL UDES DIFF/ PLT) MPV 9.3 fL 7.5-12 .5 normal Not Available [facility] [address], [place], [address], 05/11/2023 08:21:25 05/10/2005/11/2023 CBC (INCL UDES DIFF/ PLT) absolute neutrophils 3706 cells /uL 1500-7 800 normal Not Available [facility] [address], [place], [address], 05/11/2023 08:21:25 05/10/2005/11/2023 CBC (INCL UDES DIFF/ PLT) absolute lymphocytes 2496 cells /uL 850-39 00 normal Not Available [facility] [place] [facility] [address], [place], [address], 05/11/2023 08:21:25 05/10/2005/11/2023 CBC (INCL UDES DIFF/ PLT) absolute monocytes 469 cells /uL 200-95 0 normal Not Available [facility] [place] [facility] [address], [place], [address], 05/11/2023 08:21:25 05/10/2005/11/2023 CBC (INCL UDES DIFF/ PLT) absolute eosinophils 109 cells /uL 15-500 normal Not Available [facility] [place] [facility] [address], [place], [address], 05/11/2023 08:21:25 05/10/2005/11/2023 CBC (INCL UDES DIFF/ PLT) absolute basophils 20 cells /uL 0-200 normal Not Available [facility] [place] [facility] [address], [place], [address], 05/11/2023 08:21:25 05/10/20 23 05/11/2023 CBC (INCL UDES DIFF/ PLT) neutrophils 54.5 % normal Not Available [facility] [address], [place], [address], 05/11/2023 08:21:25 05/10/2005/11/2023 CBC (INCL UDES DIFF/ PLT) lymphocytes 36.7 % normal Not Available [facility] [place] [facility] [address], [place], [address], 05/11/2023 08:21:25 05/10/20 23 05/11/2023 CBC (INCL UDES DIFF/ PLT) monocytes 6.9 % normal Not Available [facility] [place] [facility] [address], [place], [address], 05/11/2023 08:21:25 05/10/20 23 05/11/2023 CBC (INCL UDES DIFF/ PLT) eosinophils 1.6 % normal Not Available [facility] [address], [place], [address], 05/11/2023 08:21:25 05/10/20 23 05/11/2023 CBC (INCL UDES DIFF/ PLT) basophils 0.3 % normal Not Available [facility] [address], [place], [address], 05/11/2023 08:21:25 05/10/2005/11/2023 URINA LYSIS , COMPL ETE W/REF YAS TO CULTU RE color YELLOW yellow normal Not Available [facility] [address], [place], [address], 05/11/2023 08:21:26 05/10/2005/11/2023 URINA LYSIS , COMPL ETE W/REF YAS TO CULTU RE appearance CLEAR clear normal Not Available [facility] [address], [place], [address], 05/11/2023 08:21:26 05/10/2005/11/2023 URINA LYSIS , COMPL ETE W/REF YAS TO CULTU RE specific gravity 1.019 1.001- 1.035 normal Not Available [facility] [address], [place], [address], 05/11/2023 08:21:26 05/10/2005/11/2023 URINA LYSIS , COMPL ETE W/REF YAS TO CULTU RE pH 5.5 5.0-8. 0 normal Not Available [facility] [address], [place], [address], 05/11/2023 08:21:26 05/10/2005/11/2023 URINA LYSIS , COMPL ETE W/REF YAS TO CULTU RE glucose NEGATI VE negati ve normal Not Available [facility] [place] [facility] [address], [place], [address], 05/11/2023 08:21:26 05/10/20 23 05/11/2023 URINA LYSIS , COMPL ETE W/REF YAS TO CULTU RE bilirubin NEGATI VE negati ve normal Not Available [facility] [place] [facility] [address], [place], [address], 05/11/2023 08:21:26 05/10/2005/11/2023 URINA LYSIS , COMPL ETE W/REF YAS TO CULTU RE ketones NEGATI VE negati ve normal Not Available [facility] [place] [facility] [address], [place], [address], 05/11/2023 08:21:26 05/10/2005/11/2023 URINA LYSIS , COMPL ETE W/REF YAS TO CULTU RE occult blood NEGATI VE negati ve normal Not Available [facility] [place] [facility] [address], [place], [address], 05/11/2023 08:21:26 05/10/20 23 05/11/2023 URINA LYSIS , COMPL ETE W/REF YAS TO CULTU RE protein NEGATI VE negati ve normal Not Available [facility] [place] [facility] [address], [place], [address], 05/11/2023 08:21:26 05/10/2005/11/2023 URINA LYSIS , COMPL ETE W/REF YAS TO CULTU RE nitrite NEGATI VE negati ve normal Not Available [facility] [place] [facility] [address], [place], [address], 05/11/2023 08:21:26 05/10/2005/11/2023 URINA LYSIS , COMPL ETE W/REF YAS TO CULTU RE leukocyte esterase NEGATI VE negati ve normal Not Available [facility] [place] [facility] [address], [place], [address], 05/11/2023 08:21:26 05/10/2005/11/2023 URINA LYSIS , COMPL ETE W/REF YAS TO CULTU RE WBC NONE SEEN /hpf < or = 5 normal Not Available [facility] [place] [facility] [address], [place], [address], 05/11/2023 08:21:26 05/10/2005/11/2023 URINA LYSIS , COMPL ETE W/REF YAS TO CULTU RE RBC NONE SEEN /hpf < or = 2 normal Not Available [facility] [place] [facility] [address], [place], [address], 05/11/2023 08:21:26 05/10/2005/11/2023 URINA LYSIS , COMPL ETE W/REF YAS TO CULTU RE squamous epithelial cells 0-5 /hpf < or = 5 Not Available [facility] [place] [facility] [address], [place], [address], 05/11/2023 08:21:26 05/10/20 23 05/11/2023 URINA LYSIS , COMPL ETE W/REF YAS TO CULTU RE bacteria NONE SEEN /hpf none seen normal Not Available [facility] [place] [facility] [address], [place], [address], 05/11/2023 08:21:26 05/10/2005/11/2023 URINA LYSIS , COMPL ETE W/REF YAS TO CULTU RE hyaline cast NONE SEEN /lpf none seen normal Not Available [facility] [place] [facility] [address], [place], [address], 05/11/2023 08:21:26 05/10/20 23 05/11/2023 URINA LYSIS , COMPL ETE W/REF YAS TO CULTU RE note This urine was lynnette zed for the prese nce of WBC, RBC, bacte brad, casts , and other forme d eleme nts. Only those eleme nts seen were repor marco. Not Available [facility] [place] [facility] [address], [place], [address], 05/11/2023 08:21:26 05/10/20 23 05/11/2023 REFLE XIVE URINE CULTU RE reflexive urine culture NO CULTU RE INDIC ATED Not Available [facility] [place] [facility] [address], [place], [address], 05/11/2023 08:21:27 05/10/20 23 05/11/2023 VITAM IN B12/F OLATE , SERUM PANEL vitamin B12 985 pg/mL 200-11 00 normal Not Available [facility] [place] [facility] [address], [place], [address], 05/11/2023 08:21:28 05/10/20 23 05/11/2023 VITAM IN B12/F OLATE , SERUM PANEL folate, serum 17.5 NG/mL normal Refer ence Range Low: <3.4 Borde rline : 3.4-5 .4 Radha l: >5.4 Not Available [facility] [place] [facility] [address], [place], [address], 05/11/2023 08:21:28 04/25/20 23 04/13/2023 MAMMO , scree vicky, digit al, bilat eral No observ ation record ed. [email or web address] [facility] [address], [place], [address], 05/23/2023 17:47:53 07/30/19 24 04/30/2023 elect angelina sanchezgr am No observ ation record ed. [email or web address] Not Available 07/19 21:22:47 Result Notes Documentation Provider Name and Address Organization Details Recorded Time Mammo, Screening, Digital, Bilateral : BIRADs 1 Deogracias Humphrey Paul Jr [employer] [address], [place], [address], [facility] 05/23/2023 17:47:53 Problems Name Problem SNOMED Code Status Onset Date Resolution Date Notes Provider Name and Address Organization Details Recorded Time Gastroesopha geal reflux disease 370013363 Active 2019 Zayda Perales [employer] [address], [place], [address], [facility] 0 07:48:26 Metabolic dysfunction- associated steatohepati tis 477848427 Active 2020 Zayda Perales [employer] [address], [place], [address], [facility] 1 09:32:08 Vitamin D deficiency 02571004 Active 2020 Mine Serna APRN [address], [place], [address], [facility] 1 20:01:27 Liver enzymes outside reference range 665953026 Active 2012 Isidromarlonshola Paul Jr [employer] [address], [place], [address], [facility] 3 20:34:27 Mixed hyperlipidem ia 447850286 Active 2021 Derandy Paul Jr [employer] [address], [place], [address], [facility] 2 13:02:18 Plantar fasciitis 279699070 Active 2021 Isidroogrshola Paul Jr [employer] [address], [place], [address], [facility] 2 13:02:20 Problem Notes None recorded. Procedures Surgical History Date Name Laterality Status Provider Name and Address Organization Details Recorded Time 08/07/19 24 Transitional Care- Med Reconciliation completed Deogracias Humphrey Bucknerjessee Peter [employer] [address] [facility] [address], [place], [address], [place] [facility] [place] [facility] [place] 08/07/2023 21:21:40 05/22/19 24 Transitional Care- Med Reconciliation completed Deogracias Humphrey Bucknerjessee Peter [employer] [address] [facility] [address], [place], [address], [place] [facility] [place] [facility] [place] 05/23/2023 17:59:07 09/19/19 23 Transitional Care- Med Reconciliation completed Deogracias Humphrey Bucknerjessee Peter [employer] [address] [facility] [address], [place], [address], [place] 09/18/2022 11:14:10 05/15/20 22 PCMH completed Gabriela Tyson [place] 05/15/2022 06:53:14 04/10/20 22 PCMH cancelled Gabriela Tyson [place] 04/10/2022 10:34:01 02/17/20 22 PC[facility] completed Gabriela Tyson [place] 02/14/2022 06:47:01 01/03/20 22 PCMH completed Deogracias Humphrey Sitajessee Peter [employer]NAGER [employer] [address] [facility] [address],[address], [place], [address], [place] [facility] [place] 01/02/2022 10:39:25 10/10/19 22 PC[facility] cancelled Lacy Bargeron [place] 10/05/2021 15:16:18 09/05/19 22 PCMH completed Lacy Bargeron [place] 08/29/2021 17:01:18 07/06/19 22 PCMH completed Lacy [place]geron [place] 07/06/2021 09:11:34 05/25/19 22 Date of Last Pap Smear completed Yannick Graff [place] [facility] [place] 12/20/2022 13:56:19 05/10/20 21 PCMH completed Lacy [place]geron [place] 05/10/2021 09:09:13 12/22/20 21 SDOH completed Lacy Hollingsworth [place] [facility] [place] 05/09/2021 07:40:53 03/30/20 Special Note completed Sujatha Schmitz MD [address], [place], [address], [place] [facility] [place] 03/30/2021 10:14:26 02/09/20 PCMH completed Lacyjena Clayon [place] 02/07/2021 12:42:05 01/10/20 PCMH cancelled Lacyjena Clayon [place] 01/06/2021 15:54:20 01/10/20 SDOH cancelled Lacy Hollingsworth [place] 01/06/2021 15:54:22 12/08/19 PCMH cancelled Gabriela Tyson [place] 12/07/2020 12:26:38 04/29/20 PCM completed Lacy Hollingsworth [place] 04/28/2020 16:16:13 Dilation and Cureattage completed Cecelia Tavarez [place] [facility] 10/31/2021 14:48:30 Gallbladder Surgery completed Gabriela Tyson [place] 04/29/2020 08:22:55 Imaging Results Imaging Date Name Status LastModified by Organization Details LastModified Time 04/13/2023 MAMMO, screening, digital, bilateral completed adeogracias [facility] [address], [place], [address], 05/23/2023 17:47:53 04/30/2023 electrocardiogram completed [email or web address] Inform [...] cm 114 mm[Hg] 70 mm[Hg] Justin Lindsey [facility] 09/18/2022 10:05:37 Date Recorded Body height Body mass index (BMI) Body weight Heart rate Respiratory rate Oxygen saturation Oxygen saturation in Arterial blood by Pulse oximetry Body temperature Pain severity - 0-10 verbal numeric rating [Score] - Reported Systolic blood pressure Diastolic blood pressure Provider Name and Address Organization Details Last Updated DateTime 3 162.56 cm 32.3 kg/m2 57376.3 7 g 65 /min 16 /min 98 % 98 % 98.1 [degF] 0 124 mm[Hg] 88 mm[Hg] JOSE L Tejeda [facility] 3 14:21:27 Date Recorded Body height Body mass index (BMI) Body weight Pain severity - 0-10 verbal numeric rating [Score] - Reported Body temperature Respiratory rate Heart rate Systolic blood pressure Diastolic blood pressure Provider Name and Address Organization Details Last Updated DateTime 3 162.56 cm 31.6 kg/m2 05558 g 0 98.2 [degF] 16 /min 76 /min 122 mm[Hg] 80 mm[Hg] [facility] 3 13:58:04 Date Recorded Body height Body mass index (BMI) Body weight Pain severity - 0-10 verbal numeric rating [Score] - Reported Body temperature Oxygen saturation Oxygen saturation in Arterial blood by Pulse oximetry Heart rate Respiratory rate Systolic blood pressure Diastolic blood pressure Provider Name and Address Organization Details Last Updated DateTime 4 162.56 cm 32.7 kg/m2 10519.6 5 g 0 98.6 [degF] 98 % 98 % 85 /min 16 /min 138 mm[Hg] 79 mm[Hg] [facility] 4 11:01:27 Date Recorded Body height Body mass index (BMI) Body weight Heart rate Respiratory rate Body temperature Pain severity - 0-10 verbal numeric rating [Score] - Reported Provider Name and Address Organization Details Last Updated DateTime 4 162.56 cm 32.2 kg/m2 49415.5 7 g 74 /min 16 /min 98.6 [degF] 0 [facility] 4 10:25:11 Date Recorded Oxygen saturation Oxygen saturation in Arterial blood by Pulse oximetry Systolic blood pressure Diastolic blood pressure Provider Name and Address Organization Details Last Updated DateTime 08/07/2023 98 % 98 % 130 mm[Hg] 84 mm[Hg] Deogracias Humphrey Paul [employer] [address], [place], [address] 4 21:40:46 Social History Question Answer Notes LastModified by Organizat ion Details LastModified Time Tobacco Smoking Status Never Smoker [facility] 08/07/2023 10:03:51 Do You Have An Advance Directive? No [email or web address] Information not available 12/20/2022 Is Your Home Air Conditioned? Yes Information not available 05/22/2023 What Is Your Level Of Alcohol Consumption? Occasional [email or web address] Information not available 08/07/2023 How Many Times Per Week Do You Consume Alcohol? 1-2 Times Per Week Information not available 02/08/2021 How Many Years Have You Consumed Alcohol? 3 [email or web address] Information not available 04/10/2022 Are You Currently Sexually Active With Anyone Who Has Traveled (within The Last 12 Weeks) To A Zika-affected Area? No Information not available 05/22/2023 Do You Wear A Helmet When Biking? Yes Information not available 05/22/2023 Are You Blind Or Do You Have Difficulty Seeing? No Information not available 08/07/2023 Is Blood Transfusion Acceptable In An Emergency? Yes [email or web address] Information not available 08/07/2023 What Is Your Level Of Caffeine Consumption? Occasional [email or web address] Information not available 12/20/2022 How Much Tobacco Do You Chew? None [email or web address] Information not available 04/29/2020 What Type Of Can Cutter Do You Use? [employer] Information not available [...] E-cigarettes Or Vape? Never Used Electronic Cigarettes [email or web address] Information not available 04/29/2020 What Is The Highest Grade Or Level Of School You Have Completed Or The Highest Degree You Have Received? [id number] [email or web address] Information not available 12/20/2022 Do You [...] not available 05/22/2023 Where Do You Live? [facility] Information not available 05/22/2023 Live Alone Or With Others? With Others Information not available 05/22/2023 Patient Would Like A Flu Shot Yes Information not available 05/10/2021 Please List The Date The Patient Received The Flu Shot 01/19/2020 [email or web address] Information not available 05/25/2021 Please List The Location Where The Patient Re[facility] The Flu Shot [facility] [email or web address] Information not available 05/25/2021 Patient Interested In Colorectal Cancer Screening No [email or web address] Information not available 04/29/2020 Do You Want Help Finding Or Keeping Work Or A Job? No [email or web address] Information not available 04/29/2020 Do You Want Help With School Or Training? For Example, Starting Or Completing Job Training Or Getting A High School Diploma, GED, Or Equivalent No Information not available 04/29/2020 In The Last 12 Months Did You Ever Eat Less Than You [place] You Should Because There Wasn? t Enough Money For Food? No [email or web address] Information not available 04/29/2020 In The Past 12 Months Has The [employer], Gas, Oil, Or Water [employer] Threatened To Shut Off Services In Your Home? No [email or web address] Information not available 04/29/2020 In The Last 12 Months Did You Skip Medications To Save Money? No Information not available 04/29/2020 In The Last 12 Months, Was There A Time When You Needed To See A Doctor But Could Not Because Of Cost? No [email or web address] Information not available 04/29/2020 Do You Often Feel Lonely? No [email or web address] Information not available 04/29/2020 Do You Want Help With Any Of Your Needs? No [email or web address] Information not available 04/29/2020 Are Any Of Your Needs Urgent? No [email or web address] Information not available 04/29/2020 Are You Worried That In The Next 2 Months You May Not Have Stable Housing? No [email or web address] Information not available 04/29/2020 In The Last 12 Months, Have You Ever Had To Go Without Health Care Because You Didn? t Have A Way To Get There? No Information not available 04/29/2020 Do You Feel Physically And Emotionally Unsafe Where You Currently Live? No [email or web address] Information not available 04/29/2020 Have You Had A Fever And/or Symptoms Of A Lower Respiratory Illness (cough, Difficulty Breathing, Etc)? No Information not available 04/29/2020 Have You Had Any Of These Symptoms: Chills ,Headache, Fatigue, Muscle Or Body Aches , Sore Throat, New Loss Of Taste Or Smell, Nausea Or Vomiting, Or Diarrhea? No [email or web address] Information not available 04/29/2020 Have You Had A COVID-19 Vaccine In The Last 7 Days? No Pt Declined Information not available 04/29/2020 Has The Patient [...] No Information not available 05/22/2023 [email or web address] not available 05/22/2023 What Was The Date Of Your Most Recent Tobacco Screening? 08/07/2023 [email or web address] Information not available 08/07/2023 How Many Children Do You Have? 5 [email or web address] Information not available 04/29/2020 Have You Ever Been Counseled For Unhealthy Alcohol Use? No Information not available 05/22/2023 Performs Monthly Self-breast Exam? No Information not available 05/22/2023 Do You Have Any Pets? No Information not available 05/22/2023 What Is Your Relationship Status? [email or web address] Information not available 08/07/2023 Do You Use [...] Used Smokeless Tobacco? Never Used Smokeless Tobacco [email or web address] Information not available 04/29/2020 Are There Any Smokers In Your House? No Information not available 05/22/2023 How Much Tobacco Do You Smoke? No Information not available 08/07/2023 What Types Of Sporting Activities Do You Participate In? None Information not available 05/22/2023 Do You Feel Stressed (tense, Restless, Nervous, Or Anxious, Or Unable To Sleep At Night)? [id number] Information not available 05/22/2023 Do You Use Any Illicit Or Recreational Drugs? No [email or web address] Information not available 12/20/2022 Do You Use Sunscreen Routinely? No Information not available 05/22/2023 Has Tobacco Cessation Counseling Been Provided? No Information not available 02/08/2021 How Many Years Have You Smoked Tobacco? 0 [email or web address] Information not available 08/07/2023 Do You Have [...] quadrivalent, PF 05/10/2021 completed Zayda Perales APRN [address], [place], [address], [facility] - [facility] 05/10/2021 09:33:44 Past Encounters Encounter ID Performer Location Encounter Start Date Encounter Closed Date Diagnosis/Indication Diagnosis SNOMED-CT Code Diagnosis ICD10 Code Diagnosis Note [id number] Zayda Perales APRN zCLSD_SVP E_PRIMARY [facility] [facility] [address] [place] [address] 04/29/2020 08:13:49 04/29/2020 09:07:40 Advance directive discussed with patient 985256844 Z71.89 Depression screening 171 634166 Z13.31 10 ? 14 Moderate Treatment plan, considerin g counseling , follow-up and/or pharmacoth [facility] edu cation given 982518604 Z71.9 Body mass index 30+ - obesity 147097374 Z68.32 bmi 32.5, -Weight management and healthy lifestyle choices discussed with pt. Adult [facility] th examination 590872863 Z00.00 -Wellness exam completed. -Multiphas ic lab work ordered. Hyperlipid emia screening 605851787 Z13.220 Diabetes m ellitus screening 825508071 Z13.1 Thyroid di sorder screening 016575894 Z13.29 Screening for malignant neoplasm of cervix 376548745 Z12.4 -Last pap smear 08/06 with normal findings, prior was HPV positive. Fatigue 45926620 R53.83 Hepatitis C screening 41 7166551 Z11.59 The USPSTF recommends screening for hepatitis C virus (HCV) infection in persons at high risk for infection. The USPSTF also recommends offering one-time screening for HCV infection to adults born between 1945 and 1965. [id number] KODAK SerranoCLSByron_SVP E_PRIMARY [facility] [address] [place] [address] 02/08/2021 08:25:05 02/08/2021 09:37:00 Health education given 873719988 Z71.9 Depression screening 171 007682 Z13.31 10 ? 14 Moderate Treatment plan, considerin g counseling , follow-up and/or pharmacoth erapy Body mass index 30+ - obesity 200290055 Z68.31 bmi 31.5, -Weight management and healthy lifestyle choices discussed with pt. Pain of ri ght hip joint 6467357952 05218 M25.551 -Advised pt to gently stretch daily.-Adv ised pt to get xray completed. -Will treat pt's symptoms and advised pt will need to f/u with Orthopedic s if symptoms do not improve. Screening for malignant neoplasm of cervix 927328507 Z12.4 [id number] Sujatha MARTINEZPE_OBGY N_SS_MONU [address] [address] 03/09/2021 08:47:26 03/09/2021 10:02:48 Gynecologic examination 72505195 Z01.419 -Cervical cancer screening collected -Screening labs (HIV, RPR) ordered -Age-appro priate counseling conducted including importance of self-breas t awareness as well as diet & exercise -Follow-up in 1 year for annual well-woman examinatio n or sooner PRN Venereal d isease screening 900166993 Z11.3 Body mass index 30+ - obesity 916805079 Z68.31 Pain in pelvis 96814749 R10.2 -Discussed need for a BOOK TRIMMER ultrasound to evaluate pelvis for potential causes of pain -Follow-up for next available BOOK TRIMMER ultrasound appointmen t followed by a return BOOK TRIMMER visit to discuss findings and plan of care Dysmenorrhea 481601647 N 94.6 Vaginal discharge 919393 006 N89.8 [id number] Sujatha Schmitz MD SVPE_OBGY N_SS_MONU [place] [address] [place] [address] [address] [place] [address] 03/30/2021 09:23:52 03/30/2021 10:21:41 Body mass index 30+ - obesity 094936540 Z68.31 Pain in pelvis 01165843 R10.2 -Reviewed BOOK TRIMMER ultrasound findings of a very small uterine [...] and/or procedures and documentin g visit Dysmenorrhea 090739012 N 94.6 Uterine leiomyoma 170106 05 D25.9 [id number] Manuel Blas MD zCLSD_SVP E_PRIMARY [facility] [facility] [address] [place] [address] 05/10/2021 08:47:06 05/10/2021 09:37:52 Adult health examination 093314432 Z00.00 -Wellness exam completed. -Multiphas ic lab work ordered. Hyperlipid emia screening 832350197 Z13.220 Diabetes m ellitus screening 642117344 Z13.1 Thyroid di sorder screening 498650864 Z13.29 Screening for malignant neoplasm of cervix 964546724 Z12.4 -Last pap smear needs repeat with Dr. Schmitz. Pt has future appt. made. Fatigue 22177891 R53.83 Administra tion of influenza vaccine 18994075 Z23 Depression screening 171 814287 Z13.31 Negative Body mass index 30+ - obesity 013620638 Z68.32 bmi 32.4, -Weight management and healthy lifestyle choices discussed with pt. Metabolic dysfunction-associate d steatohepatitis 561693481 K75.81 [id number] Sujatha Schmitz MD SVPE_OBGY N_SS_[facility]U [facility] [address] [facility] [address] [place] [address] 05/25/2021 10:46:54 05/25/2021 12:01:37 Cervicovaginal cytology specimen unsatisfactory 634986372 R87.615 -Repeat pap collected and results to be shared with patient once available- Follow-up PRN Body mass index 30+ - obesity 016655849 Z68.32 [id number] Reinaldo Horton MD zCLSD[facility]SVP E[facility]PRIMARY [facility] [address] [place] [address] 07/06/2021 09:08:57 07/06/2021 12:04:02 Health education given 673425593 Z71.9 Pain of ri ght hip joint 1352347177 30267 M25.551 -Advised pt to f/u with Orthopedic s as pain has persisted for several months.-Ri ght hip xary is inconclusi ve, advised pt to most likely radiating off of left lumbar spine. Pt denies lumbar pain.-Advi sed pt to ice and use conservati ve measures. [id number] Reinaldo Horton MD zCLSD_SVP E_[facility] _[facility] N [address] [facility] [place] [address] 09/04/2021 11:08:05 09/04/2021 11:51:41 Mixed anxiety and depressive disorder 387927357 F41.8 12- Moderate Treatment plan, considerin g counseling , follow-up and/or pharmacoth erapy.-Pt denies SI/HI.-Adv ised pt to f/u with [facility].-Advi sed pt to call office if condition worsens, high suspicion for need to increase dosage. Health edu cation given 285748143 Z71.9 Body mass index 30+ - obesity 145204239 Z68.33 bmi 33.2-Weigh t management and healthy lifestyle choices discussed with pt. Pain of ri ght hip joint 0029348493 02993 M25.344 [id number] TATUM CARDONA CNM, MARGARITA SVPE_OBGY N_SS_[facility] [address] [facility], [address] [place] [address] 10/31/2021 14:06:30 10/31/2021 15:35:59 Body mass index 30+ - obesity 280719928 Z68.32 Pain in pelvis 76598226 R10.2 [id number] Reba Fields r ACCOUNTS PAYABLE TECHNICIAN zCLSD_SVB H_[facility] _[facility] [id number] [place] [address] 11/01/2021 10:36:08 11/01/2021 12:30:02 [id number] Deogracias Remandaban Sitaila Jr MANAGER [employer]Y zCLSD_SVP E_PRIMARY [facility] [address] [place] [address] 01/02/2022 09:47:29 01/02/2022 10:35:01 Health education given 743751644 Z71.9 Continue heart healthy lifestyle to include low-fat diet, low-sodium diet, regular physical activity, maintain optimal weight, and avoid all tobacco/ni cotine products. Body mass index 30+ - obesity 687401612 Z68.33 BMI 33.7 Plantar fa sciitis of right foot 6590465997 0414343 M72.2 Intermitte nt (R) Heel pain concerning [...] shoe inserts (arch supports and/or heel cups).-Con rail car maintenance mechanic molded shoe inserts (orthotics ); night splints; or Immobiliza tion with a cast.-Decr easing physical activities that are suggested by the medical history to be causative or aggravatin g (eg, excessive running, dancing, or jumping).P rovided hand-outs on plantar fasciitis care. If medication , rest, and ice don't help enough, will consider physical therapist. Screening for disorder 235333487 Z13.9 Will update with multiphasi c labs Vitamin D deficiency 347 25541 E55.9 Non-alcoho lic fatty liver 282583701 K76.0 Gastroesop hageal reflux disease 470938187 K21.9 [id number] Reba Crewsermiassara burr ACCOUNTS PAYABLE TECHNICIAN zCLSD_SVB H_BE[facility]AVRL _[facility] [id number] [place] [address] 12/04/2021 14:47:07 12/04/2021 15:59:16 [id number] Reba Crewsermiassara aminah ACCOUNTS PAYABLE TECHNICIAN zCLSD_SVB H_[facility] _[facility] [id number] [place] [address] 01/08/2022 15:37:43 01/08/2022 16:57:44 [id number] Deogracias Remandaban Humberto Jr MANAGER PARTY zCLSD_SVP E_PRIMARY [facility] [facility] [address] [place] [address] 02/16/2022 10:14:17 02/16/2022 10:27:21 Health education given 443233288 Z71.9 Continue heart healthy lifestyle to include low-fat diet, low-sodium diet, regular physical activity, maintain optimal weight, and avoid all tobacco/ni cotine products. Liver enzy mes outside reference range 678990150 R94.5 Elevated Liver Enzymes -followed by GI. Previous h/o of ETOH use, she has stopped drinking alcohol. Liver US done last year showing fatty Liver. Followed by Gastro. Metabolic dysfunction-associate d steatohepatitis 798840801 K75.81 Followed by GI. Next visit in 3 weeks. Mixed hyperlipidemia 267 343518 E78.2 Lipid panel is stable and WNL. LDL very slightly elevated at 103. The rest of her cholestero l panels are normal. Abnormal urinalysis 1672 97994 R82.90 UA (+) for trace leukocytes . Reflex urine culture showing mixed eduardo likely from non-midstr eam, contaminat ed urine sampling. Patient has no urinary habit change, denies any UTI symptoms. Plantar fasciitis 270423 003 M72.2 Currently using shoe inserts to help alleviate plantar foot pain. Patient reports pain is temporaril y improved with as needed NSAIDs and orthotics. Referral has been sent to Podiatry for evaluation of need of supportive arched shoes and orthotics. [id number] Deogracias Angelicadanielle Humberto Jr BUCHANANN zCLSD_SVP E_PRIMARY [facility] [address] [place] [address] 05/15/2022 09:40:13 05/15/2022 11:08:20 Health education given 147847003 Z71.9 Continue heart healthy lifestyle to include low-fat diet, low-sodium diet, regular physical activity, maintain optimal weight, and avoid all tobacco/ni cotine products. Adult heal th examination 644525095 Z00.01 Data has been collected and reviewed [...] ups. Body mass index 30+ - obesity 728788794 Z68.33 BMI 33.4. Obese. Liver enzy mes outside reference range 897033585 R94.5 Previous h/o of ETOH use, she has stopped drinking alcohol. Liver US done last year showing fatty Liver. Followed by Gastro, recent Abdl MRI unremarkab le. Metabolic dysfunction-associate d steatohepatitis 478740988 K75.81 Followed by GI. Next visit in 3 weeks. Vitamin D deficiency 347 50076 E55.9 Screening for cardiovascular system disease 078065867 Z13.6 Will update with multiphasi c screen for next visit. Diabetes m ellitus screening 248402501 Z13.1 [id number] Deogracias Humphrey Paul Jr, APRN zCLSD_SVP E_PRIMARY [facility] N [address] [place] [address] 08/13/2022 11:58:58 08/13/2022 12:41:51 Health education given 447678520 Z71.9 Continue heart healthy lifestyle to include low-fat diet, low-sodium diet, regular physical activity, maintain optimal weight, and avoid all tobacco/ni cotine products. Vitamin D deficiency 347 54883 E55.9 Vit D level at 21 (from 43). Restarted on high dose Vit D replacemen t weekly. Liver func tion tests outside reference range 813176732 R94.5 Repeat AST 78 (from 152) and ALT 86 (from 228). Followed by GI. Previous h/o of ETOH use, she has stopped drinking alcohol. Lipid panel improved.L iver US done last year showing fatty Liver. Abnormal urinalysis 1672 53713 R82.90 Reflex urine culture showing mixed eduardo. Patient denies of any recent UTI symptoms. Mixed hyperlipidemia 267 380869 E78.2 Repeat Lipid panel is stable same as previous results. LDL very slightly elevated at 114 and non-HDL 134. The rest of her cholestero l panels are normal. [id number] Deogracias Humphrey Paul Jr, APRN zCLSD_SVP E_PRIMARY _[facility] N [address] [place] [address] 09/18/2022 09:57:38 09/18/2022 11:19:41 Migraine 43669770 G43.909 Referral to Neurology updated. Advised patient having a migraine diary, observing what triggers migraine attack and what measures provide relief. Reviewed therapeuti c lifestyle measures including good sleep hygiene, routine meal schedules, appropriat e diet, adequate hydration, regular exercise, and avoidance of migraine triggers. She was provided handouts for migraine care at ED. Transition of care 10199 06597 105 Z75.8 Reviewed ED discharge summary and reconciled current medication s. Discussed compliance to meds as prescribed , as well as need for follow-up to monitor drug effects and side effects, draw blood panels if needed and adjust medication s as appropriat e. [id number] Deogracias Remandaban Humberto Peter MANAGER PARTY zCLSD_SVP E_PRIMARY [facility] [address] [place] [address] 12/17/2022 14:14:16 12/17/2022 17:09:24 Transition of care 3489068936 105 Z75.8 Reviewed ED discharge summary and reconciled current medication s. Discussed compliance to meds as prescribed , as well as need for follow-up to monitor drug effects and side effects, draw blood panels if needed and adjust medication s as appropriat e. Cervical radiculopathy 66304422 M54.12 XR Spine Cervical ER Routine Osseous structures : No acute abnormalit y identified . No evidence for fracture. Degenerati ve changes of the cervical spine with osteophyte formation at C4-C5 C5-C6 and C6-C7.*No acute process identified .*Mild degenerati ve changes of the spine as above. Pain in right arm 399369 004 M79.601 Discharged on short course oral Prednisone and Ibuprofen as needed. Depression screening 171 132169 Z13.31 PHQ 9 Screening score: 0/27. No Depression . Watchful waiting; repeat PHQ-9 at follow-up. Health edu cation given 829453367 Z71.9 Continue heart healthy lifestyle to include low-fat diet, low-sodium diet, regular physical activity, maintain optimal weight, and avoid all tobacco/ni cotine products. Body mass index 30+ - obesity 901010967 Z68.32 BMI 32.3. Obese. [id number] Sujatha Schmitz MD SVPE_OBGY N_SS_[facility] [address] [facility] [address] [place] [address] 12/20/2022 13:44:38 12/20/2022 14:25:54 Gynecologic examination 20715634 Z01.419 -Cervical ca screening in NILM; after discussion of current guidelines and shared decision-m abisaig, the decision was made to defer cervical [...] below Screening for malignant neoplasm of breast 534403168 Z12.39 [id number] Deogracias Humphrey Paul Jr MANAGER PARTY zCLSD_SVP E_PRIMARY [facility] [address] [place] [address] 05/22/2023 10:32:40 05/22/2023 12:15:41 Health education given 906955760 Z71.1 Continue heart healthy lifestyle to include low-fat diet, low-sodium diet, regular physical activity, maintain optimal weight, and avoid all tobacco/ni cotine products. Depression screening 171 991627 Z13.31 PHQ 9 Screening score: 0/27. No Depression . Watchful waiting; repeat PHQ-9 at follow-up. Adult heal th examination 839534312 Z00.01 Data has been collected and reviewed [...] ups. Liver enzy mes outside reference range 672425026 R94.5 Previous h/o of ETOH use, she has stopped drinking alcohol. Liver US done last year showing fatty Liver. Followed by Gastro, recent Abdl MRI unremarkab le. Metabolic dysfunction-associate d steatohepatitis 419763866 K75.81 Followed by GI. Next visit in 3 weeks. Vitamin D deficiency 347 67116 E55.9 Previous labs showing chronicall y low Vit D, restarted on high dose weekly Vit D3 replacemen t. Screening for cardiovascular system disease 708021036 Z13.6 Will update with multiphasi c screen for next visit. Diabetes m ellitus screening 306947437 Z13.1 Body mass index 30+ - obesity 245279065 Z68.33 BMI 33.4. Obese. Screening mammography of bilateral breasts [id number] 50444 Z12.31 Screening for malignant neoplasm of cervix [id number] Z12.4 Transition of care 75770 90957 105 Z75.8 Reviewed ED discharge summary and reconciled current medication s. Discussed compliance to meds as prescribed , as well as need for follow-up to monitor drug effects and side effects, draw blood panels if needed and adjust medication s as appropriat e. Onychomyco sis of toenails [id number] B35.1 Needs refill of Ciclopirox . Atypical chest pain 1025 73082 R07.89 Patient is scheduled to see Cards on 06/14/23. Mixed hyperlipidemia 267 257446 E78.2 Recent Lipid panel is stable, same as previous results. LDL 108 (from 114), the rest of her cholestero l panels are WNL. Optimizing diet and lifestyle interventi ons. [id number] Deogracias Remandaban Humberto Peter APRN [id number] E_PRIMARY _[place] N [address] [place] [address] 08/07/2023 10:03:21 08/07/2023 11:33:34 Health education given [id number] Z71.1 Continue heart healthy lifestyle to include low-fat diet, low-sodium diet, regular physical activity, maintain optimal weight, and avoid all tobacco/ni cotine products. Generalize d anxiety disorder [id number] F41.1 Patient verbalizes she is aware she [...] relaxation techniques . Vitamin D deficiency 347 74982 E55.9 Previous labs showing chronicall y low Vit D, continued on Vit D3 daily supplement . Mixed hyperlipidemia 267 331533 E78.2 Recent Lipid panel is stable, same as previous results. LDL 108 (from 114), the rest of her cholestero l panels are WNL. Optimizing diet and lifestyle interventi ons. Liver enzy mes outside reference range [id number] R94.5 Previous h/o of ETOH use, she has stopped drinking alcohol. Liver US done last year showing fatty Liver. Followed by Gastro, recent Abdl MRI unremarkab le. Neck pain [id number] M54.2 Cervical radiculopathy 33749844 M54.12 Transition of care 33320 41788 105 Z75.8 Reviewed ED discharge summary and [...] Paz Member ID Guarantor Name 09/18/2022 2 [facility] [place] - [place] ISAAC Sauer Miller- Sandy [id number] Sharron Bhatt Sandy 09/18/2022 1 [place] [id number] Sharron Bhatt- Sandy [id number] Sharron Bhatt Sandy 12/17/2022 2 [facility] ([place] ISAAC Mcdermott Cristiane Bhatt- Sandy [id number] Sharron Bhatt [place] 12/17/2022 1 [place] [id number] Sharron Bhatt- Sandy [id number] Sharron Sandy 12/20/2022 2 [facility] [place]) FLMMA Sharron Sandy [id number] Sharron Sandy 12/20/2022 1 [place] [id number] Sharron Sandy [id number] Sharron Sandy 05/22/2023 1 [place] [id number] Sharron Sandy [id number] Sharron Sandy 05/22/2023 2 [place] [employer] Sharron Sandy [id number] Sharron Sandy 08/07/2023 1 [place] [id number] Sharron Sandy [id number] Sharron Sandy 08/07/2023 2 [place] [employer] Sharron Sandy [id number] Sharron Sandy Notes Date Note Type Note Provider Name and Address Organization Details Recorded Time 09/18/2022 text/html Transition Care [id number] bypatient.Timing:carmelo e of discharge: (09/15/2022) Facility:Facility Type [...] with PCP and Neurologist. Evaristo Paul Jr MANAGER PARTY [address], [place], [address], [facility] - [place] 09/18/2022 11:16:57 12/17/2022 text/html Transition Care [id number] bypatient.Timing:carmelo e of discharge: (12/13/2022) Facility:Facility Type [...] and NSAIDs as needed Evaristo Paul Jr MANAGER PARTY [address], [place], [address], [facility] [place] [facility] 12/17/2022 15:32:13 12/20/2022 text/html Annual GYNReport [...] age 38 Sujatha Schmitz MD [address] [facility] [address], [place], [address], [place] 12/20/2022 19:33:42 05/22/2023 text/html Ms Sandy is [...] pain. Followed by Podiatry. Evaristo Paul Jr MANAGER PARTY [address] [facility] [address], [place], [address], [facility] 05/23/2023 18:10:15 05/22/2023 text/html Annual Wellness Visit [...] normal menses or menopause Evaristo Paul Jr MANAGER PARTY [address], [place], [address], [facility] 05/23/2023 18:10:15 08/07/2023 text/html Transition Care [id number] bypatient.Timing:carmelo e of discharge: (07/30/23) Facility:Facility Type [...] referral and med refills.Patient was seen at [place] [facility] on 07/30/23 with complaints of chest [...] Diagnosis: BANDAR. Neuropathy. Deogracias Humphrey Paul Jr MANAGER PARTY [address], [place], [address], [facility] 08/07/2023 21:47:29 OBGyn Episode No OBEpisode recorded.
--- OUTSIDE RECORDS SUMMARY | 2024-09-22 08:28 | XMS_ITS | Encounter Summary ---
Author Organization [facility] Address [address] [place] [address] Care Team Providers Care Product Design Manager Name Role Phone Virgil Sharp MD Primary Care Provider [phone] Encounter Details Date Type Department Care Team Description 12/02/2019 Release of Information Medical Records [address] [place] [id number] Abstract, Provider Social History Tobacco Use Types [...] on filedocumented in this encounter Care Teams Product Design Manager Relationship Specialty Start Date End Date Virgil Sharp MD [address] [place] [address] PCP - General Internal Medicine 10/12/11 documented as of this encounter
--- OUTSIDE RECORDS SUMMARY | 2024-09-22 08:28 | XMS_ITS | Encounter Summary ---
Author Organization [employer] Address [address] [facility] [address] [place] [address] Care Team Providers Care Entry Table Operator Name Role Phone Pearl Figueroa MD Primary Care Provider + Encounter Details Date Type Department Care Team ([facility] st Contact Info) Description 09/17/2024 Telephone [facility] MED[facility]INE [address] [place] [address] Melisa Loza NP [address] [place] [address] Social History Tobacco Use Types Packs/Day Years [...] encounter Miscellaneous Notes * Telephone Encounter - Bita Edgar RN - 09/17/2024 4:40 PM EDT Please inform her rheumatoid specific labs were normal and does not explain her pain. The ESR and CRP being elevated speaks to inflammation that could be due to a variety of reasons. If symptoms arestill persistent, please schedule follow-up with PCP or team provider for further evaluation T/C to pt. Advised of message from Juan F Loza [employer]. Pt verbalized understanding. Pt states that she is feeling much better now after using motrin and hot patches. States that she has also finished the antibiotics which were rx for UTI. Pt denies urinary symptoms at this time. Pt agrees to call or come to [facility] prn symptoms. documented in this encounter Plan of Treatment Not on file documented as of this encounter Visit Diagnoses Not on filedocumented in this encounter Additional Health Concerns Assessment Noted Time PHQ-9 Depression Total Score: 13 025 10:43 AM EDT documented as of this encounter Care Teams Entry Table Operator Relationship Specialty Start Date End Date Pearl Figueroa MD [address] [place] [address] PCP - General Internal Medicine 02/17/24 documented as of this encounter
--- OUTSIDE RECORDS SUMMARY | 2024-09-22 08:29 | XMS_ITS | Encounter Summary ---
Author Organization [facility] Address [address] [place] [address] Care Team Providers Care Comic Book Writer Name Role Phone Virgil Sharp MD Primary Care Provider [phone] Encounter Details Date Type Department Care Team Description 06/12/2019 Newborn Hearing Screener Report Medical Records [address] [place] [address] Catrachita Mcpherson PA-C Social History Tobacco Use [...] on filedocumented in this encounter Care Teams Comic Book Writer Relationship Specialty Start Date End Date Virgil Sharp MD [address] [place] [address] PCP - General Internal Medicine 10/12/11 documented as of this encounter
--- OUTSIDE RECORDS SUMMARY | 2024-09-22 08:29 | XMS_ITS | Encounter Summary ---
Author Organization [employer] Address [address] [place] [address] [address] [place] [address] Care Team Providers Care Heel Brusher Name Role Phone Pearl Figueroa MD Primary Care Provider + Reason for Visit * Reason Onset Date Comments Medication Question 12/12/2023 Encounter Details Date Type Department Care Team ([facility] st Contact Info) Description 12/12/2023 Telephone [facility] MEDICINE [address] [place] [address] Lisandro Ascencio MD [address] [place] [address] Medication Question Social History Tobacco Use Types [...] Valdivia RN - 12/13/2023 11:29 AM EDT software project manager in [facility] aware and message sent to provider regarding [...] on filedocumented in this encounter Care Teams Heel Brusher Relationship Specialty Start Date End Date Pearl Figueroa MD [address] [place] [address] PCP - General Internal Medicine 02/17/24 documented as of this encounter
--- OUTSIDE RECORDS SUMMARY | 2024-09-22 08:29 | XMS_ITS | Clinical Summary ---
Author Organization [employer] Address [address] [place] [address] [address] [place] [address] Care Team Providers Care Surgical Scrub Technologist Name Role Phone Pearl Figueroa MD [...] 5 025 Discontinued ibuprofen 600 MG tabletIndicati ons:Pain of right hip joint Take 1 tablet (600 mg) by mouth every 6 (six) hours if needed for mild pain or moderate pain for up to 14 days. 56 tablet 5 025 nitrofurantoin , macrocrystal-m onohydrate, [...] Needs repeated pap smear, will refer to [facility] incase she needs colposcopy. Back pain 06/18/2024 [...] for her anxiety. Pt completed intake at [facility] for OP services. Assessment & Plan (02/17/2024 11:23 AM EDT): For many years. We'll refer to [facility] in 2m with labs and see if she wants to start other meds. She feels safe at home and is able to reach out for safety. Encounters * This document contains information received from the source organization and may not represent a complete record from that organization. Date Type Department Care Team Description 09/17/2024 Telephone [facility] [address] [place] [address] Melisa Loza NP 09/15/2024 Telephone [facility] [address] [place] [address] Pearl Figueroa MD 09/14/2024 Telephone [facility] [address] Pearl Figueroa MD Results 09/14/[address] [address] Amina Larkin, ROXANA Error (VOID this visit) 08/28/2024 Orders Only [address] [address] Melisa Loza NP 08/28/[address] [address] Pearl Figueroa MD Lab Orders; Results 08/28/2024 Orders Only [address] [address] Melisa Loza NP 08/26/2024 3:15 PM EDT Office Visit [address] [address] Meilsa Loza NP Arthralgia of both hands (Primary Dx); Chills; Pain of right hip joint; Urinary frequency; Elevated blood pressure reading in office without diagnosis of hypertension 08/25/2024 Travel 08/25/[address] [address] Pearl Figueroa MD 08/21/2024 Travel 08/04/2024 Travel 07/31/2024 Population Health [facility] () [address] [phone] Provider, Population Health Generic 07/27/2024 Travel 07/23/[address] [address] Pearl Figueroa MD Nurse Triage 07/22/2024 Telephone [facility] [address] [place] [address] Malia Cuenca MD 07/21/2024 6:20 PM EST Office Visit [facility] [address] [place] [address] Malia Cuenca MD Acute pain of left shoulder (Primary Dx); Neck pain on left side 07/16/2024 Telephone [facility] [address] [place] [address] Pearl Figueroa MD Appointment Request 07/14/2024 Travel 07/13/2024 Refill [facility] [address] [place] [address] Pearl Figueroa MD 06/26/2024 Travel 06/25/2024 Telephone [facility] [address] [place] [address] Purnima Mac, ROXANA Results 06/25/2024 Telephone [facility] [address] [place] [address] Pearl Figueroa MD from Last 3 Months [...] 02/16/2025 02/17/2024 SDOH Screening 02/16/2025 02/17/2024 Depression Screening 08/26/2025 08/26/2024, 08/27/19 Tobacco Screening 08/26/2025 08/26/2024 DTaP/Tdap/Td Vaccines (2 [...] Procedure Name Priority Date/Time Associated Diagnosis Comments CYCLIC CITRULLINATED PEPTIDE (CCP) AB (IGG) Routine 09/03/2024 1:22 PM EDT Arthralgia of both hands RHEUMATOID FACTOR Routine 09/03/2024 1:2 2 PM EDT Arthralgia of both hands C-REACTIVE PROTEIN Routine 08/27/2024 11 :09 AM [...] Recently Relevant to Health Maintenance Results * Cyclic Citrullinated Peptide (CCP) Antibody (IgG) (09/03/2024 1:22 PM EDT) Pathologist [facility] [place] Cyclic Citrullinated Peptide <16 UNITS [facility] Comment:Reference RangeNegat ami: <20Weak Positive: 20-39Moderate Positive: 40-59Strong Positive: >59THIS TEST WAS PERFORMED AT:[facility] [address] [phone] MCDERMOTT MD Blood Venous blood specimen / Unknown 09/03/2024 1:22 PM EDT 09/03/2024 4:[address] [facility] BAG PATCHER LAB BLOOD ORDERABLES Final Resu lt Performing Organization Address [facility] Co de Phone Number [facility] [address] [place] [phone] * Rheumatoid Factor (09/03/2024 1:22 PM EDT) Pathologist [facility] [place] Rheumatoid Factor <13.0 <15.0 IU/mL [facility] Blood Venous blood specimen / Unknown 09/03/2024 1:22 PM EDT 09/03/2024 4:12 PM EDT [facility] LAB BLOOD ORDERABLES Final Resu lt Performing Organization Address [facility]/ZIP Co de Phone Number [facility] [address] [place] [phone] * (ABNORMAL) Urinalysis, Complete, with Reflex to Culture (08/27/2024 11:09 AM EDT) Pathologist [facility] [place] Color Urine Yellow [facility] Appearance Urine Clear [facility] PH 5.5 5.0 - 9.0 [facility] Glucose Urine UA Negative Negative mg/dL [facility] Urine Blood Negative Negative [facility] Specific [place] - Urine 1.025 1.005 - 1.025 [facility] Urine Protein Trace Neg-Trace mg/dL [facility] Urine Ketones Negative Negative mg/dL [facility] Nitrite Urine Negative Negative [facility] Leukocyte Esterase Urine Small (1+)(A) Negative [facility] RBC Urine 0-2 0 - 2 /HPF [facility] Urine WBC 6-10(A) 0 - 5 /HPF [facility] Urine Squamous Epithelial Cell 3-5 0 - 2 /HPF [facility] Urine Bacteria None Seen None Seen [facility] Hyaline Casts, Urine 0-2 0 - 2 /LPF [facility] Urine 08/27/2024 11:0 9 AM EDT 08/27/2024 1:28 PM EDT Narrative [facility] - 08/27/2024 2:01 PM EDT Urine, Clean Catch Melisa Loza BAG PATCHER LAB URINE ORDERABLES Final Resu lt [facility] [address] [place] [address] [phone] * Lyme Disease Ab with Reflex to Blot (IgG, IgM) (08/27/2024 11:09 AM EDT) Lyme Antibody Screen <0.90 index [facility] Comment:Index Interpretation ----- < 0.90 [...] when erythemamigrans is apparent.THIS TEST WAS PERFORMED AT:[facility] [place] [phone] MCDERMOTT MD Lyme Blot TNP [facility] 08/27/2024 11:0 9 AM EDT 08/27/2024 1:33 PM EDT us Melisa Loza BAG PATCHER LAB BLOOD ORDERABLES Final Resu lt [facility] [address] [place] [address] [phone] * (ABNORMAL) CBC auto differential (08/27/2024 11:09 AM EDT) Only the most recent of2 resultswithin the time period is included. White Blood Count 6.4 4.8 - 10.8 X10*3/uL [facility] Red Blood Count 4.31 4.20 - 5.50 X10*6/uL [facility] Hemoglobin 12.7 12.0 - 16.0 g/dl [facility] Hematocrit 38.6 37.0 - 47.0 % [facility] Mean Corpuscular Volume 89.6 80.0 - 98.0 fL [facility] Mean Corpuscular Hemoglobin 29.5 27.0 - 33.0 pg [facility] Mean Corpuscular HGB Conc 32.9 31.0 - 35.0 g/dl [facility] Red Cell Distribution Width 12.3 11.0 - 16.0 % [facility] Platelet Count 274 160 - 400 X10*3/uL [facility] Mean Platelet Volume 8.8(L) 9.4 - 12.3 fL [facility] Neutrophils Percent Auto 59.9 45 - 73 % [facility] Imm Gran Pct Auto 0.3 0.0 - 0.4 % [facility] Lymphocytes Percent Auto 29.5 20 - 40 % [facility] Monocytes Percent Auto 8.1 2 - 11 % [facility] Eosinophils Percent Auto 1.7 0 - 4 % [facility] Basophils Percent Auto 0.5 0 - 2 % [facility] NRBC Pct Auto 0.0 0.0 - 0.2 /100WBC [facility] Neutrophils Absolute Auto 3.8 2.0 - 8.3 x10*3/uL [facility] Imm Gran Abs Auto 0.02 0.00 - 0.03 X10*3/uL [facility] Lymphocytes Absolute Auto 1.9 1.2 - 4.9 X10*3/uL [facility] Monocytes Absolute Auto 0.5 0.1 - 1.2 X10*3/uL [facility] Eosinophils Absolute Auto 0.1 0.0 - 0.4 X10*3/uL [facility] Basophils Absolute Auto 0.0 0.0 - 0.2 X10*3/uL [facility] NRBC Abs Auto 0.000 0.0 - 0.012 X10*3/uL [facility] Blood Venous blood specimen / Unknown 08/27/2024 11:09 AM EDT 08/27/2024 1:33 PM EDT [facility] LAB BLOOD ORDERABLES Final Resu lt Performing Organization Address [facility]/ZIP Co de Phone Number [facility] [address] [place] [address] [phone] * (ABNORMAL) Sed Rate by Modified Rosina (08/27/2024 11:09 AM EDT) Erythrocyte Sedimentation Rate 34(H) 0 - 20 MM/HR [facility] Comment:Patients with polycy themia and many hemoglobin abnormalitiesmay have depressed sed rates whereas patients with anemiamay have elevated sed rates. Blood Venous blood specimen / Unknown 08/27/2024 11:09 AM EDT 08/27/2024 1:33 PM EDT [facility] LAB BLOOD ORDERABLES Final Resu lt Performing Organization Address City/[facility]/ZIP Co de Phone Number [facility] [address] [place] [address] [phone] * (ABNORMAL) C-reactive Protein (08/27/2024 11:09 AM EDT) C Reactive Protein 0.55(H) < or = 0.50 mg/dL [facility] Blood Venous blood specimen / Unknown 08/27/2024 11:09 AM EDT 08/27/2024 1:33 PM EDT Melisa Loza BAG PATCHER LAB BLOOD ORDERABLES Final Resu lt Performing Organization Address [facility]/ZIP Co de Phone Number [facility] [address] [place] [phone] * Culture, Urine, Routine (08/27/2024 12:00 AM EDT) Urine Urine specimen obtained by clean catch procedure / Unknown 08/27/2024 08/27/2024 Comment:UACC Narrative [facility] - 08/28/2024 8:47 AM EDT Urine Culture Report Result Urine Culture 10,000 to 50,000 cfu/ml Urine Culture Mixed bacterial eduardo characteristic of Urine Culture urogenital contamination. Specimen Source: Urine clean catch Melisa Loza NP LAB MICROBIOLOGY - GENERAL ORDE RABLES Final Result Performing Organization Address [facility] Co de Phone Number [facility] [address] [place] [phone] * POCT Rapid Influenza B CRONIN ID NOW (08/26/2024 4:09 PM EDT) Influenza B Negative Negative, Indeterminate [facility] QC Media Lot # [id number] [facility] Lot# Expiration Date 100,826 [facility] Swab 08/26/2024 4:09 PM EDT Melisa Loza NP POINT OF CARE TEST ENTER/EDIT O RDERABLES Final Result Performing Organization Address [facility]/ZIP Co de Phone Number [facility] [address] [place] [phone] * POCT Rapid Influenza A CRONIN ID NOW (08/26/2024 4:08 PM EDT) Influenza A Negative Negative, Indeterminate [facility] QC Media Lot # [id number] [facility] Lot# Expiration Date 100,826 [facility] Swab 08/26/2024 4:08 PM EDT Melisa Loza BAG PATCHER POINT OF CARE TEST ENTER/EDIT O RDERABLES Final Result [facility] [address] [place] [address] [phone] * POCT Rapid Covid-19 BinaxNOW (08/26/2024 4:07 PM EDT) [facility] Rapid COVID Ag Negative QC Media Lot # [id number] Lot# Expiration Date 63,026 Swab 08/26/2024 4:07 PM EDT us Melisa Loza BAG PATCHER POINT OF CARE TEST ENTER/EDIT O RDERABLES Final Result * XR Shoulder 2+ Views Left (07/22/2024 10:49 AM EST) Anatomical Region Laterality Modality Upper Extremities, Shoulder Left Radi ographic Imaging 07/22/2024 10:4 9 AM EST Narrative 07/22/2024 12:15 PM EST ?[facility] ?[address] ?[place] [address] ?XRay Report ? Signed ? Patient: Miller Sandy,Sharron ?MR#: [id number] ?? [id number] ? : 1985 ?Acct:[id number] ? Age/Sex: 39 / F ?ADM Date: 03/05/25 ? Loc: HO.HHCX ? Attending Dr: Malia Cuenca MD ? Ordering Physician: Malia Cuenca MD ?? Date of Service: 07/22/24 ?? Procedure(s): XR shoulder LT min 2V ?? Accession Number(s): [id number] ? cc: Malia Cuenca MD ? EXAMINATION: [...] DD/ 1049 ? TD/TT: 07/22/24 1100 ? Sheep Farmer: ? Procedure Note Donjannet, Image - 07/22/2024 [place] [address] XRay Report Signed Patient: Imtiaz Yang#: [id number] : 1985Acct:[id number] Age/Sex: 39 / FADM Date: 07/22/24 Loc: HO.HHCX Attending Dr: Malia Cuenca MD Ordering Physician: Malia Cuenca MD Date of Service: 07/22/24 Procedure(s): XR shoulder LT min 2V Accession Number(s): [id number] cc: Malia Cuenca MD EXAMINATION: XR SHOULDER, [...] 07/22/24 1212 DD/ 1049 TD/TT: 07/22/24 1100 Sheep Farmer: us Malia Cuenca MD IMG XR PROCEDURES Edited R esult - Final * US Abdomen Complete (07/04/2024 8:55 AM EST) Anatomical Region Laterality Modality Abdomen Ultrasound 07/04/2024 8:55 AM EST Narrative 07/04/2024 8:56 AM EST ? [facility] ?[address] ?[place] [address] ? Ultrasound Report ? Signed ? Patient: Sharron Yang ?MR#: [id number] ?? [id number] ? : 1985 ?Acct:[id number] ? Age/Sex: 39 / F ?ADM Date: 07/03/24 ? Loc: HO.US ? Attending Dr: Pearl Figueroa MD ? Ordering Physician: Pearl Figueroa MD ?? Date of Service: 07/03/24 ?? Procedure(s): US abdomen complete ?? Accession Number(s): [id number] ? cc: Pearl Figueroa MD ? CLINICAL [...] signed by Cheo Marcos MD in OV> ?07/04/24855 ? DD/ 4 ? TD/TT: 07/04/24854 ? Sheep Farmer: ? Procedure Note Donotuseinterpreter, Image - 07/04/2024 [place] [address] Ultrasound Report Signed Patient: Imtiaz Yang#: [id number] : 1985Acct:[id number] Age/Sex: 39 / FADM Date: 07/03/24 Loc: HO.US Attending Dr: Pearl Figueroa MD Ordering Physician: Pearl Figueroa MD Date of Service: 07/03/24 Procedure(s): US abdomen complete Accession Number(s): [id number] cc: Pearl Figueroa MD CLINICAL HISTORY: fatty [...] in OV> 07/04/24855 DD/ 4 TD/TT: 07/04/24854 Sheep Farmer: us Pearl Figueroa MD IMG US PROCEDURES Edited Result - Final * BI US Breast Limited Right (05/14/2024 10:15 AM EST) Anatomical Region Laterality Modality Breast Right Ultrasound 05/14/2024 10:1 5 AM EST Narrative 05/14/2024 10:30 AM EST ? [facility] ? [address] ?[place], [place] [address] ? Ultrasound Report ? Signed ? Patient: Sharron Yang ?MR#: [id number] ?? [id number] ? : 1985 ?Acct:[id number] ? Age/Sex: 39 / F ?ADM Date: 05/14/24 ? Loc: HO.MAMMO ? Attending Dr: Pearl Figueroa MD ? Ordering Physician: Pearl Figueroa MD ?? Date of Service: 05/14/24 ?? Procedure(s): US breast RT limited mamm only ?? Accession Number(s): [id number] ? cc: Pearl Figueroa MD ? EXAMINATION: [...] ??Danitza Ch DO ??05/14/2024 10:27 AM EST ?? RP ? Dictated By: ?Danitza Ch DO ? Signed By: ?<Electronically signed by Danitza Ch, DO in OV> ? 05/14/24 1027 ? DD/ 1015 ? TD/TT: 05/14/24 1021 ? Sheep Farmer: ? Procedure Note Donotuseinterpreter, Image - 05/18/2024 [facility] [address] [place] [address] Ultrasound Report Signed Patient: Imtiaz Yang#: [id number] : 1985Acct:[id number] Age/Sex: 39 / FADM Date: 05/14/24 Loc: HO.MAMMO Attending Dr: Pearl Figueroa MD Ordering Physician: Pearl Figueroa MD Date of Service: 05/14/24 Procedure(s): breast RT limited mamm only Accession Number(s): [id number] cc: Pearl Figueroa MD EXAMINATION: MM DIAGNOSTIC [...] 05/14/24 1027 DD/ 1015 TD/TT: 05/14/24 1021 Sheep Farmer: Pearl Figueroa MD IMG US PROCEDURES Final Result * Hepatitis Panel, General (02/17/2024 11:30 AM EDT) Hepatitis A IgM Nonreactive Nonreactive [facility] Comment:IgM antibodies to COY V not detected; does not exclude earlyacute or recovered HAV infection. ~Hepatitis B Surface Antibody REACTIVE Nonreactive [facility] Comment:REACTIVE: > 11.99 mI U/mL Hepatitis B Core Antibody Nonreactive Nonreactive [facility] Hepatitis C Antibody Nonreactive Nonreactive [facility] Comment:Antibodies to HCV no t detected; does not exclude early acuteHCV infection. Hepatitis B Surface Ag Negative Negative [facility] Blood 02/17/2024 11:3 0 AM EDT 02/17/2024 1:18 PM EDT Pearl Figueroa MD LAB BLOOD ORDERABLES Fin al Result [facility] [address] [place], [place] [phone] from Last 3 Months or Most Recently Relevant to Health Maintenance [facility] Care Teams Surgical Scrub Technologist Relationship Specialty Start Date End Date Pearl Figueroa MD [address] [place] [phone] PCP - General Internal Medicine 02/17/24
--- NOTE | 2024-09-22 08:41 | A.OFFVIS_ITS ---
Vital Signs 09/22/24 08:46 Height 5 ft 4 in Weight 180 lb BMI 30.9 BP 122/80 Intake Visit Reasons: hx of HPV + Miller Apprentice Required: No Allergies No Known Allergies Allergy (Unverified 05/15/23 14:45) Is last menstrual period known: Yes Last menstrual period: 08/27/24 HPI Comments Details: Presenting for annual exam. No complaints. 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 Surgical History Hx of dilation and curettage Hx of cholecystectomy Family History Mother Diabetes Social History Household Members: Spouse and Children Housing: House Alcohol intake: current Alcohol intake frequency: a few times a week Patient Tobacco Use Status: Never used Tobacco Current occupational status: employed Current occupation: At school Sexual orientation: Straight/Heterosexual Gender identity: Female Female Reproductive History Menstrual Age of Menarche: 12 Duration of menses: 3-5 days Date of last menstrual period: 08/27/24 control method: other (vasectomy) Total pregnancies: 9 Full term: 5 Number of Living Children: 5 Ab spontaneous: 4 History of abnormal pap smear: Yes (HPV +) Date of Mammogram: 05/12/24 Review of Systems Const All systems reviewed & are unremarkable except as noted in HPI and below Card Reports as per HPI Resp Reports as per HPI GI Reports as per HPI and Reports no additional complaints Reports as per HPI Physical Exam Vital Signs: Last Vital Signs BP 122/80 09/22/24 08:46 BMI result Body Mass Index 30.9 Const General: cooperative, healthy appearing and comfortable Chest Chest palpation & inspection: normal inspection of the chest and normal palpation of entire chest wall Breast/axilla inspection: normal inspection of the breasts and normal inspection of the axillae Breast/axilla palpation: normal palpation of the breasts, normal palpation of the axillae and no axillary lymphadenopathy Resp Effort & Inspection: normal respiratory effort Auscultation: clear to auscultation bilaterally Percussion: percussion normal Cardio Palpation: normal PMI Rate: regular rate Rhythm: regular rhythm Heart sounds: no murmurs and no rubs Peripheral pulses: Peripheral pulses 2+ throughout GI Inspection: Yes normal to inspection Palpation (GI): Soft to palpation, nontender, no guarding, not rigid and No hepatosplenomegaly present Percussion: Yes normal to percussion Auscultation: normal bowel sounds Rectal Exam - Female: deferred General: Yes bladder normal to palpation External Female Exam: No lesion Speculum Exam - Vagina: normal appearance of the vagina, normal palpation, normal vaginal discharge and not erythematous Speculum Exam - Cervix: normal appearance of the cervix and normal palpation Bimanual exam- vagina & uterus: normal bimanual exam, normal palpation, uterine size normal, bladder normal to palpation, consistency normal and normal palpation Bimanual Exam- Adnexa, other: normal adnexae, no masses and no tenderness Assessment & Plan Assessment & Plan (1) Well woman exam: Code(s): Z01.419 - Encounter for gynecological examination (general) (routine) without abnormal findings Category: Medical Plan: Cotesting done. Mammogram schedule in 11/11. Counseled the patient about the recommended dietary allowance of 1000 mg of Calcium & 600 IU of vitamin D. The patient was instructed to perform monthly self-breast exams and to schedule an annual exam in a year; All questions answered and the patient verbalized understanding. Instructed the patient to schedule annual exam in a year Coding Level of Care Code New Pt Prev Care 40-64y(13768) Diagnoses Well woman exam Z01.419
[2024-09-22 08:46] VITALS: BP 122/80; BMI 30.9
== END 2024-09-22 09:10 | disposition home or self-care (01) ==
PROVIDERS: PCP Internal Medicine; Visit Provider Obstetrics & Gynecology
DX: Z01.419 Encounter for gynecological examination (general) (routine) without abnormal findings (principal)
CPT/HCPCS: 99386; 99459

== ENCOUNTER 2024-09-22 08:15 | Outpatient (REF) | payer MEDICAID, SELFPAY ==
--- OUTSIDE RECORDS SUMMARY | 2024-09-22 09:57 | XMS_ITS | Encounter Summary ---
Author Organization [facility] Address [address] [place] [address] Care Team Providers Care Edger Machine Helper Name Role Phone Virgil Sharp MD Primary Care Provider [phone] Encounter Details Date Type Department Care Team Description 01/24/2018 Hospital Medical Records [address] [place] [address] Social History Tobacco Use Types Packs/Day Years [...] on filedocumented in this encounter Care Teams Edger Machine Helper Relationship Specialty Start Date End Date Virgil Sharp MD [address] [place] [phone] PCP - General Internal Medicine 10/12/11 documented as of this encounter
--- OUTSIDE RECORDS SUMMARY | 2024-09-22 09:57 | XMS_ITS | Encounter Summary ---
Author Organization [facility] Address [address] [place] [address] Care Team Providers Care Medical Case Worker Name Role Phone Virgil Sharp MD Primary Care Provider [phone] Encounter Details Date Type Department Care Team Description 09/27/2015 Actuarial Clerk Report Medical Records [address] [place] [phone] Zayda Bland Social History Tobacco Use Types [...] on filedocumented in this encounter Care Teams Medical Case Worker Relationship Specialty Start Date End Date Virgil Sharp MD [address] [place] [phone] PCP - General Internal Medicine 10/12/11 documented as of this encounter
--- OUTSIDE RECORDS SUMMARY | 2024-09-22 09:57 | XMS_ITS | Encounter Summary ---
Author Organization [facility] Address [address] [place] [address] Care Team Providers Care Load Checker Name Role Phone Virgil Sharp MD Primary Care Provider [phone] Encounter Details Date Type Department Care Team Description 06/12/2019 Roundhouse Supervisor Report Medical Records [address] [place] [phone] Catrachita Mcpherson PA-C Social History Tobacco Use [...] on filedocumented in this encounter Care Teams Load Checker Relationship Specialty Start Date End Date Virgil Sharp MD [address] [place] [address] PCP - General Internal Medicine 10/12/11 documented as of this encounter
--- OUTSIDE RECORDS SUMMARY | 2024-09-22 09:57 | XMS_ITS | Encounter Summary ---
Author Organization [facility] Address [address] [place] [address] Care Team Providers Care Director Compensation Name Role Phone Virgil Sharp MD Primary Care Provider [phone] Encounter Details Date Type Department Care Team Description 05/26/2015 Pt. Non Urgent Medical Question Adult Medicine [address] [phone] Virgil Sharp MD [address] [place] [phone] Social History Tobacco Use Types Packs/Day [...] on filedocumented in this encounter Care Teams Director Compensation Relationship Specialty Start Date End Date Virgil Sharp MD [address] [place] [address] PCP - General Internal Medicine 10/12/11 documented as of this encounter
--- OUTSIDE RECORDS SUMMARY | 2024-09-22 09:57 | XMS_ITS | Encounter Summary ---
Author Organization [facility] Address [address] [place] [address] Care Team Providers Care Animal Caretaker Name Role Phone Virgil Sharp MD Primary Care Provider [phone] Encounter Details Date Type Department Care Team Description 12/02/2019 Release of Information Medical Records [address] [place] [address] Abstract, Provider Social History Tobacco Use Types [...] on filedocumented in this encounter Care Teams Animal Caretaker Relationship Specialty Start Date End Date Virgil Sharp MD [address] [place] [address] PCP - General Internal Medicine 10/12/11 documented as of this encounter
--- OUTSIDE RECORDS SUMMARY | 2024-09-22 09:57 | XMS_ITS | Encounter Summary ---
Author Organization [facility] Address [address] [place] [address] Care Team Providers Care Magneto Specialist Name Role Phone Virgil Sharp MD Primary Care Provider [phone] Encounter Details Date Type Department Care Team Description 07/17/2016 Marketing/Sales Person Report Medical Records [address] [place] [address] Zayda Bland Social History Tobacco Use Types [...] on filedocumented in this encounter Care Teams Magneto Specialist Relationship Specialty Start Date End Date Virgil Sharp MD [address] [place] [address] PCP - General Internal Medicine 10/12/11 documented as of this encounter
[2024-09-29 14:12] LABS: HPV Genotype 16 Negative (Negative); HPV Genotype 18 Negative (Negative); HPV High Risk Negative (Negative)
== END 2024-09-22 08:16 | disposition home or self-care (01) ==
LOC: HO.LNP 08:15
PROVIDERS: PCP Internal Medicine; Visit Provider Obstetrics & Gynecology
DX: Z01.419 Encounter for gynecological examination (general) (routine) without abnormal findings (principal)
CPT/HCPCS: 87626; 88175; 99386; 99459

== ENCOUNTER 2024-11-12 12:35 | Outpatient (REF) | payer MEDICAID, SELFPAY ==
--- NOTE | ~2024-11-12 | MM_ITS ---
EXAMINATION: MM DIAGNOSTIC DIGITAL BREAST TOMOSYNTHESIS, RIGHT CLINICAL INFORMATION: 6 month follow-up right breast for asymmetry without sonographic correlate. COMPARISON: Mammography: Prior's on PACS. TECHNIQUE: Digital breast tomosynthesis is performed in both the craniocaudal and mediolateral oblique views along with computer-aided detection (CAD). Synthesized 2D images are generated from the tomosynthesis. FINDINGS: There are scattered areas of fibroglandular density (ACR BI-RADS breast composition Category b). Asymmetry superior right breast posterior depth on MLO view is not significantly changed from prior. No prior sonographic correlate was seen. No suspicious calcifications or other abnormal findings. MM/MM tomosynthesis diagnostic RT IMPRESSION: Asymmetry superior breast posterior depth on MLO view without prior sonographic correlate not significantly changed from prior. Recommend 6 month follow-up when the patient will be due for bilateral mammography to demonstrate 1 year of stability. ASSESSMENT: BI-RADS BI-RADS 3 - Probably benign finding(s) - 6 month follow-up suggested RECOMMENDATION: 6 Month F/U Results were provided to the patient at time of visit by the technologist. This patient's information was entered into a reminder system with a target due date for their next mammogram. Electronically signed by: Danitza Ch DO 11/12/2024 01:08 PM EDT
== END 2024-11-12 12:36 | disposition home or self-care (01) ==
LOC: HO.MAMMO 12:35
PROVIDERS: PCP Internal Medicine; Visit Provider Internal Medicine
DX: R92.8 Other abnormal and inconclusive findings on diagnostic imaging of breast (principal)
CPT/HCPCS: 77061; 77065

== ENCOUNTER → 2024-11-12 13:00 | Outpatient (BNV) | payer MEDICAID, SELFPAY | PROVIDERS: PCP Internal Medicine; Visit Provider Internal Medicine | DX: N64.89 Other specified disorders of breast (principal) | CPT/HCPCS: 77061; 77065 ==

== ENCOUNTER 2024-12-28 12:10 | Outpatient (REF) | payer MEDICAID, SELFPAY ==
--- OUTSIDE RECORDS SUMMARY | 2024-12-28 12:31 | XMS_ITS | Clinical Summary ---
Author Organization [facility] Address [address] [facility] [address] [place] [address] Phone Care Team Providers Care Truck Driving Name Role Phone Pcp, Unknown Primary Care Provider Unavailabl e Allergies No known active allergies Medications ibuprofen (ADVIL,MOTRIN) 600 MG tablet Take 1 tablet (600 mg total) by mouth every 6 (six) hours as needed. 20 tablet 05/22/2024 Active Social History Tobacco Use Types Packs/Day Years Used Date Smoking Tobacco: Never Assessed Education Answer Date Recorded Are you interested in more education? Not on jacky e 05/23/2024 Are you concerned about learning? Not on file 05/23/2024 No 05/23/2024 No 05/23/2024 Digital Access Answer Date Recorded No 05/23/2024 No 05/23/2024 Reliable internet access at home? Not on file 05/23/2024 Device with a working camera? Not on file Intimate Partner Violence Answer Date R ecorded Are you denied basic needs s uch as food, clothing, or medical care? No 05/22/2024 In the past 12 months have y ou been in a relationship with a person who hurts, threatens, or tries to control you? No 05/22/2024 Are you denied basic needs s uch as food, clothing, or medical care? No 05/22/2024 In the past 12 months have y ou been in a relationship with a person who hurts, threatens, or tries to control you? No 05/22/2024 Comments Unknown Sex and Gender Information Value Date Recorded Sex Assigned at Female 05/22/2024 7:38 PM EST Legal Sex Female 9:17 PM EDT Gender Identity Female 05/22/2024 7:38 PM EST Sexual Orientation Straight 05/22/2024 7: 38 PM EST Last Filed Vital Signs Vital Sign Reading Time Taken Comments Blood Pressure 130/97 05/22/2024 10:43 PM EST Pulse 79 05/22/2024 10:43 PM EST Temperature 36.1 C (97 F) 05/22/2024 7:36 PM EST Respiratory Rate 18 05/22/2024 10:43 PM EST Oxygen Saturation 100% 05/22/2024 10:43 PM EST Inhaled Oxygen Concentration - - Weight 88.5 kg (195 lb) 05/22/2024 7:36 PM EST Height 162.6 cm (5' 4 ) 05/22/2024 7:36 PM EST Body Mass Index 33.47 05/22/2024 7:36 PM EST Plan of Treatment Health Maintenance Due Date Last Done Comments DEPRESSION SCREENING 1995 SMOKING Hx and SMOKELESS TOB ACCO SCREENING 1996 HEPATITIS C SCREENING 2001 HIV ONE-TIME SCREENING (18-6 5 YEARS) 2001 PAP SMEAR 2004 SCREENING FOR DIABETES 2018 COVID-19 VACCINE (1 - 2023-2 5 season) 2024 MAMMOGRAM 03/07/2026 03/07/2024 Adult Td,Tdap Booster 01/08/2027 01/08/2017 PNEUMOCOCCAL VACCINES (0-49 years) Aged Out 2018 No longer eligible based on patient's age to complete this topic HEPATITIS A VACCINES Aged Out No long er eligible based on patient's age to complete this topic HIB VACCINES Aged Out No longer eligi ble based on patient's age to complete this topic MENINGOCOCCAL VACCINES (ACWY) Aged Out No longer eligible based on patient's age to complete this topic MENINGOCOCCAL VACCINES (B) Aged Out N o longer eligible based on patient's age to complete this topic Medical Devices Not on file Insurance [facility] C3 ACO [facility] C3 ACO [facility] [address] [place] [address] [place] [address] C3 A[place] [facility] C3 ACO [facility] C3 ACO [address] [place] Care Teams Truck Driving Relationship Specialty Start Date End Date Pcp, Unknown PCP - General 05/22/24 Additional Source Comments The information contained in this document represents components of the legal health record. It is not the complete legal health record.[facility]
--- OUTSIDE RECORDS SUMMARY | 2024-12-28 12:31 | XMS_ITS | Encounter Summary ---
Author Organization [employer] Address [address] [facility] 7[address] [place] [address] Care Team Providers Care Semiconductor Packages Leak Tester Name Role Phone Pearl Figueroa MD Primary Care Provider + Encounter Details Date Type Department Care Team (Late st Contact Info) Description 08/28/2024 Orders Only [facility] [address] [place] [address] Melisa Loza NP [address] [place] [address] Social History Tobacco Use Types Packs/Day Years [...] AM EDT documented as of this encounter Functional Status * Over the last 2 weeks, how often have you been bothered by any of the following problems? Question Answer Date of Assessment Author Feeling nervous, anxious, or on edge 3 08/28/2024 4:23 PM EDT Ragini Mcginnis ctoria Not being able to stop or control worrying 3 08/28/2024 4:23 PM EDT Ragini Mcginnis ctvalerie Worrying too much about different things 3 08/28/2024 4:23 PM EDT Ragini Mcginnis Trouble relaxing 3 08/28/2024 4:23 PM EDT Martita Stephens Being so restless that it is hard to sit still 0 08/28/2024 4:23 PM EDT Ragini Mcginnis Becoming easily annoyed or irritable 1 08/28/2024 4:23 PM EDT Ragini Mcginnis ctoria Feeling afraid as if somethi ng awful might happen 1 08/28/2024 4:23 PM EDT Clayton Bazalar, Vi ctoria BANDAR-7 Total Score 14 08/28/2024 4:23 PM EDT Martita Mcginnis documented as of this encounter Plan of Treatment Upcoming Encounters Date Type Department Care Team (Late st Contact Info) Description 02/18/2025 9:45 AM EDT Office Visit [facility] [address] [place] [address] Pearl Figueroa MD [address] [place], [place] [phone] documented as of this encounter Visit Diagnoses Not on filedocumented in this encounter Additional Health Concerns Assessment Noted Time PHQ-9 Depression Total Score: 13 025 10:43 AM EDT documented as of this encounter Care Teams Semiconductor Packages Leak Tester Relationship Specialty Start Date End Date Pearl Figueroa MD [address] [place], [place] [phone] PCP - General Internal Medicine 02/17/24 documented as of this encounter
[2024-12-28 13:21] LABS: MANUAL DIFF FLAG NO
[2024-12-28 13:35] LABS: Hematocrit 37.2 % (37.0-47.0); Hemoglobin 12.3 g/dl (12.0-16.0); Imm Gran Abs Auto 0.01 X10*3/uL (0.00-0.03); Imm Gran Pct Auto 0.1 % (0.0-0.4); Lymphocytes Absolute Auto 2.4 X10*3/uL (1.2-4.9); Mean Corpuscular HGB Conc 33.1 g/dl (31.0-35.0); Mean Corpuscular Hemoglobin 29.9 pg (27.0-33.0); Mean Corpuscular Volume 90.3 fL (80.0-98.0); NRBC Abs Auto 0.000 X10*3/uL (0.0-0.012); NRBC Pct Auto 0.0 /100WBC (0.0-0.2); Platelet Count 241 X10*3/uL (160-400); Red Blood Count 4.12 X10*6/uL (4.20-5.50); White Blood Count 7.6 X10*3/uL (4.8-10.8)
[2024-12-28 14:04] LABS: Gamma Glutamyl Transpeptidase 52 U/L (7-33)
[2024-12-28 17:17] LABS: Alanine Aminotransferase 74 U/L (0-31); Albumin Level 4.0 g/dL (3.5-5.0); Alkaline Phosphatase 77 U/L (39-117); Aspartate Amino Transferase 53 U/L (5-31); Total Protein 7.6 g/dL (6.5-8.0)
[2024-12-29 08:40] LABS: HBS Num1 197.13 mIU/mL (0-7.99); HBc Num1 0.09 S/CO (0.00-0.79); HBsAGNum1 0.31 S/CO (0.00-0.99); Hepatitis A Antibody IgM 0.17 Index (0-0.79); Hepatitis B Surface Antigen Negative (Negative); ~HepC Num1 0.18 S/CO (0.00-0.79); ~Hepatitis A Antibody IgM Nonreactive (Nonreactive); ~Hepatitis B Surface Antibody REACTIVE (Nonreactive); ~Hepatitis C Antibody Nonreactive (Nonreactive)
== END 2024-12-28 12:11 | disposition home or self-care (01) ==
LOC: HO.HHCL 12:10
PROVIDERS: PCP Internal Medicine; Visit Provider Internal Medicine
DX: L29.9 Pruritus, unspecified (principal); K76.0 Fatty (change of) liver, not elsewhere classified
CPT/HCPCS: 36415; 80076; 82977; 85025; 86704; 86706; 86709; 86803; 87340

== ENCOUNTER 2025-02-26 09:25 | Outpatient (REF) | payer MEDICAID, SELFPAY ==
--- NOTE | ~2025-02-26 | US_ITS ---
EXAMINATION: US COMPLETE ABDOMEN WITH LIVER ELASTOGRAPHY CLINICAL INFORMATION: Progressive elevation of LFTs, EtOH use. Rule out cirrhosis. COMPARISON: No prior elastography. Abdomen US 07/03/2024. TECHNIQUE: Real-time imaging of the abdominal viscera. Noninvasive ultrasound liver fibrosis assessment is performed using Siemens point quantification shear wave elastography (pSWE) with a C5-2 MHz transducer. Multiple elastography samples are obtained. FINDINGS: PANCREAS: The visualized pancreatic head and body are normal in appearance. The remainder of the pancreas is obscured from visualization by the overlying bowel gas. ABDOMINAL AORTA: No aortic aneurysm is seen. INFERIOR VENA CAVA: Visualized portions are normal. LIVER: The liver demonstrates normal size, contour and is diffusely increased in echogenicity. No suspicious focal lesion or intrahepatic biliary duct dilatation. The right lobe measures 14.7 cm in length. The left lobe measures 10.3 cm in length. Portal flow is towards the liver (hepatopetal). Shear wave liver elastography median stiffness is 1.12 m/s (reference: normal median stiffness is 1.3 m/s or less). IQR/median stiffness to assess sampling precision is 0.28 (reference: good quality data set is IQR/median stiffness of 0.30 or less). This indicates a quality data set. GALLBLADDER: The gallbladder is surgically absent. COMMON BILE DUCT: Normal in caliber measuring 0.6 cm in diameter. RIGHT KIDNEY: No hydronephrosis. No renal calculi or focal parenchymal lesions. The kidney measures 10.8 cm in maximum dimension. LEFT KIDNEY: No hydronephrosis. No renal calculi or focal parenchymal lesions. The kidney measures 10.8 cm in maximum dimension. SPLEEN: Unremarkable. The spleen measures 9.1 cm in maximum dimension. FREE FLUID: None seen. US/US abdomen comp w elastography IMPRESSION: 1. Diffusely increased hepatic echogenicity, likely on the basis of steatosis. No suspicious focal lesion. 2. Liver elastography: Measurements are consistent with a high probability of normal liver stiffness. 3. Cholecystectomy. Normal bile ducts. 4. Remainder of the examination is normal. REFERENCE: Society of Radiologists in Ultrasound Liver Stiffness Thresholds (2020): LIVER STIFFNESS THRESHOLDS: *Liver Stiffness equal or less than 1.3 m/s: High probability of being normal. *Liver Stiffness less than 1.7 m/s: In the absence of other known clinical signs, rules out compensated advanced chronic liver disease. *Liver Stiffness 1.7-2.1 m/s: Suggestive of compensated advanced chronic liver disease but need further test for confirmation. *Liver Stiffness over 2.1 m/s: Rules in compensated advanced chronic liver disease. *Liver Stiffness over 2.4 m/s: Suggestive of clinically significant portal hypertension. QUALITY OF DATA SET: *IQR/Median value equal or less than 0.3 implies a quality data set. *IQR/Median value over 0.3 implies a poor quality data set. SIGNIFICANT CHANGE FROM PRIOR EXAM: Significant change if liver stiffness measurement is 10% or greater from prior exam. OTHER CONSIDERATIONS: The stage of liver fibrosis may be overestimated in the setting of acute hepatitis, liver inflammation, elevated liver function tests, hepatic vascular congestion, obstructive cholestasis, non-fasting state, and infiltrative diseases such as amyloidosis and lymphoma. In some patients with NAFLD, the liver stiffness thresholds for compensated advanced chronic liver disease may be lower. In causes other than viral hepatitis and NAFLD, liver stiffness thresholds are not well established. Electronically signed by: Everton Lopes MD 02/26/2025 10:46 AM EDT
--- OUTSIDE RECORDS SUMMARY | 2025-02-26 10:02 | XMS_ITS | Clinical Summary ---
Author Organization [facility] Address [address] [facility] [address] [place] [address] Phone Care Team Providers Care Marketing Outreach Coordinator Name Role Phone Pcp, Unknown Primary Care [...] PAP SMEAR 2004 SCREENING FOR DIABETES 2018 INFLUENZA VACCINE (#1) 2024 COVID-19 VACCINE ( - 2023-2 5 season) 2025 MAMMOGRAM 03/07/2026 03/07/2024 Adult Td,Tdap Booster 01/08/2027 [...] topic Medical Devices Not on file Insurance [facility] [address] [place] [address] [place] [address] C3 ACO [facility] C3 ACO [facility] C3 ACO [address] [place] Care Teams Marketing Outreach Coordinator Relationship Specialty Start Date End Date Pcp, Unknown PCP - General 05/22/24 Additional Source Comments The information contained in this document represents components of the legal health record. It is not the complete legal health record.[facility]
== END 2025-02-26 09:26 | disposition home or self-care (01) ==
LOC: HO.US 09:25
PROVIDERS: PCP Internal Medicine; Visit Provider Internal Medicine
DX: K76.0 Fatty (change of) liver, not elsewhere classified (principal)
CPT/HCPCS: 76700; 76981

== ENCOUNTER → 2025-02-26 09:31 | Outpatient (BNV) | payer MEDICAID, SELFPAY | PROVIDERS: PCP Internal Medicine; Visit Provider Radiology Diagnostic Radiology | DX: K76.89 Other specified diseases of liver (principal); Z90.49 Acquired absence of other specified parts of digestive tract | CPT/HCPCS: 76700 ==

== ENCOUNTER 2025-04-19 00:02 | Emergency (ER) | payer MEDICAID, SELFPAY ==
--- NOTE | ~2025-04-19 | CT_ITS ---
CLINICAL HISTORY: Nausea; Diarrhea; Periumbilical Tenderness CT abdomen and pelvis with contrast Comparison: [place]/SR - US ABDOMEN COMPLETE WITH LIVER ELASTOGRAPHY - 02/26/25 09:57 EDT US - US ABDOMEN COMPLETE - 07/03/24 10:05 EST Findings: The lung bases are clear. The liver is diffusely hypoenhancing consistent with hepatic steatosis. Gallbladder is absent. Spleen, pancreas, bilateral adrenal glands, and bilateral kidneys are unremarkable. No nephrolithiasis. No abdominal or pelvic free fluid. No intra-abdominal or pelvic lymphadenopathy. No bowel obstruction, pneumoperitoneum, or pneumatosis. The appendix is normal. Bladder and uterus are within normal limits. No acute osseous abnormality. Fat containing umbilical hernia. No acute soft tissue finding. IMPRESSION: No acute intra-abdominal or pelvic findings. Hepatic steatosis. This document has been electronically signed by: Basil Austin MD on 04/19/2025 06:57:05
[2025-04-19 00:05] VITALS: BP 153/75; PULSE 84; RESP 16; TEMP 36.3; O2SAT 97; BMI 33.0
[2025-04-19 00:30] LABS: MANUAL DIFF FLAG NO
[2025-04-19 00:37] LABS: Hematocrit 38.5 % (37.0-47.0); Hemoglobin 12.8 g/dl (12.0-16.0); Imm Gran Abs Auto 0.03 X10*3/uL (0.00-0.03); Imm Gran Pct Auto 0.3 % (0.0-0.4); Lymphocytes Absolute Auto 3.5 X10*3/uL (1.2-4.9); Mean Corpuscular HGB Conc 33.2 g/dl (31.0-35.0); Mean Corpuscular Hemoglobin 29.7 pg (27.0-33.0); Mean Corpuscular Volume 89.3 fL (80.0-98.0); NRBC Abs Auto 0.000 X10*3/uL (0.0-0.012); NRBC Pct Auto 0.0 /100WBC (0.0-0.2); Platelet Count 269 X10*3/uL (160-400); Red Blood Count 4.31 X10*6/uL (4.20-5.50); White Blood Count 10.3 X10*3/uL (4.8-10.8)
[2025-04-19 00:38] LABS: Appearance Urine Clear; Glucose Urine UA Negative (Negative); PH 7.0 (5.0-9.0); Specific Gravity - Urine 1.025 (1.005-1.025); UMIC TRIGGER UACC YES
[2025-04-19 00:40] LABS: UPreg QC Valid YES
[2025-04-19 00:41] LABS: UACC Culture Trigger YES
[2025-04-19 00:43] LABS: Anion Gap 12 (12-20); Blood Urea Nitrogen 16 mg/dL (9-16); Calcium 8.7 mg/dL (8.4-10.2); Carbon Dioxide 24 mmol/L (22-29); Chloride 107 mmol/L (96-108); Creatinine Clr Calc Pharmacy 87.0; Estimated Glomerular Filt Rate > 60; Potassium 3.7 mmol/L (3.3-5.1); Sodium 139 mmol/L (135-145)
--- OUTSIDE RECORDS SUMMARY | 2025-04-19 02:25 | XMS_ITS | Encounter Summary ---
Author Organization [employer] Address [address] [facility] 7t [place] [address] Care Team Providers Care Sign Builder Supervisor Name Role Phone Pearl Figueroa MD Primary Care Provider + Encounter Details Date Type Department Care Team (Late st Contact Info) Description 08/28/2024 Orders Only [facility] [address] [place] [address] Melisa Loza NP [address] [place] [address] Social History Tobacco Use Types Packs/Day Years [...] edge 3 08/28/2024 4:23 PM EDT Ragini Mcginnis, LMHC Not being able to stop or control worrying 3 08/28/2024 4:23 PM EDT Ragini Mcginnis, LMHC Worrying too much about different things 3 08/28/2024 4:23 PM EDT Ragini Mcginnis, JRHC Trouble relaxing 3 08/28/2024 4:23 PM EDT Martita Stephens LMHC Being so restless that it is hard to sit still 0 08/28/2024 4:23 PM EDT Ragini Mcginnis ctvalerie, LMHC Becoming easily annoyed or irritable 1 08/28/2024 4:23 PM EDT Ragini Mcginnis, LMHC Feeling afraid as if something awful might happen 1 08/28/2024 4:23 PM EDT Martita Jo Ba, LMHC BANDAR-7 Total Score 14 08/28/2024 4:23 PM EDT Martita Mcginnis LMHC documented as of this encounter Plan of Treatment Upcoming Encounters Date Type Department Care Team (Late st Contact Info) Description 05/07/2025 11:45 AM EST Office Visit [facility] [address] [place] [address] Pearl Figueroa MD [address] [place] [address] documented as of this encounter Visit Diagnoses Not on filedocumented in this encounter Additional Health Concerns Assessment Noted Time PHQ-9 Depression Total Score: 13 025 10:43 AM EDT documented as of this encounter Care Teams Sign Builder Supervisor Relationship Specialty Start Date End Date Pearl Figueroa MD [address] [place] [address] PCP - General Internal Medicine 02/17/24 documented as of this encounter
--- OUTSIDE RECORDS SUMMARY | 2025-04-19 02:25 | XMS_ITS | Clinical Summary ---
Author Organization [facility] Address [address] [facility] [address] [place] [address] Phone Care Team Providers Care Scoop Filler Name Role Phone Pcp, Unknown Primary Care [...] 2018 INFLUENZA VACCINE (#1) 2024 COVID-19 VACCINE (2024-2 6 season) 2025 MAMMOGRAM 03/07/2026 03/07/2024 Adult Td,Tdap [...] topic Medical Devices Not on file Insurance [facility] [address] [place] [address] [place] [id number] C3 ACO [facility] C3 ACO [facility] C3 ACO [address] [place] Care Teams Scoop Filler Relationship Specialty Start Date End Date Pcp, Unknown PCP - General 05/22/24 Additional Source Comments The information contained in this document represents components of the legal health record. It is not the complete legal health record.[facility]
--- OUTSIDE RECORDS SUMMARY | 2025-04-19 02:25 | XMS_ITS | Encounter Summary ---
Author Organization [facility] Address [address] [place] [address] Care Team Providers Care Boat Master Name Role Phone Virgil Sharp MD Primary Care Provider Encounter Details Date Type Department Care Team Description 06/28/2015 Pt. Non Urgent Medical Question Adult Medicine [address] [address] Virgil Sharp MD [address] [place] [address] Social History Tobacco Use Types Packs/Day [...] on filedocumented in this encounter Care Teams Boat Master Relationship Specialty Start Date End Date Virgil Sharp MD [address] [place] [address] PCP - General Internal Medicine 10/12/11 documented as of this encounter
--- OUTSIDE RECORDS SUMMARY | 2025-04-19 02:25 | XMS_ITS | Encounter Summary ---
Author Organization [employer] Address [address] [facility] 7t [place] [address] Care Team Providers Care Awning Hanger Supervisor Name Role Phone Pearl Figueroa MD Primary Care Provider + Encounter Details Date Type Department Care Team (Late st Contact Info) Description 08/28/2024 Orders Only [facility] [address] [place] [address] Melisa Loza NP [address] [place] [address] Social History Tobacco Use Types Packs/Day Years [...] Description 05/07/2025 11:45 AM EST Office Visit [facility] [address] [place] [address] Pearl Figueroa MD [address] [place] [address] documented as of this encounter Visit Diagnoses Not on filedocumented in this encounter Additional Health Concerns Assessment Noted Time PHQ-9 Depression Total Score: 13 025 10:43 AM EDT documented as of this encounter Care Teams Awning Hanger Supervisor Relationship Specialty Start Date End Date Pearl Figueroa MD [address] [place] [address] PCP - General Internal Medicine 02/17/24 documented as of this encounter
--- OUTSIDE RECORDS SUMMARY | 2025-04-19 02:25 | XMS_ITS | Encounter Summary ---
Author Organization [facility] Address [address] [place] [address] Care Team Providers Care Microbiology Lab Technician Name Role Phone Virgil Sharp MD Primary Care Provider [phone] Reason for Visit * Reason Onset Date Comments immunizations 09/07/2013 Encounter Details Date Type Department Care Team Description 09/07/2013 Telephone Adult Medicine [address] [phone] Virgil Sharp MD [address] [place] [address] [phone] immunizations Social History Tobacco Use Types Packs/Day [...] Diagnosis Need for prophylactic vaccination with combined lnpwxxotlt-ewexzvz-rjetnmbue (DTP) vaccine- Primary documented in this encounter Care Teams Microbiology Lab Technician Relationship Specialty Start Date End Date Virgil Sharp MD [address] [place] [address] PCP - General Internal Medicine 10/12/11 documented as of this encounter
--- OUTSIDE RECORDS SUMMARY | 2025-04-19 02:25 | XMS_ITS | Encounter Summary ---
Author Organization [facility] Address [address] [place] [address] Care Team Providers Care Aircraft Engine Mechanic Name Role Phone Virgil Sharp MD Primary Care Provider [phone] Encounter Details Date Type Department Care Team Description 09/27/2015 Resistor Inspector Report Medical Records [address] [place] [address] Zayda Bland Social History Tobacco Use Types [...] on filedocumented in this encounter Care Teams Aircraft Engine Mechanic Relationship Specialty Start Date End Date Virgil Sharp MD [address] [place] [address] PCP - General Internal Medicine 10/12/11 documented as of this encounter
--- OUTSIDE RECORDS SUMMARY | 2025-04-19 02:25 | XMS_ITS | Encounter Summary ---
Author Organization [facility] Address [address] [place] [address] Care Team Providers Care Silk Screener Name Role Phone Virgil Sharp MD Primary Care Provider [phone] Encounter Details Date Type Department Care Team Description 07/17/2016 Central Office Trouble Shooter Report Medical Records [address] [place] [address] Zayda Bland Social History Tobacco Use Types [...] on filedocumented in this encounter Care Teams Silk Screener Relationship Specialty Start Date End Date Virgil Sharp MD [address] [place] [address] PCP - General Internal Medicine 10/12/11 documented as of this encounter
--- OUTSIDE RECORDS SUMMARY | 2025-04-19 02:25 | XMS_ITS | Encounter Summary ---
Author Organization [facility] Address [address] [place] [address] Care Team Providers Care Hose Tender Name Role Phone Virgil Sharp MD Primary Care Provider [phone] Encounter Details Date Type Department Care Team Description 12/02/2019 Release of Information Medical Records [address] [place] [address] Abstract, Provider Social History Tobacco Use Types [...] on filedocumented in this encounter Care Teams Hose Tender Relationship Specialty Start Date End Date Virgil Sharp MD [address] [place] [address] PCP - General Internal Medicine 10/12/11 documented as of this encounter
--- OUTSIDE RECORDS SUMMARY | 2025-04-19 02:25 | XMS_ITS | Clinical Summary ---
Author Organization [facility] Address [address] [place] [address] Care Team Providers Care Director Personal Name Role Phone Virgil Sharp MD Primary Care Provider [phone] Allergies No known active allergies Medications Medication [...] 68 12/14/2019 10:52 AM EDT Temperature 37.2 C (98.9 F) 12/14/2019 10:52 AM EDT Respiratory Rate 12 12/14/2019 10:52 AM EDT [...] 06/15/2019, 06/11/2018, Additional history exists MAMMOGRAM 2023 BMI CHECK/ADVISE 05/20/2024 06/15/2019, 08/2018, 03/06/2019, Additional history exists DEPRESSION SCREENING/FOLLOWUP 05/20/2024 12/10/2019 SOCIAL NEEDS SCREENING 05/20/2024 12/10/2019, 2018 CHOLESTEROL SCREENING 06/15/2024 06/15/2019 , 06/16/2018, 01/08/2017, Additional history exists INFLUENZA (#1) 2025 06/15/2019, 02/17, 03/05/2018, Additional history exists DTAP/TDAP/TD (2 - Td or Tdap) 01/08/2027 01/08/2017 PNEUMOCOCCAL VACCINE FOR HIG H RISK PATIENTS (#2) 2048 06/11/2018 Care Teams Director Personal Relationship Specialty Start Date End Date Virgil Sharp MD [address] [place] [address] PCP - General Internal Medicine 10/12/11
--- OUTSIDE RECORDS SUMMARY | 2025-04-19 02:26 | XMS_ITS | Clinical Summary ---
Author Organization [employer] Address [address] [place] [address] [address] [place] [address] Care Team Providers Care Cisco Network Engineer Name Role Phone Pearl Figueroa MD Primary Care Provider + Allergies No known active allergies Medications * This document contains information received from the source organization and may not represent a complete record from that organization. triamcinolone (Kenalog) 0.1 % cream Apply topically if needed each day for irritation or rash. 80 g 5 Active cetirizine (ZyrTEC) 10 MG tablet TAKE 1 TABLET BY MOUTH EVERY DAY 90 tablet 5 Active traZODone (Desyrel) 50 MG tablet Take 1 tablet (50 mg) by mouth at bedtime. 30 tablet 5 Active FLUoxetine (PROzac) 10 MG tablet 1 tab PO/d x 1w then 2 tabs PO/d thereafter 60 tablet 1 5 Active fluticasone (Flonase) 50 MCG/ACT nasal spray Administer 1 spray into each nostril Once per day. 16 g 2 5 Active cyclobenzaprine (Flexeril) 10 MG tablet Take 1 tablet (10 mg) by mouth at bedtime for 10 days. 10 tablet 5 Active Active Problems Problem Noted Date Diagnosed Date Preventative health care 02/18/2025 Assessment & Plan (02/18/2025 2:59 PM EDT): Discussed with patient re increase fresh fruit and vegetable intake. Counseled re moderate exercise as tolerated, up to 20min/d Patient feels safe at home. PAP smear: UTD, next one due on 2027 Mammogram: UTD, next one due May 2024 (BI-RADS 3) Eye exam: Referred to eye clinic Lipids/FBS: UTD, next one due December 2025 Vaccinations: Agreed to influenza immunization. Declined COVID immunization or PCV 20. Advised to get them at the least convenience along with HPV VAX (she is aware that insurance may or may not cover it) Dental visit: UTD, next one due on 05/08/2025 I gave her information regarding HCP and she will bring them signed by HCP and alternate HCP at next appointment with me. Class 1 obesity due to exces s calories with serious comorbidity and body mass index (BMI) of 32.0 to 32.9 in adult 02/18/2025 Menstrual cramps 02/05/2025 Assessment & Plan (02/05/2025 11:28 AM EDT): Advised patient to rest, I hot compresses on lower abdomen I will prescribe for patient ibuprofen 800 mg every 8 hours with full stomach and Zofran for nausea I will refer patient to technical trainer Nausea 02/05/2025 Fibroids 02/05/2025 Chronic pruritus 12/28/2024 Assessment & Plan (12/28/2024 1:27 PM EDT): Unclear if related to environmental allergies versus cholestasis from EtOH use. Order LFTs, advised to quit alcohol, increase water intake, rest Rx Zyrtec and hydroxyzine as needed itchiness and use triamcinolone/moisturizing cream mixture for the next 2 weeks Acute pain of left shoulder 07/21/2024 Assessment [...] Needs repeated pap smear, will refer to SENIOR INFORMATION SECURITY ARCHITECT incase she needs colposcopy. Back pain 06/18/2024 Assessment & Plan (06/18/2024 1:14 PM EST): Pt will start PT next month. Fatty liver 02/17/2024 Assessment & Plan (02/18/2025 2:52 PM EDT): FIB-4 Calculation: 1.05 at 12/28/2024 12:27 PM Calculated from: SGOT/AST: 53 U/L at 12/28/2024 12:27 PM SGPT/ALT: 74 U/L at 12/28/2024 12:27 PM Platelets: 241 X10*3/uL at 12/28/2024 12:27 PM Age: 39 years Most likely related to fatty liver, not liver cirrhosis (low fib 4). We discussed about avoiding alcohol, weight reduction. Follow-up liver ultrasound and follow-up with me in 3 to 4 months. Assessment & Plan (12/28/2024 1:26 PM EDT): We discussed about cutting down on alcohol use and any high calorie/fat meals Check LFTs today and follow-up in 6 weeks, will decide on further imaging studies then.. She is hepatitis B immune Assessment & Plan (06/18/2024 1:13 PM EST): [...] insurance. Alcohol use 02/17/2024 Assessment & Plan (12/28/2024 1:26 PM EDT): Advised to quit alcohol completely, check LFTs She will cut down on her own, declines AUD referral Assessment & Plan (02/17/2024 11:24 AM EDT): On weekends Advised to cur down to Off We'll aim to rx anxiety and then work on AUD if needed. Order LFTs and hepatitis profile. Will have Influenza IZ today, advised to have Covid booster at earliest con kathie. Screening mammogram for breast cancer 02/17/2024 Anxiety 02/17/2024 Assessment & Plan (02/18/2025 2:53 PM EDT): Patient to continue working on sobriety, congratulated her for cutting down on alcohol. Start trazodone nightly x 2 weeks and then as needed Start low-dose fluoxetine and titrate up as needed, follow-up with me in 6 to 8 weeks She feels safe at home and is able to reach out for safety, she will follow-up with counselor. Assessment & Plan (08/28/2024 4:33 PM EDT): [...] for her anxiety. Pt completed intake at [facility] for OP services. Assessment & Plan (02/17/2024 11:23 AM EDT): For many years. We'll refer to [facility] in 2m with labs and see if she wants to start other meds. She feels safe at home and is able to reach out for safety. Encounters Date Type Department Care Team Description 02/18/2025 9:45 AM EDT Office Visit [facility] [address] [place] [phone] Pearl Figueroa MD Anxiety (Primary Dx); Fatty liver; Preventative health care; Class 1 obesity due to excess calories with serious comorbidity and body mass index (BMI) of 32.0 to 32.9 in adult; Encounter for immunization; Dietary counseling; Exercise counseling 02/18/2025 Travel 02/18/2025 Telephone [facility] [address] [place] [address] [phone] Pearl Figueroa MD Chart Prep 02/11/2025 Travel 02/10/2025 Patient Outreach [facility] [address] [place] [phone] Pearl Figueroa MD Pre-visit Planning (SDOH screening negative and tobacco screening negative) 02/05/2025 9:40 AM EDT Office Visit [facility] [address] [place] [address] [phone] Martha Colunga MD Menstrual cramps; Nausea; Fibroids 02/05/2025 Travel 01/24/2025 Refill [facility] [address] [place] [address] [phone] Pearl Figueroa MD 01/21/2025 Refill [facility] [address] [place] [phone] Pearl Figueroa MD from Last 3 Months Immunizations Immunization Administration Dates Next Due Influenza Injectable Quadriv alant Preservative Free IIV4 MDCK 06/15/2019,03/05/2018 Influenza injectable quadriv alent preservative free 05/10/2021,07/05/2017 Influenza, IIV3, injectable 04/01/2012 Influenza, seasonal, injecta ble, preservative free 02/18/2025,02/17/2024,04/01/2012 Pneumococcal Polysaccharide PPSV23 06/11/2018 Tdap 01/08/2017 Social [...] Answer Date Recorded Patient Health Questionnaire-9 Score 19 02/18/2025 Patient Health Questionnaire-9 Score 19 02/18/2025 Last PHQ-9: Questionnaire Data Not on file 1 Housing Stability Answer Date Recorded What is [...] Answer Date Recorded Patient Health Questionnaire-2 Score 5 02/18/2025 Internet Access Answer Date Recorded Internet Access Q1 Yes 02/10/2025 Internet Access Q2 Not on file 02/10/2025 Comments Unknown Intention Date Recorded No desire to become (finding) 1 Sex and Gender Information Value Date Recorded Sex Assigned at Female 11/08/2023 11:28 AM EDT Legal Sex Female 11:26 AM EDT Gender Identity Female 11/08/2023 11:28 AM EDT Sexual Orientation Don't know 11/08/2023 11 :28 AM EDT Last Filed Vital Signs Vital Sign Reading Time Taken Comments Blood Pressure 122/84 02/18/2025 9:33 AM EDT Pulse 88 02/18/2025 9:33 AM EDT Temperature 34.2 C (93.6 F) 02/18/2025 9:33 AM EDT Respiratory Rate 16 02/18/2025 9:33 AM EDT Oxygen Saturation 98% 02/18/2025 9:33 AM EDT Inhaled Oxygen Concentration - - Weight 86.9 kg (191 lb 9.6 oz) 02/18/2025 9:33 A M EDT Height 162.6 cm (5' 4 ) 02/18/2025 9:33 AM EDT Body Mass Index 32.89 02/18/2025 9:33 AM EDT Plan of Treatment Upcoming Encounters Date Type Department Care Team (Late st Contact Info) Description 05/07/2025 11:45 AM EST Office Visit [facility] [address] [place] [address] [phone] Pearl Figueroa MD [address] [place] [phone] Health Maintenance Due Date Last Done Comments HIV Screening 1985 Hepatitis A Vaccines (1 of 2 - Risk 2-dose series) 2002 Hepatitis B Vaccines (1 of 3 - 19+ 3-dose series) 2002 COVID-19 Vaccine ( - season) 2025 Diagnostic Breast Imaging 05/14/2025 11/12/2024, Mammogram 05/14/2025 11/12/2024, 10/19, 05/14/2024, Additional history exists Depression Monitoring 08/19/2025 02/18/2025, 025 Disability Screening 08/26/2025 08/26/2024 SDOH Screening 02/10/2026 02/10/2025 Alcohol/Substance Use Screening 02/18/2026 02/18/2025 Family Planning (PISQ) 02/18/2026 02/18/2025 Tobacco Screening 02/18/2026 02/18/2025 DTaP/Tdap/Td Vaccines (2 - Td or Tdap) 01/08/2027 01/08/2017 Pap Smear 09/23/2027 09/22/2024 Lipid Panel 02/16/2029 02/17/2024 Cervical Cancer Screening 09/22/2029 HPV/Cotest 09/22/2029 09/22/2024 Zoster Vaccines (1 of 2) 2033 RSV Patients and Patients Aged 60 years or older (1 - 1-dose 75+ series) 2058 Pneumococcal Vaccine: Pediatrics (0 to 5 Years) and At-Risk Patients (6 to 49) Years Aged Out 06/11/2018 No longer eligible based on patient's age to complete this topic Hepatitis C Screening Completed 12/28/2024, 024 Influenza Vaccine Completed 02/18/2025, , 05/10/2021, Additional history exists HIB Vaccines Aged Out No longer eligi ble based on patient's age to complete this topic HPV Vaccines Discontinued IPV Vaccines Aged Out No longer eligi ble based on patient's age to complete this topic Meningococcal B Vaccine Aged Out No l onger eligible based on patient's age to complete [...] Procedure Name Priority Date/Time Associated Diagnosis Comments US ABDOMEN COMPLETE WITH ELASTOGRAPHY Routine 02/26/2025 10:02 AM EDT Fatty liver HEPATITIS PANEL, GENERAL Routine 12/28/2024 12:27 PM EDT Chronic pruritus Fatty liver BI MAMMOGRAM DIAGNOSTIC TOMOSYNTHESIS RIGHT Routine 11/12/2024 12:40 PM EDT HPV DNA, LOW/HIGH RISK Routine 9:08 AM EDT PAP SMEAR Routine 09/22/2024 9:08 AM EDT LIPID PANEL WITH REFLEX TO DIRECT LDL Routine 02/17/2024 11:30 AM EDT Fatty liver from Last 3 Months or Most Recently Relevant to Health Maintenance Results * US Abdomen Comp w elastography (02/26/2025 10:02 AM EDT) Anatomical Region Laterality Modality Abdomen Ultrasound 02/26/2025 10:0 2 AM EDT Narrative 02/26/2025 10:49 AM EDT [place] [address] Ultrasound Report Signed Patient: Sharron Yang MR#: [id number] : 1985 Acct:[id number] Age/Sex: 39 / F ADM Date: 02/26/25 Loc: HO.US Attending Dr: Pearl Figueroa MD Ordering Physician: Pearl Figueroa MD Date of Service: 02/26/25 Procedure(s): US abdomen comp w elastography Accession Number(s): [id number] cc: Pearl Figueroa MD Reason for Exam: Progressive elevation of LFTs/alcohol use, rule out liver cirrhosis EXAMINATION: US COMPLETE ABDOMEN WITH LIVER ELASTOGRAPHY CLINICAL INFORMATION: Progressive elevation of LFTs, EtOH use. Rule out cirrhosis. COMPARISON: No prior elastography. Abdomen US 07/03/2024. TECHNIQUE: Real-time imaging of the abdominal viscera. Noninvasive ultrasound liver fibrosis assessment is performed using Siemens point quantification shear wave elastography (pSWE) with a C5-2 MHz transducer. Multiple elastography samples are obtained. FINDINGS: PANCREAS: The visualized pancreatic head and body are normal in appearance. The remainder of the pancreas is obscured from visualization by the overlying bowel gas. ABDOMINAL AORTA: No aortic aneurysm is seen. INFERIOR VENA CAVA: Visualized portions are normal. LIVER: The liver demonstrates normal size, contour and is diffusely increased in echogenicity. No suspicious focal lesion or intrahepatic biliary duct dilatation. The right lobe measures 14.7 cm in length. The left lobe measures 10.3 cm in length. Portal flow is towards the liver (hepatopetal). Shear wave liver elastography median stiffness is 1.12 m/s (reference: normal median stiffness is 1.3 m/s or less). IQR/median stiffness to assess sampling precision is 0.28 (reference: good quality data set is IQR/median stiffness of 0.30 or less). This indicates a quality data set. GALLBLADDER: The gallbladder is surgically absent. COMMON BILE DUCT: Normal in caliber measuring 0.6 cm in diameter. RIGHT KIDNEY: No hydronephrosis. No renal calculi or focal parenchymal lesions. The kidney measures 10.8 cm in maximum dimension. LEFT KIDNEY: No hydronephrosis. No renal calculi or focal parenchymal lesions. The kidney measures 10.8 cm in maximum dimension. SPLEEN: Unremarkable. The spleen measures 9.1 cm in maximum dimension. FREE FLUID: None seen. US/US abdomen comp w elastography IMPRESSION: 1. Diffusely increased hepatic echogenicity, likely on the basis of steatosis. No suspicious focal lesion. 2. Liver elastography: Measurements are consistent with a high probability of normal liver stiffness. 3. Cholecystectomy. Normal bile ducts. 4. Remainder of the examination is normal. REFERENCE: Society of Radiologists in Ultrasound Liver Stiffness Thresholds (2020): LIVER STIFFNESS THRESHOLDS: *Liver Stiffness equal or less than 1.3 m/s: High probability of being normal. *Liver Stiffness less than 1.7 m/s: In the absence of other known clinical signs, rules out compensated advanced chronic liver disease. *Liver Stiffness 1.7-2.1 m/s: Suggestive of compensated advanced chronic liver disease but need further test for confirmation. *Liver Stiffness over 2.1 m/s: Rules in compensated advanced chronic liver disease. *Liver Stiffness over 2.4 m/s: Suggestive of clinically significant portal hypertension. QUALITY OF DATA SET: *IQR/Median value equal or less than 0.3 implies a quality data set. *IQR/Median value over 0.3 implies a poor quality data set. SIGNIFICANT CHANGE FROM PRIOR EXAM: Significant change if liver stiffness measurement is 10% or greater from prior exam. OTHER CONSIDERATIONS: The stage of liver fibrosis may be overestimated in the setting of acute hepatitis, liver inflammation, elevated liver function tests, hepatic vascular congestion, obstructive cholestasis, non-fasting state, and infiltrative diseases such as amyloidosis and lymphoma. In some patients with NAFLD, the liver stiffness thresholds for compensated advanced chronic liver disease may be lower. In causes other than viral hepatitis and NAFLD, liver stiffness thresholds are not well established. Electronically signed by: Everton Lopes MD 02/26/2025 10:46 AM EDT Dictated By: Everton Lopes MD Signed By: <Electronically signed by Everton Lopes MD in [place]> 02/26/25 1046 DD/ 1002 TD/TT: 02/26/25 1023 Rn Radiation Oncology: Procedure Note Donotuseinterpreter, Image - 02/26/2025 [place] [address] Ultrasound Report Signed Patient: Imtiaz Yang#: [id number] : 1985Acct:[id number] Age/Sex: 39 / FADM Date: 02/26/25 Loc: HO.US Attending Dr: Pearl Figueroa MD Ordering Physician: Pearl Figueroa MD Date of Service: 02/26/25 Procedure(s): US abdomen comp w elastography Accession Number(s): [id number] cc: Pearl Figueroa MD Reason for Exam: Progressive elevation of LFTs/alcohol use, rule outliver cirrhosis EXAMINATION: US COMPLETE ABDOMEN WITH LIVER ELASTOGRAPHY CLINICAL INFORMATION: Progressive elevation of LFTs, EtOH use. Rule out cirrhosis. COMPARISON: No prior elastography. Abdomen US 07/03/2024. TECHNIQUE: Real-time imaging of the abdominal viscera. Noninvasive ultrasound liver fibrosis assessment is performed using Siemens point quantification shear wave elastography (pSWE) with a C5-2 MHz transducer. Multiple elastography samples are obtained. FINDINGS: PANCREAS: The visualized pancreatic head and body are normal in appearance. The remainder of the pancreas is obscured from visualization by the overlying bowel gas. ABDOMINAL AORTA: No aortic aneurysm is seen. INFERIOR VENA CAVA: Visualized portions are normal. LIVER: The liver demonstrates normal size, contour and is diffusely increased in echogenicity. No suspicious focal lesion or intrahepatic biliary duct dilatation. The right lobe measures 14.7 cm in length. The left lobe measures 10.3 cm in length. Portal flow is towards the liver (hepatopetal). Shear wave liver elastography median stiffness is 1.12 m/s (reference: normal median stiffness is 1.3 m/s or less). IQR/median stiffness to assess sampling precision is 0.28 (reference: good quality data set is IQR/median stiffness of 0.30 or less). This indicates a quality data set. GALLBLADDER: The gallbladder is surgically absent. COMMON BILE DUCT: Normal in caliber measuring 0.6 cm in diameter. RIGHT KIDNEY: No hydronephrosis. No renal calculi or focal parenchymal lesions. The kidney measures 10.8 cm in maximum dimension. LEFT KIDNEY: No hydronephrosis. No renal calculi or focal parenchymal lesions. The kidney measures 10.8 cm in maximum dimension. SPLEEN: Unremarkable. The spleen measures 9.1 cm in maximum dimension. FREE FLUID: None seen. US/US abdomen comp w elastography IMPRESSION: 1. Diffusely increased hepatic echogenicity, likely on the basis of steatosis. No suspicious focal lesion. 2. Liver elastography: Measurements are consistent with a high probability of normal liver stiffness. 3. Cholecystectomy. Normal bile ducts. 4. Remainder of the examination is normal. REFERENCE: Society of Radiologists in Ultrasound Liver Stiffness Thresholds (2019): LIVER STIFFNESS THRESHOLDS: *Liver Stiffness equal or less than 1.3 m/s: High probability of being normal. *Liver Stiffness less than 1.7 m/s: In the absence of other known clinical signs, rules out compensated advanced chronic liver disease. *Liver Stiffness 1.7-2.1 m/s: Suggestive of compensated advanced chronic liver disease but need further test for confirmation. *Liver Stiffness over 2.1 m/s: Rules in compensated advanced chronic liver disease. *Liver Stiffness over 2.4 m/s: Suggestive of clinically significant portal hypertension. QUALITY OF DATA SET: *IQR/Median value equal or less than 0.3 implies a quality data set. *IQR/Median value over 0.3 implies a poor quality data set. SIGNIFICANT CHANGE FROM PRIOR EXAM: Significant change if liver stiffness measurement is 10% or greater from prior exam. OTHER CONSIDERATIONS: The stage of liver fibrosis may be overestimated in the setting of acute hepatitis, liver inflammation, elevated liver function tests, hepatic vascular congestion, obstructive cholestasis, non-fasting state, and infiltrative diseases such as amyloidosis and lymphoma. In some patients with NAFLD, the liver stiffness thresholds for compensated advanced chronic liver disease may be lower. In causes other than viral hepatitis and NAFLD, liver stiffness thresholds are not well established. Electronically signed by: Everton Lopes MD 02/26/2025 10:46 AM EDT Dictated By: Everton Lopes MD Signed By: <Electronically signed by Everton Lopes MD in [place]> 02/26/25 1046 DD/ 1002 TD/TT: 02/26/25 1023 Rn Radiation Oncology: us Pearl Figueroa MD IMG US PROCEDURES Final Result * Hepatitis Panel, General (12/28/2024 12:27 PM EDT) Hepatitis A IgM Nonreactive Nonreactive [facility] Comment:IgM antibodies to COY V not detected; does not exclude earlyacute or recovered HAV infection. ~Hepatitis B Surface Antibody REACTIVE Nonreactive [facility] Comment:REACTIVE: > 11.99 mI U/mL Hepatitis B Core Antibody Nonreactive Nonreactive [facility] Hepatitis C Antibody Nonreactive Nonreactive [facility] Comment:Antibodies to HCV no t detected; does not exclude early acuteHCV infection. Hepatitis B Surface Ag Negative Negative [facility] Blood 12/28/2024 12:2 7 PM EDT 12/28/2024 1:01 PM EDT us Pearl Figueroa MD LAB BLOOD ORDERABLES Fin al Result [facility] [address] [place] [phone] * BI Mammogram Diagnostic Tomosynthesis Right (11/12/2024 12:40 PM EDT) Anatomical Region Laterality Modality Breast Right Mammography 11/12/2024 12:4 0 PM EDT Narrative 11/12/2024 1:10 PM EDT [address] [place] [address] Mammography Report Signed Patient: Sharron Yang MR#: [id number] : 1985 Acct:[id number] Age/Sex: 39 / F ADM Date: 11/12/24 Loc: HO.MAMMO Attending Dr: Pearl Figueroa MD Ordering Physician: Pearl Figueroa MD Results: 3.6MProbably Benign Finding - Short 6 M F/U Suggested Date of Service: 11/12/24 Follow Up: 6 Month F/U Procedure(s): MM tomosynthesis diagnostic RT Accession Number(s): [id number] cc: Pearl Figueroa MD EXAMINATION: MM DIAGNOSTIC DIGITAL BREAST TOMOSYNTHESIS, RIGHT CLINICAL INFORMATION: 6 month follow-up right breast for asymmetry without sonographic correlate. COMPARISON: Mammography: Prior's on PACS. TECHNIQUE: Digital breast tomosynthesis is performed in both the craniocaudal and mediolateral oblique views along with computer-aided detection (CAD). Synthesized 2D images are generated from the tomosynthesis. FINDINGS: There are scattered areas of fibroglandular density (ACR BI-RADS breast composition Category b). Asymmetry superior right breast posterior depth on MLO view is not significantly changed from prior. No prior sonographic correlate was seen. No suspicious calcifications or other abnormal findings. MM/MM tomosynthesis diagnostic RT IMPRESSION: Asymmetry superior breast posterior depth on MLO view without prior sonographic correlate not significantly changed from prior. Recommend 6 month follow-up when the patient will be due for bilateral mammography to demonstrate 1 year of stability. ASSESSMENT: BI-RADS BI-RADS 3 - Probably benign finding(s) - 6 month follow-up suggested RECOMMENDATION: 6 Month F/U Results were provided to the patient at time of visit by the technologist. This patient's information was entered into a reminder system with a target due date for their next mammogram. Electronically signed by: Danitza Ch DO 11/12/2024 01:08 PM EDT Dictated By: Danitza Ch DO Signed By: <Electronically signed by Danitza Ch DO in [place]> 11/12/24 1308 DD/ 1240 TD/TT: 11/12/24 1256 Rn Radiation Oncology: Procedure Note Donotuseinterpreter, Image - 11/12/2024 [facility] [address] [place] [address] Mammography Report Signed Patient: Imtiaz Yang#: [id number] : 1985Acct:[id number] Age/Sex: 39 / FADM Date: 11/12/24 Loc: HO.MAMMO Attending Dr: Pearl Figueroa MD Ordering Physician: Pearl Figueroa MD Results: 3.6MProbably Benign Finding - Short 6 M F/U Suggested Date of Service: 11/12/24Follow Up: 6 Month F/U Procedure(s): MM tomosynthesis diagnostic RT Accession Number(s): [id number] cc: Pearl Figueroa MD EXAMINATION: MM DIAGNOSTIC DIGITAL BREAST TOMOSYNTHESIS, RIGHT CLINICAL INFORMATION: 6 month follow-up right breast for asymmetry without sonographic correlate. COMPARISON: Mammography: Prior's on PACS. TECHNIQUE: Digital breast tomosynthesis is performed in both the craniocaudal and mediolateral oblique views along with computer-aided detection (CAD). Synthesized 2D images are generated from the tomosynthesis. FINDINGS: There are scattered areas of fibroglandular density (ACR BI-RADS breast composition Category b). Asymmetry superior right breast posterior depth on MLO view is not significantly changed from prior. No prior sonographic correlate was seen. No suspicious calcifications or other abnormal findings. MM/MM tomosynthesis diagnostic RT IMPRESSION: Asymmetry superior breast posterior depth on MLO view without prior sonographic correlate not significantly changed from prior. Recommend 6 month follow-up when the patient will be due for bilateral mammography to demonstrate 1 year of stability. ASSESSMENT: BI-RADS BI-RADS 3 - Probably benign finding(s) - 6 month follow-up suggested RECOMMENDATION: 6 Month F/U Results were provided to the patient at time of visit by the technologist. This patient's information was entered into a reminder system with a target due date for their next mammogram. Electronically signed by: Danitza Ch DO 11/12/2024 01:08 PM EDT Dictated By: Danitza Ch DO Signed By: <Electronically signed by Danitza Ch DO in [place]> 11/12/24 1308 DD/ 1240 TD/TT: 11/12/24 1256 Rn Radiation Oncology: Pearl Figueroa MD IMG BI PROCEDURES Final Result * HPV DNA, Low/High Risk (09/22/2024 9:08 AM EDT) HPV High Risk Negative Negative [facility] HPV Genotype 16 Negative Negative [facility] HPV Genotype 18 Negative Negative [facility] Comment:HPV testing performe d at [facility] (CLIA#[id number]), [address] [place] [address].Testing for HPV was performed using the [employer]. The presence of HPV in the female genital tract isassociated with a number of diseases, including cervicalcarcinoma. The HPV DNA high risk pool tests for HPV 31, 33,35, 39, 45, 51, 52, 56, 58, 59, 66 and 68. The testing forHPV 16 and 18 genotypes has also been performed. A positiveresult indicates detection of nucleic acid sequences fromone or more subtypes, whereas a negative result indicatessuch sequences were not detected. 09/22/2024 9:08 AM EDT 09/23/2024 6:00 AM EDT us Generic External Data Provider LAB BLOOD ORDERAB LES Final Result [facility] [address] [place] [phone] * Pap Smear (09/22/2024 9:08 AM EDT) 09/22/2024 9:08 AM EDT 09/23/2024 6:00 AM EDT Narrative [facility] - 09/25/2024 12:31 PM EDT ----- ------- Name: Bhatt VikaSharron Age/Sex: 39/F : 1985 Unit#: [id number] Attend Dr: Alex Dueñas MD Re09/22/24 Status: DEP REF Location: [facility] Disch: ----- ------- SPEC : [id number] RECD: 09/23/24 STATUS: FLACO KELLEY NUM: [id number] CARLEEN: 09/22/[address] [facility] [address]: Alex Dueñas MD ENTERED: 09/23/24 SP TYPE: Pap Smr OTHR DR: Pearl Figueroa MD ORDERED: Pap Smear Interpretation Satisfactory for evaluation. Negative for intraepithelial lesion or malignancy. HPV High Risk: Negative HPV Genotyping 16: Negative HPV Genotyping 18: Negative Clinical Information LMP:Unknown date Previous PAP test:Unknown date/findings Material Received ThinPrep-Cervical Copies To: Pearl Figueroa MD [facility] [address] [place] [address] Alex Dueñas MD [facility] [address] [place] [address] ----- ------- Signed (signature on file) EDGAR Reyez (ASCP) 09/25/24 1231 ----- ------- END OF REPORT us Generic External Data Provider LAB CYTOLOGY DENISA BOWERS Final Result [facility] [address] [place] [phone] * Lipid Panel with Reflex to Direct LDL (02/17/2024 11:30 AM EDT) Triglycerides 120 <150 mg/dL [facility] Comment:Desirable Triglyceri de: less than 150 mg/dLBorderline High Triglyceride 150-199 mg/dLHigh Triglyceride: 200-499 mg/dLVery High Triglyceride: greater than or equal to 5OO mg/dL Cholesterol 151 <200 mg/dL [facility] Comment:Desirable Cholestero l: less than 200 mg/dLBorderline High Cholesterol: 200-239 mg/dLHigh Cholesterol: greater than 239 mg/dL LDL Cholesterol Calculated 78 <100 mg/dL [facility] Comment:Desirable LDL: less than 100 mg/dLNear Optimal/Above Optimal LDL: 110- 129 mg/dLBorderline High LDL: 130-159 mg/dLHigh LDL: 160-189 mg/dLVery High LDL: greater than or equal to 190 mg/dL HDL Cholesterol 49 >40 mg/dL [facility] Comment:Desirable HDL: great er than 40 mg/dL Note: This HDL assay may give artificially low results in patients with liver disease. Blood 02/17/2024 11:3 0 AM EDT 02/17/2024 1:18 PM EDT Pearl Figueroa MD LAB BLOOD ORDERABLES Fin al Result [facility] [address] [place] [phone] from Last 3 Months or Most Recently Relevant to Health Maintenance [place] [address] [place] [address] C3 Care Teams [employer] Network Engineer Relationship Specialty Start Date End Date Pearl Figueroa MD [address] [place] [phone] PCP - General Internal Medicine 02/17/24
--- OUTSIDE RECORDS SUMMARY | 2025-04-19 02:26 | XMS_ITS | Encounter Summary ---
Author Organization [facility] Address [address] [place] [address] Care Team Providers Care Traffic Control Technician Name Role Phone Virgil Sharp MD Primary Care Provider [phone] Encounter Details Date Type Department Care Team Description 12/27/2018 Release of Information Medical Records [address] [place] [id number] Abstract, Provider Social History Tobacco Use Types [...] on filedocumented in this encounter Care Teams Traffic Control Technician Relationship Specialty Start Date End Date Virgil Sharp MD [address] [place] [phone] PCP - General Internal Medicine 10/12/11 documented as of this encounter
--- OUTSIDE RECORDS SUMMARY | 2025-04-19 02:26 | XMS_ITS | Encounter Summary ---
Author Organization [employer] Address [address] [place] [address] 7 [place] [address] Care Team Providers Care Oracle Ascp Consultant Name Role Phone Pearl Figueroa MD Primary Care Provider + Reason for Visit * Reason Comments Med Refill Encounter Details Date Type Department Care Team (Late st Contact Info) Description 01/21/2025 Refill [facility] [address] [place] [address] Pearl Figueroa MD [address] [place] [address] Social History Tobacco Use Types Packs/Day Years [...] your housing situation today? I have malcom harrlel 02/07/[address] you li [...] 11:45 AM EST Office Visit [facility] [address] [place] [phone] Pearl Figueroa MD [address] [place] [phone] documented as of this encounter Visit Diagnoses Not on filedocumented in this encounter Additional Health Concerns Assessment Noted Time PHQ-9 Depression Total Score: 13 025 10:43 AM EDT documented as of this encounter Care Teams Oracle Ascp Consultant Relationship Specialty Start Date End Date Pearl Figueroa MD [address] [place] [phone] PCP - General Internal Medicine 02/17/24 documented as of this encounter
--- OUTSIDE RECORDS SUMMARY | 2025-04-19 02:26 | XMS_ITS | Encounter Summary ---
Author Organization [employer] Address [address] [place] [address] 7 [place] [address] Care Team Providers Care Branch Chief Name Role Phone Pearl Figueroa MD Primary Care Provider + Reason for Visit * Reason Onset Date Comments Medication Question 12/12/2023 Encounter Details Date Type Department Care Team ([facility] st Contact Info) Description 12/12/2023 Telephone [facility] [address] [place] [address] Lisandro Ascencio MD [address] [place] [address] Medication Question Social History Tobacco Use Types [...] Valdivia RN - 12/13/2023 11:29 AM EDT care transition manager in [facility] aware and message sent to provider regarding alternative. * Telephone Encounter - [address] - 12/12/2023 2:47 PM EDT Tc from pt requesting if PCP could prescribed and alternative for medication ciprofloxacin-dexAMETHasone (CiproDEX) otic suspension in the meantime of approval PA documented in this encounter Plan of Treatment Upcoming Encounters Date Type Department Care Team (Late st Contact Info) Description 05/07/2025 11:45 AM EST Office Visit [facility] [address] [place], [place] [phone] Pearl Figueroa MD [address] [place] [address] documented as of this encounter Visit Diagnoses Not on filedocumented in this encounter Care Teams Branch Chief Relationship Specialty Start Date End Date Pearl Figueroa MD [address] [place] [address] [phone] PCP - General Internal Medicine 02/17/24 documented as of this encounter
--- NOTE | 2025-04-19 05:12 | ED_ITS ---
HPI - Abdominal Pain General Chief Complaint: Abdominal Pain Stated Complaint: Stomach Pain Time Seen by Provider: 04/19/25 04:45 Source: patient Mode of arrival: ambulatory Limitations: no limitations History of Present Illness ED Provider: Everton NOE HPI narrative: The patient is a 40-year-old female presenting to the ED with a 3-day history of lower abdominal pain that acutely worsened this evening. She describes a constant pressure-like ache localized to the suprapubic/lower abdominal region and low back. Associated symptoms include nausea and non-bloody diarrhea. She denies vomiting. She denies dysuria, hematuria, or foul urine odor. She denies cough, runny nose, or other upper respiratory symptoms. No recent sick contacts. No irregular vaginal bleeding or vaginal discharge. Last menstrual period was 03 Apr 2025 and occurred as expected. She denies any recent injury or heavy lifting. Past surgical abdominal history notable for cholecystectomy >15 years ago. Denies any attempted interventions prior to arrival in the ED. Related Data Previous Rx's ?Medication ?Instructions ?Recorded aluminum hydrox-magnesium carb 254 10 ml PO QID PRN dy spepsia #355 mL 04/19/25 mg-237.5 mg/5 mL oral suspension (Gaviscon Extra Strength) loperamide 2 mg tablet (Imodium 2 mg PO Q4H PRN loose stool #20 04/19/25 A-D) tabs Allergies Allergy/AdvReac Type Severity Reaction Status Date / Time No Known Allergies Allergy Verified 04/19/25 00:08 Review of Systems Review of Systems Yes all other systems are reviewed and are negative PMFSH Past Medical History Medical History (Updated 04/19/25 @ 07:56 by Rohit Olivarez MD) Cervical high risk HPV (human papillomavirus) test positive Surgical History Hx of dilation and curettage Hx of cholecystectomy Family History Family History Mother Diabetes Social History Social History Household Members: Spouse and Children Housing: House Alcohol intake: current Alcohol intake frequency: holidays/special occasions only Patient Tobacco Use Status: Never used Tobacco Smoked in Last 30 Days: No Use of substances other than those prescribed or required for medical reasons: No Advance Directives: No Advance Directives Information Provided: No Patient : No Current occupational status: employed Current occupation: At school Sexual orientation: Straight/Heterosexual Gender identity: Female Physical Exam ED Vital Signs: Vital Signs - 24 hr 04/19/25 00:05 04/19/25 06:22 Temperature 97.4 F 97.8 F Pulse Rate 84 72 Respiratory Rate 16 16 Blood Pressure 153/75 H 121/74 Pulse Oximetry 97 100 Oxygen Delivery Method Room Air Room Air BMI result Body Mass Index 33.0 CONSTITUTIONAL: The patient appears non-toxic, well nourished and in no acute distress. Vital signs as documented. HEAD: Atraumatic, normocephalic. EYES: EOMs grossly intact, pupils equal, conjunctiva clear, no exudate. ENT: Nares patent, no discharge. Airway patent, no audible stridor, visible mucosa is pink and moist without noted lesions. NECK: Trachea is midline, no obvious masses or gross abnormalities. CHEST: Symmetric movement, normal appearance. LUNGS: LS present and CTAB, no w/r/r. Non-labored work of breathing. CARDIAC: Regular Rhythm, S1/S2 appreciated, no murmurs, rubs or gallops. ABDOMEN: Abdomen soft x4 quadrants, mild periumbilical tenderness, negative rebound, no palpable masses or organomegaly. Negative CVAT bilaterally. : Deferred. EXTREMITIES: Normal tone, moves all extremities spontaneously without reported pain. No obvious acute injury or deformity noted. NEURO: Alert and oriented x3, CN II-XII appear grossly intact. Cerebellar Functioning grossly intact. No obvious sensory or motor deficits. Speech clear and appropriate. PSYCH: normal affect, appropriate eye contact, fluid speech, with appropriate response to questioning. No reported suicidality or homicidality. SKIN: Warm, dry, color appropriate, normal turgor. No rashes noted. Medical Decision Making Medical Decision Making MDM Narrative: 5:12 AM 04/19/2025 (Bladimir NOE): The patient is a 40-year-old female presenting to the ED with a 3-day history of lower abdominal pain that acutely worsened this evening. She describes a constant pressure-like ache localized to the suprapubic/lower abdominal region and low back. Associated symptoms include nausea and non-bloody diarrhea. She denies vomiting. She denies dysuria, hematuria, or foul urine odor. She denies cough, runny nose, or other upper respiratory symptoms. No recent sick contacts. No irregular vaginal bleeding or vaginal discharge. Last menstrual period was 03 Apr 2025 and occurred as expected. She denies any recent injury or heavy lifting. Past surgical abdominal history notable for cholecystectomy >15 years ago. Denies any attempted interventions prior to arrival in the ED. On exam patient has mild periumbilical tenderness, negative rebound, no CVAT. The patient's low back pain is not reproducible with movement or palpation. The patient's laboratory evaluation is largely reassuring, no leukocytosis, anemia, electrolyte abnormality, or AYLEEN. The patient's urinalysis is positive for WBCs, small leukocyte esterase, and 1+ bacteria. However patient adamantly denies any urinary symptoms and reports she has had multiple previous urine samples which show similar findings but have no growth on cultures. Based on laboratory evaluation, vital signs, and constellation of symptoms, the patient is likely suffering from a viral gastroenteritis, however due to the patient's abdominal tenderness we will obtain CT abdomen and pelvis to rule out acute intra- abdominal pathology. While awaiting CT results the patient will be treated with IV fluid hydration, Toradol, and Zofran. Time: 07:46 Date: 04/19/25 Provider: Rohit Olivarez MD I assumed care of this patient from my colleague, physician assistant research scientist Everton Gaston at 06:15 hours pending the patient's CAT scan result. Patient presents emergency department for evaluation of nausea, abdominal pain, loose stools x3 days. CBC and BMP were normal. Urinalysis was positive for leukocyte esterase. Microscopic revealed 10-20 WBCs, 3-5 squamous cells 1+ bacteria but the patient is asymptomatic. Patient's urine test was negative. CT scan of the abdomen pelvis with IV contrast did not reveal any acute findings, the patient did have steatosis. The patient most likely has a viral syndrome and I did discuss this with her. Patient does take omeprazole at home. She was given a prescription for extra-strength Gaviscon 10 cc 4 times a day as needed for abdominal pain and Imodium for her diarrhea. She was given printed and verbal instructions and discharged home. Admission/Observation Consideration of admission/observation: Escalation of care including admission/observation considered Lab Data 04/19/25 00:22 04/19/25 00:22 Labs: Lab Results 04/19/25 Range/Units 00:22 WBC 10.3 (4.8-10.8) X10*3/uL RBC 4.31 (4.20-5.50) X10*6/uL Hgb 12.8 (12.0-16.0) g/dl Hct 38.5 (37.0-47.0) % MCV 89.3 (80.0-98.0) fL MCH 29.7 (27.0-33.0) pg MCHC 33.2 (31.0-35.0) g/dl RDW 11.6 (11.0-16.0) % Plt Count 269 (160-400) X10*3/uL MPV 8.9 L (9.4-12.3) fL Immature Gran % (Auto) 0.3 (0.0-0.4) % Neut % (Auto) 58.0 (45-73) % Lymph % (Auto) 33.4 (20-40) % [place] % (Auto) 7.0 (2-11) % Eos % (Auto) 1.0 (0-4) % Baso % (Auto) 0.3 (0-2) % Lymph # (Auto) 3.5 (1.2-4.9) X10*3/uL [place] # (Auto) 0.7 (0.1-1.2) X10*3/uL Eos # (Auto) 0.1 (0.0-0.4) X10*3/uL Baso # (Auto) 0.0 (0.0-0.2) X10*3/uL Abs Immat Gran (auto) 0.03 (0.00-0.03) X10*3/uL Absolute Neuts (auto) 6.0 (2.0-8.3) x10*3/uL Absolute Nucleated RBC 0.000 (0.0-0.012) X10*3/uL Nucleated RBC % (auto) 0.0 (0.0-0.2) /100WBC Sodium 139 (135-145) mmol/L Potassium 3.7 (3.3-5.1) mmol/L Chloride 107 (96-108) mmol/L Carbon Dioxide 24 (22-29) mmol/L Anion Gap 12 (12-20) BUN 16 (9-16) mg/dL Creatinine 0.90 (0.5-1.4) mg/dL Estim Creat Clear Calc 87.0 Estimated GFR > 60 Random Glucose 88 (60-115) mg/dL Calcium 8.7 (8.4-10.2) mg/dL Urine Color Yellow Urine Appearance Clear Urine pH 7.0 (5.0-9.0) Ur Specific [place] 1.025 (1.005-1.025) Urine Protein Negative (Neg-Trace) mg/dL Urine Glucose (UA) Negative (Negative) mg/dL Urine Ketones Negative (Negative) mg/dL Urine Blood Negative (Negative) Urine Nitrite Negative (Negative) Ur Leukocyte Esterase Small (1+) H (Negative) Urine RBC 0-2 (0-2) /HPF Urine WBC 11-20 H (0-5) /HPF Ur Squamous Epith Cells 3-5 (0-2) /HPF Urine Bacteria 1+ (None Seen) Hyaline Casts 0-2 (0-2) /LPF Urine Test NEGATIVE (NEGATIVE) Radiology Impression Discussion of test interpretation with radiology: I have reviewed the radiologist's reading. Radiologist Impression: CT abdomen and pelvis with contrast Comparison: [place] - US ABDOMEN COMPLETE WITH LIVER ELASTOGRAPHY - 02/26/25 09:57 EDT US - US ABDOMEN COMPLETE - 07/03/24 10:05 EST Findings: The lung bases are clear. The liver is diffusely hypoenhancing consistent with hepatic steatosis. Gallbladder is absent. Spleen, pancreas, bilateral adrenal glands, and bilateral kidneys are unremarkable. No nephrolithiasis. No abdominal or pelvic free fluid. No intra-abdominal or pelvic lymphadenopathy. No bowel obstruction, pneumoperitoneum, or pneumatosis. The appendix is normal. Bladder and uterus are within normal limits. No acute osseous abnormality. Fat containing umbilical hernia. No acute soft tissue finding. IMPRESSION: No acute intra-abdominal or pelvic findings. Hepatic steatosis. This document has been electronically signed by: Basil Austin MD on 04/19/2025 06:57:05 Dictated By: Basil Austin MD Medications Administered Discontinued Medications Generic Name Dose Route Start Last Admin Trade Name Freq PRN Reason Stop Dose Admin Sodium Chloride 1,000 mls @ 999 mls/hr 04/19/25 05:15 04/19/25 06:56 Ns IV 04/19/25 06:15 Infused .Q1H1M ADAM Infusion Iohexol 100 ml 04/19/25 05:43 04/19/25 05:43 Iohexol 350 Mg/Ml 100 Ml Infus..Btl IV 04/19/25 05:44 85 ml ONCE ONE Administration Ketorolac Tromethamine 15 mg 04/19/25 05:10 04/19/25 05:32 Ketorolac Tromethamine 15 Mg/Ml Vial IVPUSH 04/19/25 05:11 15 mg ONCE ONE Administration Ondansetron HCl 4 mg 04/19/25 05:10 04/19/25 05:33 Ondansetron Hcl 4 Mg/2 Ml Vial IVPUSH 04/19/25 05:11 4 mg ONCE ONE Administration Discharge Plan Discharge Clinical Impression: Acute viral syndrome Gastritis Qualifiers: Chronicity: acute Gastritis bleeding: without bleeding Diarrhea Qualifiers: Diarrhea type: unspecified type Qualified Code(s): R19.7 - Diarrhea, unspecified Patient Disposition: Home, Self-Care Instructions: Gastritis (ED) Additional Instructions: Your blood work was unremarkable. Your urine did reveal white blood cells and bacteria however you do not have any symptoms for urinary tract infection therefore I am not going to start you on antibiotics at this time. The CT scan of your abdomen pelvis did not reveal any significant findings to explain your abdominal pain and diarrhea. Your symptoms are most likely caused by a viral infection. Continue taking your Zofran (ondansetron) as prescribed by your providers. Continue taking your omeprazole as prescribed by your providers. Take extra-strength Gaviscon 10 mL (2 tsp) 4 times a day as needed for abdominal pain. For diarrhea I want you to take Imodium 2 mg pills. ?Take 2 pills after the 1st loose, diarrheal stool then 1 pill after each loose, diarrheal stool up to 8 pills per day. ?This usually stops diarrhea within 24 hours. Follow-up with your doctor in 2 days. Please return to the emergency department if your symptoms get worse or if you develop any symptoms that are concerning to you. Prescriptions: New loperamide [Imodium A-D] 2 mg tablet 2 mg PO Q4H PRN (Reason: loose stool) Qty: 20 0RF Gaviscon Extra Strength 254-237.5 mg/5 mL suspension 10 ml PO QID PRN (Reason: dyspepsia) Qty: 355 0RF Print Language: German
[2025-04-19] MEDS: iohexoL 350 MG/ML 100 ML INFUS..BTL IV (05:43)
[2025-04-19 06:22] VITALS: BP 121/74; PULSE 72; RESP 16; TEMP 36.6; O2SAT 100
[2025-04-19 08:05] VITALS: BP 126/84; PULSE 69; RESP 15; TEMP 36.6; O2SAT 98
[2025-04-19 08:11] VITALS: BP 126/84; PULSE 69; RESP 15; TEMP 36.6; O2SAT 98
== END 2025-04-19 08:11 | disposition home or self-care (01) ==
PROVIDERS: Emergency Medicine; Emergency Provider Emergency Medicine Emergency Medical Services; PCP Internal Medicine
DX: K29.00 Acute gastritis without bleeding (principal); B34.9 Viral infection, unspecified; R19.7 Diarrhea, unspecified
CPT/HCPCS: 36415; 74177; 80048; 81001; 81025; 85025; 87086; 96361; 96374; 96375; 99284; 99285; J1885; J2405; Q9967

== ENCOUNTER → 2025-04-19 05:10 | Outpatient (BNV) | payer MEDICAID, SELFPAY | PROVIDERS: Emergency Provider Emergency Medicine; PCP Internal Medicine; Visit Provider Radiology Vascular & Interventional Radiology | DX: K76.0 Fatty (change of) liver, not elsewhere classified (principal) | CPT/HCPCS: 74177 ==